=== PATIENT | male | born 1950 | race Caucasian/White ===

== ENCOUNTER 2019-09-05 10:40 | Inpatient (IN) ==
--- OUTSIDE RECORDS SUMMARY | 2019-09-05 10:43 | External Medical Summary | Continuity of Care Document ---
:1950 Author Name Katy Tran, Provider Address Unavailable Unavailable , Care Team Providers Name Role Phone Shahzad [email or web address] PCP, UNKNOWN Unavailable Unavailable Assessments Assessed Problems:Lower abdominal pain, left Problems Asthma (493.90) (J45.909) Hypertension (401.9) (I10) Lower abdominal pain, left Sleep apnea (780.57) (G47.30) Allergies and Adverse Reactions Allergy history not documented Medications Probenecid 500 MG Oral Tablet Refills: 0 Naproxen Sodium 550 MG Oral Tablet Refills: 0 Lasix 40 MG Oral Tablet Refills: 0 NexIUM 40 MG Oral Capsule Delayed Release Refills: 0 Atenolol 25 MG Oral Tablet Refills: 0 Avodart 0.5 MG Oral Capsule Refills: 0 Darvocet-N 100 TABS Refills: 0 Zocor 20 MG Oral Tablet Refills: 0 Xanax 0.25 MG Oral Tablet Refills: 0 Vasotec 5 MG Oral Tablet Refills: 0 Vitamin B-12 1000 MCG/ML SOLN Refills: 0 Aspirin 81 MG TABS Refills: 0 Procedures History of Knee Surgery Status: Complete d Immunizations Immunizations not documented Plan of Treatment Planned Observations Planned Goals not documented Results No Known Results Results not documented Encounters Appointment; Shahzad Victoria M.D. 22-Jan-2010 15:30 Encounter Diagnosis: Problem not documented
[2019-09-05] MEDS ORDERED: HYDROmorphone INJ 0.5 MG/0.5 ML SYR IV STA ×2 (11:20→13:37)
[2019-09-05] MEDS ORDERED: ONDANSETRON INJ 2 MG/ML 2 ML VIAL IV STA (11:20)
[2019-09-05] MEDS ORDERED: SODIUM CHLORIDE 0.9% 1000ML 1,000 ML IV SCH (11:30)
[2019-09-05 11:34] LABS: Appearance Urine Clear (Clear); Bilirubin Urine Negative (Negative); Blood Urine Negative (Negative); Color Urine Yellow; Glucose Urine UA Negative (Negative); Ketones Urine Negative (Negative); Leukocyte Esterase Urine Negative (Negative); Nitrite Urine Negative (Negative); Protein Urine Negative (Negative); Specific Gravity Urine 1.012 (1.000-1.030); Urobilinogen Urine Negative (Negative)
[2019-09-05 11:55] LABS: Basophils # (auto) 0.01 K/uL (0-0.2); Basophils % (auto) 0.1 %; Eosinophils # (auto) 0.43 K/uL (0-0.5); Eosinophils % (auto) 5.6 %; Hematocrit (blood only) 35.6 % (42-52); Immature Granulocytes # (auto) 0.02 K/uL (0.00-0.02); Immature Granulocytes % (auto) 0.3 %; Lymphocytes # (auto) 1.09 K/uL (1.2-3.4); Lymphocytes % (auto) 14.3 %; Mean Corpuscular Hemoglobin 29.4 pg (25-34); Mean Corpuscular Hgb Conc 33.7 g/dL (32-36); Mean Corpuscular Volume 87.3 fL (80-100); Mean Platelet Volume 10.2 fL (7.4-10.4); Monocytes # (auto) 0.67 K/uL (0.11-0.59); Monocytes % (auto) 8.8 %; Neutrophils % (auto) 70.9 %; Platelet Count 163 K/uL (130-400); RDW Coefficient of Variation 13.6 % (11.5-14.5); RDW Standard Deviation 43.7 fL (36.4-46.3); Red Blood Count 4.08 M/uL (4.7-6.1); White Blood Count 7.62 K/uL (4.8-10.8)
[2019-09-05 12:11] LABS: Albumin Level 3.4 gm/dl (3.4-5.0); BUN Creatinine Ratio 15.5 (10-20); Calcium 8.4 mg/dl (8.5-10.1); Creatinine Clr Calc Pharmacy 63.7 ml/min; Est GFR (African American) 52.6; Est GFR (Non-African American) 45.4; Potassium 3.9 mmol/L (3.5-5.1)
[2019-09-05 12:14] LABS: Albumin Globulin Ratio 1.1 (0.9-2); Bilirubin,Total 0.4 mg/dl (0.2-1); Globulin 3.2 gm/dl (2.5-4.0); Total Protein 6.6 gm/dl (6.4-8.2)
[2019-09-05 12:16] LABS: INR 2.4 (0.9-1.1); Partial Thromboplastin Ratio 1.8; Prothrombin Time 23.1 Seconds (9.0-12.0)
[2019-09-05 12:20] LABS: Partial Thromboplastin Time 47.5 Seconds (21.0-31.0)
--- NOTE | 2019-09-05 12:49 | XRay Report ---
KUB HISTORY: Acute left-sided flank pain L flank pain COMPARISON: Chest radiograph 03/17/2012 FINDINGS: The bowel gas pattern is non-obstructive. There is no organomegaly. Renal shadows are part ially obscured by bowel gas. No definite left nephrolithiasis. There are 2 indeterminate calcificatio ns of the left hemipelvis measuring up to 6 mm. 6 L calcification of the abdominal right upper quadra nt is suggestive of nonobstructing right nephrolithiasis. Moderate fecal retention No pneumoperitoneu m or pneumatosis. Multilevel degenerative changes of the spine. No fracture. IMPRESSION: 1. Right nephrolithiasis. 2. There are two indeterminate somewhat irregular calcifications of the left hemipelvis measuring up to 6 mm. Vascular calcifications versus urolith are the differential considerations. Correlate with u rinalysis and prior imaging. 3. Moderate fecal retention. Electronically signed by: Thor Yeh M.D. 09/05/2019 12:48 PM
--- NOTE | 2019-09-05 15:01 | History & Physical Report ---
Date of Service September 05, 2019 Assessment & Plan (1) Kidney stone on left side: Patient with ongoing pain x [address] obtained at [facility] on 08/28 and 09/03, patient states that he has a 7mm stone and it has not moved. He has been taking Flomax and Oxycodone. Denies fevers, chills, nausea. States that his urinary stream has become weaker over the last 3 days and that he has been needing to push to start the stream. UA with no evidence of infection -Observation to medical floor -IVF - LR at 125mL/hr x 2 liters -Toradol PRN pain -Dilaudid PRN pain -Zofran PRN nausea -Continue Flomax 0.4mg po daily -Strain urine - unlikely to pass given size and duration. -Request records and imaging from [facility] -Urology consultation appreciated -Will hold Coumadin, repeat INR in AM -NPO after midnight Present on Admission?: Yes (2) Depression: Patient with well managed depression, history of PTSD from event experienced during prior service. 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 Patient states he has not had a flare for > 2 years. He reports he no longer takes medication for his MG. Follows with Dr. Gonzalez in [place] -Noted. Cautious use of medications that may exacerbate crisis, specifically antibiotics/quinolones Present on Admission?: Yes (6) Dyslipidemia: Chronic. Stable -Continue Simvastatin Present on Admission?: Yes (7) Gout: Chronic. Stable. No acute flare -Continue Uloric. ?switching to Allopurinol Present on Admission?: Yes (8) History of DVT (deep vein thrombosis): Patient with history of DVT x 2 in LLE. On Coumadin anticoagulation, INR=2.4 -Hold Coumadin for now -Repeat INR in AM (9) Constipation: No BM x 1 week. ?secondary to opiates -Cautious use of opiates -IVF and electrolyte repletion as needed -Colace 100mg po BID -Dulcolax 10mg NE -Miralax PRN -Will add enema if above measures are unsuccessful F/E/N - LR at 125mL/hr x 2 liters, monitor electrolytes and replete as needed, AHA diet, NPO after midnight Ppx - SCDs Code - Full Dispo - Observation to medical floor Present on Admission?: Yes History of Present Illness Chief Complaint: Renal stone Primary Care Provider: NO PCP Mr. galvan is a pleasant 69-year-old male presenting with left-sided flank pain x12 days. Pain is severe, cramping, worse with standing and walking. He was seen at the [facility] for this and had a CT scan performed on 28 August which revealed (by patient report) a renal stone, 7 mm in size. He was managed conservatively with Flomax and oxycodone as needed. He was seen again on ober at the [facility] and had a repeat CAT scan which patient states that the stone had not moved. He continues to have left-sided flank pain but denies fevers, chills, nausea, vomiting. He is passing urine but states that over the last 3 days his urinary stream has become weak and he is needed to strain to initiate. Patient states that he had been taking the oxycodone but has a documented allergy to it. He reports a small patch of itchy rash on his right forearm which she believes to be secondary to oxycodone allergy. Additionally, patient complains of constipation. He has not had a bowel move ment for over 1 week. Normal bowel movements are every 2 days. He has not taken any stool softeners or laxatives yet. Patient with no additional complaints. Specifically no fevers, chills, chest pa in, palpitations, cough, wheeze, shortness of breath, nausea, vomiting, abdominal pain, diarrhea ER course: Dilaudid, Zofran, normal saline Allergies Allergy/AdvReac Type Severity Reaction Status Date / Time oxycodone Allergy Unknown rash, itch Verified 09/05/19 13:37 celecoxib AdvReac Mild NAUSEA Verified 09/05/19 13:37 Home Medications Home Medications Medication Instructions Recorded Confirmed Type dorzolamide 1 drp OPHTHALMIC (EYE) BID 09/05/19 09/05/19 History febuxostat [Uloric] 40 mg PO DAILY 09/05/19 09/05/19 History furosemide [Lasix] 40 mg PO QAM 09/05/19 09/05/19 History naproxen 250 mg PO BID PRN 09/05/19 09/05/19 History oxycodone 10 mg PO DAILY PRN 09/05/19 09/05/19 History pyridostigmine bromide 60 mg PO UNKNOWN 09/05/19 09/05/19 History sertraline 25 mg PO QPM 09/05/19 09/05/19 History simvastatin 20 mg PO PM 09/05/19 09/05/19 History tamsulosin [Flomax] 0.4 mg PO DAILY 09/05/19 09/05/19 History travoprost [Travatan Z] 1 drp OPHTHALMIC (EYE) QAM 09/05/19 09/05/19 History warfarin 4 mg PO QPM 09/05/19 09/05/19 History Past Med/Surg History Medical History History of DVT (deep vein thrombosis) LLE - 2017 Gout Dyslipidemia Myasthenia gravis Glaucoma steroid induced PTSD (post-traumatic stress disorder) Depression Kidney stone on left side (Acute) Anemia CKD (chronic kidney disease) Morbid obesity with BMI of 40.0-44.9, adult Sleep apnea Surgical History History of bilateral knee arthroplasty History of rotator cuff surgery Family History Other Family history non-contributory Social History Preferred Language: Qat[place] Communication Ability: Effective 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 Required: No Beliefs That Will Affect Care: None Current Living Situation: Alone Other Information That Helps Us Care for You: No Feels Safe at Home: Yes Safety Concerns: Feels Safe At This Time Smoking Status: Never smoker Hx Alcohol Use: Yes Hx Substance Use: No Review of Systems Review of Systems: All systems reviewed & are unremarkable except as noted in HPI & below Physical Exam Physical Exam: General: patient resting comfortably, in mild distress secondary to discomfort, non-toxic in appearance, AA&O x 4 Skin: warm, dry, intact, no rashes or lesions HEENT: NC/AT, right eye clouded, left pupil round, pupil reactive, anicteric sclera, external ear normal to inspection and nontender, nares patent, moist mucus membranes, dentition intact, no oropharyngeal lesions, neck supple, trachea midline, no LAD, no thyromegaly, no JVD Heart: +S1/S2, regular, no m/r/g Lungs: equal air entry bilaterally, no rales/rhonchi/wheezes Abd: +BS, soft, mildly distended, tender with palpation of LLQ with no rebound/guarding/peritoneal signs,, +Left flank pain, no masses/organomegaly/ascites Ext: warm, 2+ pulses in UE/LE bilaterally, no clubbing/cyanosis or edema Neuro: nonfocal, patient AA&O x 4, speech intact, no facial droop, moving all extremities on command with equal strength 5/5 Results & Data Vital Signs (Past 12 Hours) Vital Signs Temp Pulse Resp BP Pulse Ox 09/05/19 14:45 49 L 17 97 09/05/19 14:31 65 24 99 09/05/19 14:30 52 L 15 163/87 H 98 09/05/19 14:15 48 L 15 98 09/05/19 14:01 52 L 18 93 09/05/19 14:00 50 L 18 142/71 H 96 09/05/19 13:45 52 L 23 96 09/05/19 13:36 53 L 19 97 09/05/19 13:35 57 L 15 159/86 H 96 09/05/19 13:34 79 20 09/05/19 12:01 52 L 14 97 09/05/19 12:00 51 L 15 135/69 94 09/05/19 11:51 48 L 14 96 09/05/19 11:49 58 L 18 143/72 H 95 09/05/19 10:49 36.6 C 56 L 24 155/79 H 95 Laboratory Results Lab Results 09/05/19 09/05/19 09/05/19 Range/Units 11:25 11:25 11:25 WBC 7.62 (4.8-10.8) K/uL RBC 4.08 L (4.7-6.1) M/uL Hgb 12.0 L (14.0-18.0) g/dL Hct 35.6 L (42-52) % MCV 87.3 (80-100) fL MCH 29.4 (25-34) pg MCHC 33.7 (32-36) g/dL RDW Std Deviation 43.7 (36.4-46.3) fL RDW Coeff of [place]oda 13.6 (11.5-14.5) % Plt Count 163 (130-400) K/uL MPV 10.2 (7.4-10.4) fL Immature Gran % (Auto) 0.3 % Neut % (Auto) 70.9 % Lymph % (Auto) 14.3 % [place] % (Auto) 8.8 % Eos % (Auto) 5.6 % Baso % (Auto) 0.1 % Immature Gran # (Auto) 0.02 (0.00-0.02) K/uL Neut # (Auto) 5.40 (1.4-6.5) K/uL Lymph # (Auto) 1.09 L (1.2-3.4) K/uL [place] # (Auto) 0.67 H (0.11-0.59) K/uL Eos # (Auto) 0.43 (0-0.5) K/uL Baso # (Auto) 0.01 (0-0.2) K/uL PT (9.0-12.0) Seconds INR (0.9-1.1) APTT (21.0-31.0) Seconds PTT Ratio Sodium 139 (136-145) mmol/L Potassium 3.9 (3.5-5.1) mmol/L Chloride 106 (98-107) mmol/L Carbon Dioxide 27 (21-32) mmol/L Anion Gap 6.0 (3-11) BUN 24 H (7-18) mg/dl Creatinine 1.54 H (0.6-1.4) mg/dl Est Cr Clr Drug Dosing 63.7 ml/min Est GFR ( Amer) 52.6 Est GFR (Non-Af Amer) 45.4 BUN/Creatinine Ratio 15.5 (10-20) Glucose 109 H (70-99) mg/dl Calcium 8.4 L (8.5-10.1) mg/dl Total Bilirubin 0.4 (0.2-1) mg/dl AST 20 (15-37) U/L ALT 22 (12-78) U/L Alkaline Phosphatase 70 (45-117) U/L Total Protein 6.6 (6.4-8.2) gm/dl Albumin 3.4 (3.4-5.0) gm/dl Globulin 3.2 (2.5-4.0) gm/dl Albumin/Globulin Ratio 1.1 (0.9-2) Lipase 102 (73-393) U/L Urine Color Yellow Urine Appearance Clear (Clear) Urine pH 5.0 (4.5-7.5) Ur Specific [place] 1.012 (1.000-1.030) Urine Protein Negative (Negative) Urine Glucose (UA) Negative (Negative) Urine Ketones Negative (Negative) Urine Blood Negative (Negative) Urine Nitrite Negative (Negative) Urine Bilirubin Negative (Negative) Urine Urobilinogen Negative (Negative) Ur Leukocyte Esterase Negative (Negative) 09/05/19 Range/Units 11:25 WBC (4.8-10.8) K/uL RBC (4.7-6.1) M/uL Hgb (14.0-18.0) g/dL Hct (42-52) % MCV (80-100) fL MCH (25-34) pg MCHC (32-36) g/dL RDW Std Deviation (36.4-46.3) fL RDW Coeff of Rhoda (11.5-14.5) % Plt Count (130-400) K/uL MPV (7.4-10.4) fL Immature Gran % (Auto) % Neut % (Auto) % Lymph % (Auto) % [place] % (Auto) % Eos % (Auto) % Baso % (Auto) % Immature Gran # (Auto) (0.00-0.02) K/uL Neut # (Auto) (1.4-6.5) K/uL Lymph # (Auto) (1.2-3.4) K/uL [place] # (Auto) (0.11-0.59) K/uL Eos # (Auto) (0-0.5) K/uL Baso # (Auto) (0-0.2) K/uL PT 23.1 H (9.0-12.0) Seconds INR 2.4 H (0.9-1.1) APTT 47.5 H* (21.0-31.0) Seconds PTT Ratio 1.8 Sodium (136-145) mmol/L Potassium (3.5-5.1) mmol/L Chloride (98-107) mmol/L Carbon Dioxide (21-32) mmol/L Anion Gap (3-11) BUN (7-18) mg/dl Creatinine (0.6-1.4) mg/dl Est Cr Clr Drug Dosing ml/min Est GFR ( Amer) Est GFR (Non-Af Amer) BUN/Creatinine Ratio (10-20) Glucose (70-99) mg/dl Calcium (8.5-10.1) mg/dl Total Bilirubin (0.2-1) mg/dl AST (15-37) U/L ALT (12-78) U/L Alkaline Phosphatase (45-117) U/L Total Protein (6.4-8.2) gm/dl Albumin (3.4-5.0) gm/dl Globulin (2.5-4.0) gm/dl Albumin/Globulin Ratio (0.9-2) Lipase (73-393) U/L Urine Color Urine Appearance (Clear) Urine pH (4.5-7.5) Ur Specific [place] (1.000-1.030) Urine Protein (Negative) Urine Glucose (UA) (Negative) Urine Ketones (Negative) Urine Blood (Negative) Urine Nitrite (Negative) Urine Bilirubin (Negative) Urine Urobilinogen (Negative) Ur Leukocyte Esterase (Negative) Diagnostic Findings KUB HISTORY: Acute left-sided flank pain L flank pain COMPARISON: Chest radiograph 03/17/2012 FINDINGS: The bowel gas pattern is non-obstructive. There is no organomegaly. Renal shadows are partially obscured by bowel gas. No definite left nephrolithiasis. There are 2 indeterminate calcifications of the left hemipelvis measuring up to 6 mm. 6 L calcification of the abdominal right upper quadrant is suggestive of nonobstructing right nephrolithiasis. Moderate fecal retention No pneumoperitoneum or pneumatosis. Multilevel degenerative changes of the spine. No fracture. IMPRESSION: 1. Right nephrolithiasis. 2. There are two indeterminate somewhat irregular calcifications of the left hemipelvis measuring up to 6 mm. Vascular calcifications versus urolith are the differential considerations. Correlate with urinalysis and prior imaging. 3. Moderate fecal retention. Electronically signed by: Thor Yeh M.D. 09/05/2019 12:48 PM Dictated: 09/05/19 1244 Transcribed: 09/05/19 1244 Code Status & VTE Plan VTE Prophylaxis Plan VTE Prophylaxis will be ordered: Yes PG Care Time/CCT Total # of Minutes Spent Total Time Spent with Patient: Total time spent is greater than 50% in coordination of care (as documented) at patient's floor/unit and/or counseling patient: (1) Gout Chronicity: chronic Gout etiology: unspecified cause Gout site: unspecified site Presence of tophus: without tophus Qualified Code(s): M1A.9XX0 - Chronic gout, unspecified, without tophus (tophi) (2) Depression Active/Remission status: remission status unspecified Depression Type: major depressive disorder Major depression recurrence: recurrent Qualified Code(s): F33.9 - Major depressive disorder, recurrent, unspecified (3) Glaucoma Glaucoma type: unspecified Laterality: right Qualified Code(s): H40.9 - Unspecified glaucoma (4) Constipation Constipation type: unspecified constipation type Qualified Code(s): K59.00 - Constipation, unspecified
[2019-09-05] MEDS ORDERED: DOCUSATE SODIUM 100 MG CAP PO PRN (15:32)
[2019-09-05] MEDS ORDERED: POLYETHYLENE (MIRALAX) 17 GM PACK PO PRN (15:32)
[2019-09-05] MEDS ORDERED: bisacodyL 10 MG SUPP PR STA (15:32)
[2019-09-05] MEDS ORDERED: ONDANSETRON INJ 2 MG/ML 2 ML VIAL IV PRN (15:32)
[2019-09-05] MEDS ORDERED: ACETAMINOPHEN 325 MG TAB PO PRN (15:32)
[2019-09-05] MEDS: LACTATED RINGER'S 1,000 ML IV SCH ×2 (16:38→23:47)
[2019-09-05] MEDS: KETOROLAC TROMETHAMINE 15 MG/ML VIAL IV PRN (16:42)
--- NOTE | 2019-09-05 17:03 | Anesthesiology Consultation ---
Date of Service September 05, 2019 Assessment & Plan Chart Review Chart Review: Acceptable Risk for Surgery and Patient NOT seen in Pre Admission Testing Consults Requested none ASA ASA3 Proposed Anesthesia Anesthesia Type: General History Surgery Operation Date: 09/06/19 13:50 Proposed Procedures p Right Ureteroscopy - Shahzad Meeks II, DO Height/Weight Height: 6 ft Weight: 132.4 kg Allergies Allergy/AdvReac Type Severity Reaction Status Date / Time oxycodone Allergy Unknown rash, itch Verified 09/05/19 13:37 celecoxib AdvReac Mild NAUSEA Verified 09/05/19 13:37 Medications Home Medications Medication Instructions Recorded Confirmed Last Taken dorzolamide 1 drp OPHTHALMIC (EYE) BID 09/05/19 09/05/19 09/05/19 febuxostat [Uloric] 40 mg PO DAILY 09/05/19 09/05/19 Unknown furosemide [Lasix] 40 mg PO QAM 09/05/19 09/05/19 09/05/19 naproxen 250 mg PO BID PRN 09/05/19 09/05/19 Unknown oxycodone 10 mg PO DAILY PRN 09/05/19 09/05/19 Unknown pyridostigmine bromide 60 mg PO UNKNOWN 09/05/19 09/05/19 Unknown sertraline 25 mg PO QPM 09/05/19 09/05/19 09/04/19 simvastatin 20 mg PO PM 09/05/19 09/05/19 09/04/19 tamsulosin [Flomax] 0.4 mg PO DAILY 09/05/19 09/05/19 09/05/19 travoprost [Travatan Z] 1 drp OPHTHALMIC (EYE) QAM 09/05/19 09/05/19 09/05/19 warfarin 4 mg PO QPM 09/05/19 09/05/19 09/04/19 Active Medications Generic Name Dose Route Start Last Admin Trade Name Freq PRN Reason Stop Dose Admin Acetaminophen 650 mg 09/05/19 15:32 09/05/19 16:41 Tylenol PO 10/05/19 15:31 650 mg Q4H PRN Administration pain/fever Lactated Ringer's 1,000 mls @ 125 mls/hr 09/05/19 15:32 09/05/19 16:38 Lr IV 09/06/19 07:31 125 mls/hr .Q8H RAYMOND Administration Ketorolac Tromethamine 15 mg 09/05/19 15:32 09/05/19 16:42 Toradol IV 09/10/19 15:31 15 mg Q6H PRN Administration Pain Past Medical History Medical History History of DVT (deep vein thrombosis) LLE - 2017 Gout Dyslipidemia Myasthenia gravis Glaucoma steroid induced PTSD (post-traumatic stress disorder) Depression Kidney stone on left side (Acute) Anemia Blood clot in vein CKD (chronic kidney disease) Morbid obesity with BMI of 40.0-44.9, adult Sleep apnea Exercise / Class Metabolic Activity III < 4 Walking/Shop/Light housework Past Family History Family History Other Family history non-contributory Past Anesthesia History No Hx of Anesthesia Complications and No Family Hx of Anesthesia Complications History of PONV No Hx of PONV and No Hx of Motion Sickness Social History Smoking Status: Never smoker Hx Alcohol Use: Yes alcohol intake frequency: holidays/special occasions only Hx Substance Use: No Physical Exam Vital Signs Last Vital Signs Temp 37.0 C 09/05/19 15:32 Pulse 53 L 09/05/19 15:32 Resp 20 09/05/19 15:32 BP 154/72 H 09/05/19 15:32 Pulse Ox 97 09/05/19 15:32 Testing Laboratory Results 09/05/19 11:25 09/05/19 11:25 PT 23.1 Seconds (9.0-12.0) H 09/05/19 11:25 INR 2.4 (0.9-1.1) H 09/05/19 11:25 APTT 47.5 Seconds (21.0-31.0) H* 09/05/19 11:25 Urine Color Yellow 09/05/19 11:25 Urine Appearance Clear (Clear) 09/05/19 11:25 Urine pH 5.0 (4.5-7.5) 09/05/19 11:25 Ur Specific [place] 1.012 (1.000-1.030) 09/05/19 11:25 Urine Protein Negative (Negative) 09/05/19 11:25 Urine Glucose (UA) Negative (Negative) 09/05/19 11:25 Urine Ketones Negative (Negative) 09/05/19 11:25 Urine Nitrite Negative (Negative) 09/05/19 11:25 Ur Leukocyte Esterase Negative (Negative) 09/05/19 11:25
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
[2019-09-05] MEDS: HYDROmorphone INJ 1 MG/ML SYRINGE IV PRN (19:01)
[2019-09-05] MEDS: SERTRALINE HCL 50 MG TABLET PO SCH (21:51)
[2019-09-05] MEDS: SIMVASTATIN 20 MG TAB PO SCH (21:52)
[2019-09-06] MEDS: HYDROmorphone INJ 1 MG/ML SYRINGE IV PRN ×4 (00:52→16:08)
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
[2019-09-06 06:00] LABS: Basophils # (auto) 0.02 K/uL (0-0.2); Basophils % (auto) 0.4 %; Eosinophils % (auto) 7.3 %; Hematocrit (blood only) 32.3 % (42-52); Hemoglobin 10.6 g/dL (14.0-18.0); Immature Granulocytes # (auto) 0.01 K/uL (0.00-0.02); Immature Granulocytes % (auto) 0.2 %; Lymphocytes % (auto) 20.1 %; Mean Corpuscular Hemoglobin 29.1 pg (25-34); Mean Corpuscular Hgb Conc 32.8 g/dL (32-36); Mean Corpuscular Volume 88.7 fL (80-100); Monocytes # (auto) 0.48 K/uL (0.11-0.59); Monocytes % (auto) 8.8 %; Neutrophils # (auto) 3.46 K/uL (1.4-6.5); Neutrophils % (auto) 63.2 %; Platelet Count 146 K/uL (130-400); RDW Coefficient of Variation 13.6 % (11.5-14.5); RDW Standard Deviation 44.5 fL (36.4-46.3); Red Blood Count 3.64 M/uL (4.7-6.1); White Blood Count 5.47 K/uL (4.8-10.8)
[2019-09-06 06:29] LABS: BUN Creatinine Ratio 14.4 (10-20); Calcium 7.7 mg/dl (8.5-10.1); Creatinine Clr Calc Pharmacy 60.6 ml/min; Est GFR (African American) 49.5; Est GFR (Non-African American) 42.7; Potassium 4.1 mmol/L (3.5-5.1)
[2019-09-06] MEDS: KETOROLAC TROMETHAMINE 15 MG/ML VIAL IV PRN (07:53)
[2019-09-06] MEDS: TRAVOPROST Z 0.004% OPH SOLN 2.5 ML BTL OP SCH (09:01)
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
[2019-09-06 10:01] LABS: INR 2.3 (0.9-1.1)
[2019-09-06] MEDS: LACTATED RINGER'S 500 ML IV SCH (11:38)
--- NOTE | 2019-09-06 11:47 | Urology Progress Note ---
Date of Service September 06, 2019 Assessment & Plan (1) Kidney stone on left side: 69yo M with pmx PTSD, gout, myasthenia graivis, sleep apnea, hx DVT x2 in left leg, on coumadin admitted due to 5-6mm left UVJ stone. Keep NPO, strain all urine. Findings reviewed with Dr. Meeks. Given his VIKKI in the context of an obstructing left UVJ stone, will proceed with OR for cysto, Left retrograde pyelogram, left ureteroscopy, laser lithotripsy, stone basketing, possible ureteral dilation and Left stent placement. Risks and benefits to be reviewed with patient by Dr. Meeks. OR notified. Preoperative CXR and EKG ordered. Will cover with IV ciprofloxacin preoperatively. Subjective 69yo M with pmx PTSD, gout, myasthenia graivis, sleep apnea, hx DVT x2 in left leg, on coumadin admitted due to 5-6mm left UVJ stone. Pt slept okay last night. States pain is controlled as long as he is lying down, pain worsens with movement. Using nasal cpap for sleep. VS Stable. Cr elevated to 1.62 today. Pt is NPO awaiting procedure. Review of Systems Review of Systems: All systems reviewed & are unremarkable except as noted in HPI & below Physical Exam Constitutional: no acute distress and not ill appearing Eyes: no nystagmus ENMT: Ears: no hearing impairment Neck: trachea midline Respiratory: no respiratory distress and no cough Cardiovascular: Vessels: no JVD Chest (Breasts): Chest: normal inspection of chest Gastrointestinal (Abdomen): Inspection/Auscultation: abdomen not distended and no abdominal edema Percussion/Palpation: abdomen soft; abdomen nontender obese Musculoskeletal: Head/Neck/Chest: normocephalic and head atraumatic Skin: no rashes, warm and dry Neurologic: awake; not confused and not obtunded Psychiatric: Orientation: alert and oriented x 3 Eye Contact: good eye contact Affect: no depressed affect Genitourinary: bladder normal to inspection; no CVA tenderness Lymphatic: no lymphadenopathy and no lymphedema Results & Data Vital Signs (Past 12 Hours) Vital Signs Temp Pulse Resp BP Pulse Ox 09/06/19 07:00 36.8 C 93 H 18 164/74 H 94 PG Care Time/CCT Total # of Minutes Spent Total Time Spent with Patient: Total time spent is greater than 50% in coordination of care (as documented) at patient's floor/unit and/or counseling patient:
[2019-09-06] MEDS: FEBUXOSTAT 40 MG TABLET PO SCH (12:00)
[2019-09-06] MEDS: FUROSEMIDE 40 MG TAB PO SCH (12:00)
[2019-09-06] MEDS: TAMSULOSIN HCL 0.4 MG CAP PO SCH (12:00)
[2019-09-06] MEDS ORDERED: CIPROFLOXACIN 400 MG/200 ML BAG IV SCH (13:00)
[2019-09-06] MEDS ORDERED: IOTHALAMATE MEGLUMINE II 17.2% 250 ML VIAL ONE (13:34)
[2019-09-06] MEDS ORDERED: ONDANSETRON INJ 2 MG/ML 2 ML VIAL IV PRN (13:35)
[2019-09-06] MEDS ORDERED: ATROPINE SULFATE 0.1 MG/ML 10ML SYR IV PRN (13:35)
[2019-09-06] MEDS ORDERED: ePHEDrine sulfate 50 MG/ML AMP IV PRN (13:35)
[2019-09-06] MEDS ORDERED: fentaNYL citrate 100 MCG/2 ML VIAL IV PRN (13:35)
[2019-09-06] MEDS ORDERED: PROPOFOL IV EMULSION 10 MG/ML 20 ML VIAL IV ONE (13:37)
[2019-09-06] MEDS ORDERED: MIDAZOLAM HCL 1 MG/ML 2ML VIAL ONE (13:37)
[2019-09-06] MEDS ORDERED: ONDANSETRON INJ 2 MG/ML 2 ML VIAL ONE (13:37)
[2019-09-06] MEDS ORDERED: LIDOCAINE HCL 2% 2 ML VIAL/AMP(20MG/ML) INFIL ONE (13:37)
[2019-09-06] MEDS ORDERED: fentaNYL citrate 100 MCG/2 ML VIAL ONE (13:37)
[2019-09-06] MEDS ORDERED: DEXAMETHASONE SOD INJ 4 MG/ML VIAL ONE ×2 (13:37→14:23)
[2019-09-06] MEDS ORDERED: GLYCOPYRROLATE 0.2 MG/ML VIAL ONE (14:23)
--- NOTE | 2019-09-06 14:25 | Operative Report ---
PG Post Operative Report Pre & Post Diagnosis Operation Date: 09/06/19 13:50 Pre-Op Diagnosis: RENAL STONES Post: Same I personally identified the patient: Yes Procedure Operation Date: 09/06/19 13:50 Actual Procedures p Cystoscopy, Left Retrograde Pyelogram, Left Ureteral Stent Insertion, Left Ureteroscopy, Laser Lithotripsy, and Basket Stone Removal(Left) - Shahzad Meeks II, DO Surgeon Shahzad Meeks, II, DO Psych Social Worker None Estimated Blood Loss 1 Findings Consistent with Post-Op Diagnosis Specimens Stone distal left ureter. Drains 6 Fr Multilength Anesthesia Type General Complications none Disposition Disposition: Recovery Room Indications Distal obstructing stone in left ureter that failed spontaneous passage. Risks and benefits discussed. Coumadin was held. Description of Procedure Patient was consented and brought back to the operating room. Patient was placed under anesthesia in the supine position and moved to the dorsal lithotomy position. Patient was prepped and draped in the regular sterile fashion. A time out was completed. A 30degree Cystoscope was placed into the bladder and the entire bladder was examined. The UO's were identified. The UO was cannulized with a catheter and a retrograde pyelogram was completed. A wire was then placed. The Rigid ureteroscope was taken into the ureter. The stone was identified. A laser fiber was selected and the stones were pulverized to dust and small fragments. Larger fragments were grasped and removed and sent for analysis. The entire area was once again examined. No residual large fragments or areas of concern were noted. The scope was slowly removed with the wire left in place. Contrast was placed through the scope for a pyelogram to assist in stent placement. The entire ureter was examined as the scope was slowly removed. No obstructions or other areas of concern were noted. With the wire in place, a 6 Fr Double J stent was placed. It was confirmed with fluoroscopy. With the stent in place, the bladder was emptied. The scope was removed. The patient was cleaned, aroused from anesthesia, and transferred to the pacu in stable condition having tolerated the procedure well with no complications. I was present and participated in all aspects of the procedure. The patient will be monitored in the PACU until transferred. Stent will remain for approx 1 week to be removed in office. I attest to the content of the Intraoperative Record and any orders documented therein. Any exceptions are noted below.
--- NOTE | 2019-09-06 14:34 | Fluoroscopy Report ---
FL retrograde includes kub HISTORY: CYSTO FLUOROSCOPY TIME: 32 seconds FINDINGS: 3 fluoroscopic spot images were submitted for review. Retrograde opacification of the left renal collecting system followed by placement of a ureteral stent which appears in good position. IMPRESSION: Fluoroscopy provided for left ureteral stent placement which appears in good position.. Electronically signed by: Jl Duran M.D. 09/06/2019 2:33 PM
--- NOTE | 2019-09-06 15:24 | Anesthesiology Progress Note ---
Date of Service September 06, 2019 Anesthesia Post Procedure Vital Signs Vital Signs: Temp Pulse Pulse Resp BP Pulse Ox 09/06/19 15:15 37.2 C 54 L 13 159/80 H 96 09/06/19 15:05 37.2 C 54 L 15 153/77 H 96 09/06/19 14:55 36.8 C 60 12 155/78 H 98 09/06/19 14:45 36.8 C 58 L 15 161/79 H 99 09/06/19 14:35 36.8 C 65 16 147/74 H 97 09/06/19 13:15 37 C 52 L 18 150/77 H 94 09/06/19 07:00 36.8 C 93 H 18 164/74 H 94 09/05/19 23:20 36.6 C 55 L 18 143/66 H 94 09/05/19 15:32 37.0 C 53 L 20 154/72 H 97 Pain Intensity Left Flank: Pain Intensity: 3 Transfer of Care Handoff Completed per policy Notes Mental Status: alert / awake / arousable and participated in evaluation Patient Amnestic to Procedure: Yes Nausea / Vomiting: adequately controlled Pain: adequately controlled Airway Patency, RR, SpO2: stable & adequate BP & HR: stable & adequate Hydration State: stable & adequate Anesthetic Complications: no major complications apparent
[2019-09-06] MEDS: SERTRALINE HCL 50 MG TABLET PO SCH (20:20)
[2019-09-06] MEDS: SIMVASTATIN 20 MG TAB PO SCH (20:20)
[2019-09-06] MEDS ORDERED: LACTATED RINGER'S 1,000 ML IV SCH (22:00)
[2019-09-07] MEDS: LACTATED RINGER'S 500 ML IV SCH (00:52)
[2019-09-07 06:19] LABS: Hematocrit (blood only) 33.8 % (42-52); Hemoglobin 11.2 g/dL (14.0-18.0); Mean Corpuscular Hemoglobin 28.9 pg (25-34); Mean Corpuscular Hgb Conc 33.1 g/dL (32-36); Mean Corpuscular Volume 87.3 fL (80-100); Mean Platelet Volume 10.4 fL (7.4-10.4); Platelet Count 153 K/uL (130-400); RDW Coefficient of Variation 13.2 % (11.5-14.5); RDW Standard Deviation 42.2 fL (36.4-46.3); Red Blood Count 3.87 M/uL (4.7-6.1); White Blood Count 8.43 K/uL (4.8-10.8)
[2019-09-07 06:33] LABS: INR 1.8 (0.9-1.1); Prothrombin Time 17.7 Seconds (9.0-12.0)
[2019-09-07 06:59] LABS: Albumin Level 2.9 gm/dl (3.4-5.0); BUN Creatinine Ratio 14.5 (10-20); Calcium 8.5 mg/dl (8.5-10.1); Creatinine Clr Calc Pharmacy 49.6 ml/min; Est GFR (African American) 38.8; Est GFR (Non-African American) 33.5; Potassium 4.5 mmol/L (3.5-5.1)
[2019-09-07 07:02] LABS: Albumin Globulin Ratio 0.9 (0.9-2); Bilirubin,Total 0.4 mg/dl (0.2-1); Globulin 3.4 gm/dl (2.5-4.0); Total Protein 6.3 gm/dl (6.4-8.2)
--- NOTE | 2019-09-07 08:45 | Urology Progress Note ---
Date of Service September 07, 2019 Assessment & Plan (1) Kidney stone on left side: 69yo M POD #1 cysto, URS/LL with ureteral stent placement due to 5-6mm left UVJ stone. VSS Progressing very well. Typical stent irritation and expectations reviewed. Elevation in Creatinine noted, not unexpected and will continue to monitor as outpatient. Okay to discharge home from our perspective with Cipro 250mg bid x3d given VIKKI, flomax, oxybutynin 5mg BID PRN bladder irritation and pain control. Will plan for outpatient stent removal in 1 week. Outpatient appt scheduled for 09/25 at 8:45AM with Dr Meeks at [address] Added to discharge instructions. Thank you for allowing us to participate in the acute care of Mr. Irby. Please reconsult us with additional questions, concerns or changes in patient status. Subjective 69yo M POD #1 cysto, URS/LL with ureteral stent placement. Pt doing well this AM. Does acknowledge some urgency, typical stent irritation, hematuria. VS stable, no new issues or concerns. Subjectively feeling better. Review of Systems Review of Systems: All systems reviewed & are unremarkable except as noted in HPI & below Physical Exam Constitutional: no acute distress and not ill appearing Eyes: no nystagmus ENMT: Ears: no hearing impairment Neck: trachea midline Respiratory: no respiratory distress and no cough nasal cpap intact Cardiovascular: Vessels: no JVD Chest (Breasts): Chest: normal inspection of chest Gastrointestinal (Abdomen): Inspection/Auscultation: abdomen not distended and no abdominal edema Percussion/Palpation: abdomen soft; abdomen nontender obese abdomen Musculoskeletal: Head/Neck/Chest: normocephalic and head atraumatic Skin: no rashes, warm and dry Neurologic: awake; not confused and not obtunded Psychiatric: Orientation: alert and oriented x 3 Eye Contact: good eye contact Affect: no depressed affect Genitourinary: bladder normal to inspection; no CVA tenderness Lymphatic: no lymphadenopathy and no lymphedema Results & Data Vital Signs (Past 12 Hours) Vital Signs Temp Pulse Resp BP Pulse Ox 09/07/19 07:16 36.8 C 52 L 18 152/72 H 95 09/07/19 03:26 36.7 C 55 L 18 141/66 H 96 09/06/19 23:37 37 C 60 18 138/62 93 PG Care Time/CCT Total # of Minutes Spent Total Time Spent with Patient: Total time spent is greater than 50% in coordination of care (as documented) at patient's floor/unit and/or counseling patient:
[2019-09-07] MEDS: TAMSULOSIN HCL 0.4 MG CAP PO SCH (09:10)
[2019-09-07] MEDS: FUROSEMIDE 40 MG TAB PO SCH (09:10)
[2019-09-07] MEDS: FEBUXOSTAT 40 MG TABLET PO SCH (09:11)
[2019-09-07] MEDS: TRAVOPROST Z 0.004% OPH SOLN 2.5 ML BTL OP SCH (09:11)
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
[2019-09-11 17:40] LABS: Vitamin D 1,25 33 pg/mL (18-72); Vitamin D3,1,25 33 pg/mL
[2019-09-14 07:59] LABS: Component 2 DNR
== END 2019-09-07 11:41 | disposition home or self-care (01) | DRG 660 ==
LOC: ED 10:40 → 3N 10:40 → SUATTDRO 14:40 → 3N 15:17

== ENCOUNTER 2019-12-02 00:39 | Inpatient (IN) ==
[2019-12-02] MEDS ORDERED: ACETAMINOPHEN 325 MG TAB PO PRN (08:33)
[2019-12-02] MEDS ORDERED: ONDANSETRON INJ 2 MG/ML 2 ML VIAL IV PRN (08:33)
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
[2019-12-02 09:18] LABS: Basophils # (auto) 0.02 K/uL (0-0.2); Basophils % (auto) 0.2 %; Eosinophils # (auto) 0.32 K/uL (0-0.5); Eosinophils % (auto) 3.8 %; Hematocrit (blood only) 32.7 % (42-52); Hemoglobin 10.8 g/dL (14.0-18.0); Immature Granulocytes # (auto) 0.02 K/uL (0.00-0.02); Immature Granulocytes % (auto) 0.2 %; Lymphocytes # (auto) 0.92 K/uL (1.2-3.4); Lymphocytes % (auto) 10.8 %; Mean Corpuscular Hemoglobin 28.6 pg (25-34); Mean Corpuscular Volume 86.5 fL (80-100); Mean Platelet Volume 9.7 fL (7.4-10.4); Monocytes # (auto) 0.48 K/uL (0.11-0.59); Monocytes % (auto) 5.7 %; Neutrophils # (auto) 6.73 K/uL (1.4-6.5); Neutrophils % (auto) 79.3 %; Platelet Count 194 K/uL (130-400); RDW Coefficient of Variation 14.1 % (11.5-14.5); RDW Standard Deviation 44.4 fL (36.4-46.3); Red Blood Count 3.78 M/uL (4.7-6.1); White Blood Count 8.49 K/uL (4.8-10.8)
[2019-12-02 09:32] LABS: INR 2.6 (0.9-1.1); Prothrombin Time 24.7 Seconds (9.0-12.0)
[2019-12-02 09:35] LABS: BUN Creatinine Ratio 16.8 (10-20); Calcium 8.4 mg/dl (8.5-10.1); Potassium 3.7 mmol/L (3.5-5.1)
[2019-12-02] MEDS: ACETAMINOPHEN 325 MG TAB PO SCH ×3 (09:36→21:24)
[2019-12-02] MEDS: HYDROmorphone INJ 1 MG/ML SYRINGE IV PRN ×2 (09:37→22:14)
[2019-12-02 09:38] LABS: Albumin Globulin Ratio 0.8 (0.9-2); Bilirubin,Total 0.4 mg/dl (0.2-1); Globulin 3.8 gm/dl (2.5-4.0); Total Protein 6.8 gm/dl (6.4-8.2)
[2019-12-02] MEDS ORDERED: PHYTONADIONE 10 MG in SODIUM CHLORIDE 0.9% 50 ML IV ONE (10:30)
[2019-12-02] MEDS: TAMSULOSIN HCL 0.4 MG CAP PO SCH (11:54)
--- NOTE | 2019-12-02 13:25 | Surgery Consultation ---
Date of Consultation December 02, 2019 Assessment & Plan (1) Rectus sheath hematoma: pt is a 69 year-old male who was admitted to hospital for left rectus sheath hematoma. IMP: left rectus sheath hematoma Plan, no surgical indication now, I agree with conservative treatment now, hold coumadin, correct INR, repeat labs in am, control pain, colace 100mg po bid will F/U History of Present Illness Attending Physician: Philip Pete CC: left abdominal pain HPI: This is a 69 yo who served in the [place] War, with PMHx of history of DVT/PE on Coumadin, gout, HLD, myasthenia gravis, PTSD, depression, obesity, who presents as a direct transfer from [facility]. Patient was transferred to our facility for concern of enlarging left flank hematoma from approximately 5 x 11 cm after a bout of viral bronchitis, and [facility] does not have surgery on board for the weekend. Per CT of the abdomen/pelvis W/O IV contrast it reveals a hyperdense enlargement of the left rectus sheath measuring 4.8 cm AP by 11 cm transverse by 9.6 cm craniocaudal. Consistent with increased size of patient's known left rectus hematoma. His hemoglobin prior to transfer was 11.8. Pt notes his symptoms began yesterday, at 2pm while he was at home. He thought that he actually was getting another kidney stone. He reports recently having a cold with cough. He took all o is evening meds including coumadin last night, and then proceeded to come to the ER at [facility] as his pain was so severe. Currently the patient is doing well, he reports some of his pain has recurred but that he got dilaudid at OSH which worked well for pain. He denies any other acute complaints. I got a call for consult left rectus sheath hematoma, I reviewed pt's H/P , labs, and CT scan, with pt, pt feels better now, less abdominal pain after po pain medicine, last BM yesterday. pt denies fever, no diarrhea, no dizziness, no chest pain. Allergies Allergy/AdvReac Type Severity Reaction Status Date / Time oxycodone Allergy Unknown rash, itch Verified 11/07/19 11:31 celecoxib AdvReac Mild NAUSEA Verified 11/07/19 11:31 Home Medications Home Medications Medication Instructions Recorded Confirmed Type Travatan Z 1 drp OPHTHALMIC (EYE) QAM 09/05/19 12/02/19 History dorzolamide 1 drp OPHTHALMIC (EYE) BID 09/05/19 12/02/19 History febuxostat [Uloric] 40 mg PO DAILY 09/05/19 12/02/19 History pyridostigmine bromide 60 mg PO UNKNOWN 09/05/19 12/02/19 History sertraline 100 mg PO QPM 09/05/19 12/02/19 History simvastatin 20 mg PO PM 09/05/19 12/02/19 History tamsulosin [Flomax] 0.4 mg PO DAILY 09/05/19 12/02/19 History warfarin 2 mg PO QPM 09/05/19 12/02/19 History Past Med/Surg History Social History Preferred Language: Icelandic Communication Ability: Effective Contract Mail Carrier Required: No Beliefs That Will Affect Care: None Current Living Situation: Alone Other Information That Helps Us Care for You: No Feels Safe at Home: Yes Safety Concerns: Feels Safe At This Time Smoking Status: Never smoker Do You Dip or Chew Tobacco: No ; Second Hand Exposure: No ; Tobacco Cessation Education Requested by Patient: No Hx Alcohol Use: Yes Hx Substance Use: No Allergies Allergy/AdvReac Type Severity Reaction Status Date / Time oxycodone Allergy Unknown rash, itch Verified 11/07/19 11:31 celecoxib AdvReac Mild NAUSEA Verified 11/07/19 11:31 Home Medications Home Medications Medication Instructions Recorded Confirmed Type Travatan Z 1 drp OPHTHALMIC (EYE) QAM 09/05/19 12/02/19 History dorzolamide 1 drp OPHTHALMIC (EYE) BID 09/05/19 12/02/19 History febuxostat [Uloric] 40 mg PO DAILY 09/05/19 12/02/19 History pyridostigmine bromide 60 mg PO UNKNOWN 09/05/19 12/02/19 History sertraline 100 mg PO QPM 09/05/19 12/02/19 History simvastatin 20 mg PO PM 09/05/19 12/02/19 History tamsulosin [Flomax] 0.4 mg PO DAILY 09/05/19 12/02/19 History warfarin 2 mg PO QPM 09/05/19 12/02/19 History Patient History Social History Preferred Language: Icelandic Communication Ability: Effective Contract Mail Carrier Required: No Beliefs That Will Affect Care: None Current Living Situation: Alone Other Information That Helps Us Care for You: No Feels Safe at Home: Yes Safety Concerns: Feels Safe At This Time Smoking Status: Never smoker Do You Dip or Chew Tobacco: No ; Second Hand Exposure: No ; Tobacco Cessation Education Requested by Patient: No Hx Alcohol Use: Yes Hx Substance Use: No Review of Systems Review of Systems: All systems reviewed & are unremarkable except as noted in HPI & below Constitutional: as per Subjective / HPI Cardiovascular: Additional Comments: DVT, PE in 2019 Physical Exam Constitutional: WD/WN, vitals as above well developed, well nourished and + obese ENMT: external ear and nose normal, oropharynx normal Neck: trachea midline, no thyromegaly Respiratory: normal respiratory effort, lungs clear to auscultation normal respiratory effort Cardiovascular: RRR, no murmur, no edema Rate/Rhythm: regular rate and regular rhythm Heart Sounds: normal S1 and normal S2 Gastrointestinal (Abdomen): soft, tenderness at left side abdomen, palpable mass on left side abdomen wall, size 8x8cm, no redness, BS + Musculoskeletal: no cyanosis or clubbing, extremities motor strength 5/5 Skin: no rashes, warm and dry Neurologic: patellar DTR's 2+ bilat, sensation intact Psychiatric: Orientation: alert and oriented x 3 Results & Data Vital Signs (Past 12 Hours) Vital Signs Temp Pulse Resp BP Pulse Ox 12/02/19 09:14 36.4 C L 50 L 18 172/73 H 95 Laboratory Results Abnormal lab results 12/02/19 12/02/19 12/02/19 Range/Units 09:08 09:08 09:08 RBC 3.78 L (4.7-6.1) M/uL Hgb 10.8 L (14.0-18.0) g/dL Hct 32.7 L (42-52) % Neut # (Auto) 6.73 H (1.4-6.5) K/uL Lymph # (Auto) 0.92 L (1.2-3.4) K/uL PT 24.7 H (9.0-12.0) Seconds INR 2.6 H (0.9-1.1) Chloride 112 H (98-107) mmol/L BUN 24 H (7-18) mg/dl Creatinine 1.42 H (0.6-1.4) mg/dl Glucose 133 H (70-99) mg/dl Calcium 8.4 L (8.5-10.1) mg/dl Albumin 3.0 L (3.4-5.0) gm/dl Albumin/Globulin Ratio 0.8 L (0.9-2)
[2019-12-02] MEDS: SIMVASTATIN 20 MG TAB PO SCH (22:09)
[2019-12-02] MEDS: SERTRALINE HCL 100 MG TABLET PO SCH (22:09)
[2019-12-02] MEDS: DOCUSATE SODIUM 100 MG CAP PO SCH (22:09)
[2019-12-02] MEDS: DORZOLAMIDE HCL 2% OPH SOLN 10 ML BTL OP SCH (22:10)
[2019-12-03] MEDS: ACETAMINOPHEN 325 MG TAB PO SCH ×3 (06:29→21:25)
[2019-12-03 07:53] LABS: Hematocrit (blood only) 29.6 % (42-52); Mean Corpuscular Hemoglobin 29.3 pg (25-34); Mean Corpuscular Hgb Conc 33.8 g/dL (32-36); Mean Corpuscular Volume 86.8 fL (80-100); Mean Platelet Volume 9.9 fL (7.4-10.4); Platelet Count 188 K/uL (130-400); RDW Standard Deviation 44.8 fL (36.4-46.3); Red Blood Count 3.41 M/uL (4.7-6.1); White Blood Count 6.95 K/uL (4.8-10.8)
[2019-12-03 07:58] LABS: INR 1.2 (0.9-1.1)
[2019-12-03] MEDS: FEBUXOSTAT 40 MG TABLET PO SCH (08:02)
[2019-12-03] MEDS: DOCUSATE SODIUM 100 MG CAP PO SCH ×2 (08:02→21:20)
[2019-12-03] MEDS: TAMSULOSIN HCL 0.4 MG CAP PO SCH (08:02)
[2019-12-03] MEDS: DORZOLAMIDE HCL 2% OPH SOLN 10 ML BTL OP SCH (08:02)
[2019-12-03] MEDS: TRAVOPROST Z 0.004% OPH SOLN 2.5 ML BTL OP SCH (08:03)
[2019-12-03 08:20] LABS: BUN Creatinine Ratio 18.2 (10-20); Calcium 8.2 mg/dl (8.5-10.1); Creatinine Clr Calc Pharmacy 65.5 ml/min; Est GFR (African American) 56.5; Est GFR (Non-African American) 48.8; Potassium 3.9 mmol/L (3.5-5.1)
--- NOTE | 2019-12-03 09:58 | Surgery Progress Note ---
Date of Service doing better, less abdominal pain, H/H stable December 03, 2019 Assessment & Plan (1) Rectus sheath hematoma: pt is a 69 year-old male who was admitted to hospital for left rectus sheath hematoma. IMP: left rectus sheath hematoma Plan, no surgical indication now, I agree with conservative treatment now, hold coumadin, correct INR, repeat labs in am, control pain, colace 100mg po bid will F/U 12/03/2019 9:57am continue treatment, will F/U Physical Exam Constitutional: WD/WN, vitals as above well developed, well nourished and + obese ENMT: external ear and nose normal, oropharynx normal Neck: trachea midline, no thyromegaly Respiratory: normal respiratory effort, lungs clear to auscultation normal respiratory effort Cardiovascular: RRR, no murmur, no edema Rate/Rhythm: regular rate and regular rhythm Heart Sounds: normal S1 and normal S2 Gastrointestinal (Abdomen): normal bowel sounds, soft, nontender, no hepatosplenomegaly Percussion/Palpation: + abdomen tender and abdomen soft tenderness at left side abdomen, no rebound pain, Musculoskeletal: no cyanosis or clubbing, extremities motor strength 5/5 Skin: no rashes, warm and dry Neurologic: patellar DTR's 2+ bilat, sensation intact Psychiatric: Orientation: alert and oriented x 3 Results & Data Vital Signs (Past 12 Hours) Vital Signs Temp Pulse Pulse Resp BP Pulse Ox 12/03/19 08:59 52 L 12/03/19 08:06 36.6 C 51 L 18 149/73 H 96 12/03/19 04:00 36.6 C 63 19 115/61 96 12/02/19 23:00 36.6 C 57 L 18 142/72 H 97 12/02/19 22:20 51 L
[2019-12-03] MEDS ORDERED: Nursing to Pharmacy Communication ONE (10:33)
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
[2019-12-03] MEDS: SIMVASTATIN 20 MG TAB PO SCH (21:20)
[2019-12-03] MEDS: SIMBRINZA OP SCH (21:21)
[2019-12-03] MEDS: SERTRALINE HCL 100 MG TABLET PO SCH (21:21)
[2019-12-04] MEDS: POLYETHYLENE (MIRALAX) 17 GM PACK PO PRN (06:04)
[2019-12-04] MEDS: ACETAMINOPHEN 325 MG TAB PO SCH ×3 (06:07→20:36)
[2019-12-04 06:21] LABS: Hematocrit (blood only) 29.5 % (42-52); Hemoglobin 9.6 g/dL (14.0-18.0); Mean Corpuscular Hemoglobin 28.8 pg (25-34); Mean Corpuscular Hgb Conc 32.5 g/dL (32-36); Mean Corpuscular Volume 88.6 fL (80-100); Mean Platelet Volume 9.5 fL (7.4-10.4); Platelet Count 196 K/uL (130-400); RDW Standard Deviation 45.4 fL (36.4-46.3); Red Blood Count 3.33 M/uL (4.7-6.1); White Blood Count 6.87 K/uL (4.8-10.8)
[2019-12-04 06:35] LABS: INR 1.1 (0.9-1.1); Prothrombin Time 10.9 Seconds (9.0-12.0)
[2019-12-04 06:59] LABS: BUN Creatinine Ratio 18.7 (10-20); Creatinine Clr Calc Pharmacy 74.5 ml/min; Est GFR (African American) 65.7; Est GFR (Non-African American) 56.7; Potassium 3.9 mmol/L (3.5-5.1)
[2019-12-04] MEDS: TRAVOPROST Z 0.004% OPH SOLN 2.5 ML BTL OP SCH (08:35)
[2019-12-04] MEDS: SIMBRINZA OP SCH ×2 (08:35→20:34)
[2019-12-04] MEDS: FEBUXOSTAT 40 MG TABLET PO SCH (08:36)
[2019-12-04] MEDS: TAMSULOSIN HCL 0.4 MG CAP PO SCH (08:36)
[2019-12-04] MEDS: DOCUSATE SODIUM 100 MG CAP PO SCH ×2 (08:36→20:35)
[2019-12-04] MEDS: HYDROmorphone INJ 1 MG/ML SYRINGE IV PRN ×2 (08:40→20:38)
--- NOTE | 2019-12-04 11:44 | Surgery Progress Note ---
Date of Service December 04, 2019 Assessment & Plan (1) Rectus sheath hematoma: hemodynamically stable H&H mild drop to 9.6/29.5 today (10.7/32.7 --> 10.0/29.6 previously) increase in abdominal pain today but active yesterday ambulating hallway. INR 1.1 Plan: No surgical intervention required Advised pt may ambulate but do not over do it. Not a lot of bending over Will continue to hold coumadin today repeat am labs H&H, INR Continue medical mangement Dr. Burdick was present during my examination agrees with above Subjective having a bit more left lower abdominal to midline abdominal pain today bruising a little more today, going to left flank no nausea or vomiting tolerating diet ambulating hallway (5 times yesterday) Physical Exam Constitutional: WD/WN, vitals as above + obese; no acute distress Respiratory: normal respiratory effort; no respiratory distress Gastrointestinal (Abdomen): Inspection/Auscultation: abdomen normal to inspection; abdomen not distended Percussion/Palpation: + abdomen tender (LLQ and left of midline ) and abdomen soft; no guarding and abdomen not rigid Skin: no rashes, warm and dry ecchymosis of the left flank Psychiatric: A+Ox3, euthymic affect Results & Data Vital Signs (Past 12 Hours) Vital Signs Temp Pulse Pulse Resp BP Pulse Ox 12/04/19 09:12 61 12/04/19 08:12 36.7 C 57 L 19 152/80 H 97 12/04/19 04:04 36.5 C 55 L 18 149/75 H 96 12/04/19 00:31 51 L Laboratory Results 12/04/19 12/04/19 12/04/19 Range/Units 05:54 05:54 05:54 WBC 6.87 (4.8-10.8) K/uL RBC 3.33 L (4.7-6.1) M/uL Hgb 9.6 L (14.0-18.0) g/dL Hct 29.5 L (42-52) % MCV 88.6 (80-100) fL MCH 28.8 (25-34) pg MCHC 32.5 (32-36) g/dL RDW Std Deviation 45.4 (36.4-46.3) fL RDW Coeff of Rhoda 14.0 (11.5-14.5) % Plt Count 196 (130-400) K/uL MPV 9.5 (7.4-10.4) fL PT 10.9 (9.0-12.0) Seconds INR 1.1 (0.9-1.1) Sodium 142 (136-145) mmol/L Potassium 3.9 (3.5-5.1) mmol/L Chloride 113 H (98-107) mmol/L Carbon Dioxide 23 (21-32) mmol/L Anion Gap 6.0 (3-11) BUN 24 H (7-18) mg/dl Creatinine 1.28 (0.6-1.4) mg/dl Est Cr Clr Drug Dosing 74.5 ml/min Est GFR ( Amer) 65.7 Est GFR (Non-Af Amer) 56.7 BUN/Creatinine Ratio 18.7 (10-20) Glucose 107 H (70-99) mg/dl Calcium 8.0 L (8.5-10.1) mg/dl
[2019-12-04 13:23] LABS: Hematocrit (blood only) 30.7 % (42-52)
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
[2019-12-04] MEDS: SIMVASTATIN 20 MG TAB PO SCH (20:34)
[2019-12-04] MEDS: SERTRALINE HCL 100 MG TABLET PO SCH (20:35)
[2019-12-05] MEDS: ACETAMINOPHEN 325 MG TAB PO SCH ×3 (05:58→21:20)
[2019-12-05 06:12] LABS: Hemoglobin 9.7 g/dL (14.0-18.0); Mean Corpuscular Hgb Conc 33.4 g/dL (32-36); Mean Corpuscular Volume 86.8 fL (80-100); Mean Platelet Volume 9.7 fL (7.4-10.4); Platelet Count 193 K/uL (130-400); RDW Coefficient of Variation 13.9 % (11.5-14.5); RDW Standard Deviation 43.9 fL (36.4-46.3); Red Blood Count 3.34 M/uL (4.7-6.1); White Blood Count 6.62 K/uL (4.8-10.8)
[2019-12-05 06:25] LABS: Prothrombin Time 10.7 Seconds (9.0-12.0)
[2019-12-05 06:47] LABS: BUN Creatinine Ratio 16.2 (10-20); Calcium 8.4 mg/dl (8.5-10.1); Creatinine Clr Calc Pharmacy 72.3 ml/min; Est GFR (African American) 63.3; Est GFR (Non-African American) 54.7; Potassium 4.2 mmol/L (3.5-5.1)
[2019-12-05] MEDS: DOCUSATE SODIUM 100 MG CAP PO SCH ×2 (08:13→21:15)
[2019-12-05] MEDS: TAMSULOSIN HCL 0.4 MG CAP PO SCH (08:13)
[2019-12-05] MEDS: FEBUXOSTAT 40 MG TABLET PO SCH (08:13)
[2019-12-05] MEDS: SIMBRINZA OP SCH ×2 (08:13→21:16)
[2019-12-05] MEDS: TRAVOPROST Z 0.004% OPH SOLN 2.5 ML BTL OP SCH (08:13)
[2019-12-05] MEDS: HYDROmorphone INJ 1 MG/ML SYRINGE IV PRN (08:27)
--- NOTE | 2019-12-05 13:52 | Surgery Progress Note ---
Date of Service pt is doing fine, no increase abdominal pain, no nausea, no vomiting, H-9.7 December 05, 2019 Assessment & Plan (1) Rectus sheath hematoma: hemodynamically stable H&H mild drop to 9.6/29.5 today (10.7/32.7 --> 10.0/29.6 previously) increase in abdominal pain today but active yesterday ambulating hallway. INR 1.1 Plan: No surgical intervention required Advised pt may ambulate but do not over do it. Not a lot of bending over Will continue to hold coumadin today repeat am labs H&H, INR Continue medical mangement Dr. Burdick was present during my examination agrees with above 12/05/2019 1:52PM doing fine, H/H stable, resume coumadin ton, march D/C home tomorrow, Supervising Physician Co-Signing Physician Notes During my face to face encounter with the patient, I performed a physical examination and obtained a history. I discussed case with the APC Blanca Herman and the patient. I answered all of the patient's questions. I reviewed above note and agree with it. At this time, patient should be placed on vit K IV x 1 dose. Will monitor rectus sheath hematoma. Discussed with surgery, no intervention required at this time. Patient will be monitored and admitted to the hospital. Ok to eat. Await further input from surgery. Patient and family are in agreement with conservative measures at this time. Subjective patient with some increased pain this morning, required some dilaudid the pain was in LLQ, did not radiate to left flank had a BM this morning, eating well, no chest pain, no dyspnea mild drop in Hb this morning to 9.6, BP stable discussed with general surgery, repeat Hb in the morning, can resume Coumadin tomorrow patient hoping to go home tomorrow Review of Systems Constitutional: as per Subjective / HPI Cardiovascular: Additional Comments: DVT, PE in 2019 Physical Exam Constitutional: WD/WN, vitals as above well developed, well nourished and + obese ENMT: external ear and nose normal, oropharynx normal Neck: trachea midline, no thyromegaly Respiratory: normal respiratory effort, lungs clear to auscultation normal respiratory effort Cardiovascular: RRR, no murmur, no edema Rate/Rhythm: regular rate and regular rhythm Heart Sounds: normal S1 and normal S2 Gastrointestinal (Abdomen): normal bowel sounds, soft, nontender, no hepatosplenomegaly Percussion/Palpation: + abdomen tender and abdomen soft Musculoskeletal: no cyanosis or clubbing, extremities motor strength 5/5 Skin: no rashes, warm and dry Neurologic: patellar DTR's 2+ bilat, sensation intact Psychiatric: Orientation: alert and oriented x 3 Results & Data Vital Signs (Past 12 Hours) Vital Signs Temp Pulse Resp BP BP Pulse Ox 12/05/19 11:09 36.6 C 53 L 16 144/69 H 96 12/05/19 07:39 36.3 C L 56 L 16 170/76 H 97 12/05/19 04:03 36.5 C 49 L 18 144/57 H 97
[2019-12-05] MEDS ORDERED: WARFARIN SOD 2 MG TAB PO STA (16:42)
[2019-12-05] MEDS: TRAMADOL HCL 50 MG TABLET PO PRN ×2 (18:05→22:06)
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
[2019-12-05] MEDS: SERTRALINE HCL 100 MG TABLET PO SCH (21:15)
[2019-12-05] MEDS: SIMVASTATIN 20 MG TAB PO SCH (21:15)
[2019-12-06] MEDS: ACETAMINOPHEN 325 MG TAB PO SCH (08:39)
[2019-12-06] MEDS: SIMBRINZA OP SCH (08:44)
[2019-12-06] MEDS: TAMSULOSIN HCL 0.4 MG CAP PO SCH (08:45)
[2019-12-06] MEDS: DOCUSATE SODIUM 100 MG CAP PO SCH (08:45)
[2019-12-06] MEDS: TRAVOPROST Z 0.004% OPH SOLN 2.5 ML BTL OP SCH (08:46)
[2019-12-06] MEDS: FEBUXOSTAT 40 MG TABLET PO SCH (08:46)
[2019-12-06 08:51] LABS: Hemoglobin 10.4 g/dL (14.0-18.0)
[2019-12-06] MEDS: POLYETHYLENE (MIRALAX) 17 GM PACK PO PRN (09:07)
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
== END 2019-12-06 16:26 | disposition home or self-care (01) | DRG 556 ==
LOC: 2N 08:54 → SUATTDRO 08:54 → 2N 10:27

== ENCOUNTER 2020-08-14 08:50 | Inpatient (IN) ==
--- NOTE | 2020-07-25 15:29 | PAT Medication Instructions ---
Medication Instructions Date of Service July 25, 2020 Home Medications simvastatin 20 mg PO PM travoprost [Travatan Z] 1 drp OPHTHALMIC (EYE) QAM brimonidine 1 drp OPB BID furosemide [Lasix] 40 mg PO QAM multivitamin with minerals 1 tab PO QPM acetaminophen 650 mg tablet,extended release 650 mg PO QAM apixaban 5 mg tablet 5 mg PO BID febuxostat 40 mg tablet 40 mg PO QAM potassium [Potassium-99] 99 mg PO QAM sertraline 100 mg PO QPM trazodone 50 mg PO HS ASK your prescriber and surgeon apixaban 5 mg tablet 5 mg PO BID DO NOT take the morning of surgery furosemide [Lasix] 40 mg PO QAM potassium [Potassium-99] 99 mg PO QAM Take morning of surgery With a small sip of water, OTHERWISE NOTHING TO EAT OR DRINK AFTER MIDNIGHT: travoprost [Travatan Z] 1 drp OPHTHALMIC (EYE) QAM brimonidine 1 drp OPB BID acetaminophen 650 mg tablet,extended release 650 mg PO QAM (okay to take up to 4 hours prior to surgery if needed) febuxostat 40 mg tablet 40 mg PO QAM Take evening before surgery simvastatin 20 mg PO PM brimonidine 1 drp OPB BID multivitamin with minerals 1 tab PO QPM sertraline 100 mg PO QPM trazodone 50 mg PO HS Other Notes If you have any questions please call us at [phone] or [phone] or [phone] or [phone]
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
[2020-07-28 10:24] LABS: Basophils # (auto) 0.03 K/uL (0-0.2); Basophils % (auto) 0.5 %; Eosinophils # (auto) 0.27 K/uL (0-0.5); Eosinophils % (auto) 4.2 %; Hematocrit (blood only) 37.5 % (42-52); Hemoglobin 12.5 g/dL (14.0-18.0); Immature Granulocytes # (auto) 0.02 K/uL (0.00-0.02); Immature Granulocytes % (auto) 0.3 %; Lymphocytes # (auto) 1.06 K/uL (1.2-3.4); Lymphocytes % (auto) 16.4 %; Mean Corpuscular Hemoglobin 29.3 pg (25-34); Mean Corpuscular Hgb Conc 33.3 g/dL (32-36); Mean Corpuscular Volume 87.8 fL (80-100); Mean Platelet Volume 10.2 fL (7.4-10.4); Monocytes % (auto) 7.8 %; Neutrophils # (auto) 4.57 K/uL (1.4-6.5); Neutrophils % (auto) 70.8 %; Platelet Count 167 K/uL (130-400); RDW Coefficient of Variation 13.5 % (11.5-14.5); RDW Standard Deviation 43.5 fL (36.4-46.3); Red Blood Count 4.27 M/uL (4.7-6.1); White Blood Count 6.45 K/uL (4.8-10.8)
--- NOTE | 2020-07-28 10:30 | XRay Report ---
XR chest Pre-admission PA/Lat CLINICAL HISTORY: Preoperative chest COMPARISON STUDY: 03/17/2012 FINDINGS: The cardiac and mediastinal contours are normal. There is no evidence of focal pulmonary co nsolidation. There is no evidence of failure. No pleural effusions are visualized.[ IMPRESSION: No active disease in the chest. ACT 112: Negative or not required by law. Electronically signed by: Ken Butler M.D. 07/28/2020 10:28 AM
[2020-07-28 10:32] LABS: Appearance Urine Clear (Clear); Bilirubin Urine Negative (Negative); Blood Urine Negative (Negative); Color Urine Yellow; Glucose Urine UA Negative (Negative); Ketones Urine Negative (Negative); Leukocyte Esterase Urine Negative (Negative); Nitrite Urine Negative (Negative); Protein Urine Negative (Negative); Specific Gravity Urine 1.009 (1.000-1.030); Urobilinogen Urine Negative (Negative)
[2020-07-28 10:53] LABS: BUN Creatinine Ratio 12.7 (10-20); Calcium 8.7 mg/dl (8.5-10.1); Creatinine Clr Calc Pharmacy 68.3 ml/min; Est GFR (African American) 62.3; Est GFR (Non-African American) 53.8; Potassium 3.8 mmol/L (3.5-5.1)
[~2020-08-14 08:50] MED LIST: CEFAZOLIN 2000MG 2,000 MG/15 ML SYR IV SCH; HEPARIN SOD 5,000 UNIT/0.5 ML VIAL SQ SCH; LACTATED RINGER'S 1,000 ML IV SCH; LR 15ML/HR IV SCH
[2020-08-14] MEDS ORDERED: GLYCOPYRROLATE 0.2 MG/ML VIAL ONE (10:53)
[2020-08-14] MEDS ORDERED: NEOSTIGMINE METHYLSULFATE 5 MG/5 ML SYR ONE (10:53)
[2020-08-14] MEDS ORDERED: DEXAMETHASONE SOD INJ 4 MG/ML VIAL ONE (10:53)
[2020-08-14] MEDS ORDERED: PROPOFOL IV EMULSION 10 MG/ML 20 ML VIAL IV ONE (10:53)
[2020-08-14] MEDS ORDERED: fentaNYL citrate 100 MCG/2 ML VIAL ONE ×3 (10:53→15:59)
[2020-08-14] MEDS ORDERED: MIDAZOLAM HCL 1 MG/ML 2ML VIAL ONE (10:53)
[2020-08-14] MEDS ORDERED: LIDOCAINE HCL 2% 2 ML VIAL/AMP(20MG/ML) INFIL ONE (10:53)
[2020-08-14] MEDS ORDERED: ONDANSETRON INJ 2 MG/ML 2 ML VIAL ONE (10:53)
--- NOTE | 2020-08-14 11:29 | History & Physical Bridge Note ---
Date of Service August 14, 2020 History & Physical Bridge Note I have examined the patient, reviewed the History & Physical and in the interval since the performance of the History & Physical I have noted the following changes of clinical significance: no changes noted
[2020-08-14] MEDS ORDERED: KETOROLAC 30 MG/ML VIAL IV PRN (11:37)
[2020-08-14] MEDS ORDERED: ONDANSETRON INJ 2 MG/ML 2 ML VIAL IV PRN (11:37)
[2020-08-14] MEDS ORDERED: ATROPINE SULFATE 0.1 MG/ML 10ML SYR IV PRN (11:37)
[2020-08-14] MEDS ORDERED: BUPIVACAINE 0.5 % 5 MG/1 ML MPF 30ML VIAL ONE (11:54)
[2020-08-14] MEDS ORDERED: SUGAMMADEX SODIUM 200 MG/2 ML VIAL IV ONE ×2 (14:47→14:49)
--- NOTE | 2020-08-14 16:19 | Operative Report ---
PG Post Operative Report Pre & Post Diagnosis Operation Date: 08/14/20 10:50 Pre-Op Diagnosis: Prostate Cancer Post-Op Diagnosis: Prostate Cancer I identified the patient and participated in the time-out.: Yes Procedure Operation Date: 08/14/20 10:50 Actual Procedures p Laparoscopic Robotic-Assisted Radical Retropubic Prostatectomy, Bilateral Pelvic Lymph Node Dissection, Excision of pelvic mass - Shahzad Meeks, Surgeon Shahzad Meeks, II, DO Athletic Gear Custodian Keri DE LA TORRE Estimated Blood Loss 100 Findings Consistent with Post-Op Diagnosis Mass in pelvis found on frozen to be benign calcified lesion. Specimens Pelvic mass for frozen Prostate and Seminal Vesicle Left Pelvic Lymph Nodes Right Pelvic Lymph Nodes. Drains 18 Fr Torres catheter. Anesthesia Type General Complications none Disposition Disposition: Recovery Room Indications Patient with Prostate Cancer. Risk and benefits were discussed at length. Patient elected to undergo robotic assisted laparoscopic Radical Prostatectomy. Description of Procedure The patient was brought to the operative suite and placed under general e ndotracheal intubation anesthesia in the supine position. The patient was transferred to the dorsal lithotomy position. At this point, the patient prepped and draped in the usual sterile fashion and a timeout was completed. Preoperative antibiotics of Ancef 2 grams had been given. MESERET's and SCD's were placed on the patient's lower extremities. A catheter was placed using sterile technique. With the time out completed the patient was placed into Trendelenburg and the skin at the umbilicus was anesthetized. A small incision was made superior to the umbilicus. A Varess Needle was placed and confirmed to be in the abdominal cavity. Water drop test passed. The Abdominal cavity was insufflated to 15 mmHG. The camera port was then placed. A laparoscopic camera was placed into the port and the abdominal cavity inspected. No concerning features were noted. At this point, the skin was marked for port placement and 8mm working ports were placed. The skin was anesthetized down to fascia and an approx 1cm incision was made to place the 3 x 8mm ports. A 10mm and 5 mm dermatology physician assistant ports were also placed in similar fashion under direct visualization. The patient was transferred into steep Trendelenburg position and the legs lowered. The robot was positioned and docked. The camera was placed and all trocars were positioned under direct visualization. Keri DE LA TORRE was integral in port placement, camera utilization, and docking procedure. She remained in sterile attire and then proceeded to assist the remainder of the case. At this point, I transitioned to the robotic console. At this point, the sigmoid colon was mobilized superiorly and the pelvis assessed. Adhesions were freed to allow mobilization. A mass vs lesion was discovered in the pelvis inferiorly. This was approx 1.4 cm in size. It was excised and sent for frozen. It was found to be a benign calcified lesion. The peritoneum in the midline was opened between rectum and bladder and the vas deferens and seminal vesicles exposed. These were dissected with blunt technique. The vas was clipped and cut and mobilized. Cautery was used to assist dissection avoiding the tissue posteriorly near the rectum. The tissues lateral to the seminal vesicles were clipped with a hemolock and all bleeding controlled. This was taken as inferior as possible from this position. The medial umbilical ligaments were then identified and the peritoneum directly lateral on the right followed by the left was opened. The tissues were bluntly dissected to free the bladder's lateral attachments. This was taken down to the pubic bone and exposed the endopelvic fascia bilaterally. The medial ligaments were cut and the bladder dropped. The tissues was dissected anterior to the prostate. The endopelvic fascia on each side was then opened and the lateral edges of the prostate dissected. The Dorsal venous complex of the prostate was dissected and assessed. A 2-0 PDS suture was used to ligate the vessels. A suspension stitch was used and clipped. Electrocautery was used to cut the anterior attachments, the puboprostatic ligaments, and venous tissues. The torres was manipulated to better visual the bladder neck and dissection was taken using electrocautery. The bladder neck was opened and dissected from the prostate. The UO's were identified and dissection taken in a direction to avoid each side. The vas stump and seminal vesicles were exposed and used to assist in traction to dissect. The prostatic pedicles were better exposed. The posterior prostate was dissected. An attempt was made to limit cautery and utilize cold dissection of the lateral posterior prostate to attempt preservation of the neurovascular bundle bilaterally. Hemolock clips were utilized to clip the prostatic pedicle bilaterally. The dissection was taken to the apex of the prostate. Bilaterally, the posterior dissection was found to be adhered and required careful dissection to complete a nerve sparing dissection. The anterior prostate was released and the urethra exposed. Cold cutting was used to open the anterior portion and expose the catheter. This was removed and the urethra incised. The prostate was further freed and grasped and removed from the field. The entire dissection bed was inspected.Hemostatic agent was placed in the region. No areas of injury or bleeding was noted. Care was taken to examine the perirectal tissues. A probe was placed and no injuries or other issues were observed. The bladder neck and urethra were then approximated with a running barbed suture starting at the 5 o'clock position and moving to the 12 o'clock on each side. This was tied at the anterior portion. A leak test was completed without any evidence of issues. The right and left pelvic lymph tissue was identified in relation to the iliac vessels. Distal dissection was taken to the Node of Hussain. Inferiorly the obtorator vessels and nerve were identified. Lymphatic tissue within the surround fat tissue was dissected. This packet of tissues were sent for pathologic analysis and lymph node assessment. This was done for each separate side. Hemostatic agent was placed on the exposed vessels. The entire dissection space was inspected one final time. No bleeding or injuries or areas of concern were noted. No tumor or other concerning features were noted. At this point, the robot was undocked and moved away from the patient. The patient was taken out of Trendelenberg. The port sites were all assessed laparoscopically. The endoscopic bag was moved into the midline port. The 10mm port site was closed with the Tomas Cuevas device. The other ports were assessed and no issues observed. The umbilical incision was opened further exposing fascia which was then opened in order to removed the prostate in the bag. The prostate was removed. A running PDS suture was used to close fascia. The skin at each site was closed with as stapling device. The area was cleaned and bandages were placed on each incision. The patient was cleaned and bandaged, aroused from anesthesia, and transferred to the pacu in stable condition having tolerated the procedure well with no complications. I was present and participated in all aspects of the procedure. Keri DE LA TORRE was critical in the portions as mentioned above. Will plan to observe postoperatively and monitor. Torres to be remain in place until followup. I attest to the content of the Intraoperative Record and any orders documented therein. Any exceptions are noted below.
[2020-08-14] MEDS: HYDROmorphone INJ 0.5 MG/0.5 ML SYR IV PRN ×4 (16:54→17:09)
[2020-08-14 16:57] LABS: Basophils # (auto) 0.02 K/uL (0-0.2); Basophils % (auto) 0.2 %; Eosinophils # (auto) 0.03 K/uL (0-0.5); Eosinophils % (auto) 0.2 %; Hematocrit (blood only) 36.7 % (42-52); Immature Granulocytes # (auto) 0.05 K/uL (0.00-0.02); Immature Granulocytes % (auto) 0.4 %; Lymphocytes # (auto) 0.82 K/uL (1.2-3.4); Lymphocytes % (auto) 6.2 %; Mean Corpuscular Hemoglobin 29.1 pg (25-34); Mean Corpuscular Volume 88.9 fL (80-100); Mean Platelet Volume 10.3 fL (7.4-10.4); Monocytes # (auto) 0.12 K/uL (0.11-0.59); Monocytes % (auto) 0.9 %; Neutrophils # (auto) 12.28 K/uL (1.4-6.5); Neutrophils % (auto) 92.1 %; Platelet Count 158 K/uL (130-400); RDW Standard Deviation 45.5 fL (36.4-46.3); Red Blood Count 4.13 M/uL (4.7-6.1); White Blood Count 13.32 K/uL (4.8-10.8)
[2020-08-14 17:01] LABS: Mean Corpuscular Hgb Conc 32.7 g/dL (32-36)
[2020-08-14 17:12] LABS: BUN Creatinine Ratio 19.4 (10-20); Calcium 8.4 mg/dl (8.5-10.1); Creatinine Clr Calc Pharmacy 64.7 ml/min; Est GFR (African American) 59.1; Potassium 4.2 mmol/L (3.5-5.1)
[2020-08-14] MEDS: MoRPHine SULFATE 2 MG/ML CARP IV PRN ×2 (18:04→22:24)
[2020-08-14] MEDS: LACTATED RINGER'S 1,000 ML IV SCH ×2 (18:14→23:12)
--- NOTE | 2020-08-14 18:25 | Anesthesiology Progress Note ---
Date of Service August 14, 2020 Anesthesia Post Procedure Vital Signs Vital Signs: Temp Pulse Pulse Resp BP Pulse Ox 08/14/20 18:17 36.2 C L 62 16 124/58 L 98 08/14/20 17:46 36.5 C 56 L 12 158/74 H 93 08/14/20 17:24 36.5 C 59 L 16 141/82 H 95 08/14/20 17:10 56 L 16 152/64 H 95 08/14/20 17:00 54 L 16 160/70 H 100 08/14/20 16:50 54 L 16 171/77 H 100 08/14/20 16:40 58 L 16 152/66 H 100 08/14/20 16:31 37.0 C 60 16 164/66 H 98 08/14/20 09:11 37 C 45 L 18 155/72 H 97 Pain Intensity Abdomen: Pain Intensity: 6 Transfer of Care Handoff Completed per policy Notes Mental Status: alert / awake / arousable and participated in evaluation Patient Amnestic to Procedure: Yes Nausea / Vomiting: adequately controlled Pain: adequately controlled Airway Patency, RR, SpO2: stable & adequate BP & HR: stable & adequate Hydration State: stable & adequate Anesthetic Complications: no major complications apparent and Pt Satisfied with anesthetic care
[2020-08-14] MEDS: CEFAZOLIN 2000MG 2,000 MG/15 ML SYR IV SCH (20:15)
[2020-08-14] MEDS: HYDROCODONE/ACETAMOPHEN 5/325MG TAB PO PRN (20:34)
[2020-08-14] MEDS: TRAZODONE HCL 50 MG TAB PO SCH (20:35)
[2020-08-14] MEDS: CEROVITE ADV FORMULA TAB PO SCH (20:36)
[2020-08-14] MEDS: SERTRALINE HCL 100 MG TABLET PO SCH (20:36)
[2020-08-14] MEDS: BRIMONIDINE TARTRATE 0.2% 5ML OPB SCH (20:36)
[2020-08-14] MEDS: HEPARIN SOD 5,000 UNIT/0.5 ML VIAL SQ SCH (20:39)
[2020-08-15] MEDS: MoRPHine SULFATE 2 MG/ML CARP IV PRN ×5 (01:46→21:54)
[2020-08-15] MEDS: HYDROCODONE/ACETAMOPHEN 5/325MG TAB PO PRN ×4 (02:18→22:55)
[2020-08-15] MEDS: CEFAZOLIN 2000MG 2,000 MG/15 ML SYR IV SCH (03:11)
[2020-08-15 05:56] LABS: Hematocrit (blood only) 29.5 % (42-52); Hemoglobin 9.7 g/dL (14.0-18.0); Immature Granulocytes # (auto) 0.02 K/uL (0.00-0.02); Immature Granulocytes % (auto) 0.2 %; Lymphocytes # (auto) 0.71 K/uL (1.2-3.4); Lymphocytes % (auto) 6.7 %; Mean Corpuscular Hemoglobin 29.5 pg (25-34); Mean Corpuscular Hgb Conc 32.9 g/dL (32-36); Mean Corpuscular Volume 89.7 fL (80-100); Mean Platelet Volume 10.3 fL (7.4-10.4); Monocytes # (auto) 1.11 K/uL (0.11-0.59); Monocytes % (auto) 10.5 %; Neutrophils # (auto) 8.77 K/uL (1.4-6.5); Neutrophils % (auto) 82.6 %; Platelet Count 181 K/uL (130-400); RDW Standard Deviation 46.1 fL (36.4-46.3); Red Blood Count 3.29 M/uL (4.7-6.1); White Blood Count 10.61 K/uL (4.8-10.8)
[2020-08-15 06:14] LABS: BUN Creatinine Ratio 20.4 (10-20); Calcium 7.5 mg/dl (8.5-10.1); Creatinine Clr Calc Pharmacy 20.2 ml/min; Est GFR (Non-African American) 41.4
[2020-08-15] MEDS: FEBUXOSTAT 40 MG TABLET PO SCH (08:14)
[2020-08-15] MEDS: TRAVOPROST Z 0.004% OPH SOLN 2.5 ML BTL OP SCH (08:14)
[2020-08-15] MEDS: BRIMONIDINE TARTRATE 0.2% 5ML OPB SCH ×2 (08:15→20:58)
[2020-08-15] MEDS: HEPARIN SOD 5,000 UNIT/0.5 ML VIAL SQ SCH ×2 (08:16→20:58)
[2020-08-15] MEDS: LACTATED RINGER'S 1,000 ML IV SCH ×2 (08:22→17:57)
[2020-08-15] MEDS ORDERED: FUROSEMIDE 40 MG TAB PO SCH (09:00)
--- NOTE | 2020-08-15 11:02 | Urology Progress Note ---
Date of Service August 15, 2020 Assessment & Plan (1) Prostate cancer: Assessment Postop day 1 robotic prostatectomy Patient slowly improving Hematocrit somewhat decreased we will recheck this afternoon Advance diet as tolerated Ambulate in painting with assistance Admission and Anticipated Discharge Date Admission Date: August 14, 2020 Subjective Postop day #1 robotic prostatectomy Patient is afebrile vital signs are stable. His only complaint is some shoulder pain secondary to diaphragmatic irritation from the CO2 Had tolerating clear liquid diet Try to ambulate last night but unfortunately got dizzy and somewhat diaphoretic Chavez catheter patent his urine is pink-tinged. Not passing any flatus as of yet Review of Systems Constitutional: as per Subjective / HPI Gastrointestinal: as per Subjective / HPI Genitourinary: + as per Subjective / HPI Physical Exam Physical Exam: Physical exam Abdomen soft nontender patient has a few bowel sounds Extremities without calf pain or edema Lungs are clear to auscultation Incisions clean and dry Results & Data ([facility]) Vital Signs (Past 12 Hours) Vital Signs Temp Pulse Resp BP Pulse Ox 08/15/20 07:49 37.3 C 55 L 16 126/68 98 08/15/20 03:49 36.5 C 57 L 18 106/64 97 08/14/20 23:31 36.6 C 54 L 18 128/56 L 97 Laboratory Results Laboratory Results - last 24 hr 08/14/20 08/14/20 08/14/20 09:26 09:26 16:48 WBC 13.32 H RBC 4.13 L Hgb 12.0 L Hct 36.7 L MCV 88.9 MCH 29.1 MCHC 32.7 RDW Std Deviation 45.5 RDW Coeff of Rhoda 14.0 Plt Count 158 MPV 10.3 Immature Gran % (Auto) 0.4 Neut % (Auto) 92.1 Lymph % (Auto) 6.2 [place] % (Auto) 0.9 Eos % (Auto) 0.2 Baso % (Auto) 0.2 Neut # (Auto) 12.28 H Lymph # (Auto) 0.82 L [place] # (Auto) 0.12 Eos # (Auto) 0.03 Baso # (Auto) 0.02 Immature Gran # (Auto) 0.05 H Sodium Potassium Chloride Carbon Dioxide Anion Gap BUN Creatinine Est Cr Clr Drug Dosing Est GFR ( Amer) Est GFR (Non-Af Amer) BUN/Creatinine Ratio Glucose Calcium Hepatitis C Ab Screen Neg Blood Type A Positive Antibody Screen NEGATIVE 08/14/20 08/15/20 08/15/20 16:48 05:11 05:11 WBC 10.61 RBC 3.29 L Hgb 9.7 L Hct 29.5 L MCV 89.7 MCH 29.5 MCHC 32.9 RDW Std Deviation 46.1 RDW Coeff of Rhoda 14.0 Plt Count 181 MPV 10.3 Immature Gran % (Auto) 0.2 Neut % (Auto) 82.6 Lymph % (Auto) 6.7 [place] % (Auto) 10.5 Eos % (Auto) 0.0 Baso % (Auto) 0.0 Neut # (Auto) 8.77 H Lymph # (Auto) 0.71 L [place] # (Auto) 1.11 H Eos # (Auto) 0.00 Baso # (Auto) 0.00 Immature Gran # (Auto) 0.02 Sodium 143 138 Potassium 4.2 4.0 Chloride 114 H 108 H Carbon Dioxide 21 24 Anion Gap 8.0 6.0 BUN 27 H 34 H Creatinine 1.39 1.65 H Est Cr Clr Drug Dosing 64.7 20.2 Est GFR ( Amer) 59.1 48.0 Est GFR (Non-Af Amer) 51.0 41.4 BUN/Creatinine Ratio 19.4 20.4 H Glucose 149 H 183 H Calcium 8.4 L 7.5 L Hepatitis C Ab Screen Blood Type Antibody Screen PG Care Time/CCT Total # of Minutes Spent Total Time Spent with Patient: Total time spent is greater than 50% in coordination of care (as documented) at patient's floor/unit and/or counseling patient: Coding Level of Care Code None Diagnoses Prostate cancer C61
[2020-08-15 15:07] LABS: Hematocrit (blood only) 27.3 % (42-52); Hemoglobin 9.1 g/dL (14.0-18.0)
[2020-08-15] MEDS: SERTRALINE HCL 100 MG TABLET PO SCH (20:57)
[2020-08-15] MEDS: CEROVITE ADV FORMULA TAB PO SCH (20:58)
[2020-08-15] MEDS: TRAZODONE HCL 50 MG TAB PO SCH (20:58)
[2020-08-15] MEDS: ACETAMINOPHEN 325 MG TAB PO PRN (21:01)
--- NOTE | 2020-08-15 22:56 | XRay Report ---
XR chest 1V portable HISTORY: Shortness of breath COMPARISON: Chest 07/28/2020. FINDINGS: Cardiac silhouette is top normal in size. This is likely accentuated by the low lung volume s and AP portable technique. The lungs are clear. No pleural effusions. No pneumothorax. IMPRESSION: No acute process. ACT 112: Negative or not required by law. Electronically signed by: Jl Duran M.D. 08/15/2020 10:55 PM
--- NOTE | 2020-08-15 22:58 | XRay Report ---
KUB HISTORY: Generalized abdominal pain s/p prostatectomy? Small bowel obstruction COMPARISON: KUB 05/07/2020. FINDINGS: The bowel gas pattern is unremarkable. There are no dilated loops of small bowel to suggest an obstruction. There is a 6 5 mm stone within the right kidney, unchanged. A few skin yoselyn seen within the lower abdomen. No pneumoperitoneum or pneumatosis. IMPRESSION: 1. No dilated loops of bowel to suggest an obstruction. 2. Stable right-sided nephrolithiasis. ACT 112: Negative or not required by law. Electronically signed by: Jl Duran M.D. 08/15/2020 10:56 PM
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
[2020-08-16] MEDS: MoRPHine SULFATE 2 MG/ML CARP IV PRN ×6 (01:24→21:02)
[2020-08-16] MEDS: HYDROCODONE/ACETAMOPHEN 5/325MG TAB PO PRN ×3 (04:04→20:12)
[2020-08-16] MEDS: ACETAMINOPHEN 325 MG TAB PO PRN (04:04)
[2020-08-16] MEDS: LACTATED RINGER'S 1,000 ML IV SCH (04:35)
[2020-08-16 06:27] LABS: Basophils # (auto) 0.02 K/uL (0-0.2); Basophils % (auto) 0.2 %; Eosinophils # (auto) 0.19 K/uL (0-0.5); Eosinophils % (auto) 2.1 %; Hematocrit (blood only) 25.3 % (42-52); Hemoglobin 8.3 g/dL (14.0-18.0); Immature Granulocytes # (auto) 0.02 K/uL (0.00-0.02); Immature Granulocytes % (auto) 0.2 %; Lymphocytes # (auto) 1.17 K/uL (1.2-3.4); Lymphocytes % (auto) 13.2 %; Mean Corpuscular Hemoglobin 29.5 pg (25-34); Mean Corpuscular Hgb Conc 32.8 g/dL (32-36); Mean Platelet Volume 10.5 fL (7.4-10.4); Monocytes # (auto) 0.97 K/uL (0.11-0.59); Neutrophils # (auto) 6.48 K/uL (1.4-6.5); Neutrophils % (auto) 73.3 %; Platelet Count 164 K/uL (130-400); RDW Standard Deviation 46.6 fL (36.4-46.3); Red Blood Count 2.81 M/uL (4.7-6.1); White Blood Count 8.85 K/uL (4.8-10.8)
[2020-08-16 07:02] LABS: BUN Creatinine Ratio 23.4 (10-20); Calcium 7.4 mg/dl (8.5-10.1); Creatinine Clr Calc Pharmacy 21.5 ml/min; Est GFR (African American) 51.8; Est GFR (Non-African American) 44.7; Potassium 3.6 mmol/L (3.5-5.1)
[2020-08-16] MEDS: TRAVOPROST Z 0.004% OPH SOLN 2.5 ML BTL OP SCH (08:59)
[2020-08-16] MEDS: HEPARIN SOD 5,000 UNIT/0.5 ML VIAL SQ SCH (09:01)
[2020-08-16] MEDS: FEBUXOSTAT 40 MG TABLET PO SCH (09:01)
[2020-08-16] MEDS: BRIMONIDINE TARTRATE 0.2% 5ML OPB SCH ×2 (09:01→20:06)
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
--- NOTE | 2020-08-16 12:50 | Urology Progress Note ---
Date of Service August 16, 2020 Assessment & Plan (1) Prostate cancer: Assessment Postop day 2 robotic prostatectomy Hemoglobin trending down - no cardiac history. Will hold transfusion at this point as his vitals are stable. Repeat Hgb today at 3PM. CT ab/pelvis to r/o bleeding based on his Hgb. Will decrease IVF. Bloated and distended, reduce to CLD. Ambulate in painting with assistance Decrease IVF If bloating worsens - will make him NPO. Admission and Anticipated Discharge Date Admission Date: August 14, 2020 Subjective Patient reports that he does not feel SOB but can't sustain his ISB. He reports belching and no flatus. + distention. + tenderness on RLQ Patient is currently eating regular diet when I entered the room. CXR and KUB WNL. He denies CP or fevers or chills. No N/V Review of Systems Constitutional: as per Subjective / HPI Gastrointestinal: as per Subjective / HPI Genitourinary: + as per Subjective / HPI Physical Exam Physical Exam: AVSS AO x 3 nonlabored breathing abdomen with RLQ tenderness, + distention extremities without edema Results & Data ([facility]) Vital Signs (Past 12 Hours) Vital Signs Temp Pulse Resp BP Pulse Ox 08/16/20 07:28 36.4 C L 54 L 17 134/67 99 PG Care Time/CCT Total # of Minutes Spent Total Time Spent with Patient: Total time spent is greater than 50% in coordination of care (as documented) at patient's floor/unit and/or counseling patient: Coding Level of Care Code None Diagnoses Prostate cancer C61
[2020-08-16] MEDS: D5W AND 1/2NSS 1,000 ML IV SCH (13:49)
[2020-08-16 14:59] LABS: Hematocrit (blood only) 22.8 % (42-52); Mean Corpuscular Hemoglobin 31.1 pg (25-34); Mean Corpuscular Hgb Conc 35.1 g/dL (32-36); Mean Corpuscular Volume 88.7 fL (80-100); Mean Platelet Volume 9.6 fL (7.4-10.4); Platelet Count 132 K/uL (130-400); RDW Coefficient of Variation 13.9 % (11.5-14.5); RDW Standard Deviation 45.5 fL (36.4-46.3); Red Blood Count 2.57 M/uL (4.7-6.1); White Blood Count 7.19 K/uL (4.8-10.8)
--- NOTE | 2020-08-16 16:28 | CT Scan Report ---
CT SCAN OF THE ABDOMEN AND PELVIS WITHOUT IV CONTRAST CLINICAL HISTORY: Drop in hemoglobin status post prostatectomy. COMPARISON STUDY: Abdominal CT dated 12/19/2019. TECHNIQUE: CT scan of the abdomen and pelvis is performed from the lung bases to the proximal femora. Images are reviewed in the axial, sagittal, and coronal planes. IV contrast was not administered for this examination as per the referring clinician. A dose lowering technique was utilized adhering to the principles of ALARA. CT DOSE: 1611.76 mGy.cm FINDINGS: Lung bases: The heart is mildly enlarged and without pericardial effusion. The coronary arteries are densely calcified. There is diminished attenuation of the cardiac blood pool as compared to the myoca rdium suggesting anemia. The lung bases are clear. There is a small hiatal hernia. Liver: The unenhanced liver is normal in size, contour, and attenuation. There is no intrahepatic susana iary ductal dilatation. Gallbladder: Unremarkable. Spleen: Normal in size and attenuation. Pancreas: The unenhanced pancreas is moderately atrophic and grossly unremarkable. Adrenal glands: Unremarkable. Kidneys: The unenhanced kidneys demonstrate cortical atrophy. There is mild to moderate bilateral hyd roureteronephrosis. The ureters are distended to the level of the decompressed bladder. There is a mi llimeter nonobstructing right renal calculus. No left renal calculi are identified. A 3.3 cm cyst is noted in the interpolar right kidney. Abdominal vasculature: The abdominal aorta is normal in course and caliber noting mild atheroscleroti c calcification. Bowel: There is moderate colonic diverticulosis without CT evidence of acute diverticulitis. No bowel obstruction is seen. Mild fecal retention is noted throughout the colon. There is a large duodenal d iverticulum. The appendix is normal as imaged. Peritoneum: There are numerous small foci of intraperitoneal free air. No intraperitoneal hemorrhage is clearly seen. There is no abdominal ascites. Lymphadenopathy: None. Pelvic viscera: The bladder is decompressed around a Chavez catheter and not well evaluated. The prost ate gland is reported surgically absent. There is a hyperdense fluid collection identified in the pro statectomy bed which extends superiorly between the bladder and the rectum. This is best seen on imag e #412 and measures approximately 9 x 4.5 x 5 cm. There is intrapelvic extraperitoneal hemorrhage avery ntified anteriorly on the left at the level of the bladder on image #414. This measures up to 5 cm in length. Blood products are also seen tracking along the left paracolic gutter on image #326. Trace b lood products are identified in the right paracolic gutter (image #320) and deep to the right rectus musculature (image #326). Skeletal structures: The skeletal structures are osteopenic. There is moderate to advanced lumbosacra l spondylosis. No lytic or blastic lesions are seen. Soft tissues: Body wall edema is noted. Numerous foci of soft tissue gas identified in the left abdom inal wall and the pelvis. IMPRESSION: 1. The prostate gland is reported surgically absent. 2. There is a large hyperdense fluid collection identified in the prostatectomy bed measuring up to 9 cm as detailed above. This is consistent with a hematoma. 3. Additional foci of intrapelvic extraperitoneal hemorrhage are identified. There are also blood pro ducts seen tracking along the paracolic gutters (left greater than right) and deep to the right rectu s abdominis musculature in the pelvis. 4. Numerous foci of intraperitoneal free air are identified. This is nonspecific and likely related t o recent surgery. Perforated viscus would be impossible to exclude and clinical correlation will be r equired. 5. Mild to moderate bilateral hydroureteronephrosis is likely related to recent surgery/edema. No obs tructing lesion is seen. 6. Right-sided nephrolithiasis. 7. There is body wall edema. Foci of subcutaneous gas in the left lower quadrant and throughout the p alvaro are likely related to recent surgery. Again, clinical correlation will be required. 8. Colonic diverticulosis without CT evidence of acute diverticulitis. 9. Additional findings as above. ACT 112: Negative or not required by law. Electronically signed by: Yrn Ramos M.D. 08/16/2020 4:27 PM
[2020-08-16] MEDS: CEROVITE ADV FORMULA TAB PO SCH (20:07)
[2020-08-16] MEDS: TRAZODONE HCL 50 MG TAB PO SCH (20:07)
[2020-08-16] MEDS: SERTRALINE HCL 100 MG TABLET PO SCH (20:07)
--- NOTE | 2020-08-16 21:23 | Hospitalist Progress Note ---
Date of Service August 16, 2020 Assessment & Plan (1) Dyspnea: SOB has improved. No evidence of hypervolemia on exam. No prior history of CHF (suspect prior leg swelling from obesity hypoventilation and EFRAÍN). NOw passing flatus Most concerning is his history of myasthenia gravis. No diplopia on ophthalmoplegia on exam. No fatigue of speech but worsening incentive spirometry is concerning for this in setting of recently anesthetics. Consult neurology. Possible his post operative anemia is also contributing. EFRAÍN +/- obesity hypoventilation also likely contributing. No current hypoxia. (2) Postoperative anemia: Monitor with Hgb in AM. (3) Postoperative ileus: Low suspicion for SBO. Now passing gas. (4) Myasthenia gravis: Previously in remission. Unclear on details but followed with neurology in [place] previously. Not on pyridostigmine. Concerning worsening incentive spirometry without lung pathology to explain this for possible exacerbation of this but certainly does not appear to be a crisis at current time. Will consult neurology. 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 (6) Sleep apnea: Continue CPAP HS (7) Hypertension: Hold lasix. (8) History of DVT (deep vein thrombosis): Prophylaxis per urology with heparin 5000 units Q12H. On lifelong therapeutic anticoagulation for recurrence. Admission and Anticipated Discharge Date Admission Date: August 14, 2020 Subjective Patient reports that he is passing gas. He has no new complaints at this time. Review of Systems Review of Systems: All systems reviewed & are unremarkable except as noted in HPI & below Physical Exam Physical Exam: Constitutional: well developed, well nourished and + obese; no acute distress Eyes: + anicteric sclerae and EOM intact bilaterally (no diplopia); normal pupil size No ptosis ENMT: external ear and nose normal, oropharynx normal Neck: trachea midline, no thyromegaly Respiratory: able to speak in complete sentences (no fatigue in speech); no respiratory distress, no labored breathing, no retractions and does not use accessory muscles Auscultation: lungs clear to auscultation bilaterally Cardiovascular: Rate/Rhythm: regular rate and regular rhythm Heart Sounds: no murmur Vessels: no JVD Extremities: normal capillary refill; no calf tenderness Gastrointestinal (Abdomen): Inspection/Auscultation: + abdomen distended and normal bowel sounds Percussion/Palpation: + abdomen tender (LLQ), no guarding, or abdomen soft; abdomen not rigid Musculoskeletal: no cyanosis or clubbing, extremities motor strength 5/5 Skin: no rashes, warm and dry Neurologic: moves all extremities and awake; no focal motor deficits and not confused Motor/Sensory: no tremor, no pronator drift and no sensory deficit Psychiatric: A+Ox3, euthymic affect Results & Data Results & Data ([facility]) Vital Signs (Past 12 Hours) Vital Signs Temp Pulse Resp BP Pulse Ox 08/16/20 15:25 36.9 C 57 L 18 141/64 H 97 PG Care Time/CCT Total # of Minutes Spent Total Time Spent with Patient: Total time spent is greater than 50% in coordination of care (as documented) at patient's floor/unit and/or counseling patient: Coding Level of Care Code 66768 Subseq Hosp Care Lvl 3 Diagnoses Dyspnea R06.00 Postoperative anemia D64.9 Postoperative ileus K91.89; K56.7 Myasthenia gravis G70.00 Partial blindness H54.7 Sleep apnea G47.30 Hypertension I10 History of DVT (deep vein thrombosis) Z86.718 Time Spent (min) 35
[2020-08-17] MEDS: HYDROCODONE/ACETAMOPHEN 5/325MG TAB PO PRN ×6 (01:39→21:23)
[2020-08-17 05:48] LABS: Basophils # (auto) 0.02 K/uL (0-0.2); Basophils % (auto) 0.3 %; Eosinophils # (auto) 0.22 K/uL (0-0.5); Eosinophils % (auto) 3.3 %; Hematocrit (blood only) 24.3 % (42-52); Hemoglobin 8.1 g/dL (14.0-18.0); Immature Granulocytes # (auto) 0.02 K/uL (0.00-0.02); Immature Granulocytes % (auto) 0.3 %; Lymphocytes # (auto) 1.07 K/uL (1.2-3.4); Lymphocytes % (auto) 16.2 %; Mean Corpuscular Hemoglobin 29.9 pg (25-34); Mean Corpuscular Hgb Conc 33.3 g/dL (32-36); Mean Corpuscular Volume 89.7 fL (80-100); Mean Platelet Volume 10.1 fL (7.4-10.4); Monocytes # (auto) 0.76 K/uL (0.11-0.59); Monocytes % (auto) 11.5 %; Neutrophils % (auto) 68.4 %; Platelet Count 143 K/uL (130-400); RDW Coefficient of Variation 13.9 % (11.5-14.5); RDW Standard Deviation 45.5 fL (36.4-46.3); Red Blood Count 2.71 M/uL (4.7-6.1); White Blood Count 6.59 K/uL (4.8-10.8)
[2020-08-17 06:16] LABS: BUN Creatinine Ratio 23.5 (10-20); Calcium 7.4 mg/dl (8.5-10.1); Creatinine Clr Calc Pharmacy 69.7 ml/min; Est GFR (African American) 64.7; Est GFR (Non-African American) 55.8; Potassium 3.9 mmol/L (3.5-5.1)
[2020-08-17] MEDS: FEBUXOSTAT 40 MG TABLET PO SCH (08:58)
[2020-08-17] MEDS: TRAVOPROST Z 0.004% OPH SOLN 2.5 ML BTL OP SCH (08:58)
[2020-08-17] MEDS: BRIMONIDINE TARTRATE 0.2% 5ML OPB SCH ×2 (08:59→21:25)
[2020-08-17] MEDS: D5W AND 1/2NSS 1,000 ML IV SCH (08:59)
--- NOTE | 2020-08-17 11:25 | Urology Progress Note ---
Date of Service August 17, 2020 Assessment & Plan (1) Prostate cancer: Assessment Postop day 3 robotic prostatectomy Hemoglobin stable today. Stay off anticoagulation at this point. Patient has a history of DVT - recommended continued use of SCDS and ambulation. Will DC IVF Passing gas but still a bit bloated - wants more to eat - will upgrade to full liquids but not ready for regular. Ambulate in painting with assistance DC IVF Labs in the AM Admission and Anticipated Discharge Date Admission Date: August 14, 2020 Subjective patient is s/p robotic prostatectomy complicated by hematoma. yesterday he was scanned - pelvic hematoma in the prostatic fossa. Heparin held. Discussed transfusion- but held due to no cardiac history. Hospitalists suggested 7.0 as the modifier for transfusion. He has started passing gas but still feels bloated. The catheter is draining without issues. Pain is better today but still present in the RLQ. Physical Exam Physical Exam: AVSS AO x 3 nonlabored breathing abdomen with RLQ tenderness, + distention, dressing removed and incisions are c/d/i extremities without edema Results & Data ([facility]) Vital Signs (Past 12 Hours) Vital Signs Temp Pulse Resp BP Pulse Ox 08/17/20 07:36 36.6 C 56 L 16 137/69 99 08/16/20 23:24 36.6 C 60 18 133/51 L 94 PG Care Time/CCT Total # of Minutes Spent Total Time Spent with Patient: Total time spent is greater than 50% in coordination of care (as documented) at patient's floor/unit and/or counseling patient: Coding Level of Care Code None Diagnoses Prostate cancer C61
[2020-08-17] MEDS: SERTRALINE HCL 100 MG TABLET PO SCH (21:25)
[2020-08-17] MEDS: TRAZODONE HCL 50 MG TAB PO SCH (21:25)
[2020-08-17] MEDS: CEROVITE ADV FORMULA TAB PO SCH (21:25)
[2020-08-18] MEDS: HYDROCODONE/ACETAMOPHEN 5/325MG TAB PO PRN ×3 (01:30→21:26)
[2020-08-18 05:42] LABS: Basophils # (auto) 0.01 K/uL (0-0.2); Basophils % (auto) 0.2 %; Eosinophils # (auto) 0.31 K/uL (0-0.5); Eosinophils % (auto) 4.9 %; Hematocrit (blood only) 23.8 % (42-52); Hemoglobin 7.9 g/dL (14.0-18.0); Immature Granulocytes # (auto) 0.02 K/uL (0.00-0.02); Immature Granulocytes % (auto) 0.3 %; Lymphocytes # (auto) 0.85 K/uL (1.2-3.4); Lymphocytes % (auto) 13.5 %; Mean Corpuscular Hemoglobin 29.9 pg (25-34); Mean Corpuscular Hgb Conc 33.2 g/dL (32-36); Mean Corpuscular Volume 90.2 fL (80-100); Mean Platelet Volume 10.1 fL (7.4-10.4); Monocytes % (auto) 12.7 %; Neutrophils # (auto) 4.29 K/uL (1.4-6.5); Neutrophils % (auto) 68.4 %; Platelet Count 157 K/uL (130-400); RDW Coefficient of Variation 13.6 % (11.5-14.5); RDW Standard Deviation 44.8 fL (36.4-46.3); Red Blood Count 2.64 M/uL (4.7-6.1); White Blood Count 6.28 K/uL (4.8-10.8)
[2020-08-18 06:04] LABS: RBC Morphology Unremarkable
[2020-08-18 06:23] LABS: BUN Creatinine Ratio 20.2 (10-20); Calcium 7.3 mg/dl (8.5-10.1); Creatinine Clr Calc Pharmacy 79.5 ml/min; Est GFR (African American) 75.9; Est GFR (Non-African American) 65.5; Potassium 4.1 mmol/L (3.5-5.1)
[2020-08-18] MEDS: BRIMONIDINE TARTRATE 0.2% 5ML OPB SCH ×2 (08:45→20:52)
[2020-08-18] MEDS: TRAVOPROST Z 0.004% OPH SOLN 2.5 ML BTL OP SCH (08:45)
[2020-08-18] MEDS: FEBUXOSTAT 40 MG TABLET PO SCH (08:45)
--- NOTE | 2020-08-18 14:06 | Urology Progress Note ---
Date of Service August 18, 2020 Assessment & Plan (1) Prostate cancer: Assessment Postop day 4 robotic prostatectomy Patient is ambulating. Recommend continuing SCDs due to history of clots. We will continue to monitor. Increasing diet over time. Patient has no significant bowel movement but is passing gas without major issue or problem. Has been chewing on ice and other things. No other major changes. Is being followed by the hospitalist. We will plan for 1 more day of observation. Likely home tomorrow unless other issues or problems Admission and Anticipated Discharge Date Admission Date: August 14, 2020 Subjective Postop day #4 robotic prostatectomy Patient is afebrile vital signs are stable. Patient is tolerating liquid diet without major issues or problems. Is passing gas. Has not had any major pain or other issues. Urine is clear. Has been tolerating catheter without problems or concerns. Patient had a mild decrease in his hemoglobin again today however his vitals are completely stable without major problems or issues. Does have a previous history of a retroperitoneal hematoma with spontaneous bleed. Is on long-term lifelong anticoagulation. Is being followed by the hospitalist. Has been otherwise improving without major problems or issues and needs minimal pain medication Physical Exam Physical Exam: General: Alert in no acute distress. HEENT: Normocephalic Atraumatic. Inspection normal. Cranial Nerves 2-12 Carola sly intact. Normal inspection of face. Normal inspection of neck. Psychologic: Normal affect. Respiratory: Nonlabored. No use of accessory muscles. No tachypnea or dyspnea. Cardiovascular: No tachycardia Skin: [place] and Dry. No rashes or visible lesions. Extremities/Lymphatics: No edema Abdomen: Moderately distended. Wounds clean dry and intact. Appropriately tender. No rebound or guarding : Chavez in place draining clear yellow urine Results & Data ([facility]) Vital Signs (Past 12 Hours) Vital Signs Temp Pulse Resp BP Pulse Ox 08/18/20 06:24 36.8 C 60 18 142/67 H 96 PG Care Time/CCT Total # of Minutes Spent Total Time Spent with Patient: Total time spent is greater than 50% in coordination of care (as documented) at patient's floor/unit and/or counseling patient: Coding Level of Care Code 26756 Subseq Hosp Care Lvl 3 Diagnoses Prostate cancer C61
[2020-08-18] MEDS: MoRPHine SULFATE 2 MG/ML CARP IV PRN ×3 (15:16→21:51)
[2020-08-18] MEDS: CEROVITE ADV FORMULA TAB PO SCH (20:51)
[2020-08-18] MEDS: TRAZODONE HCL 50 MG TAB PO SCH (20:51)
[2020-08-18] MEDS: SERTRALINE HCL 100 MG TABLET PO SCH (20:51)
[2020-08-18] MEDS: ONDANSETRON INJ 2 MG/ML 2 ML VIAL IV PRN (23:07)
[2020-08-19] MEDS: MoRPHine SULFATE 2 MG/ML CARP IV PRN ×3 (01:24→19:27)
[2020-08-19] MEDS: HYDROCODONE/ACETAMOPHEN 5/325MG TAB PO PRN ×3 (01:58→23:39)
[2020-08-19] MEDS ORDERED: MoRPHine SULFATE 4 MG/ML 1 ML CARP\\VIAL IV STA ×2 (02:16→20:41)
[2020-08-19 06:45] LABS: Basophils # (auto) 0.01 K/uL (0-0.2); Basophils % (auto) 0.1 %; Eosinophils # (auto) 0.04 K/uL (0-0.5); Eosinophils % (auto) 0.4 %; Hematocrit (blood only) 24.8 % (42-52); Hemoglobin 8.4 g/dL (14.0-18.0); Immature Granulocytes # (auto) 0.04 K/uL (0.00-0.02); Immature Granulocytes % (auto) 0.4 %; Lymphocytes # (auto) 0.36 K/uL (1.2-3.4); Lymphocytes % (auto) 3.4 %; Mean Corpuscular Hemoglobin 30.3 pg (25-34); Mean Corpuscular Hgb Conc 33.9 g/dL (32-36); Mean Corpuscular Volume 89.5 fL (80-100); Mean Platelet Volume 9.7 fL (7.4-10.4); Monocytes # (auto) 0.69 K/uL (0.11-0.59); Monocytes % (auto) 6.5 %; Neutrophils # (auto) 9.55 K/uL (1.4-6.5); Neutrophils % (auto) 89.2 %; Platelet Count 190 K/uL (130-400); RDW Coefficient of Variation 13.4 % (11.5-14.5); RDW Standard Deviation 43.5 fL (36.4-46.3); Red Blood Count 2.77 M/uL (4.7-6.1); White Blood Count 10.69 K/uL (4.8-10.8)
[2020-08-19 07:15] LABS: BUN Creatinine Ratio 15.4 (10-20); Calcium 7.7 mg/dl (8.5-10.1); Creatinine Clr Calc Pharmacy 63.3 ml/min; Est GFR (African American) 57.6; Est GFR (Non-African American) 49.7; Potassium 4.6 mmol/L (3.5-5.1)
[2020-08-19 08:39] LABS: Partial Thromboplastin Ratio 1.1; Partial Thromboplastin Time 31.8 Seconds (21.0-31.0)
[2020-08-19] MEDS: FEBUXOSTAT 40 MG TABLET PO SCH (09:01)
[2020-08-19] MEDS: BRIMONIDINE TARTRATE 0.2% 5ML OPB SCH ×2 (09:02→20:28)
[2020-08-19] MEDS: TRAVOPROST Z 0.004% OPH SOLN 2.5 ML BTL OP SCH (09:02)
--- NOTE | 2020-08-19 10:15 | Urology Progress Note ---
Date of Service August 19, 2020 Assessment & Plan (1) Prostate cancer: Pelvic hematoma after prostatectomy On evaluation today, he is extremely tender over the lower abdominal wall and I suspect, based upon his CT, that he has significant inflammation of the abdominal wall that extends considerably beyond the relatively modest hematoma He is due for repeat CT today but his labs have remained stable Plan to continue supportive care no interventions planned PathologyGleason 6, confined to the prostate, and lymph nodes negativeI have not discussed this with him and I will defer to Dr. Meeks to discuss pathology Admission and Anticipated Discharge Date Admission Date: August 14, 2020 Subjective Continues have significant abdominal discomfort Below his umbilical incision he is quite tender No nausea, no vomiting Urine has remained clear Physical Exam Physical Exam: Comfortable appearing Incisions appropriate, yoselyn intact, no erythema or discharge Very tender to palpation over the pubic symphysis Constitutional: well developed and well nourished Respiratory: no respiratory distress Cardiovascular: Extremities: no pedal edema Gastrointestinal (Abdomen): Inspection/Auscultation: abdomen normal to inspection Results & Data ([facility]) Vital Signs (Past 12 Hours) Vital Signs Temp Pulse Resp BP BP Pulse Ox 08/19/20 07:26 37.0 C 63 16 142/69 H 97 08/18/20 23:23 36.5 C 63 19 145/61 H 96 PG Care Time/CCT Total # of Minutes Spent Total Time Spent with Patient: Total time spent is greater than 50% in coordination of care (as documented) at patient's floor/unit and/or counseling patient: Coding Level of Care Code 38071 Subseq Hosp Care Lvl 2 Diagnoses Prostate cancer C61
--- NOTE | 2020-08-19 11:23 | CT Scan Report ---
CT SCAN OF THE PELVIS WITHOUT IV CONTRAST CLINICAL HISTORY: Follow-up pelvic hematoma at prostatectomy site. COMPARISON STUDY: Pelvic CT dated 08/16/2020. TECHNIQUE: CT scan of the pelvis is performed from the pelvic inlet to the proximal femora. Images a re reviewed in the axial, sagittal, and coronal planes. IV contrast was not administered for this exa mination. A dose lowering technique was utilized adhering to the principles of ALARA. FINDINGS: The prostate gland is surgically absent. Again seen is a complex/hyperdense collection in t he prostatectomy bed. This is located between the bladder and rectum, and this has modestly decreased in size as compared to 08/16/2020. The collection measures approximately 7 x 3 x 4.5 cm. Again seen i s intrapelvic extraperitoneal hemorrhage within the left anterior pelvis adjacent to the bladder. Thi s has also modestly decreased in size from previous. Diffuse soft tissue infiltration throughout the ventral pelvis with foci of subcutaneous gas is simil ar to previous. This likely represents postoperative change. The bony pelvis is intact. No destructiv e bony lesion is seen. The regional musculature is normal and symmetric. No intramuscular hemorrhage is identified. There is diffuse penile edema. The bladder is decompressed around a Chavez catheter. Intraluminal gas is nonspecific and may be relat ed to instrumentation. The bladder wall appears thickened. The visualized bowel loops show no evidenc e of obstruction. There is diverticulosis of the left colon without CT evidence of acute diverticulit is. There is no pelvic sidewall or inguinal lymphadenopathy. IMPRESSION: 1. Status post prostatectomy. 2. Modest decrease in size of the hemorrhage at the prostatectomy site as compared to 08/16/2020. Intr apelvic extraperitoneal hemorrhage has also modestly decreased from previous. 3. Soft tissue infiltration throughout the ventral pelvic wall with foci of subcutaneous gas is simil ar to previous. This likely represents expected postoperative change and clinical correlation will be required. 4. The bladder is decompressed around a Chavez catheter. The bladder wall appears thickened and there is nonspecific intraluminal gas. Correlation with urinalysis will be required. ACT 112: Negative or not required by law. Dictated: 08/19/2020 10:40 AM Transcribed: 08/19/2020 11:09 AM Shelley [id number] [employer] Electronically signed by: Yrn Ramos M.D. 08/19/2020 11:22 AM
[2020-08-19] MEDS: ACETAMINOPHEN 325 MG TAB PO PRN (19:12)
[2020-08-19] MEDS: ONDANSETRON INJ 2 MG/ML 2 ML VIAL IV PRN (19:13)
[2020-08-19] MEDS: CEROVITE ADV FORMULA TAB PO SCH (20:28)
[2020-08-19] MEDS: SERTRALINE HCL 100 MG TABLET PO SCH (20:28)
[2020-08-19] MEDS: TRAZODONE HCL 50 MG TAB PO SCH (20:28)
[2020-08-19] MEDS: DOCUSATE SODIUM 100 MG CAP PO SCH (21:27)
[2020-08-19] MEDS: POLYETHYLENE (MIRALAX) 17 GM PACK PO PRN (21:27)
--- NOTE | 2020-08-19 23:15 | Hospitalist Progress Note ---
Date of Service August 19, 2020 Assessment & Plan (1) Hematoma: hemoglobin has been stable. INR stlll therapeuutic, repeated ct scan, showed decrease size of hematoma. (2) Dyspnea: SOB has improved. No evidence of hypervolemia on exam. No prior history of CHF (suspect prior leg swelling from obesity hypoventilation and EFRAÍN). NOw passing flatus Most concerning is his history of myasthenia gravis. No diplopia on ophthalmoplegia on exam. No fatigue of speech but worsening incentive spirometry is concerning for this in setting of recently anesthetics. Consult neurology. Possible his post operative anemia is also contributing. EFRAÍN +/- obesity hypoventilation also likely contributing. No current hypoxia. (3) Postoperative anemia: Monitor with Hgb in AM. (4) Postoperative ileus: Low suspicion for SBO. Now passing gas. (5) Myasthenia gravis: Previously in remission. Unclear on details but followed with neurology in [place] previously. Not on pyridostigmine. Concerning worsening incentive spirometry without lung pathology to explain this for possible exacerbation of this but certainly does not appear to be a crisis at current time. Will consult neurology. 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 (7) Sleep apnea: Continue CPAP HS (8) Hypertension: Hold lasix. (9) History of DVT (deep vein thrombosis): Prophylaxis per urology. On lifelong therapeutic anticoagulation for recurrence. Admission and Anticipated Discharge Date Admission Date: August 14, 2020 Subjective 70 yo male reports feeling some abdominal discomfort today. Not ready for discharge. Review of Systems Review of Systems: All systems reviewed & are unremarkable except as noted in HPI & below Physical Exam Physical Exam: Constitutional: well developed, well nourished and + obese; no acute distress Eyes: + anicteric sclerae and EOM intact bilaterally (no diplopia); normal pupil size No ptosis ENMT: external ear and nose normal, oropharynx normal Neck: trachea midline, no thyromegaly Respiratory: able to speak in complete sentences (no fatigue in speech); no respiratory distress, no labored breathing, no retractions and does not use accessory muscles Auscultation: lungs clear to auscultation bilaterally Cardiovascular: Rate/Rhythm: regular rate and regular rhythm Heart Sounds: no murmur Vessels: no JVD Extremities: normal capillary refill; no calf tenderness Gastrointestinal (Abdomen): Inspection/Auscultation: + abdomen distended and normal bowel sounds Percussion/Palpation: + abdomen tender (LLQ), no guarding, or abdomen soft; abdomen not rigid Musculoskeletal: no cyanosis or clubbing, extremities motor strength 5/5 Skin: no rashes, warm and dry Neurologic: moves all extremities and awake; no focal motor deficits and not confused Motor/Sensory: no tremor, no pronator drift and no sensory deficit Psychiatric: A+Ox3, euthymic affect Results & Data Results & Data ([facility]) Vital Signs (Past 12 Hours) Vital Signs Temp Pulse Resp BP BP Pulse Ox 08/19/20 23:10 36.9 C 81 16 143/71 H 91 08/19/20 20:25 37.7 C H 80 22 173/72 H 91 08/19/20 15:05 37.1 C 67 18 145/74 H 96 PG Care Time/CCT Total # of Minutes Spent Total Time Spent with Patient: Total time spent is greater than 50% in coordination of care (as documented) at patient's floor/unit and/or counseling patient: Coding Level of Care Code 86271 Subseq Hosp Care Lvl 3 Diagnoses Hematoma T14.8XXA Dyspnea R06.00 Postoperative anemia D64.9 Postoperative ileus K91.89; K56.7 Myasthenia gravis G70.00 Partial blindness H54.7 Sleep apnea G47.30 Hypertension I10 History of DVT (deep vein thrombosis) Z86.718 Time Spent (min) 35
[2020-08-20] MEDS: MoRPHine SULFATE 2 MG/ML CARP IV PRN ×6 (00:51→23:30)
[2020-08-20] MEDS: HYDROCODONE/ACETAMOPHEN 5/325MG TAB PO PRN ×3 (04:33→13:17)
[2020-08-20 07:34] LABS: Basophils # (auto) 0.01 K/uL (0-0.2); Basophils % (auto) 0.1 %; Eosinophils # (auto) 0.05 K/uL (0-0.5); Eosinophils % (auto) 0.4 %; Hematocrit (blood only) 27.6 % (42-52); Hemoglobin 9.2 g/dL (14.0-18.0); Immature Granulocytes # (auto) 0.06 K/uL (0.00-0.02); Immature Granulocytes % (auto) 0.5 %; Lymphocytes % (auto) 4.6 %; Mean Corpuscular Hemoglobin 30.1 pg (25-34); Mean Corpuscular Hgb Conc 33.3 g/dL (32-36); Mean Corpuscular Volume 90.2 fL (80-100); Mean Platelet Volume 10.3 fL (7.4-10.4); Monocytes # (auto) 1.56 K/uL (0.11-0.59); Neutrophils # (auto) 10.71 K/uL (1.4-6.5); Neutrophils % (auto) 82.4 %; Platelet Count 218 K/uL (130-400); RDW Coefficient of Variation 13.7 % (11.5-14.5); RDW Standard Deviation 45.1 fL (36.4-46.3); Red Blood Count 3.06 M/uL (4.7-6.1); White Blood Count 12.99 K/uL (4.8-10.8)
[2020-08-20 08:02] LABS: BUN Creatinine Ratio 15.1 (10-20); Calcium 8.1 mg/dl (8.5-10.1); Creatinine Clr Calc Pharmacy 58.7 ml/min; Est GFR (African American) 52.6; Est GFR (Non-African American) 45.4; Potassium 4.7 mmol/L (3.5-5.1)
[2020-08-20] MEDS: DOCUSATE SODIUM 100 MG CAP PO SCH ×2 (09:03→20:13)
[2020-08-20] MEDS: TRAVOPROST Z 0.004% OPH SOLN 2.5 ML BTL OP SCH (09:03)
[2020-08-20] MEDS: BRIMONIDINE TARTRATE 0.2% 5ML OPB SCH ×2 (09:03→20:14)
[2020-08-20] MEDS: FEBUXOSTAT 40 MG TABLET PO SCH (09:04)
[2020-08-20] MEDS: SENNA 8.6 MG TAB PO SCH (09:04)
--- NOTE | 2020-08-20 09:11 | Urology Progress Note ---
Date of Service August 20, 2020 Assessment & Plan (1) Prostate cancer: (2) Hematoma: 70yo M who is POD#6 s/p robotic prostatectomy complicated with a pelvic hematoma -Reviewed plan of care with Dr. Meeks -Patient remains afebrile -Mild increased in WBC and Cr, will continue to trend -Continues to have abdominal discomfort -Repeat CT showed decreased size of hematoma -Discussed importance of bowel regimen -Order placed for Dulcolax supp. - LBM 08/14 -Will continue to hold Heparin given hematoma - Will reassess tomorrow -Continue Chavez catheter -Will advance diet as tolerated -Continue pain control -Encourage ambulation with assistance -Will continue to follow Admission and Anticipated Discharge Date Admission Date: August 14, 2020 Subjective 70yo M who is Postop day #6 s/p robotic prostatectomy complicated with a pelvic hematoma Chart review: Afebrile BP 151/72, P70 WBC- 12.99 (previously 10.69) HgB-9.2 (previously 8.4) Cr-1.53 (previously 1.42) CT Pelvis (08/19) IMPRESSION: 1. Status post prostatectomy. 2. Modest decrease in size of the hemorrhage at the prostatectomy site as compared to 08/16/2020. Intrapelvic extraperitoneal hemorrhage has also modestly decreased from previous. 3. Soft tissue infiltration throughout the ventral pelvic wall with foci of subcutaneous gas is similar to previous. This likely represents expected postop erative change and clinical correlation will be required. 4. The bladder is decompressed around a Chavez catheter. The bladder wall appears thickened and there is nonspecific intraluminal gas. Correlation with urinalysis will be required. Patient continues to have significant abdominal discomfort tolerable with PO and IV medication Denies fevers or chills Tolerating clear liquid diet without nausea or vomiting Chavez catheter intact, draining clear, yellow urine Ambulated x2 yesterday with assistance No BM since 08/14 Not anxious to go home Review of Systems Constitutional: as per Subjective / HPI Gastrointestinal: as per Subjective / HPI Genitourinary: + as per Subjective / HPI Psychiatric: as per Subjective / HPI Physical Exam Constitutional: well developed, well nourished and + obese; no acute distress Respiratory: normal respiratory effort and able to speak in complete sentences Gastrointestinal (Abdomen): Incisions appropriate, yoselyn intact, no erythema or discharge. Lower abdominal tenderness to palpation Skin: warm and dry, normal color Neurologic: awake; not confused Psychiatric: A+Ox3, euthymic affect Genitourinary: Chavez catheter intact, draining clear, yellow urine Results & Data ([facility]) Vital Signs (Past 12 Hours) Vital Signs Temp Pulse Resp BP BP Pulse Ox 08/20/20 07:28 37.3 C 70 18 151/72 H 94 08/19/20 23:10 36.9 C 81 16 143/71 H 91 08/19/20 20:25 37.7 C H 80 22 173/72 H 91 PG Care Time/CCT Total # of Minutes Spent Total Time Spent with Patient: Total time spent is greater than 50% in coordination of care (as documented) at patient's floor/unit and/or counseling patient: Coding Level of Care Code None Diagnoses Prostate cancer C61 Hematoma T14.8XXA
[2020-08-20 10:11] LABS: INR 1.1 (0.9-1.1); Prothrombin Time 11.3 Seconds (9.0-12.0)
[2020-08-20] MEDS ORDERED: METHYLNALTREXONE BROMIDE 12 MG/0.6 ML VIAL SQ ONE ×2 (10:30)
[2020-08-20] MEDS ORDERED: bisacodyL 10 MG SUPP PR STA (10:41)
--- NOTE | 2020-08-20 12:00 | XRay Report ---
KUB CLINICAL HISTORY: Abdominal pain. COMPARISON STUDY: CT of the abdomen and pelvis August 16, 2020 FINDINGS: There are multiple loops of mildly dilated small large bowel. Surgical yoselyn project over the lower abdomen. IMPRESSION: Mild small and large bowel dilatation. An ileus is favored although a bowel obstruction could appear similar. ACT 112: Negative or not required by law. Electronically signed by: Haseeb Contreras M.D. 08/20/2020 11:58 AM
[2020-08-20] MEDS: LACTATED RINGER'S 1,000 ML IV SCH ×2 (12:11→23:30)
[2020-08-20] MEDS ORDERED: bisacodyL 10 MG SUPP PR ONE (14:25)
[2020-08-20] MEDS ORDERED: IOVERSOL 100ml IV ONE (15:11)
--- NOTE | 2020-08-20 15:37 | CT Scan Report ---
ABDOMEN AND PELVIS CT WITH IV CONTRAST CT DOSE: 1785.52 mGy.cm HISTORY: Acute generalized abdominal pain with reported small bowel obstruction. Follow-up study in a patient with recent pelvic hematoma with prostatectomy SBO/ abdominal pain TECHNIQUE: Multiaxial CT images of the abdomen and pelvis were performed following the IV administrat ion of 94 cc of Optiray 320, A dose lowering technique was utilized adhering to the principles of AL BLAS. COMPARISON STUDY: CT pelvis 08/19/2020, CT abdomen and pelvis 08/16/2020 FINDINGS: Mild dependent subsegmental bibasilar atelectasis. Respiratory motion limits evaluation of the lung b ases. Small volume of scattered pneumoperitoneum redemonstrated. Moderate cardiomegaly with coronary artery calcifications. The spleen, pancreas and adrenal glands are unremarkable. Moderately distended gallbladder. Unremarka ble liver. Nonspecific bilateral perinephric stranding. 2 mm nonobstructing calculus of the interpola r right kidney. Bilateral renal hypodensities suggest probable cyst. There is resolution of the hydro ureteronephrosis seen on the study from 08/16/2020. Decompressed urinary bladder with wall thickening and Chavez catheter. Prostatectomy. Partially liquefied hematoma within the prostatectomy bed interpos ed between the rectum and urinary bladder is redemonstrated which is generally stable in size measuri ng approximately 4.5 x 3.0 x 9.1 cm in transverse, AP and craniocaudal dimensions. Intrapelvic extrap eritoneal hemorrhage along the left lateral pelvic wall appears stable. There is increased amount of low-density ascites tracking along the inferior bilateral pericolic gutters. No new or progressive he morrhage identified. Unremarkable aorta. No adenopathy. Moderate generalized body wall edema. Anterior abdominal wall skin yoselyn. Scattered foci of subcuta neous emphysema, likely postsurgical. Duodenal diverticulum. Mild nonspecific rectal wall thickening, likely reactive. Colonic diverticulosis without acute diverticulitis. Moderate fecal retention. Visu alized appendix is noninflamed. Scattered colonic air-fluid levels are noted with mild colonic disten tion. Small bowel air-fluid levels are noted within loops of bowel measuring up to 2.5 cm. No discret e bowel obstruction. Peripherally calcified 2.0 cm linear structure involves the omentum of the left paracentral mid abdomen, unchanged. Ossified bodies are noted lateral to the right hip. Degenerative changes of the spine, pelvis and hips. IMPRESSION: 1. Prior prostatectomy with generally unchanged size of the partially liquefied hematoma at the prost atectomy site. This appears generally stable in size from yesterday's exam. Intrapelvic extraperitone al hemorrhage is also unchanged. 2. Increased amount of simple ascites of the lower pericolic gutters. 3. Resolution of the previously noted bilateral hydronephrosis. 4. Prominent air and fluid-filled loops of large and small bowel without are suggestive of probable i leus. No transition point identified to suggest obstruction. 5. Moderate generalized body wall edema. 6. Trace pneumoperitoneum with scattered foci of subcutaneous emphysema along the anterior abdominal wall, likely postsurgical. ACT 112: Negative or not required by law. The above report was generated using voice recognition software. It may contain grammatical, syntax o r spelling errors. Electronically signed by: Thor Yeh M.D. 08/20/2020 3:35 PM
[2020-08-20] MEDS: TRAZODONE HCL 50 MG TAB PO SCH (20:13)
[2020-08-20] MEDS: CEROVITE ADV FORMULA TAB PO SCH (20:13)
[2020-08-20] MEDS: SERTRALINE HCL 100 MG TABLET PO SCH (20:14)
[2020-08-20] MEDS: POLYETHYLENE (MIRALAX) 17 GM PACK PO PRN (20:19)
[2020-08-20] MEDS ORDERED: Nursing to Pharmacy Communication SCH (21:45)
--- NOTE | 2020-08-20 23:26 | Hospitalist Progress Note ---
Date of Service August 20, 2020 Assessment & Plan (1) Postoperative ileus: Concern over SBO as pain is getting worse and WBC is rising. Will obtain a ct scan with IV contrast to assess for SBO. Ordered IVF for 6 hours piror to protect kidneys. Will monitor will order relistor if ct scan is negative. (2) Hematoma: hemoglobin has been stable. INR stlll therapeuutic, repeated ct scan, showed decrease size of hematoma. (3) Dyspnea: SOB has improved. No evidence of hypervolemia on exam. No prior history of CHF (suspect prior leg swelling from obesity hypoventilation and EFRAÍN). NOw passing flatus Most concerning is his history of myasthenia gravis. No diplopia on ophthalmoplegia on exam. No fatigue of speech but worsening incentive spirometry is concerning for this in setting of recently anesthetics. Consult neurology. Possible his post operative anemia is also contributing. EFRAÍN +/- obesity hypoventilation also likely contributing. No current hypoxia. (4) Postoperative anemia: Monitor with Hgb in AM. (5) Myasthenia gravis: Previously in remission. Unclear on details but followed with neurology in [place] previously. Not on pyridostigmine. Concerning worsening incentive spirometry without lung pathology to explain this for possible exacerbation of this but certainly does not appear to be a crisis at current time. Will consult neurology. 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 (7) Sleep apnea: Continue CPAP HS (8) Hypertension: Hold lasix. (9) History of DVT (deep vein thrombosis): Prophylaxis per urology. On lifelong therapeutic anticoagulation for recurrence. on hold, can restart before discharge. at least waiting to see if ileus improves. Admission and Anticipated Discharge Date Admission Date: August 14, 2020 Subjective Patient reports he is having pain in his abdomen. He reports he is not passing gas. He reports he has not had a bowel movement for about 1 week. Saw patient after ct scan, pain is slightly worse. Review of Systems Review of Systems: All systems reviewed & are unremarkable except as noted in HPI & below Physical Exam Physical Exam: Constitutional: well developed, well nourished and + obese; no acute distress Eyes: + anicteric sclerae and EOM intact bilaterally (no diplopia); normal pupil size No ptosis ENMT: external ear and nose normal, oropharynx normal Neck: trachea midline, no thyromegaly Respiratory: able to speak in complete sentences (no fatigue in speech); no respiratory distress, no labored breathing, no retractions and does not use accessory muscles Auscultation: lungs clear to auscultation bilaterally Cardiovascular: Rate/Rhythm: regular rate and regular rhythm Heart Sounds: no murmur Vessels: no JVD Extremities: normal capillary refill; no calf tenderness Gastrointestinal (Abdomen): Inspection/Auscultation: + abdomen distended and normal bowel sounds Percussion/Palpation: + abdomen tender (LLQ), no guarding, or abdomen soft; abdomen not rigid Musculoskeletal: no cyanosis or clubbing, extremities motor strength 5/5 Skin: no rashes, warm and dry Neurologic: moves all extremities and awake; no focal motor deficits and not confused Motor/Sensory: no tremor, no pronator drift and no sensory deficit Psychiatric: A+Ox3, euthymic affect Results & Data Results & Data ([facility]) Vital Signs (Past 12 Hours) Vital Signs Temp Pulse Resp BP Pulse Ox 08/20/20 23:25 36.9 C 76 18 133/74 95 08/20/20 15:40 37.2 C 76 16 162/71 H 92 PG Care Time/CCT Total # of Minutes Spent Total Time Spent with Patient: Total time spent is greater than 50% in coordination of care (as documented) at patient's floor/unit and/or counseling patient: Coding Level of Care Code 65130 Subseq Hosp Care Lvl 3 Diagnoses Postoperative ileus K91.89; K56.7 Hematoma T14.8XXA Dyspnea R06.00 Postoperative anemia D64.9 Myasthenia gravis G70.00 Partial blindness H54.7 Sleep apnea G47.30 Hypertension I10 History of DVT (deep vein thrombosis) Z86.718 Time Spent (min) 35
[2020-08-21] MEDS: HYDROCODONE/ACETAMOPHEN 5/325MG TAB PO PRN ×4 (06:09→20:09)
[2020-08-21 06:25] LABS: Basophils # (auto) 0.01 K/uL (0-0.2); Basophils % (auto) 0.1 %; Eosinophils # (auto) 0.14 K/uL (0-0.5); Eosinophils % (auto) 1.1 %; Hematocrit (blood only) 25.9 % (42-52); Hemoglobin 8.7 g/dL (14.0-18.0); Immature Granulocytes # (auto) 0.05 K/uL (0.00-0.02); Immature Granulocytes % (auto) 0.4 %; Lymphocytes # (auto) 0.57 K/uL (1.2-3.4); Lymphocytes % (auto) 4.7 %; Mean Corpuscular Hgb Conc 33.6 g/dL (32-36); Mean Corpuscular Volume 89.3 fL (80-100); Mean Platelet Volume 9.8 fL (7.4-10.4); Monocytes # (auto) 1.29 K/uL (0.11-0.59); Monocytes % (auto) 10.5 %; Neutrophils # (auto) 10.17 K/uL (1.4-6.5); Neutrophils % (auto) 83.2 %; Platelet Count 219 K/uL (130-400); RDW Coefficient of Variation 13.7 % (11.5-14.5); RDW Standard Deviation 45.4 fL (36.4-46.3); White Blood Count 12.23 K/uL (4.8-10.8)
[2020-08-21 06:43] LABS: BUN Creatinine Ratio 18.1 (10-20); Calcium 7.9 mg/dl (8.5-10.1); Creatinine Clr Calc Pharmacy 54.1 ml/min; Est GFR (African American) 47.7; Est GFR (Non-African American) 41.1; Potassium 4.6 mmol/L (3.5-5.1)
[2020-08-21] MEDS: LACTATED RINGER'S 1,000 ML IV SCH ×3 (07:29→22:48)
[2020-08-21] MEDS: SENNA 8.6 MG TAB PO SCH ×2 (07:35→20:09)
[2020-08-21] MEDS: TRAVOPROST Z 0.004% OPH SOLN 2.5 ML BTL OP SCH (07:35)
[2020-08-21] MEDS: FEBUXOSTAT 40 MG TABLET PO SCH (07:35)
[2020-08-21] MEDS: BRIMONIDINE TARTRATE 0.2% 5ML OPB SCH ×2 (07:35→20:08)
[2020-08-21] MEDS: DOCUSATE SODIUM 100 MG CAP PO SCH ×2 (07:36→20:08)
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
--- NOTE | 2020-08-21 12:32 | Urology Progress Note ---
Date of Service August 21, 2020 Assessment & Plan (1) Prostate cancer: Postop day 7 status post robot-assisted radical prostatectomy. Patient had hematoma which developed while on blood thinners. Has a history of spontaneous hemorrhage/hematoma in the retroperitoneum. Patient is improving. Had bowel movement yesterday which has improved some of his issues. Pain appears to be more related to bowel concerns and problems. Encourage increased activity and ambulation. Discussed this for resolution of ileus as well as clot prevention as patient does have a history of clots. We will continue to improve. Continue to monitor. Plan will be to monitor for day. Likely home tomorrow if continues to improve Admission and Anticipated Discharge Date Admission Date: August 14, 2020 Subjective Patient continue to have occasional abdominal pain. Had repeat CT scan yesterday shows stable hematoma with no major issues or obstruction. Patient had considerable ileus and is likely having a large amount of discomfort and spasms from bowel. Had a small bowel movement last night which has helped somewhat. No other major changes or issues. Has been tolerating diet without major problems or concerns. Has not had bowel movement today. Skin incisions have been healing without major problems or issues. Patient can likely have yoselyn removed prior to leaving tomorrow. May also consider removing catheter however would be ideal to maintain until next week. Having blood within urine which appears to be old dark blood. No major obstruction or other issues. Is tolerating catheter Review of Systems Review of Systems: All systems reviewed & are unremarkable except as noted in HPI & below Physical Exam Physical Exam: General: Alert in no acute distress. HEENT: Normocephalic Atraumatic. Inspection normal. Cranial Nerves 2-12 Grossly intact. Normal inspection of face. Normal inspection of neck. Psychologic: Normal affect. Respiratory: Nonlabored. No use of accessory muscles. No tachypnea or dyspnea. Cardiovascular: No tachycardia Skin: [place] and Dry. No rashes or visible lesions. Extremities/Lymphatics: No edema Abdomen: Appropriately tender. Moderate distended. No rebound or guarding. Wound: Clean, dry, covered. Results & Data ([facility]) Vital Signs (Past 12 Hours) Vital Signs Temp Pulse Resp BP Pulse Ox 08/21/20 07:27 37.1 C 78 18 128/65 94 PG Care Time/CCT Total # of Minutes Spent Total Time Spent with Patient: Total time spent is greater than 50% in coordination of care (as documented) at patient's floor/unit and/or counseling patient: Coding Level of Care Code 71072 Subseq Hosp Care Lvl 3 Diagnoses Prostate cancer C61
[2020-08-21] MEDS: MoRPHine SULFATE 2 MG/ML CARP IV PRN ×2 (14:12→22:48)
--- NOTE | 2020-08-21 15:40 | XRay Report ---
KUB HISTORY: re-eval ileus, stool burden COMPARISON: Abdomen and pelvis CT and KUB 08/20/2020. FINDINGS: There are skin yoselyn within the mid to lower abdomen, unchanged. Mildly dilated gas-fille d loops of large and small bowel are again noted. This is similar to the prior study. No pneumoperito neum or pneumatosis. No renal or ureteral calculi. IMPRESSION: No change in the mildly dilated gas-filled loops of large or small bowel seen throughout the abdomen. This favors a mild ileus. ACT 112: Negative or not required by law. Electronically signed by: Jl Duran M.D. 08/21/2020 3:39 PM
[2020-08-21] MEDS ORDERED: CHLORASEPTIC 1.4% SOLN 180 ML BTL MT PRN (15:56)
--- NOTE | 2020-08-21 15:56 | Hospitalist Progress Note ---
Date of Service August 21, 2020 Assessment & Plan (1) Postoperative ileus: Improving s/p bowel movement on 08/20 Will monitor will order relistor if ct scan is negative. (2) Hematoma: Hb with slight decrease to 8.7 INR subtherapeutic at this point repeated ct scan on 08/20 with decrease size of hematoma. (3) Dyspnea: SOB has improved. No evidence of hypervolemia on exam. No prior history of CHF (suspect prior leg swelling from obesity hypoventilation and EFRAÍN). Most concerning is his history of myasthenia gravis. No diplopia on ophthalmoplegia on exam. No fatigue of speech but worsening incentive spirometry is concerning for this in setting of recently anesthetics. Consult neurology. Possible his post operative anemia is also contributing. EFRAÍN +/- obesity hypoventilation also likely contributing. No current hypoxia. (4) Postoperative anemia: Monitor with Hgb in AM. (5) Myasthenia gravis: Previously in remission. Unclear on details but followed with neurology in [place] previously. Not on pyridostigmine. Concerning worsening incentive spirometry without lung pathology to explain this for possible exacerbation of this but certainly does not appear to be a crisis at current time. Will consult neurology. 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 (7) Sleep apnea: Continue CPAP HS (8) Hypertension: Hold lasix. (9) History of DVT (deep vein thrombosis): Currently on prophylaxis heparin dosing per urology On lifelong therapeutic anticoagulation for recurrence on hold, can restart before discharge Admission and Anticipated Discharge Date Admission Date: August 14, 2020 Subjective Pt states he is sitting up in bed for the first time in days. He still has abd pain and distention, but it is better. He did have a bowel movement last night and is passing gas today. This has helped greatly. Pt denies fever, SOB, chest pain, abd pain, n/v/c/d, LE pain or swelling. He has had throat pain since being intubated. No issues with PO. Review of Systems Review of Systems: Pertinent positives and negatives reviewed in HPI--all others negative Results & Data Results & Data ([facility]) Vital Signs (Past 12 Hours) Vital Signs Temp Pulse Resp BP Pulse Ox 08/21/20 15:35 36.7 C 74 16 138/68 94 08/21/20 07:27 37.1 C 78 18 128/65 94 PG Care Time/CCT Total # of Minutes Spent Total Time Spent with Patient: Total time spent is greater than 50% in coordination of care (as documented) at patient's floor/unit and/or counseling patient: Coding Level of Care Code 48292 Subseq Hosp Care Lvl 3 Diagnoses Postoperative ileus K91.89; K56.7 Hematoma T14.8XXA Dyspnea R06.00 Postoperative anemia D64.9 Myasthenia gravis G70.00 Partial blindness H54.7 Sleep apnea G47.30 Hypertension I10 History of DVT (deep vein thrombosis) Z86.718
[2020-08-21] MEDS: TRAZODONE HCL 50 MG TAB PO SCH (20:08)
[2020-08-21] MEDS: CEROVITE ADV FORMULA TAB PO SCH (20:08)
[2020-08-21] MEDS: SERTRALINE HCL 100 MG TABLET PO SCH (20:20)
[2020-08-22] MEDS: LACTATED RINGER'S 1,000 ML IV SCH ×2 (06:28→13:20)
[2020-08-22 06:50] LABS: Basophils # (auto) 0.01 K/uL (0-0.2); Basophils % (auto) 0.1 %; Eosinophils # (auto) 0.25 K/uL (0-0.5); Eosinophils % (auto) 2.4 %; Hematocrit (blood only) 25.6 % (42-52); Hemoglobin 8.4 g/dL (14.0-18.0); Immature Granulocytes # (auto) 0.05 K/uL (0.00-0.02); Immature Granulocytes % (auto) 0.5 %; Lymphocytes # (auto) 0.62 K/uL (1.2-3.4); Lymphocytes % (auto) 5.9 %; Mean Corpuscular Hemoglobin 29.2 pg (25-34); Mean Corpuscular Hgb Conc 32.8 g/dL (32-36); Mean Corpuscular Volume 88.9 fL (80-100); Monocytes # (auto) 1.02 K/uL (0.11-0.59); Monocytes % (auto) 9.7 %; Neutrophils # (auto) 8.56 K/uL (1.4-6.5); Neutrophils % (auto) 81.4 %; Platelet Count 257 K/uL (130-400); RDW Coefficient of Variation 13.7 % (11.5-14.5); RDW Standard Deviation 45.1 fL (36.4-46.3); Red Blood Count 2.88 M/uL (4.7-6.1); White Blood Count 10.51 K/uL (4.8-10.8)
[2020-08-22 07:27] LABS: BUN Creatinine Ratio 21.1 (10-20); Creatinine Clr Calc Pharmacy 53.5 ml/min; Est GFR (Non-African American) 40.5; Potassium 4.7 mmol/L (3.5-5.1)
[2020-08-22] MEDS: BRIMONIDINE TARTRATE 0.2% 5ML OPB SCH ×2 (07:52→21:19)
[2020-08-22] MEDS: FEBUXOSTAT 40 MG TABLET PO SCH (07:52)
[2020-08-22] MEDS: DOCUSATE SODIUM 100 MG CAP PO SCH ×2 (07:52→21:19)
[2020-08-22] MEDS: TRAVOPROST Z 0.004% OPH SOLN 2.5 ML BTL OP SCH (07:52)
[2020-08-22] MEDS: HYDROCODONE/ACETAMOPHEN 5/325MG TAB PO PRN ×4 (08:05→20:35)
[2020-08-22] MEDS: MoRPHine SULFATE 2 MG/ML CARP IV PRN ×5 (09:13→21:34)
--- NOTE | 2020-08-22 10:40 | Urology Progress Note ---
Date of Service August 22, 2020 Assessment & Plan (1) Hematoma: (2) Prostate cancer: 70 yo M POD #8 s/p robotic-assisted prostatectomy - Continues to have intermittent abdominal pain likely secondary to mild ileus and bladder spasms - Recommend aggressive bowel regimen - Discussed plan with Dr. Meeks - will d/c Chaevz catheter today - Heidrick likely to be removed during admission - Encourage OOB, continue PT - Hgb 8.4, creatinine 1.68 continue to trend - Will continue to monitor while inpatient Admission and Anticipated Discharge Date Admission Date: August 14, 2020 Subjective 70 yo M POD #8 s/p robotic-assisted radical prostatectomy. Pt examined at bedside this AM. Awake and sitting up in bed upon arrival. Has not been OOB today. Chavez catheter intact, patent, draining yellow urine in tubing. Reports leaking around Chavez catheter. Continues to have lower abdominal pain intermittently. Reports urge to have BM. Tolerating PO diet, no nausea or vomiting. Last BM 08/20. KUB 08/21 no change in mild ileus. Lab work: Hgb 8.4, Creatinine 1.68, WBC 10.51. Review of Systems Constitutional: as per Subjective / HPI Gastrointestinal: as per Subjective / HPI Genitourinary: + as per Subjective / HPI Physical Exam Constitutional: well developed, well nourished and + obese; no acute distress and not ill appearing Respiratory: normal respiratory effort; no respiratory distress and no labored breathing Cardiovascular: Extremities: no pedal edema Gastrointestinal (Abdomen): Inspection/Auscultation: abdomen normal to inspection and + abdomen distended Percussion/Palpation: + abdomen tender (mildly tender to palpation in lower abdomen) and abdomen soft; no guarding Musculoskeletal: Head/Neck/Chest: normocephalic and head atraumatic Skin: Surgical incisions with yoselyn intact, well approximated, C/D/I Neurologic: moves all extremities and awake Psychiatric: Orientation: alert and oriented x 3 Genitourinary: Chavez catheter intact, patent, draining yellow urine in tubing. Moderate penile and scrotal edema noted. Results & Data ([facility]) Vital Signs (Past 12 Hours) Vital Signs Temp Pulse Resp BP BP Pulse Ox 08/22/20 07:25 36.4 C L 72 20 140/65 94 08/21/20 22:55 36.9 C 68 18 128/72 95 PG Care Time/CCT Total # of Minutes Spent Total Time Spent with Patient: Total time spent is greater than 50% in coordination of care (as documented) at patient's floor/unit and/or counseling patient: Coding Level of Care Code 05424 Subseq Hosp Care Lvl 2 Diagnoses Hematoma T14.8XXA Prostate cancer C61
--- NOTE | 2020-08-22 13:16 | Hospitalist Progress Note ---
Date of Service August 22, 2020 Assessment & Plan (1) Postoperative ileus: Improving s/p bowel movement on 08/20 Will monitor will order relistor if ct scan is negative. (2) Hematoma: Hb with slight decrease to 8.7 INR subtherapeutic at this point repeated ct scan on 08/20 with decrease size of hematoma. Urology d/c torres on 08/22 (3) Dyspnea: SOB has improved. No evidence of hypervolemia on exam. No prior history of CHF (suspect prior leg swelling from obesity hypoventilation and EFRAÍN). Most concerning is his history of myasthenia gravis. No diplopia on ophthalmoplegia on exam. No fatigue of speech but worsening incentive spirometry is concerning for this in setting of recently anesthetics. Consult neurology. Possible his post operative anemia is also contributing. EFRAÍN +/- obesity hypoventilation also likely contributing. No current hypoxia. (4) Postoperative anemia: Monitor with Hgb in AM. (5) Myasthenia gravis: Previously in remission. Unclear on details but followed with neurology in [place] previously. Not on pyridostigmine. Concerning worsening incentive spirometry without lung pathology to explain this for possible exacerbation of this but certainly does not appear to be a crisis at current time. Will consult neurology. 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 (7) Sleep apnea: Continue CPAP HS (8) Hypertension: Hold lasix. (9) History of DVT (deep vein thrombosis): d/w urology, restarting heparin at proph BID dose today, monitor Hb Has been on and off intermittently during admission, but was held for concerns regarding hematoma discussed home options with pharmacy if unable to resume eliquis on d/c--current GFR will tolerate lovenox 30mg QD dosing as heparin does not come in an injectable pen (10) ARF (acute renal failure): Baseline is 1.2-1.3 Up to 1.6 recently Monitor Admission and Anticipated Discharge Date Admission Date: August 14, 2020 Subjective Pt is again sitting up in bed, about to have lunch. States he is eating without issue. States he is not frankly SOB, but is having difficulty with deep inspiration on his IS due to pain and abd distention limitations. No chest pain. Pt denies fever, SOB, chest pain, n/v/c/d, LE pain or swelling. Abd is slightly better than yesterday. Still no bowel movement but continues to pass gas. Review of Systems Review of Systems: Pertinent positives and negatives reviewed in HPI--all others negative Physical Exam Constitutional: WD/WN, vitals as above Eyes: normal visual amaya by confrontation and + anicteric sclerae Neck: normal visual inspection and trachea midline Respiratory: normal respiratory effort, lungs clear to auscultation Cardiovascular: Rate/Rhythm: regular rate and regular rhythm Extremities: + edema (1+ pitting) Gastrointestinal (Abdomen): Inspection/Auscultation: + abdomen distended (improving) Percussion/Palpation: + abdomen tender (diffuse) and abdomen soft Musculoskeletal: Head/Neck/Chest: normocephalic and head atraumatic negative for edema, peripheral pulses intact Skin: no rashes, warm and dry Neurologic: awake; not confused Speech / Cognition: normal speech Psychiatric: A+Ox3, euthymic affect Results & Data Results & Data ([facility]) Vital Signs (Past 12 Hours) Vital Signs Temp Pulse Resp BP Pulse Ox 08/22/ 07:25 36.4 C L 72 20 140/65 94 PG Care Time/CCT Total # of Minutes Spent Total Time Spent with Patient: Total time spent is greater than 50% in coordination of care (as documented) at patient's floor/unit and/or counseling patient: Coding Level of Care Code 06131 Subseq Hosp Care Lvl 3 Diagnoses Postoperative ileus K91.89; K56.7 Hematoma T14.8XXA Dyspnea R06.00 Postoperative anemia D64.9 Myasthenia gravis G70.00 Partial blindness H54.7 Sleep apnea G47.30 Hypertension I10 History of DVT (deep vein thrombosis) Z86.718 ARF (acute renal failure) N17.9
[2020-08-22] MEDS: TRAZODONE HCL 50 MG TAB PO SCH (21:19)
[2020-08-22] MEDS: HEPARIN SOD 5,000 UNIT/0.5 ML VIAL SQ SCH (21:20)
[2020-08-22] MEDS: CEROVITE ADV FORMULA TAB PO SCH (21:20)
[2020-08-22] MEDS: SENNA 8.6 MG TAB PO SCH (21:21)
[2020-08-22] MEDS: SERTRALINE HCL 100 MG TABLET PO SCH (21:21)
--- NOTE | 2020-08-22 22:05 | Communication Note ---
Date of Service: August 22, 2020 Pt with new proximal RLE new calf pain. High risk for DVT with past hx of dvt, post-surgical status, had not been out of bed, and prophylaxis limited by hematoma with heparin just restarted today. LE doppler R ordered given high risk, pt with mild tenderness at proximal calf but with no erythema, jennifer's negative, and equal calf circumference on physical exam. Resident Activity Tracking Resident Involvement: Resident Care Provided Care Provided: Adult Hospital Medicine
[2020-08-23 06:35] LABS: Basophils # (auto) 0.01 K/uL (0-0.2); Basophils % (auto) 0.1 %; Eosinophils # (auto) 0.32 K/uL (0-0.5); Eosinophils % (auto) 4.1 %; Hematocrit (blood only) 23.9 % (42-52); Hemoglobin 7.8 g/dL (14.0-18.0); Immature Granulocytes # (auto) 0.06 K/uL (0.00-0.02); Immature Granulocytes % (auto) 0.8 %; Lymphocytes # (auto) 0.58 K/uL (1.2-3.4); Lymphocytes % (auto) 7.4 %; Mean Corpuscular Hemoglobin 29.2 pg (25-34); Mean Corpuscular Hgb Conc 32.6 g/dL (32-36); Mean Corpuscular Volume 89.5 fL (80-100); Mean Platelet Volume 9.7 fL (7.4-10.4); Monocytes # (auto) 0.76 K/uL (0.11-0.59); Monocytes % (auto) 9.7 %; Neutrophils # (auto) 6.11 K/uL (1.4-6.5); Neutrophils % (auto) 77.9 %; Platelet Count 293 K/uL (130-400); RDW Coefficient of Variation 13.8 % (11.5-14.5); RDW Standard Deviation 45.3 fL (36.4-46.3); Red Blood Count 2.67 M/uL (4.7-6.1); White Blood Count 7.84 K/uL (4.8-10.8)
[2020-08-23 07:09] LABS: BUN Creatinine Ratio 21.5 (10-20); Creatinine Clr Calc Pharmacy 51.7 ml/min; Est GFR (Non-African American) 38.9; Potassium 4.4 mmol/L (3.5-5.1); RBC Morphology Unremarkable
[2020-08-23] MEDS: HYDROCODONE/ACETAMOPHEN 5/325MG TAB PO PRN ×4 (07:34→22:13)
[2020-08-23] MEDS: TRAVOPROST Z 0.004% OPH SOLN 2.5 ML BTL OP SCH (07:35)
[2020-08-23] MEDS: BRIMONIDINE TARTRATE 0.2% 5ML OPB SCH ×2 (07:35→21:27)
[2020-08-23] MEDS: DOCUSATE SODIUM 100 MG CAP PO SCH ×2 (07:35→21:28)
[2020-08-23] MEDS: FEBUXOSTAT 40 MG TABLET PO SCH (07:35)
[2020-08-23] MEDS: HEPARIN SOD 5,000 UNIT/0.5 ML VIAL SQ SCH ×2 (07:36→21:29)
[2020-08-23] MEDS: LACTATED RINGER'S 1,000 ML IV SCH (07:54)
--- NOTE | 2020-08-23 08:31 | Ultrasound Report ---
RIGHT LOWER EXTREMITY VENOUS DOPPLER CLINICAL HISTORY: new R calf pain, high risk for DVT COMPARISON STUDY: No previous studies for comparison. TECHNIQUE: Sonography of the deep venous system of the right lower extremity was performed. Compress ion and augmentation were evaluated. FINDINGS: The right common femoral, superficial femoral and popliteal veins were compressible. Augme ntation was normal. Flow was shown within the deep calf vessels. IMPRESSION: No evidence of deep venous thrombus within the right lower extremity. ACT 112: Negative or not required by law. Electronically signed by: Haseeb Contreras M.D. 08/23/2020 8:30 AM
--- NOTE | 2020-08-23 08:40 | Urology Progress Note ---
Date of Service August 23, 2020 Assessment & Plan (1) Hematoma: 70yo M who is POD#9 s/p robotic prostatectomy complicated with a pelvic hematoma secondary to blood thinners due to high risk of clot/DVT. Again encouraged patient highly to continue with ambulation and to continue to monitor and increase activity over time. Patient had a mild increase in creatinine and decrease in hemoglobin overnight without major problems issues concerns or bother. Encourage patient to drastically improve ambulation and mobility. Had been restarted on the anticoagulation due to his high risk for clots/DVT. Continue with monitoring. Encourage mobility. Continue with diet. Discussed leaking issues. Patient can likely have yoselyn removed in the next day or 2 depending on how long he stays. (2) Prostate cancer: As above Admission and Anticipated Discharge Date Admission Date: August 14, 2020 Subjective Postop day 9 status post robot-assisted laparoscopic prostatectomy with development of hematoma while on blood thinners due to significant history of clot. Patient has also history of spontaneous hematoma with a large retroperitoneal hematoma in the past. He is previously been experiencing considerable pain especially with lack of bowel function however this is somewhat improved. Patient has some blood in the urine. Catheter was moved yesterday and he is able to void though is leaking considerably as is expected after prostatectomy. Continues to have some pain and discomfort. Incisions have been mild sore. Likely can have yoselyn removed today Having some abdominal distension/gas pains. Patient has been ambulating but needs considerable encouragement and support. PT has been ordered and has seen the patient. Started to have return of bowel function. No new nausea or vomiting. Tolerating diet Review of Systems Review of Systems: All systems reviewed & are unremarkable except as noted in HPI & below Physical Exam Physical Exam: General: Alert in no acute distress. HEENT: Normocephalic Atraumatic. Inspection normal. Cranial Nerves 2-12 Grossly intact. Normal inspection of face. Normal inspection of neck. Psychologic: Normal affect. Respiratory: Nonlabored. No use of accessory muscles. No tachypnea or dyspnea. Cardiovascular: No tachycardia Skin: [place] and Dry. No rashes or visible lesions. Extremities/Lymphatics: No edema Abdomen: Appropriately tender. Mild distended. No rebound or guarding. Obese Wound: Clean and intact. Chavez was removed. Results & Data ([facility]) Vital Signs (Past 12 Hours) Vital Signs Temp Pulse Resp BP Pulse Ox 08/23/20 07:11 36.8 C 67 18 117/64 94 08/23/20 00:23 36.4 C L 74 18 148/75 H 92 PG Care Time/CCT Total # of Minutes Spent Total Time Spent with Patient: Total time spent is greater than 50% in coordination of care (as documented) at patient's floor/unit and/or counseling patient: Coding Level of Care Code 87809 Subseq Hosp Care Lvl 3 Diagnoses Hematoma T14.8XXA Prostate cancer C61
[2020-08-23] MEDS: MoRPHine SULFATE 2 MG/ML CARP IV PRN (13:43)
--- NOTE | 2020-08-23 13:52 | Hospitalist Progress Note ---
Date of Service August 23, 2020 Assessment & Plan (1) Postoperative ileus: Improving s/p bowel movement on 08/20 Will monitor Pt is aware that he needs to ambulate, even if only to the door and back. He is willing to attempt today. Advised nursing to have aids attempting this multiple times today (2) Hematoma: Hb with slight decrease overnight, monitor INR subtherapeutic at this point repeated ct scan on 08/20 with decrease size of hematoma. Restarted heparin at proph dosing on 08/22 Urology d/c torres on 08/22 (3) Dyspnea: SOB has improved. No evidence of hypervolemia on exam. No prior history of CHF (suspect prior leg swelling from obesity hypoventilation and EFRAÍN). Most concerning is his history of myasthenia gravis. No diplopia on ophthalmoplegia on exam. No fatigue of speech but worsening incentive spirometry is concerning for this in setting of recently anesthetics. Consult neurology. Possible his post operative anemia is also contributing. EFRAÍN +/- obesity hypoventilation also likely contributing. No current hypoxia. (4) Postoperative anemia: Monitor with Hgb in AM. (5) Myasthenia gravis: Previously in remission. Unclear on details but followed with neurology in [place] previously. Not on pyridostigmine. Concerning worsening incentive spirometry without lung pathology to explain this for possible exacerbation of this but certainly does not appear to be a crisis at current time. Will consult neurology. 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 (7) Sleep apnea: Continue CPAP HS (8) Hypertension: Hold lasix. (9) History of DVT (deep vein thrombosis): d/w urology, restarting heparin at proph BID dose today, monitor Hb Has been on and off intermittently during admission, but was held for concerns regarding hematoma overnight R calf pain, LE US neg for DVT on R discussed home options with pharmacy if unable to resume eliquis on d/c--current GFR will tolerate lovenox 30mg QD dosing as heparin does not come in an injectable pen if ongoing issues with Hb, hematoma with resumption of heparin, may need t/c IVC filter (10) ARF (acute renal failure): Baseline is 1.2-1.3 Up to 1.7 recently Monitor Admission and Anticipated Discharge Date Admission Date: August 14, 2020 Subjective Pt states ongoing improvement in abd pain, but still with intense pain. He feels his breathing is better, but still limited by abd pain in deep inspiration. Pt denies fever, chest pain, abd pain, n/v/c/d, LE pain or swelling. Review of Systems Review of Systems: Pertinent positives and negatives reviewed in HPI--all others negative Physical Exam Constitutional: WD/WN, vitals as above Eyes: normal visual amaya by confrontation and + anicteric sclerae Neck: normal visual inspection and trachea midline Respiratory: normal respiratory effort, lungs clear to auscultation Cardiovascular: Rate/Rhythm: regular rate and regular rhythm Extremities: + edema (1+ pitting) Gastrointestinal (Abdomen): Inspection/Auscultation: + abdomen distended (improving) Percussion/Palpation: + abdomen tender (diffuse, R>L) and abdomen soft Musculoskeletal: Head/Neck/Chest: normocephalic and head atraumatic Skin: no rashes, warm and dry Neurologic: awake; not confused Speech / Cognition: normal speech Psychiatric: A+Ox3, euthymic affect Results & Data Results & Data ([facility]) Vital Signs (Past 12 Hours) Vital Signs Temp Pulse Resp BP Pulse Ox 08/23/20 13:17 36.6 C 71 18 148/71 H 96 08/23/20 07:11 36.8 C 67 18 117/64 94 PG Care Time/CCT Total # of Minutes Spent Total Time Spent with Patient: Total time spent is greater than 50% in coordination of care (as documented) at patient's floor/unit and/or counseling patient: Coding Level of Care Code 60210 Subseq Hosp Care Lvl 3 Diagnoses Postoperative ileus K91.89; K56.7 Hematoma T14.8XXA Dyspnea R06.00 Postoperative anemia D64.9 Myasthenia gravis G70.00 Partial blindness H54.7 Sleep apnea G47.30 Hypertension I10 History of DVT (deep vein thrombosis) Z86.718 ARF (acute renal failure) N17.9
[2020-08-23] MEDS ORDERED: bisacodyL 10 MG SUPP PR ONE (15:22)
[2020-08-23] MEDS: TRAZODONE HCL 50 MG TAB PO SCH (21:28)
[2020-08-23] MEDS: CEROVITE ADV FORMULA TAB PO SCH (21:28)
[2020-08-23] MEDS: SENNA 8.6 MG TAB PO SCH (21:29)
[2020-08-23] MEDS: SERTRALINE HCL 100 MG TABLET PO SCH (21:29)
[2020-08-24] MEDS: LACTATED RINGER'S 1,000 ML IV SCH ×2 (04:00→23:49)
[2020-08-24 06:02] LABS: Basophils # (auto) 0.01 K/uL (0-0.2); Basophils % (auto) 0.1 %; Eosinophils # (auto) 0.29 K/uL (0-0.5); Hematocrit (blood only) 23.7 % (42-52); Hemoglobin 7.7 g/dL (14.0-18.0); Immature Granulocytes # (auto) 0.04 K/uL (0.00-0.02); Immature Granulocytes % (auto) 0.6 %; Lymphocytes # (auto) 0.56 K/uL (1.2-3.4); Lymphocytes % (auto) 7.7 %; Mean Corpuscular Hemoglobin 28.9 pg (25-34); Mean Corpuscular Hgb Conc 32.5 g/dL (32-36); Mean Corpuscular Volume 89.1 fL (80-100); Monocytes # (auto) 0.74 K/uL (0.11-0.59); Monocytes % (auto) 10.2 %; Neutrophils # (auto) 5.61 K/uL (1.4-6.5); Neutrophils % (auto) 77.4 %; Platelet Count 323 K/uL (130-400); RDW Standard Deviation 46.3 fL (36.4-46.3); Red Blood Count 2.66 M/uL (4.7-6.1); White Blood Count 7.25 K/uL (4.8-10.8)
[2020-08-24 06:37] LABS: RBC Morphology Unremarkable
[2020-08-24 06:38] LABS: BUN Creatinine Ratio 23.4 (10-20); Calcium 8.4 mg/dl (8.5-10.1); Creatinine Clr Calc Pharmacy 52.9 ml/min; Est GFR (African American) 46.3; Potassium 4.3 mmol/L (3.5-5.1)
[2020-08-24] MEDS: HYDROCODONE/ACETAMOPHEN 5/325MG TAB PO PRN ×3 (08:19→18:12)
[2020-08-24] MEDS: TRAVOPROST Z 0.004% OPH SOLN 2.5 ML BTL OP SCH (08:20)
[2020-08-24] MEDS: DOCUSATE SODIUM 100 MG CAP PO SCH ×2 (08:20→20:04)
[2020-08-24] MEDS: HEPARIN SOD 5,000 UNIT/0.5 ML VIAL SQ SCH ×2 (08:20→20:05)
[2020-08-24] MEDS: BRIMONIDINE TARTRATE 0.2% 5ML OPB SCH ×2 (08:21→20:03)
[2020-08-24] MEDS: FEBUXOSTAT 40 MG TABLET PO SCH (08:21)
[2020-08-24] MEDS: MoRPHine SULFATE 2 MG/ML CARP IV PRN ×3 (10:26→20:08)
--- NOTE | 2020-08-24 11:02 | Urology Progress Note ---
Date of Service August 24, 2020 Assessment & Plan (1) Hematoma: 70yo M who is POD#10 s/p robotic prostatectomy complicated with a pelvic hematoma secondary to blood thinners due to high risk of clot/DVT. Patient continues to minimally ambulate. Physical therapy has been ordered. Again encouraged patient highly to continue with ambulation and to continue to monitor and increase activity over time. Bowel function is continue to be fluctuating with episodes of very loose stools as well as continued issues. Discussed different options and concerns. Patient does have considerable pelvic discomfort at times. Had not required pain medication until this morning when had another severe episode of pelvic spasm. Had been restarted on the anticoagulation due to his high risk for clots/DVT. Continue with monitoring. Encourage mobility. Continue with diet. Discussed leaking issues. We will plan to remove yoselyn today. May need to consider discharge planning if patient continues to have issues with ambulating and increasing activity. (2) Prostate cancer: As above Admission and Anticipated Discharge Date Admission Date: August 14, 2020 Subjective Patient continues to complain of bowel issues. Had developed ileus from lack of mobility and development of hematoma. Patient is extremely high risk for clots and was on blood thinners and developed hematoma postoperatively. Has been dealing with pelvic pain and pressure. Has tried multiple agents with mixed results. Highly encouraged patient to increase ambulation but he has been minimal in this. Physical therapy has been following. No other major changes or issues. Tolerating diet otherwise. Patient is very anxious about going home. Review of Systems Review of Systems: All systems reviewed & are unremarkable except as noted in HPI & below Physical Exam Physical Exam: General: Alert in no acute distress. HEENT: Normocephalic Atraumatic. Inspection normal. Cranial Nerves 2-12 Grossly intact. Normal inspection of face. Normal inspection of neck. Psychologic: Normal affect. Respiratory: Nonlabored. No use of accessory muscles. No tachypnea or dyspnea. Cardiovascular: No tachycardia Skin: [place] and Dry. No rashes or visible lesions. Extremities/Lymphatics: No edema Abdomen: Appropriately tender. Mild distended. No rebound or guarding. Obese Wound: Clean and intact. Yoselyn in place to be removed later today Chavez was removed. No considerable leakage Results & Data ([facility]) Vital Signs (Past 12 Hours) Vital Signs Temp Pulse Resp BP BP Pulse Ox 08/24/20 07:29 36.6 C 68 18 161/67 H 94 08/23/20 23:27 36.9 C 95 H 18 147/73 H 96 PG Care Time/CCT Total # of Minutes Spent Total Time Spent with Patient: Total time spent is greater than 50% in coordination of care (as documented) at patient's floor/unit and/or counseling patient: Coding Level of Care Code 43902 Subseq Hosp Care Lvl 3 Diagnoses Hematoma T14.8XXA Prostate cancer C61
--- NOTE | 2020-08-24 11:49 | Hospitalist Progress Note ---
Date of Service August 24, 2020 Assessment & Plan (1) Postoperative ileus: Improving s/p bowel movement on 08/20 Will monitor Pt is aware that he needs to ambulate, even if only to the door and back. He is willing to attempt today. Advised nursing to have aids attempting this multiple times today (2) Hematoma: Hb stable overnight, monitor INR subtherapeutic at this point repeated ct scan on 08/20 with decrease size of hematoma. Restarted heparin at proph dosing on 08/22 Urology d/c torres on 08/22 (3) Dyspnea: SOB has improved. No evidence of hypervolemia on exam. No prior history of CHF (suspect prior leg swelling from obesity hypoventilation and EFRAÍN). Most concerning is his history of myasthenia gravis. No diplopia on ophthalmoplegia on exam. No fatigue of speech but worsening incentive spirometry is concerning for this in setting of recently anesthetics. Consult neurology. Possible his post operative anemia is also contributing. EFRAÍN +/- obesity hypoventilation also likely contributing. No current hypoxia. (4) Postoperative anemia: Monitor with Hgb in AM. (5) Myasthenia gravis: Previously in remission. Unclear on details but followed with neurology in [place] previously. Not on pyridostigmine. Concerning worsening incentive spirometry without lung pathology to explain this for possible exacerbation of this but certainly does not appear to be a crisis at current time. Will consult neurology. 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 (7) Sleep apnea: Continue CPAP HS (8) Hypertension: Hold lasix. (9) History of DVT (deep vein thrombosis): d/w urology, restarting heparin at proph BID dose today, monitor Hb Has been on and off intermittently during admission, but was held for concerns regarding hematoma overnight R calf pain on 08/23/27, LE neg for DVT on R discussed home options with pharmacy if unable to resume eliquis on d/c--current GFR will tolerate lovenox 30mg QD dosing as heparin does not come in an injectable pen if ongoing issues with Hb, hematoma with resumption of heparin, may need t/c IVC filter (10) ARF (acute renal failure): Baseline is 1.2-1.3 Up to 1.7 recently Monitor Admission and Anticipated Discharge Date Admission Date: August 14, 2020 Subjective Reports ongoing slow progress. Was not OOB yesterday "due to nursing schedule". Tolerating PO without issue. Still with abd pain, but better. Pt denies fever, SOB, chest pain, n/v/d, LE pain or swelling. Still no bowel movement, but continues to pass gas. Review of Systems Review of Systems: Pertinent positives and negatives reviewed in HPI--all others negative Physical Exam Constitutional: WD/WN, vitals as above Eyes: normal visual amaya by confrontation and + anicteric sclerae Neck: normal visual inspection and trachea midline Respiratory: normal respiratory effort, lungs clear to auscultation Cardiovascular: Rate/Rhythm: regular rate and regular rhythm Extremities: + edema (1+ pitting) Gastrointestinal (Abdomen): Inspection/Auscultation: + abdomen distended (improving) Percussion/Palpation: + abdomen tender (diffuse, R>L) and abdomen soft Musculoskeletal: Head/Neck/Chest: normocephalic and head atraumatic Skin: no rashes, warm and dry Neurologic: awake; not confused Speech / Cognition: normal speech Psychiatric: A+Ox3, euthymic affect Results & Data Results & Data ([facility]) Vital Signs (Past 12 Hours) Vital Signs Temp Pulse Resp BP Pulse Ox 08/24/20 07:29 36.6 C 68 18 161/67 H 94 PG Care Time/CCT Total # of Minutes Spent Total Time Spent with Patient: Total time spent is greater than 50% in coordination of care (as documented) at patient's floor/unit and/or counseling patient: Coding Level of Care Code 79774 Inpt Consult Level 4 Diagnoses Postoperative ileus K91.89; K56.7 Hematoma T14.8XXA Dyspnea R06.00 Postoperative anemia D64.9 Myasthenia gravis G70.00 Partial blindness H54.7 Sleep apnea G47.30 Hypertension I10 History of DVT (deep vein thrombosis) Z86.718 ARF (acute renal failure) N17.9
[2020-08-24] MEDS: POLYETHYLENE (MIRALAX) 17 GM PACK PO PRN (16:09)
[2020-08-24] MEDS: SERTRALINE HCL 100 MG TABLET PO SCH (20:04)
[2020-08-24] MEDS: TRAZODONE HCL 50 MG TAB PO SCH (20:05)
[2020-08-24] MEDS: CEROVITE ADV FORMULA TAB PO SCH (20:06)
[2020-08-24] MEDS: SENNA 8.6 MG TAB PO SCH (20:06)
[2020-08-25] MEDS: HYDROCODONE/ACETAMOPHEN 5/325MG TAB PO PRN ×4 (03:50→16:58)
[2020-08-25] MEDS: MoRPHine SULFATE 2 MG/ML CARP IV PRN ×2 (05:02→11:00)
[2020-08-25] MEDS: FEBUXOSTAT 40 MG TABLET PO SCH (08:07)
[2020-08-25] MEDS: TRAVOPROST Z 0.004% OPH SOLN 2.5 ML BTL OP SCH (08:07)
[2020-08-25] MEDS: DOCUSATE SODIUM 100 MG CAP PO SCH ×2 (08:07→21:12)
[2020-08-25] MEDS: HEPARIN SOD 5,000 UNIT/0.5 ML VIAL SQ SCH (08:07)
[2020-08-25] MEDS: BRIMONIDINE TARTRATE 0.2% 5ML OPB SCH ×2 (08:08→21:15)
[2020-08-25 08:40] LABS: Basophils # (auto) 0.01 K/uL (0-0.2); Basophils % (auto) 0.1 %; Eosinophils # (auto) 0.22 K/uL (0-0.5); Eosinophils % (auto) 2.3 %; Hematocrit (blood only) 26.2 % (42-52); Hemoglobin 8.3 g/dL (14.0-18.0); Immature Granulocytes # (auto) 0.08 K/uL (0.00-0.02); Immature Granulocytes % (auto) 0.8 %; Lymphocytes % (auto) 9.4 %; Mean Corpuscular Hemoglobin 28.4 pg (25-34); Mean Corpuscular Hgb Conc 31.7 g/dL (32-36); Mean Corpuscular Volume 89.7 fL (80-100); Mean Platelet Volume 8.9 fL (7.4-10.4); Monocytes # (auto) 0.84 K/uL (0.11-0.59); Monocytes % (auto) 8.8 %; Neutrophils # (auto) 7.51 K/uL (1.4-6.5); Neutrophils % (auto) 78.6 %; Platelet Count 394 K/uL (130-400); RDW Coefficient of Variation 14.4 % (11.5-14.5); RDW Standard Deviation 47.1 fL (36.4-46.3); Red Blood Count 2.92 M/uL (4.7-6.1); White Blood Count 9.56 K/uL (4.8-10.8)
[2020-08-25 09:05] LABS: BUN Creatinine Ratio 20.8 (10-20); Calcium 8.5 mg/dl (8.5-10.1); Creatinine Clr Calc Pharmacy 51.9 ml/min; Est GFR (African American) 45.4; Est GFR (Non-African American) 39.1; Potassium 4.5 mmol/L (3.5-5.1)
--- NOTE | 2020-08-25 13:18 | Hospitalist Progress Note ---
Date of Service August 25, 2020 Assessment & Plan (1) Postoperative ileus: Last bowel movement on 08/20 Repeat KUB - no obstruction Encourage ambulation Will give Relistor, Miralax, and Fleet enema now. Patient is receiving senna at night per gastroenterology consultation (2) Hematoma: Hb has been stable for over a week now repeated ct scan on 08/20 with decrease size of hematoma. Restarted heparin at proph dosing on 08/22. Will DC and resume Eliquis, discussed with urology and they are ok with this (3) Dyspnea: Persistent No evidence of hypervolemia on exam. No prior history of CHF (suspect prior leg swelling from obesity hypoventilation and EFRAÍN). Patient with history of myasthenia gravis. Consulted neurology on 08/17 - no clinical signs of myasthenia on exam. Does not recommend treating. Possible his post operative anemia is also contributing. EFRAÍN +/- obesity hypoventilation also likely contributing. Doppler of right lower extremity was negative for DVT. Hesitant to send for CTA for PE given renal function. He is not tachycardic or febrile, on RA for multiple days. (4) Postoperative anemia: Hgb stable as above (5) Myasthenia gravis: Previously in remission. Unclear on details but followed with neurology in [place] previously. Not on pyridostigmine. Consulted neurology - no treatment necessary at this time. 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 (7) Sleep apnea: Continue CPAP HS (8) Hypertension: Hold lasix. (9) History of DVT (deep vein thrombosis): d/w urology, restart Eliquis as above overnight R calf pain on 08/23/27, LE US neg for DVT on R (10) ARF (acute renal failure): Baseline is 1.2-1.3 Around 1.7 for the last five days. Electrolytes, bicarb wnl Urine output not being measured as patient incontinent Continue gentle IVF especially as patient does have some edema Will continue to trend Admission and Anticipated Discharge Date Admission Date: August 14, 2020 Subjective Mr. Irby reports feeling very "full" today due to swelling in his belly and constipation. He continues to have scrotal edema. He feels sob, no cough or chest pain. He does not have much appetite ROS Constitutional: no chills, aches, sweats or fever Respiratory: see HPI Cardiac: no chest pain, palpitations, edema, orthopnea or lightheadedness GI: no abdominal pain, nausea, vomiting, diarrhea or constipation : no dysuria or hesitancy Extremities: no joint pain or weakness Skin: no rash All other systems reviewed and negative Physical Exam Physical Exam: General: no distress Eyes: normal inspection, PERLL Respiratory: chest non tender, clear to auscultation, normal breath sounds, no respiratory distress, no accessory muscle use Cardiac: regular rate and rhythm, no rub or gallop, no murmur, no edema, no jvd GI/: active bowel sounds, generalized abdominal tenderness to palpation, soft, non distended Extremities: normal range of motion, normal strength, non tender Neuro/Psych: alert and oriented x 3, normal mood and affect Skin: normal color, dry Results & Data Results & Data ([facility]) Vital Signs (Past 12 Hours) Vital Signs Temp Pulse Resp BP Pulse Ox 08/25/20 07:12 37 C 65 16 148/70 H 94 PG Care Time/CCT Total # of Minutes Spent Total Time Spent with Patient: Total time spent is greater than 50% in coordination of care (as documented) at patient's floor/unit and/or counseling patient: Coding Level of Care Code 80317 Subseq Hosp Care Lvl 3 Diagnoses Postoperative ileus K91.89; K56.7 Hematoma T14.8XXA Dyspnea R06.00 Postoperative anemia D64.9 Myasthenia gravis G70.00 Partial blindness H54.7 Sleep apnea G47.30 Hypertension I10 History of DVT (deep vein thrombosis) Z86.718 ARF (acute renal failure) N17.9
--- NOTE | 2020-08-25 13:27 | XRay Report ---
XR KUB/Abdomen 1 view CLINICAL HISTORY: ileus NO BOWEL MOVEMENT POSTOP COMPARISON STUDY: 08/21/2020 FINDINGS: Dystrophic calcifications are visualized involving the lateral margin of the left hip. Ther e are no transition zones indicate bowel obstruction. There is mild gaseous prominence of the colon. There is moderate colonic stool. IMPRESSION: 1. Moderate colonic stool 2. Nonobstructive bowel gas pattern ACT 112: Negative or not required by law. Electronically signed by: Ken Butler M.D. 08/25/2020 1:25 PM
--- NOTE | 2020-08-25 13:38 | Urology Progress Note ---
Date of Service August 25, 2020 Assessment & Plan (1) Hematoma: 70yo M who is POD#11 s/p robotic prostatectomy complicated with a pelvic hematoma secondary to blood thinners due to high risk of clot/DVT. Patient continues to have minimal bowel function as far as having a decent bowel movement. Continues to have abdominal pain which he is now attributing to this bowel issue. Has trialed MiraLAX, Colace, Dulcolax suppositories with minimal effect. Had a KUB earlier today which showed continued stool retention. Patient continues to minimally ambulate. Physical therapy has been ordered. Again encouraged patient highly to continue with ambulation and to continue to monitor and increase activity over time. Had been restarted on the anticoagulation due to his high risk for clots/DVT. Continue with monitoring. Encourage mobility. Continue with diet. Discussed leaking issues. We will trial enema today to see if this will stimulate bowels. Patient is once again highly encouraged to ambulate. Will attempt to try to discharge tomorrow if patient does improve and is able to have return of bowel function (2) Prostate cancer: As above Admission and Anticipated Discharge Date Admission Date: August 14, 2020 Subjective Patient continues to have cramping and bloating from ileus versus constipation postoperatively. Has been utilizing bowel regimen with minimal results. Continues to have discomfort and cramping. Feels that the majority of his issues continue to be this. Patient is continued to be poorly ambulating. Once again encouraged ambulation to improve activity. No other major changes. Patient has been tolerating otherwise. Labs and other values have stabilized now without major problems or issues. Review of Systems Review of Systems: All systems reviewed & are unremarkable except as noted in HPI & below Physical Exam Physical Exam: General: Alert in no acute distress. HEENT: Normocephalic Atraumatic. Inspection normal. Cranial Nerves 2-12 Grossly intact. Normal inspection of face. Normal inspection of neck. Psychologic: Normal affect. Respiratory: Nonlabored. No use of accessory muscles. No tachypnea or dyspnea. Cardiovascular: No tachycardia Skin: [place] and Dry. No rashes or visible lesions. Extremities/Lymphatics: No edema Abdomen: Obese. Appropriately tender. Moderately distended. No rebound or guarding. Wound: Clean, intact Results & Data ([facility]) Vital Signs (Past 12 Hours) Vital Signs Temp Pulse Resp BP Pulse Ox 08/25/20 07:12 37 C 65 16 148/70 H 94 PG Care Time/CCT Total # of Minutes Spent Total Time Spent with Patient: Total time spent is greater than 50% in coordination of care (as documented) at patient's floor/unit and/or counseling patient: Coding Level of Care Code 78243 Subseq Hosp Care Lvl 3 Diagnoses Hematoma T14.8XXA Prostate cancer C61
[2020-08-25] MEDS ORDERED: METHYLNALTREXONE BROMIDE 12 MG/0.6 ML VIAL SQ ONE (13:45)
[2020-08-25] MEDS ORDERED: POLYETHYLENE (MIRALAX) 17 GM PACK PO ONE (13:45)
[2020-08-25] MEDS ORDERED: SOD PHOSPHATE/SOD BIPHOSPHATE ENEMA 132 ML BTL PR ONE (13:45)
[2020-08-25] MEDS: LACTATED RINGER'S 1,000 ML IV SCH (21:12)
[2020-08-25] MEDS: SENNA 8.6 MG TAB PO SCH (21:13)
[2020-08-25] MEDS: SERTRALINE HCL 100 MG TABLET PO SCH (21:13)
[2020-08-25] MEDS: CEROVITE ADV FORMULA TAB PO SCH (21:14)
[2020-08-25] MEDS: TRAZODONE HCL 50 MG TAB PO SCH (21:14)
[2020-08-25] MEDS: APIXABAN 5 MG TABLET PO SCH (21:14)
[2020-08-26 07:28] LABS: Basophils # (auto) 0.01 K/uL (0-0.2); Basophils % (auto) 0.1 %; Eosinophils % (auto) 1.3 %; Hematocrit (blood only) 22.2 % (42-52); Hemoglobin 7.4 g/dL (14.0-18.0); Immature Granulocytes % (auto) 0.7 %; Lymphocytes # (auto) 0.68 K/uL (1.2-3.4); Lymphocytes % (auto) 4.6 %; Mean Corpuscular Hemoglobin 29.6 pg (25-34); Mean Corpuscular Hgb Conc 33.3 g/dL (32-36); Mean Corpuscular Volume 88.8 fL (80-100); Mean Platelet Volume 8.8 fL (7.4-10.4); Monocytes # (auto) 0.87 K/uL (0.11-0.59); Monocytes % (auto) 5.9 %; Neutrophils % (auto) 87.4 %; Platelet Count 372 K/uL (130-400); RDW Coefficient of Variation 14.5 % (11.5-14.5); RDW Standard Deviation 47.7 fL (36.4-46.3); White Blood Count 14.86 K/uL (4.8-10.8)
[2020-08-26 07:48] LABS: RBC Morphology Unremarkable
[2020-08-26 07:58] LABS: BUN Creatinine Ratio 20.8 (10-20); Calcium 8.2 mg/dl (8.5-10.1); Creatinine Clr Calc Pharmacy 56.2 ml/min; Est GFR (African American) 49.9; Potassium 4.5 mmol/L (3.5-5.1)
[2020-08-26] MEDS: DOCUSATE SODIUM 100 MG CAP PO SCH ×2 (08:31→20:59)
[2020-08-26] MEDS: APIXABAN 5 MG TABLET PO SCH ×2 (08:31→21:00)
[2020-08-26] MEDS: BRIMONIDINE TARTRATE 0.2% 5ML OPB SCH ×2 (08:31→20:59)
[2020-08-26] MEDS: TRAVOPROST Z 0.004% OPH SOLN 2.5 ML BTL OP SCH (08:31)
[2020-08-26] MEDS: FEBUXOSTAT 40 MG TABLET PO SCH (08:31)
--- NOTE | 2020-08-26 11:42 | Urology Progress Note ---
Date of Service August 26, 2020 Assessment & Plan (1) Hematoma: (2) Prostate cancer: 70yo M who is POD#12 s/p robotic prostatectomy complicated with a pelvic hematoma and mild ileus -Patient remains afebrile -Reviewed labs, WBC has increased, Creatinine trending down -Continues to have some abdominal discomfort -Discussed importance of continued bowel regimen -Encouraged OOB, continue PT -Continue diet -Continue pain control- Encourage PO options first -Case management consulted for discharge planning - Likely will need rehab stay -Will continue to follow while inpatient Admission and Anticipated Discharge Date Admission Date: August 14, 2020 Subjective 70yo M who is POD#12 s/p robotic prostatectomy complicated with a pelvic hematoma and mild ileus Pt examined at bedside this AM Awake and resting in bed upon arrival Denies fevers or chills Tolerating PO diet without nausea or vomiting. Continues to have intermittent lower abdominal pain Some hematuria and dysuria, has been mostly incontinent Chart Review: Afebrile WBC 14.86 Creatinine 1.60 Hgb 7.4 LBM 08/25 Review of Systems Constitutional: as per Subjective / HPI Gastrointestinal: as per Subjective / HPI Genitourinary: + as per Subjective / HPI Physical Exam Constitutional: well developed, well nourished and + obese; no acute distress Respiratory: normal respiratory effort and able to speak in complete sentences Gastrointestinal (Abdomen): Incisions appropriate, no erythema or discharge. Lower abdominal tenderness to palpation Musculoskeletal: Head/Neck/Chest: normocephalic Skin: Warm and dry, normal color Neurologic: awake; not confused Psychiatric: Orientation: alert, oriented x 3 and cooperative Genitourinary: + edematous penis and + edematous scrotum Results & Data ([facility]) Vital Signs (Past 12 Hours) Vital Signs Temp Pulse Resp BP Pulse Ox 08/26/20 07:33 37.4 C 70 18 137/57 L 95 PG Care Time/CCT Total # of Minutes Spent Total Time Spent with Patient: Total time spent is greater than 50% in coordination of care (as documented) at patient's floor/unit and/or counseling patient: Coding Level of Care Code None Diagnoses Hematoma T14.8XXA Prostate cancer C61
--- NOTE | 2020-08-26 12:45 | Hospitalist Progress Note ---
Date of Service August 26, 2020 Assessment & Plan (1) Postoperative ileus: Resolving Able to have a bowel movement 08/26 Encourage ambulation (2) Hematoma: Hb has been stable for over a week now. Hgb somewhat lower this morning at 7.4 but up to 7.8 on recheck which is similar to past days. repeated ct scan on 08/20 with decrease size of hematoma. Resumed Eliquis 08/25 (3) Dyspnea: Persistent No evidence of hypervolemia on exam. No prior history of CHF (suspect prior leg swelling from obesity hypoventilation and EFRAÍN). Patient with history of myasthenia gravis. Consulted neurology on 08/17 - no clinical signs of myasthenia on exam. Does not recommend treating. Possible his post operative anemia is also contributing. EFRAÍN +/- obesity hypoventilation also likely contributing. Doppler of right lower extremity was negative for DVT. Hesitant to send for CTA for PE given renal function. He is not tachycardic or febrile, on RA for multiple days. (4) Postoperative anemia: Hgb stable as above (5) Myasthenia gravis: Previously in remission. Unclear on details but followed with neurology in [place] previously. Not on pyridostigmine. Consulted neurology - no treatment necessary at this time. 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 (7) Sleep apnea: Continue CPAP HS (8) Hypertension: Hold lasix. (9) History of DVT (deep vein thrombosis): d/w urology, restarted Eliquis as above R calf pain on 08/23/27, LE US neg for DVT on R (10) ARF (acute renal failure): Baseline is 1.2-1.3 Around 1.7 for the last five days but now trending down Electrolytes, bicarb wnl Urine output not being measured as patient incontinent Continue gentle IVF especially as patient does have some edema Consulted nephrology (11) Leukocytosis: WBCs 14.8 - unclear etiology, lungs sound clear, no new urinary symptoms - U/A pending Afebrile, no new symptoms of obvious infection Will repeat tomorrow am Admission and Anticipated Discharge Date Admission Date: August 14, 2020 Subjective Mr. Irby is feeling better today. Belly is less painful as he was able to have a bowel movement yesterday and today. He is vacuum drier tender to palpation. ROS Constitutional: no chills, aches, sweats or fever Respiratory: no sob,cough, sputum, or wheezing Cardiac: no chest pain, palpitations, edema, orthopnea or lightheadedness GI: see HPI : no dysuria or hesitancy Extremities: no joint pain or weakness Skin: no rash All other systems reviewed and negative Physical Exam Physical Exam: General: no distress Eyes: normal inspection, PERLL Respiratory: chest non tender, clear to auscultation, normal breath sounds, no respiratory distress, no accessory muscle use Cardiac: regular rate and rhythm, no rub or gallop, no murmur, no edema, no jvd GI/: active bowel sounds, generalized abdominal tenderness, soft, non distended Extremities: normal range of motion, normal strength, non tender Neuro/Psych: alert and oriented x 3, normal mood and affect Skin: normal color, dry Results & Data Results & Data ([facility]) Vital Signs (Past 12 Hours) Vital Signs Temp Pulse Resp BP Pulse Ox 08/26/20 07:33 37.4 C 70 18 137/57 L 95 PG Care Time/CCT Total # of Minutes Spent Total Time Spent with Patient: Total time spent is greater than 50% in coordination of care (as documented) at patient's floor/unit and/or counseling patient: Coding Level of Care Code 10878 Subseq Hosp Care Lvl 3 Diagnoses Postoperative ileus K91.89; K56.7 Hematoma T14.8XXA Dyspnea R06.00 Postoperative anemia D64.9 Myasthenia gravis G70.00 Partial blindness H54.7 Sleep apnea G47.30 Hypertension I10 History of DVT (deep vein thrombosis) Z86.718 ARF (acute renal failure) N17.9 Leukocytosis D72.829
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
[2020-08-26] MEDS: LACTATED RINGER'S 1,000 ML IV SCH (15:43)
[2020-08-26] MEDS: SERTRALINE HCL 100 MG TABLET PO SCH (21:00)
[2020-08-26] MEDS: SENNA 8.6 MG TAB PO SCH (21:00)
[2020-08-26] MEDS: CEROVITE ADV FORMULA TAB PO SCH (21:00)
[2020-08-26] MEDS: TRAZODONE HCL 50 MG TAB PO SCH (21:00)
[2020-08-26 21:42] LABS: Appearance Urine Cloudy (Clear); Bacteria Urine Automated Negative (Negative); Bilirubin Urine Negative (Negative); Blood Urine 3+ (Negative); Color Urine Orange; Glucose Urine UA Negative (Negative); Ketones Urine Negative (Negative); Leukocyte Esterase Urine 3+ (Negative); Nitrite Urine Negative (Negative); Protein Urine 3+ (Negative); Specific Gravity Urine 1.011 (1.000-1.030); Urobilinogen Urine Positive (Negative); WBC Urine Automated >30 /hpf (0-5)
[2020-08-26 21:54] LABS: Cast Urine Automated 0 /lpf (0-5)
[2020-08-26 21:55] LABS: Amorphous Sediment Urine Present (None Prsent)
[2020-08-26] MEDS: ACETAMINOPHEN 325 MG TAB PO PRN (23:44)
[2020-08-27 06:32] LABS: Basophils # (auto) 0.02 K/uL (0-0.2); Basophils % (auto) 0.1 %; Eosinophils % (auto) 1.5 %; Hematocrit (blood only) 25.8 % (42-52); Hemoglobin 8.2 g/dL (14.0-18.0); Immature Granulocytes # (auto) 0.12 K/uL (0.00-0.02); Immature Granulocytes % (auto) 0.9 %; Lymphocytes # (auto) 1.17 K/uL (1.2-3.4); Lymphocytes % (auto) 8.5 %; Mean Corpuscular Hemoglobin 28.5 pg (25-34); Mean Corpuscular Hgb Conc 31.8 g/dL (32-36); Mean Corpuscular Volume 89.6 fL (80-100); Mean Platelet Volume 9.4 fL (7.4-10.4); Monocytes # (auto) 0.49 K/uL (0.11-0.59); Monocytes % (auto) 3.6 %; Neutrophils % (auto) 85.4 %; Platelet Count 399 K/uL (130-400); RDW Coefficient of Variation 14.6 % (11.5-14.5); RDW Standard Deviation 48.2 fL (36.4-46.3); Red Blood Count 2.88 M/uL (4.7-6.1)
[2020-08-27 06:48] LABS: BUN Creatinine Ratio 18.2 (10-20); Calcium 8.5 mg/dl (8.5-10.1); Creatinine Clr Calc Pharmacy 57.2 ml/min; Potassium 4.4 mmol/L (3.5-5.1)
[2020-08-27] MEDS ORDERED: DAPTOMYCIN CONSULT ACTIVE PRN (08:48)
[2020-08-27] MEDS ORDERED: PIPERACILL/TAZOBAC CONSULT ACTIVE PRN (08:48)
[2020-08-27] MEDS ORDERED: PIPERACILLIN/TAZOBACTAM 3.375 GM in DEXTROSE 5% 100 ML IV ONE (09:00)
[2020-08-27] MEDS ORDERED: DAPTOmycin 325 MG in SYRINGE 0 ML IV ONE (09:30)
[2020-08-27] MEDS: BRIMONIDINE TARTRATE 0.2% 5ML OPB SCH ×2 (09:53→21:32)
[2020-08-27] MEDS: FEBUXOSTAT 40 MG TABLET PO SCH (09:54)
[2020-08-27] MEDS: DOCUSATE SODIUM 100 MG CAP PO SCH ×3 (09:54→21:32)
[2020-08-27] MEDS: APIXABAN 5 MG TABLET PO SCH ×2 (09:54→21:32)
[2020-08-27] MEDS: TRAVOPROST Z 0.004% OPH SOLN 2.5 ML BTL OP SCH (09:56)
[2020-08-27] MEDS ORDERED: DAPTOmycin 150 MG in SYRINGE 0 ML IV ONE (10:00)
--- NOTE | 2020-08-27 10:23 | Nephrology Progress Note ---
Date of Service August 27, 2020 Assessment & Plan (1) ARF (acute renal failure): * VIKKI likely related to obstruction from pelvic hematoma and recent IV contrast administration * Kidney function has recovered. Patient is nonoliguric. Volume status and electrolyte balance are acceptable * Monitor UO, PRP * No further Nephrology evaluation indicated at this time. Will sign off. Please call if further assistance is needed * Please have patient follow up in my office 7 - 14 days following discharge from the hospital for evaluation of CKD ([phone]). Advise him to have PRP, CBC and urinalysis w/ microscopy completed 24 hours prior to his visit (2) Chronic kidney disease, stage III (moderate): * Baseline Cr 1.3 - 1.6 due to microvascular disease (3) Prostate cancer: * Prostatectomy w/ LN dissection 08/14/20 (4) Postoperative ileus: * Recommend avoiding Mg based laxatives or PO4 based enemas due to CKD (5) Postoperative anemia: * No acute indication for ELIGIO therapy. If Hgb drops < 7.0, recommend blood transfusion (6) Hypertension: * Blood pressure is currently acceptable. Hold diuretic (home med) Admission and Anticipated Discharge Date Admission Date: August 14, 2020 Subjective Mr. Irby was seen & examined in his hospital room this morning. He reports that he is able to void without difficulty. He is now having regular BM's. Mr. Irby c/o pelvic discomfort related to his recent prostatectomy Review of Systems Constitutional: no fever Respiratory: no dyspnea Cardiovascular: no chest pain Gastrointestinal: no abdominal pain, no nausea, no vomiting and no diarrhea/lo ose stools Genitourinary: no hematuria Physical Exam Constitutional: not in distress Eyes: PERRL, conjunctivae normal, anicteric sclerae ENMT: external ear and nose normal, oropharynx normal Neck: trachea midline, no thyromegaly Respiratory: normal respiratory effort, lungs clear to auscultation Cardiovascular: RRR, no murmur, no edema Gastrointestinal (Abdomen): normal bowel sounds, soft, nontender, no hepatosplenomegaly Musculoskeletal: Extremities: no cyanosis Skin: no rashes, warm and dry Neurologic: awake; not confused Results & Data ([facility]) Vital Signs (Past 12 Hours) Vital Signs Temp Pulse Resp BP BP Pulse Ox 08/27/20 09:03 36.4 C L 79 18 143/75 H 95 09/30/20 00:15 36.8 C 08/26/20 23:42 37.8 C H 08/26/20 23:35 38.2 C H 08/26/20 23:21 38.0 C H 71 16 111/61 95 Laboratory Tests 08/27/20 08/27/20 05:43 05:43 WBC 13.70 H Hgb 8.2 L Hct 25.8 L Plt Count 399 Sodium 137 Potassium 4.4 Chloride 107 Carbon Dioxide 21 Creatinine 1.57 H PG Care Time/CCT Total # of Minutes Spent Total Time Spent with Patient: Total time spent is greater than 50% in coordination of care (as documented) at patient's floor/unit and/or counseling patient: Coding Level of Care Code 14306 Subseq Hosp Care Lvl 3 Diagnoses ARF (acute renal failure) N17.9 Chronic kidney disease, stage III (moderate) N18.3 Prostate cancer C61 Postoperative ileus K91.89; K56.7 Postoperative anemia D64.9 Hypertension I10
--- NOTE | 2020-08-27 10:55 | Urology Progress Note ---
Date of Service August 27, 2020 Assessment & Plan (1) Prostate cancer: 70 year-old male patient who is POD #13 status post laparoscopic robotic- assisted radical retropubic prostatectomy complicated by a pelvic hematoma and mild ileus. -Patient febrile overnight. -Labs reviewed, white count and creatinine slightly improved from yesterday. -Appreciate input from hospitalist team, blood cultures ordered. Antibiotics started today. -Continue with supportive care. -Strongly encouraged ambulation, discussed potential risks/complications of immobility after surgery. -Continue bowel regimen. -Case management consulted to assist with discharge planning, continue PT/OT. -Continue to monitor closely, plan to reassess in the morning. Admission and Anticipated Discharge Date Admission Date: August 14, 2020 Subjective 70 year-old male patient who is POD #13 status post laparoscopic robotic- assisted radical retropubic prostatectomy complicated by a pelvic hematoma and mild ileus. Patient examined today, he has had improvement of abdominal/pelvic pain. States he has not had any medication for pain in a couple days. He has been urinating without dysuria or hematuria. Does note some stress incontinence. Feels he is emptying his bladder. He was able to ambulate with PT yesterday, has also been ambulating to bathroom independently. Reports loose bowel movements, denies diarrhea. Denies nausea or vomiting. No dizziness or lightheadedness with ambulation. He has resumed his Eliquis. Overnight, he did have an elevated temperature of 38.2, received IV Tylenol. Most recent temperature 36.4. Was seen by the hospitalist team this morning, blood cultures were ordered and he was started on Daptomycin and Zosyn. Chart review: Febrile as above. Wbc 13.70 (previously 14.86) Hgb 8.2 (previously 7.8) Creatinine 1.57 (previously 1.60) Blood cultures pending. Denies additional urologic concerns today. Review of Systems Constitutional: as per Subjective / HPI and + fever; no chills Respiratory: no cough and no dyspnea Cardiovascular: no edema and no calf pain Gastrointestinal: as per Subjective / HPI Genitourinary: + as per Subjective / HPI Neurologic: no dizziness Physical Exam Constitutional: well developed and well nourished; no acute distress and not ill appearing Respiratory: normal respiratory effort and able to speak in complete sentences; no respiratory distress and no audible wheezes Cardiovascular: Extremities: + edema (Trace pitting edema to bilateral lower extremities); no calf tenderness Gastrointestinal (Abdomen): Inspection/Auscultation: abdomen normal to inspection; abdomen not distended Percussion/Palpation: + abdomen tender (Mild tenderness to left lower quadrant.) and abdomen soft; no guarding and abdomen not rigid Musculoskeletal: Head/Neck/Chest: normocephalic and head atraumatic Skin: Surgical incisions well approximated, dry and intact. No erythema, warmth, or redness. Psychiatric: Orientation: alert, oriented x 3 and cooperative Affect: euthymic affect Genitourinary: no CVA tenderness Edema noted to scrotum and penis. Non- tender. No erythema or warmth. Results & Data ([facility]) Vital Signs (Past 12 Hours) Vital Signs Temp Pulse Resp BP BP Pulse Ox 08/27/20 09:03 36.4 C L 79 18 143/75 H 95 08/27/20 00:15 36.8 C 08/26/20 23:42 37.8 C H 08/26/20 23:35 38.2 C H 08/26/20 23:21 38.0 C H 71 16 111/61 95 PG Care Time/CCT Total # of Minutes Spent Total Time Spent with Patient: Total time spent is greater than 50% in coordination of care (as documented) at patient's floor/unit and/or counseling patient: Coding Level of Care Code None Diagnoses Prostate cancer C61
[2020-08-27] MEDS: PIPERACILLIN/TAZOBACTAM 3.375 GM in DEXTROSE 5% 100 ML IV SCH ×2 (13:31→21:33)
--- NOTE | 2020-08-27 14:39 | Hospitalist Progress Note ---
Date of Service August 27, 2020 Assessment & Plan (1) Fever: Overnight, with leukocytosis. Unclear etiology UC, BC x2, C diff Empiric Zosyn/dapto (2) Postoperative ileus: Resolving Having bms Encourage ambulation (3) Dyspnea: Improving No evidence of hypervolemia on exam. No prior history of CHF (suspect prior leg swelling from obesity hypoventilation and EFRAÍN). Patient with history of myasthenia gravis. Consulted neurology on 08/17 - no clinical signs of myasthenia on exam. Does not recommend treating. Possible his post operative anemia is also contributing. EFRAÍN +/- obesity hypoventilation also likely contributing. Doppler of right lower extremity was negative for DVT. (4) Postoperative anemia: Hgb stable (5) Hematoma: Hb has been stable for over a week now. repeated ct scan on 08/20 with decrease size of hematoma. Resumed Eliquis 08/25 (6) Myasthenia gravis: Previously in remission. Unclear on details but followed with neurology in [place] previously. Not on pyridostigmine. Consulted neurology - no treatment necessary at this time. 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 (8) Sleep apnea: Continue CPAP HS (9) Hypertension: Hold lasix. (10) History of DVT (deep vein thrombosis): d/w urology, restarted Eliquis as above R calf pain on 08/23/27, LE US neg for DVT on R (11) ARF (acute renal failure): Baseline is 1.2-1.3, creat peaked at 1.7 and trending down Electrolytes, bicarb wnl Urine output not being measured as patient incontinent Consulted nephrology - signed off at this time - have patient should follow up in Dr. Buck's office 7 - 14 days following discharge from the hospital for evaluation of CKD ([phone]). Advise him to have PRP, CBC and urinalysis w/ microscopy completed 24 hours prior to his visit (12) DVT prophylaxis: Eliquis Admission and Anticipated Discharge Date Admission Date: August 14, 2020 Subjective Mr. Irby is feeling better today however he was febrile overnight. He has had 4 bms since midnight. No dysuria, continues to be incontinent. ROS Constitutional: no chills, aches, sweats or fever Respiratory: no sob,cough, sputum, or wheezing Cardiac: no chest pain, palpitations, edema, orthopnea or lightheadedness GI: no abdominal pain, nausea, vomiting, diarrhea or constipation : no dysuria or hesitancy Extremities: no joint pain or weakness Skin: no rash All other systems reviewed and negative Physical Exam Physical Exam: General: no distress Eyes: normal inspection, PERLL Respiratory: chest non tender, clear to auscultation, normal breath sounds, no respiratory distress, no accessory muscle use Cardiac: regular rate and rhythm, no rub or gallop, no murmur, no edema, no jvd GI/: active bowel sounds, no abd pain or tenderness, soft, non distended Extremities: normal range of motion, normal strength, non tender Neuro/Psych: alert and oriented x 3, normal mood and affect Skin: normal color, dry Results & Data Results & Data ([facility]) Vital Signs (Past 12 Hours) Vital Signs Temp Pulse Resp BP Pulse Ox 08/27/20 09:03 36.4 C L 79 18 143/75 H 95 PG Care Time/CCT Total # of Minutes Spent Total Time Spent with Patient: Total time spent is greater than 50% in coordination of care (as documented) at patient's floor/unit and/or counseling patient: Coding Level of Care Code 55762 Subseq Hosp Care Lvl 3 Diagnoses Fever R50.9 Postoperative ileus K91.89; K56.7 Dyspnea R06.00 Postoperative anemia D64.9 Hematoma T14.8XXA Myasthenia gravis G70.00 Partial blindness H54.7 Sleep apnea G47.30 Hypertension I10 History of DVT (deep vein thrombosis) Z86.718 ARF (acute renal failure) N17.9 DVT prophylaxis Z29.9
[2020-08-27] MEDS: TRAZODONE HCL 50 MG TAB PO SCH (21:32)
[2020-08-27] MEDS: SERTRALINE HCL 100 MG TABLET PO SCH (21:33)
[2020-08-27] MEDS: CEROVITE ADV FORMULA TAB PO SCH (21:33)
[2020-08-27] MEDS: SENNA 8.6 MG TAB PO SCH (21:33)
[2020-08-28] MEDS: PIPERACILLIN/TAZOBACTAM 3.375 GM in DEXTROSE 5% 100 ML IV SCH ×3 (06:27→21:59)
[2020-08-28] MEDS: ACETAMINOPHEN 325 MG TAB PO PRN ×2 (06:34→13:28)
[2020-08-28 07:26] LABS: Hematocrit (blood only) 23.7 % (42-52); Hemoglobin 7.6 g/dL (14.0-18.0); Mean Corpuscular Hemoglobin 28.3 pg (25-34); Mean Corpuscular Hgb Conc 32.1 g/dL (32-36); Mean Corpuscular Volume 88.1 fL (80-100); Mean Platelet Volume 8.6 fL (7.4-10.4); Platelet Count 456 K/uL (130-400); RDW Coefficient of Variation 14.6 % (11.5-14.5); RDW Standard Deviation 46.9 fL (36.4-46.3); Red Blood Count 2.69 M/uL (4.7-6.1); White Blood Count 12.44 K/uL (4.8-10.8)
[2020-08-28 08:23] LABS: BUN Creatinine Ratio 15.5 (10-20); Calcium 8.4 mg/dl (8.5-10.1); Creatinine Clr Calc Pharmacy 54.5 ml/min; Est GFR (Non-African American) 41.4
[2020-08-28] MEDS: TRAVOPROST Z 0.004% OPH SOLN 2.5 ML BTL OP SCH (08:33)
[2020-08-28] MEDS: FEBUXOSTAT 40 MG TABLET PO SCH (08:34)
[2020-08-28] MEDS: DOCUSATE SODIUM 100 MG CAP PO SCH ×2 (08:34→20:20)
[2020-08-28] MEDS: APIXABAN 5 MG TABLET PO SCH ×2 (08:34→20:21)
[2020-08-28] MEDS: BRIMONIDINE TARTRATE 0.2% 5ML OPB SCH ×2 (08:34→20:20)
[2020-08-28] MEDS: DAPTOmycin 475 MG in SYRINGE 0 ML IV SCH (11:08)
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
--- NOTE | 2020-08-28 12:47 | Hospitalist Progress Note ---
Date of Service August 28, 2020 Assessment & Plan (1) Fever: Night of 08/26, no further febers since, with leukocytosis. Unclear etiology UC pending, BC x2 no growth to date, C diff uncollected as of yet Continue Empiric Zosyn/dapto (2) Postoperative ileus: Resolved Encourage ambulation (3) Dyspnea: Improving No evidence of hypervolemia on exam. No prior history of CHF (suspect prior leg swelling from obesity hypoventilation and EFRAÍN). Patient with history of myasthenia gravis. Consulted neurology on 08/17 - no clinical signs of myasthenia on exam. Does not recommend treating. Possible his post operative anemia is also contributing. EFRAÍN +/- obesity hypoventilation also likely contributing. Doppler of right lower extremity was negative for DVT. (4) Postoperative anemia: Hgb stable (5) Hematoma: Hb has been stable for over a week now. repeated ct scan on 08/20 with decrease size of hematoma. Resumed Eliquis 08/25 (6) Myasthenia gravis: Previously in remission. Unclear on details but followed with neurology in [place] previously. Not on pyridostigmine. Consulted neurology - no treatment necessary at this time. 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 (8) Sleep apnea: Continue CPAP HS (9) Hypertension: Hold lasix. (10) History of DVT (deep vein thrombosis): d/w urology, restarted Eliquis as above R calf pain on 08/23/27, LE US neg for DVT on R (11) ARF (acute renal failure): Baseline is 1.2-1.3, creat peaked at 1.7 and trending down Electrolytes, bicarb wnl Urine output not being measured as patient incontinent Consulted nephrology - signed off at this time - have patient should follow up in Dr. Buck's office 7 - 14 days following discharge from the hospital for evaluation of CKD ([phone]). Advise him to have PRP, CBC and urinalysis w/ microscopy completed 24 hours prior to his visit (12) DVT prophylaxis: Eliquis Admission and Anticipated Discharge Date Admission Date: August 14, 2020 Subjective Mr. Brower pain continues to improve. Still with a number of bms in a day. Continues to have urinary leakage. ROS Constitutional: no chills, aches, sweats or fever Respiratory: no sob,cough, sputum, or wheezing Cardiac: no chest pain, palpitations, edema, orthopnea or lightheadedness GI: no abdominal pain, nausea, vomiting, diarrhea or constipation : no dysuria or hesitancy Extremities: no joint pain or weakness Skin: no rash All other systems reviewed and negative Physical Exam Physical Exam: General: no distress Eyes: normal inspection, PERLL Respiratory: chest non tender, clear to auscultation, normal breath sounds, no respiratory distress, no accessory muscle use Cardiac: regular rate and rhythm, no rub or gallop, no murmur, no edema, no jvd GI/: active bowel sounds, abdominal tenderness to palpation, soft, non distended Extremities: normal range of motion, normal strength, non tender Neuro/Psych: alert and oriented x 3, normal mood and affect Skin: normal color, dry Results & Data Results & Data ([facility]) Vital Signs (Past 12 Hours) Vital Signs Temp Pulse Resp BP Pulse Ox 08/28/20 08:46 37.2 C 73 18 141/62 H 97 PG Care Time/CCT Total # of Minutes Spent Total Time Spent with Patient: Total time spent is greater than 50% in coordination of care (as documented) at patient's floor/unit and/or counseling patient: Coding Level of Care Code 02573 Subseq Hosp Care Lvl 2 Diagnoses Fever R50.9 Postoperative ileus K91.89; K56.7 Dyspnea R06.00 Postoperative anemia D64.9 Hematoma T14.8XXA Myasthenia gravis G70.00 Partial blindness H54.7 Sleep apnea G47.30 Hypertension I10 History of DVT (deep vein thrombosis) Z86.718 ARF (acute renal failure) N17.9 DVT prophylaxis Z29.9
--- NOTE | 2020-08-28 15:58 | Psychiatric Consultation ---
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 Dose: 50 mg Documented by: [id number] Admin: 08/26/20 21:00 Dose: 50 mg Documented by: [id number] Admin: 08/25/20 21:14 Dose: 50 mg Documented by: [id number] Admin: 08/24/20 20:05 Dose: 50 mg Documented by: [id number] Admin: 08/23/20 21:28 Dose: 50 mg Documented by: [id number] Admin: 08/22/20 21:19 Dose: 50 mg Documented by: [id number] Admin: 08/21/20 20:08 Dose: 50 mg Documented by: [id number] Admin: 08/20/20 20:13 Dose: 50 mg Documented by: [id number] Admin: 08/19/20 20:28 Dose: 50 mg Documented by: [id number] Admin: 08/18/20 20:51 Dose: 50 mg Documented by: [id number] Admin: 08/17/20 21:25 Dose: 50 mg Documented by: [id number] Admin: 08/16/20 20:07 Dose: 50 mg Documented by: [id number] Admin: 08/15/20 20:58 Dose: 50 mg Documented by: [id number] Admin: 08/14/20 20:35 Dose: 50 mg Documented by: [id number] Coding Level of Care Code 10754 U Intl Hosp Care Lvl 2
[2020-08-28] MEDS ORDERED: TRAZODONE HCL 50 MG TAB PO PRN (16:45)
[2020-08-28] MEDS: TRAZODONE HCL 50 MG TAB PO SCH (20:21)
[2020-08-28] MEDS: CEROVITE ADV FORMULA TAB PO SCH (20:21)
[2020-08-28] MEDS: SERTRALINE HCL 100 MG TABLET PO SCH (20:21)
[2020-08-28] MEDS: SENNA 8.6 MG TAB PO SCH (20:22)
[2020-08-29] MEDS: ACETAMINOPHEN 325 MG TAB PO PRN ×2 (04:15→15:11)
[2020-08-29] MEDS: MoRPHine SULFATE 2 MG/ML CARP IV PRN (05:58)
[2020-08-29] MEDS: PIPERACILLIN/TAZOBACTAM 3.375 GM in DEXTROSE 5% 100 ML IV SCH ×3 (06:00→23:43)
[2020-08-29 07:33] LABS: Hematocrit (blood only) 22.3 % (42-52); Hemoglobin 7.2 g/dL (14.0-18.0); Mean Corpuscular Hemoglobin 28.6 pg (25-34); Mean Corpuscular Hgb Conc 32.3 g/dL (32-36); Mean Corpuscular Volume 88.5 fL (80-100); Mean Platelet Volume 8.8 fL (7.4-10.4); Platelet Count 437 K/uL (130-400); RDW Coefficient of Variation 14.5 % (11.5-14.5); RDW Standard Deviation 47.4 fL (36.4-46.3); Red Blood Count 2.52 M/uL (4.7-6.1)
[2020-08-29 08:07] LABS: BUN Creatinine Ratio 13.4 (10-20); Calcium 8.3 mg/dl (8.5-10.1); Creatinine Clr Calc Pharmacy 55.5 ml/min; Est GFR (African American) 49.1; Est GFR (Non-African American) 42.4; Potassium 4.3 mmol/L (3.5-5.1)
--- NOTE | 2020-08-29 08:21 | Urology Progress Note ---
Date of Service August 29, 2020 Assessment & Plan (1) Prostate cancer: 70 yo M POD #15 s/p laparoscopic robotic-assisted radical retropubic prostatectomy complicated by a pelvic hematoma and mild ileus. - Afebrile overnight - Labs reviewed - WBC within normal limits today, creatinine improved slightly to 1.62, Hgb decreased slightly to 7.2 - Discussed possible repeat imaging with hospital team due to Hgb, appreciate their input - BCx negative x 24 hours, UC&S pending - continue abx, follow cultures - Encouraged OOB/ambulation and incentive spirometer every hour while awake - Pt complains of abdominal pain this morning, question possible bladder spasms - Bladder scan now to rule out retention - Appreciate psych recs, will need continued follow-up with psychiatry outpatient - Continue discharge planning, PT/OT, bed available at [facility] potentially today or tomorrow - Will continue to monitor closely Admission and Anticipated Discharge Date Admission Date: August 14, 2020 Subjective 70 yo M POD #15 s/p laparoscopic robotic-assisted radical retropubic prostatectomy complicated by a pelvic hematoma and mild ileus. Pt awake, sitting up in bed. No issues overnight. No fever or chills. Pt voiding spontaneously - incontinent. Voices some frustration with leaking urine. No dysuria or hematuria. Reports lower abdominal pain this morning requiring morphine, notes relief. Continues to note some lower abdominal discomfort with position changes, resolves when laying on back. Reports scrotum "feels heavy". He is tolerating diet, no nausea or vomiting. Reports loose bowel movements with poor control. Reviewed psych note, prn Trazadone added to medications, pt has not utilized. Chart review: Afebrile overnight Creatinine 1.62 WBC 9.30 (previously 12.44) Hgb 7.2 (previously 7.6) Currently on IV Zosyn and Dapto BCx no growth x 24 hours UC&S pending COVID negative Review of Systems Constitutional: as per Subjective / HPI Gastrointestinal: as per Subjective / HPI Genitourinary: + as per Subjective / HPI Psychiatric: as per Subjective / HPI Physical Exam Constitutional: well developed, well nourished and + obese; no acute distress and not ill appearing Respiratory: normal respiratory effort and able to speak in complete sentences; no respiratory distress and no labored breathing Cardiovascular: Extremities: + edema (trace bilateral lower extremity pitting edema) Gastrointestinal (Abdomen): Inspection/Auscultation: abdomen normal to inspection; abdomen not distended Percussion/Palpation: + abdomen tender (mild lower abdominal tenderness, no rebound or guarding) and abdomen soft Musculoskeletal: Head/Neck/Chest: normocephalic and head atraumatic Skin: Surgical incisions healing well, dry and well approximated, yoselyn previously removed. No erythema, warmth or drainage. Neurologic: moves all extremities and awake Psychiatric: Orientation: alert, oriented x 3 and cooperative Eye Contact: good eye contact Genitourinary: Scrotal and penile edema noted, nontender, no erythema. Results & Data ([facility]) Vital Signs (Past 12 Hours) Vital Signs Temp Pulse Resp BP Pulse Ox 08/29/20 07:52 36.6 C 65 14 146/63 H 95 08/28/20 23:45 36.9 C 68 14 139/68 97 PG Care Time/CCT Total # of Minutes Spent Total Time Spent with Patient: Total time spent is greater than 50% in coordination of care (as documented) at patient's floor/unit and/or counseling patient: Coding Level of Care Code 22226 Subseq Hosp Care Lvl 2 Diagnoses Prostate cancer C61
[2020-08-29] MEDS: BRIMONIDINE TARTRATE 0.2% 5ML OPB SCH ×2 (09:15→19:54)
[2020-08-29] MEDS: FEBUXOSTAT 40 MG TABLET PO SCH (09:15)
[2020-08-29] MEDS: TRAVOPROST Z 0.004% OPH SOLN 2.5 ML BTL OP SCH (09:15)
[2020-08-29] MEDS: DOCUSATE SODIUM 100 MG CAP PO SCH ×2 (09:15→19:55)
[2020-08-29] MEDS: APIXABAN 5 MG TABLET PO SCH ×2 (09:15→19:56)
[2020-08-29] MEDS: DAPTOmycin 475 MG in SYRINGE 0 ML IV SCH (10:35)
[2020-08-29 14:04] LABS: Ferritin 488.7 ng/ml (8-388)
--- NOTE | 2020-08-29 15:25 | CT Scan Report ---
CT SCAN OF THE PELVIS WITHOUT IV CONTRAST CLINICAL HISTORY: Post prostatectomy hematoma. COMPARISON STUDY: Numerous recent prior pelvic CT scans, most recently dated 08/20/2020. TECHNIQUE: CT scan of the pelvis is performed from the pelvic inlet to the proximal femora. Images ar e reviewed in the axial, sagittal, and coronal planes. IV contrast was not administered for this exam ination. A dose lowering technique was utilized adhering to the principles of ALARA. CT DOSE: 621.55 mGycm FINDINGS: There has been increasing liquefication of the hematoma at the prostatectomy site. This is now almost completely low attenuation and measures approximately 5 x 2 cm as seen on image #149. There is also decreasing attenuation of the intrapelvic extraperitoneal hemorrhage seen anteriorly on the left. The re is increasing pelvic ascites as compared to previous. No intraperitoneal free air is identified. G as within the ventral pelvic wall almost completely resolved from previous. The prostate gland is surgically absent. The bladder is decompressed. Mild bladder wall thickening an d trabeculation suggests chronic outlet obstruction. The Chavez catheter has been removed from previou s. The visualized loops of small bowel and colon are normal in caliber. Diverticular disease is noted in the left colon. No pelvic sidewall or inguinal adenopathy is seen. The skeletal structures are osteopenic. The bony pelvis appears intact. No lytic or blastic lesion is seen. Degenerative change is noted in the lower lumbar spine and sacroiliac joints. There is mild ge neralized atrophy of the regional musculature. IMPRESSION: 1. There is increasing liquefication of the prostatectomy bed hematoma. This is now almost entirely l ow-attenuation. The size has not significantly changed from 08/20/2020. 2. There is also decreasing attenuation of the intrapelvic extraperitoneal hemorrhage as above. This has not appreciably changed in size from previous. 3. Increasing pelvic ascites. 4. Body wall edema is again noted. ACT 112: Negative or not required by law. Dictated: 08/29/2020 12:16 PM Transcribed: 08/29/2020 3:18 PM Monica [id number] Gladis Electronically signed by: Yrn Ramos M.D. 08/29/2020 3:23 PM
--- NOTE | 2020-08-29 15:32 | Hospitalist Progress Note ---
Date of Service August 29, 2020 Assessment & Plan (1) Fever: Night of 08/26, no further fevers since, with leukocytosis. Leukocytosis resolved. Likely UTI given UA and recent instrumentation. UC pending, BC x2 no growth to date Discontinue empiric dapto, continue Zosyn - recommend switch to oral agent at discharge to complete antibiotic regimen and follow culture. (2) Postoperative ileus: Resolved Encourage ambulation (3) Dyspnea: Resolved No evidence of hypervolemia on exam. No prior history of CHF (suspect prior leg swelling from obesity hypoventilation and EFRAÍN). Patient with history of myasthenia gravis. Consulted neurology on 08/17 - no clinical signs of myasthenia on exam. Does not recommend treating. Possible his post operative anemia is also contributing. EFRAÍN +/- obesity hypoventilation also likely contributing. Doppler of right lower extremity was negative for DVT. (4) Postoperative anemia: Hgb stable 7-8 range Iron is low at 11. Will order IV venofer to replace. (5) Hematoma: Repeated ct scan on 08/20 with decrease size of hematoma. CT pelvis repeated today for pain, hgb of 7.2. Per urology, hematoma appears somewhat bigger, continue supportive measures. Repeat hgb in the morning. Would transfuse 1 unit if below 7.0 Resumed Eliquis 08/25 (6) Myasthenia gravis: Previously in remission. Unclear on details but followed with neurology in [place] previously. Not on pyridostigmine. Consulted neurology - no treatment necessary at this time. 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 (8) Sleep apnea: Continue CPAP HS (9) Hypertension: Hold lasix, patient reports he mostly takes this for leg swelling (10) History of DVT (deep vein thrombosis): d/w urology, restarted Eliquis as above R calf pain on 08/23/27, LE US neg for DVT on R (11) ARF (acute renal failure): Baseline is 1.2-1.3, creat peaked at 1.7 and trending down Electrolytes, bicarb wnl Urine output not being measured as patient incontinent Consulted nephrology - signed off at this time - have patient should follow up in Dr. Buck's office 7 - 14 days following discharge from the hospital for evaluation of CKD ([phone]). Advise him to have PRP, CBC and urinalysis w/ microscopy completed 24 hours prior to his visit Hold tamika (12) DVT prophylaxis: [facility] will sign off at this time. If blood count is stable in the morning and patient is hemodynamically stable he can be discharged with antibiotics and instructions to repeat hgb in 1 week. Admission and Anticipated Discharge Date Admission Date: August 14, 2020 Subjective Mr. Irby is overall feeling better but belly pain increased today, less short of breath. Continues to have urinary leakage. Bowels have slowed down. Belly is less sensitive to palpation ROS Constitutional: no chills, aches, sweats or fever Respiratory: no sob,cough, sputum, or wheezing Cardiac: no chest pain, palpitations, edema, orthopnea or lightheadedness GI: no abdominal pain, nausea, vomiting, diarrhea or constipation : no dysuria or hesitancy Extremities: no joint pain or weakness Skin: no rash All other systems reviewed and negative Physical Exam Physical Exam: General: no distress Eyes: normal inspection, PERLL Respiratory: chest non tender, clear to auscultation, normal breath sounds, no respiratory distress, no accessory muscle use Cardiac: regular rate and rhythm, no rub or gallop, no murmur, no edema, no jvd GI/: active bowel sounds, general abdominal tenderness to palpation, soft, non distended Extremities: normal range of motion, normal strength, non tender Neuro/Psych: alert and oriented x 3, normal mood and affect Skin: normal color, dry Results & Data Results & Data ([facility]) Vital Signs (Past 12 Hours) Vital Signs Temp Pulse Resp BP Pulse Ox 08/29/20 15:19 36.9 C 69 22 136/68 96 08/29/20 07:52 36.6 C 65 14 146/63 H 95 PG Care Time/CCT Total # of Minutes Spent Total Time Spent with Patient: Total time spent is greater than 50% in coordi nation of care (as documented) at patient's floor/unit and/or counseling patient: Coding Level of Care Code 33725 Subseq Hosp Care Lvl 3 Diagnoses Fever R50.9 Postoperative ileus K91.89; K56.7 Dyspnea R06.00 Postoperative anemia D64.9 Hematoma T14.8XXA Myasthenia gravis G70.00 Partial blindness H54.7 Sleep apnea G47.30 Hypertension I10 History of DVT (deep vein thrombosis) Z86.718 ARF (acute renal failure) N17.9 DVT prophylaxis Z29.9
[2020-08-29] MEDS ORDERED: IRON SUCROSE 200 MG in 0.9 % SODIUM CHLORIDE 100 ML IV SCH (16:00)
[2020-08-29] MEDS ORDERED: Nursing to Pharmacy Communication SCH (16:15)
[2020-08-29] MEDS ORDERED: IRON SUCROSE 500 MG in SODIUM CHLORIDE 0.9% 250 ML IV SCH ×2 (16:15→18:00)
[2020-08-29] MEDS: TRAZODONE HCL 50 MG TAB PO SCH (19:55)
[2020-08-29] MEDS: CEROVITE ADV FORMULA TAB PO SCH (19:56)
[2020-08-29] MEDS: SERTRALINE HCL 100 MG TABLET PO SCH (19:58)
[2020-08-29] MEDS: SENNA 8.6 MG TAB PO SCH (19:59)
[2020-08-30] MEDS: ACETAMINOPHEN 325 MG TAB PO PRN ×2 (03:48→10:09)
[2020-08-30 05:45] LABS: Hematocrit (blood only) 21.6 % (42-52); Mean Corpuscular Hemoglobin 28.6 pg (25-34); Mean Corpuscular Hgb Conc 32.4 g/dL (32-36); Mean Corpuscular Volume 88.2 fL (80-100); Mean Platelet Volume 8.7 fL (7.4-10.4); Platelet Count 444 K/uL (130-400); RDW Coefficient of Variation 14.5 % (11.5-14.5); Red Blood Count 2.45 M/uL (4.7-6.1); White Blood Count 9.51 K/uL (4.8-10.8)
[2020-08-30 06:11] LABS: Calcium 7.8 mg/dl (8.5-10.1); Creatinine Clr Calc Pharmacy 53.2 ml/min; Est GFR (African American) 46.7; Est GFR (Non-African American) 40.3; Potassium 4.2 mmol/L (3.5-5.1)
[2020-08-30] MEDS: PIPERACILLIN/TAZOBACTAM 3.375 GM in DEXTROSE 5% 100 ML IV SCH ×3 (06:14→23:43)
[2020-08-30] MEDS: TRAVOPROST Z 0.004% OPH SOLN 2.5 ML BTL OP SCH (08:56)
[2020-08-30] MEDS: FEBUXOSTAT 40 MG TABLET PO SCH (08:56)
[2020-08-30] MEDS: BRIMONIDINE TARTRATE 0.2% 5ML OPB SCH ×2 (08:56→20:48)
[2020-08-30] MEDS: DOCUSATE SODIUM 100 MG CAP PO SCH ×2 (08:56→20:47)
[2020-08-30] MEDS: APIXABAN 5 MG TABLET PO SCH ×2 (08:56→20:48)
[2020-08-30] MEDS ORDERED: SODIUM CHLORIDE 0.9% 250 ML IV PRN ×2 (10:10→11:02)
--- NOTE | 2020-08-30 10:12 | Urology Progress Note ---
Date of Service August 30, 2020 Assessment & Plan (1) Prostate cancer: Continues to smolder without thriving Given the drift in his hemoglobin, despite his hemodynamic stability I believe we should transfuse him now Anticipate discharge to rehab facility tomorrow He still remains relatively sedentarythis is certainly not benefiting him in terms of recoveryrehab will be by far the best thing for him Presuming no issues overnight- discharge tomorrow Admission and Anticipated Discharge Date Admission Date: August 14, 2020 Subjective Overall, relatively stable overnight He is not showing signs of hemodynamic instability, however he has had increased lower abdominal pain in the past [address] yesterday showed slight enlargement of his pelvic hematoma, not drastic He is voiding but with significant incontinenceno hematuria at present Moving his bowels Physical Exam Constitutional: well developed and well nourished Neck: neck nontender Respiratory: normal respiratory effort; no respiratory distress and does not use accessory muscles Cardiovascular: Rate/Rhythm: regular rate Vessels: radial pulses present Extremities: no edema Gastrointestinal (Abdomen): Inspection/Auscultation: abdomen normal to inspection (Incisions appropriate) Percussion/Palpation: + abdomen tender (Tender in the suprapubic area) and abdomen soft; no guarding Musculoskeletal: Head/Neck/Chest: normocephalic and head atraumatic Extremities: extremities normal to inspection Skin: no rashes and no lesions Trauma: no evidence of skin trauma Neurologic: awake; not obtunded Speech / Cognition: normal speech Motor/Sensory: no tremor Psychiatric: Orientation: alert and oriented x 3 Genitourinary: no CVA tenderness Lymphatic: no lymphadenopathy Results & Data ([facility]) Vital Signs (Past 12 Hours) Vital Signs Temp Pulse Resp BP Pulse Ox 08/30/20 07:32 37.1 C 60 17 137/66 95 08/29/20 23:35 36.8 C 69 18 127/68 95 PG Care Time/CCT Total # of Minutes Spent Total Time Spent with Patient: Total time spent is greater than 50% in coordination of care (as documented) at patient's floor/unit and/or counseling patient: Coding Level of Care Code 22915 Subseq Hosp Care Lvl 3 Diagnoses Prostate cancer C61
[2020-08-30] MEDS ORDERED: Nursing to Pharmacy Communication SCH (14:15)
[2020-08-30] MEDS: TRAZODONE HCL 50 MG TAB PO SCH (20:47)
[2020-08-30] MEDS: CEROVITE ADV FORMULA TAB PO SCH (20:47)
[2020-08-30] MEDS: SERTRALINE HCL 100 MG TABLET PO SCH (20:47)
[2020-08-30] MEDS: SENNA 8.6 MG TAB PO SCH (20:47)
[2020-08-31] MEDS: ACETAMINOPHEN 325 MG TAB PO PRN ×2 (05:47→23:36)
[2020-08-31 06:13] LABS: Hemoglobin 8.9 g/dL (14.0-18.0); Mean Corpuscular Hemoglobin 29.1 pg (25-34); Mean Corpuscular Volume 88.2 fL (80-100); Mean Platelet Volume 9.2 fL (7.4-10.4); Platelet Count 517 K/uL (130-400); RDW Coefficient of Variation 14.3 % (11.5-14.5); RDW Standard Deviation 46.1 fL (36.4-46.3); Red Blood Count 3.06 M/uL (4.7-6.1); White Blood Count 12.99 K/uL (4.8-10.8)
[2020-08-31 06:48] LABS: BUN Creatinine Ratio 10.8 (10-20); Creatinine Clr Calc Pharmacy 58.7 ml/min; Est GFR (African American) 52.6; Est GFR (Non-African American) 45.4; Potassium 4.1 mmol/L (3.5-5.1)
[2020-08-31] MEDS: TRAVOPROST Z 0.004% OPH SOLN 2.5 ML BTL OP SCH (09:10)
[2020-08-31] MEDS: PIPERACILLIN/TAZOBACTAM 3.375 GM in DEXTROSE 5% 100 ML IV SCH ×3 (09:10→23:36)
[2020-08-31] MEDS: BRIMONIDINE TARTRATE 0.2% 5ML OPB SCH ×2 (09:10→20:55)
[2020-08-31] MEDS: DOCUSATE SODIUM 100 MG CAP PO SCH ×3 (09:10→20:56)
[2020-08-31] MEDS: APIXABAN 5 MG TABLET PO SCH ×2 (09:11→20:55)
[2020-08-31] MEDS: FEBUXOSTAT 40 MG TABLET PO SCH (09:11)
--- NOTE | 2020-08-31 10:03 | Urology Progress Note ---
Date of Service August 31, 2020 Assessment & Plan (1) Prostate cancer: gradual recovery from recent prostate surgery transfusion yesterday (2u PRBC) unfortunately, he has a clotting history despite his post operative bleeding I think it is most important to keep him on his anticoagulation now stable for d/c to SNF - but no transport until tomorrow we set a goal of ambulation around the unit x3 today Admission and Anticipated Discharge Date Admission Date: August 14, 2020 Subjective precautionary transfusion yesterday secondary to low hgb substantial improvement in labs today cr somewhat better still slow moving and with lower abdominal pain Physical Exam Constitutional: well developed and well nourished Respiratory: no respiratory distress Cardiovascular: Extremities: no pedal edema Gastrointestinal (Abdomen): Inspection/Auscultation: abdomen normal to inspection Results & Data ([facility]) Vital Signs (Past 12 Hours) Vital Signs Temp Pulse Resp BP Pulse Ox 08/31/20 07:27 36.9 C 65 16 154/69 H 97 08/31/20 04:17 37.4 C 67 18 138/65 96 08/30/20 23:54 37.3 C 66 16 136/69 96 PG Care Time/CCT Total # of Minutes Spent Total Time Spent with Patient: Total time spent is greater than 50% in coordination of care (as documented) at patient's floor/unit and/or counseling patient: Coding Level of Care Code 99598 Subseq Hosp Care Lvl 2 Diagnoses Prostate cancer C61
[2020-08-31] MEDS: CEROVITE ADV FORMULA TAB PO SCH (20:55)
[2020-08-31] MEDS: TRAZODONE HCL 50 MG TAB PO SCH (20:55)
[2020-08-31] MEDS: SENNA 8.6 MG TAB PO SCH ×2 (20:55→20:56)
[2020-08-31] MEDS: SERTRALINE HCL 100 MG TABLET PO SCH (20:55)
[2020-09-01] MEDS: ACETAMINOPHEN 325 MG TAB PO PRN (08:54)
[2020-09-01] MEDS: PIPERACILLIN/TAZOBACTAM 3.375 GM in DEXTROSE 5% 100 ML IV SCH (08:54)
[2020-09-01] MEDS: DOCUSATE SODIUM 100 MG CAP PO SCH ×2 (09:03→09:06)
[2020-09-01] MEDS: TRAVOPROST Z 0.004% OPH SOLN 2.5 ML BTL OP SCH (09:03)
[2020-09-01] MEDS: BRIMONIDINE TARTRATE 0.2% 5ML OPB SCH (09:03)
[2020-09-01] MEDS: APIXABAN 5 MG TABLET PO SCH (09:04)
[2020-09-01] MEDS: FEBUXOSTAT 40 MG TABLET PO SCH (09:04)
--- NOTE | 2020-09-01 10:52 | Urology Progress Note ---
Date of Service September 01, 2020 Assessment & Plan (1) Prostate cancer: Patient to be discharged today. Postop from laparoscopic robot-assisted prostatectomy with development of hematoma on postop day 2 and 3 with poor mobility and increasing activity. 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 Had transfusion. Otherwise stabilized. No other major changes or problems. Plan to follow-up in approximately 3 to 4 weeks as an outpatient. Will reassess at that time. Admission and Anticipated Discharge Date Admission Date: August 14, 2020 Subjective Patient be discharged today. Has rehab center bed available. Has been tolerating diet. Has no major changes or issues. Continues to do well. Had blood on Tuesday due to anemia. Overall tolerating well. Patient has stabilized otherwise. Continues to have considerable leakage and some stress and anxiety issues but otherwise is stabilized. Review of Systems Review of Systems: All systems reviewed & are unremarkable except as noted in HPI & below Physical Exam Physical Exam: General: Alert in no acute distress. HEENT: Normocephalic Atraumatic. Inspection normal. Cranial Nerves 2-12 Grossly intact. Normal inspection of face. Normal inspection of neck. Psychologic: Normal affect. Respiratory: Nonlabored. No use of accessory muscles. No tachypnea or dyspnea. Cardiovascular: No tachycardia Skin: [place] and Dry. No rashes or visible lesions. Extremities/Lymphatics: No edema Abdomen: Appropriately tender. Mild distended. No rebound or guarding. Wound: Clean, dry, covered. Results & Data ([facility]) Vital Signs (Past 12 Hours) Vital Signs Temp Pulse Resp BP BP Pulse Ox 09/01/20 07:26 36.9 C 68 18 119/62 98 08/31/20 23:01 37.2 C 69 16 132/62 95 PG Care Time/CCT Total # of Minutes Spent Total Time Spent with Patient: Total time spent is greater than 50% in coordination of care (as documented) at patient's floor/unit and/or counseling patient: Coding Level of Care Code 66857 Subseq Hosp Care Lvl 3 Diagnoses Prostate cancer C61
--- NOTE | 2020-09-01 11:00 | Discharge Summary ---
Date of Service September 01, 2020 Admission HPI Per Admitting Provider See H&P Admission Exam Per Admitting Provider See H&P Principal Diagnosis Prostate Cancer Discharge Exam General: Alert in no acute distress. HEENT: Normocephalic Atraumatic. Inspection normal. Psychologic: Normal affect. Skin: [place] and Dry. No rashes or visible lesions. Abdomen: Soft Non-distended. No rebound or guarding. Discharge Data Allergies Allergy/AdvReac Type Severity Reaction Status Date / Time bee venom protein (honey bee) Allergy Severe Anaphylaxis Verified 08/25/20 14:17 allopurinol Allergy Intermediate Hives Verified 08/25/20 14:17 oxycodone Allergy Intermediate rash, itch Verified 08/14/20 09:18 celecoxib AdvReac Mild NAUSEA Verified 08/14/20 09:18 Consultations 08/15/20 17:59 Consult Hospitalist Routine 08/16/20 06:46 Consult Neurology Routine 08/21/20 07:39 Consult Gastroenterology Routine 08/26/20 11:40 Consult Case Management - Discharge Planning Routine 08/28/20 12:13 Consult Psychiatry Routine 08/29/20 19:55 Consult Case Management - Discharge Planning Routine Procedures Performed Operation Date: 08/14/20 10:50 Actual Procedures p Laparoscopic Robotic-Assisted Radical Retropubic Prostatectomy, bilateral Pelvic Lymph Node Dissection(Not Applicable) - Shahzad Meeks, Ordered Studies 08/16/20 12:39 CT abd pelvis wo con Routine 08/19/20 10:00 CT bony pelvis wo con Routine 08/20/20 15:15 CT abd pelvis IV con only Routine 08/22/20 22:02 US venous doppler LE RT Urgent 08/29/20 09:21 CT pelvis wo con Routine Hospital Course (1) Prostate cancer: Patient to be discharged today. Postop from laparoscopic robot-assisted prostatectomy with development of hematoma on postop day 2 and 3 with poor mobility and increasing activity. 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 Had transfusion. Otherwise stabilized. No other major changes or problems. Plan to follow-up in approximately 3 to 4 weeks as an outpatient. Will reassess at that time. Total Time Total Time Spent Total Time Spent (In Minutes): 10 minutes Total Time Includes: Examination of the Patient, Discharge Planning, Medication Reconciliation and Communication With Other Providers Discharge Plan Discharge Items Patient Disposition: Transfer Inpatient Rehab Fac Reason For Visit: Prostate Cancer Discharge Diagnosis: Prostate Cancer Activity: Per Instructions section Lifting: No more than 25 pounds Bathing: No limitations Sexual Activity: Wait until after follow-up appointment Exercise/Sports: Wait until after follow-up appointment Driving/Machine Use: Do not drive while taking narcotic pain medication Non-emergency contact: Surgeon and Urologist Call non-emergency contact if: your pain is not controlled, you have a fever, your temperature is above 101, your wound has increased redness, your wound has increased drainage and your wound pain has increased Follow-up/Referrals: Patrick Brizuela DO [Primary Care Provider] - Diet: Regular Addtl Attending Provider Instructions: Please take all medications as prescribed and keep all follow-ups as scheduled. Please call our office at [phone] with any questions, concerns or need to reschedule appointments for any reason. We are happy to assist you. Activity: We recommend having someone with you for the first few days after surgery to help care for you. For the first 2 weeks after surgery, we would like you to get up and walk around your house. However, we recommend limit physical activity that would increase your heart rate. This will allow your body to rest and heal. Take naps if you feel tired. Don't lift anything heavier than 10 pounds, mow the law or ride a bicycle until your follow-up appointment. Please avoid long car rides. Home Care: Unless directed otherwise, drink 6 to 8 glasses of water a day (enough to keep your urine light colored). This will also help keep a healthy flow of urine. We recommend using a stool softener for the first two weeks to avoid constipation. Chavez Catheter or Suprapubic Catheter care: Keep the catheter well secured with either a leg back or leg strap with large bag. Empty your bag when it's about half full. You may notice some blood in the bag. This is normal after surgery and while the catheter is in place. Use mild soap (such as Dove or Dial) and water to wash the catheter and the head of your penis daily, or more frequently if needed. Return to your normal diet, we encourage good protein intake to promote healing. You may shower as normal. Please avoid tub baths or soaking until catheter removed and incisions well healed. Wearing sweat pants while you have the catheter is recommended, they will be more comfortable. Follow-up You will hear from our office regarding follow-up appointment. Your final pathology report will be discussed at your physician follow-up appointment. Call [facility] at [phone] right away if you have any of the following: Chest pain or trouble breathing (call 911 or go to the hospital) Fever of 101F or higher, uncontrolled vomiting Heavy bleeding, clots, or bright red blood from the catheter Catheter that falls out or stops draining Foul-smelling discharge from your catheter Redness, swelling, warmth, or increased pain at your incision site Drainage, pus, or bleeding from your incision Addtl Automatic Thread Winder Provider Instructions: (1) Postoperative anemia, hematoma: Recommend repeating hemoglobin in one week. (2) ARF (acute renal failure): Baseline is 1.2-1.3, creat peaked at 1.7 and trending down Consulted nephrology - have patient should follow up in Dr. Buck's office 7 - 14 days following discharge from the hospital for evaluation of CKD ([phone]). Advise him to have PRP, CBC and urinalysis w/ microscopy completed 24 hours prior to his visit Hold Lasix until follow up Pending Studies at Discharge: Yes Studies:: Pathology Stand-Alone Forms: My [facility] [employer], Smoking Cessation Skilled Items Patient informed of condition?: Yes DNR: No Discharge Level of Care: Acute rehab Communicable Disease: No Discharge Prognosis: Stable Lines: None Urinary Catheter: No Medications and DC Order Prescriptions: New ciprofloxacin HCl 500 mg tablet 500 mg PO DAILY 5 Days Qty: 5 RF: 0 docusate sodium [Colace] 100 mg capsule 100 mg PO BID Qty: 60 RF: 0 hydrocodone-acetaminophen [[place]] 5-325 mg tablet 1 tab PO TID PRN (Reason: pain) Qty: 14 RF: 0 ferrous sulfate 325 mg (65 mg iron) tablet 325 mg PO Q OTHER DAY Qty: 30 RF: 0 Continued Eliquis 5 mg tablet 5 mg PO BID RF: 0 febuxostat [Uloric] 40 mg tablet 40 mg PO QAM RF: 0 acetaminophen [Tylenol 8 Hour] 650 mg tablet extended release 650 mg PO QAM RF: 0 travoprost [Travatan Z] 0.004 % Drops 1 drp OPHTHALMIC (EYE) QAM RF: 0 furosemide [Lasix] 40 mg Tablet 40 mg PO QAM RF: 0 brimonidine 0.2 % Drops 1 drp OPB BID RF: 0 multivitamin with minerals Tablet 1 tab PO QPM RF: 0 sertraline 100 mg Tablet 100 mg PO QPM RF: 0 trazodone 50 mg Tablet 50 mg PO HS RF: 0 potassium [Potassium-99] 99 mg Tablet 99 mg PO RF: 0 Discharge Orders: Discharge Order (Routine); Ordered 09/01/20 Ordered By: Shahzad Meeks Admission Data Admit Date/Time: 08/14/20 16:21 Attending Provider: Shahzad Meeks Admit Provider: Shahzad Meeks Primary Care Provider: Patrick Brizuela Other Providers: Kendal Glover ; Smith Henderson ; Susana Buchanan ; Yusuf Torres ; Natalio Kiran ; Inocencio Goldberg ; Rena Galvez ; Krista Ibarra ; Adore Herman ; Kota Carnes ; Grazyna Hong ; Virginia Kwok ; Henrry Victoria ; Dwayne Bello ; Ni Saavedra ; Elidia Anguiano ; Lawrence Lopez ; Brad Velasco ; Bertin Kaplan ; Sheri Avendano ; Odette Avendano ; Chele Stockton ; Mitchell Sy ; Fabián Parmar AYaneli ; Kenneth Ruiz ; Missy Bustamante ; Mahogany Goldberg ; Susana Nguyen ; Kimberley Morales ; Monica Segundo ; Damon Valle ; Audi Lindo ; Jim Villanueva ; Ada Carvalho ; Jovany Pickering ; Thony Fuller ; Mariluz Ward ; Marysol Cole ; Samaria Stephens ; Jackie Yeung ; Kandi Olmstead ; Penny Mclean Other Interventions: PSY Interdisciplinary Discharge Planning Last Done: 08/29/20 10:16 Coding Level of Care Code D/C Day Management <30 mins Diagnoses Prostate cancer C61
[2020-09-01] MEDS: ONDANSETRON INJ 2 MG/ML 2 ML VIAL IV PRN (13:06)
== END 2020-09-01 13:21 | DRG 707 ==
LOC: ASU 08:50 → 3W 16:21

== ENCOUNTER 2020-09-03 01:12 | Inpatient (IN) ==
[2020-09-03] MEDS ORDERED: ONDANSETRON INJ 2 MG/ML 2 ML VIAL IV PRN (06:01)
[2020-09-03] MEDS ORDERED: GENTAMICIN CONSULT ACTIVE PRN (06:06)
[2020-09-03] MEDS ORDERED: PIPERACILL/TAZOBAC CONSULT ACTIVE PRN (06:20)
[2020-09-03 06:35] LABS: Basophils # (auto) 0.03 K/uL (0-0.2); Basophils % (auto) 0.2 %; Eosinophils # (auto) 0.18 K/uL (0-0.5); Eosinophils % (auto) 1.3 %; Hematocrit (blood only) 26.5 % (42-52); Hemoglobin 8.3 g/dL (14.0-18.0); Immature Granulocytes # (auto) 0.04 K/uL (0.00-0.02); Immature Granulocytes % (auto) 0.3 %; Lymphocytes # (auto) 0.87 K/uL (1.2-3.4); Lymphocytes % (auto) 6.3 %; Mean Corpuscular Hemoglobin 28.2 pg (25-34); Mean Corpuscular Volume 90.1 fL (80-100); Mean Platelet Volume 8.7 fL (7.4-10.4); Monocytes # (auto) 0.96 K/uL (0.11-0.59); Monocytes % (auto) 6.9 %; Neutrophils # (auto) 11.78 K/uL (1.4-6.5); Platelet Count 473 K/uL (130-400); RDW Coefficient of Variation 14.8 % (11.5-14.5); RDW Standard Deviation 49.2 fL (36.4-46.3); Red Blood Count 2.94 M/uL (4.7-6.1); White Blood Count 13.86 K/uL (4.8-10.8)
[2020-09-03 06:36] LABS: Mean Corpuscular Hgb Conc 31.3 g/dL (32-36)
[2020-09-03] MEDS ORDERED: PIPERACILLIN/TAZOBACTAM 4.5 GM in DEXTROSE 5% 100 ML IV ONE (07:00)
[2020-09-03 07:10] LABS: Albumin Level 1.7 gm/dl (3.4-5.0); BUN Creatinine Ratio 11.7 (10-20); Creatinine Clr Calc Pharmacy 67.2 ml/min; Est GFR (African American) 60.1; Est GFR (Non-African American) 51.9; Potassium 4.6 mmol/L (3.5-5.1)
[2020-09-03 07:13] LABS: Albumin Globulin Ratio 0.4 (0.9-2); Bilirubin,Total 0.4 mg/dl (0.2-1); Globulin 4.1 gm/dl (2.5-4.0); Total Protein 5.8 gm/dl (6.4-8.2)
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
[2020-09-03] MEDS ORDERED: SODIUM CHLORIDE 0.45 % 1,000 ML IV SCH (08:15)
[2020-09-03] MEDS: ENOXAPARIN INJ 40 MG/0.4 ML SYR SQ SCH (08:23)
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
--- NOTE | 2020-09-03 10:46 | Hospitalist Progress Note ---
Date of Service September 03, 2020 Assessment & Plan (1) Postoperative fever: Patrick Irby is a 70yo male with a PMH of prostate cancer s/p radical prostatectomy (08/14/2020), VTE on chronic eliquis, obesity hypoventilation syndrome, myasthenia gravis (in remission) PTSD, and depression who presents with fever, abdominal pain, fatigue, and scrotal swelling two days after being discharged from his post-prostatectomy admission. Patient has severe abdominal tenderness with guarding, leukocytosis, and anemia, but is without rebound tenderness, rigidity, current fever, or other overt signs of infection. Abdominal pain, fever, fatigue three weeks s/p prostatectomy with complications -no access to [facility]'s CT imaging, unable to compare to 08/29 imaging at [facility]: reordering CT abdomen/pelvis with IV contrast -continue zosyn IV -LR @ 80mL/hr; discontinued 1/2NS @ 60mL/hr -holding home norco 1tab PO tid prn -morphine 2mg IV q3h prn -APAP 650mg PO q4h prn -close clinical monitoring History of VTE -holding home eliquis -lovenox 40mg sq Post-op anemia -home dose iron 325mg PO q other day -transfuse Hgb < 7.0 Chronic kidney disease, stage III -creatinine 1.37, near patient's baseline of 1.2-1.3 -discontinued 1/2NS @ 60mL/hr, started LR @ 80mL/hr Obesity hypoventilation syndrome, obstructive sleep apnea -CPAP Depression -home dose sertraline 100mg PO qAM -home dose trazodone 50mg PO qhs Gout -holding home febuxostat Glaucoma -home brimonidine 1 drop opb bid -home travoprost 1 drop opb qAM FENGI: LR @ 80mL/hr, tolerating PO DVT prophylaxis: lovenox Code status: DNR/DNI Dispo: med/surg (2) Partial blindness: (3) History of DVT (deep vein thrombosis): (4) Hypertension: (5) Postoperative anemia: (6) Prostate cancer: (7) Status post prostatectomy: Admission and Anticipated Discharge Date Admission Date: September 03, 2020 Supervising Physician Co-Signing Physician Notes I saw the patient with the resident physician and confirmed lindsey portions of the history and physical examination. The patient son was present at bedside. I agree with the impression and plan as noted in the resident documentation. He complains of fatigue and scrotal swelling. It sounds as if the fatigue and low-grade temperature is what ultimately led to his transfer from his [facility] to the [facility], and ultimately here to our facility. At the outside hospital there was concern of abscesses; urology has seen the patient here this morning a nd feels that the CT findings likely represent the hematoma that he had prior to his discharge. Blood pressure 133/69, pulse 70, respiratory rate 17. He is afebrile at 36.8 C. He has been afebrile since his transfer to our facility. Blood blood cell count 13.8 Hemoglobin 8.3 Platelet 473 BUN 16, creatinine 1.37 Blood cultures from outside hospital are not available for review CT scan report from outside hospital is not available for review at this time either We will continue current antibiotics Appreciate urology consultation Trend leukocytosis and await blood cultures from outside hospital Recommend scrotal elevation He is currently on DVT prophylaxis Lovenox; If hemoglobin is stable and there looks to be no indication for intervention, then would resume his therapeutic anticoagulation tomorrow ADDENDUM: On evening rounds, resident noted that the patient had increased lower abdominal tenderness. I discussed with resident by phone and agree with CT abd/pelvis. Will review results upon completion. Subjective Patrick Irby is a 70yo male with a PMH of prostate cancer s/p radical prostatectomy (08/14/2020), VTE on chronic eliquis, obesity hypoventilation syndrome, myasthenia gravis (in remission) PTSD, and depression who presents with fever. His radical prostatectomy about three weeks ago was complicated by post-op fever (negative cultures, treated with IV antibiotics), pelvic hematoma, and post-op ileus; he was discharged from [facility] two days ago (08/30/2020) to a rehab facility. On 09/01 he developed a fever and was first to [facility], where he was febrile to 100.8; CT scan showed two fluid collections suspicious for abscess, and patient was transferred to [facility]. Today, patient reports significant abdominal pain, urine incontinence since surgery, lower extremity swelling, and scrotal swelling. His pain has not changed throughout the day. He endorses it is the same pain he has had since his surgery three weeks ago. He endorses shortness of breath unchanged from his baseline. Despite these symptoms he is laying calmly in bed and is pleasant and cooperative. Patient denies chest pain, confusion, chills, change in vision, cough, palpitations, nausea, or vomiting. He is accompanied by his son (Bassam Irby, ). Review of Systems Constitutional: no chills and no anorexia Respiratory: no cough and no chest congestion Cardiovascular: no chest pain, no palpitations and no lightheadedness Gastrointestinal: no nausea and no vomiting Neurologic: no paralysis, no numbness and no paresthesia Physical Exam Constitutional: + obese; no acute distress and not ill appearing Respiratory: normal respiratory effort, lungs clear to auscultation no labored breathing and no cough Cardiovascular: Rate/Rhythm: regular rate and regular rhythm Heart Sounds: no murmur 2+ edema of the lower extremities bilaterally Gastrointestinal (Abdomen): Inspection/Auscultation: normal bowel sounds abdomen soft, diffusely tender with severe tenderness of the lower quadrants bilaterally with guarding, no rebound tenderness Skin: abdominal laparotomy incisions clean, dry, intact, healing, with mild subcentimeter bruises Neurologic: CN's II-XI intact bilaterally Psychiatric: A+Ox3, euthymic affect Genitourinary: scrotum edematous, nontender, non-erythematous Results & Data Results & Data ([facility]) Vital Signs (Past 12 Hours) Vital Signs Temp Pulse Resp BP Pulse Ox 09/03/20 07:41 36.9 C 72 22 156/72 H 97 09/03/20 04:50 37.0 C 74 18 157/73 H 97 Resident Activity Tracking Resident Involvement: Resident Care Provided Care Provided: Adult [facility] Medicine
[2020-09-03] MEDS: PIPERACILLIN/TAZOBACTAM 3.375 GM in DEXTROSE 5% 100 ML IV SCH ×2 (13:43→21:26)
[2020-09-03] MEDS ORDERED: IOVERSOL 100ml IV ONE (20:19)
--- NOTE | 2020-09-03 20:35 | CT Scan Report ---
CT abd pelvis IV con only CLINICAL HISTORY: Abdominal pain and guarding COMPARISON STUDY: 08/29/2020 TECHNIQUE: The patient was scanned in a dynamic helical fashion during intravenous administration of 94 cc of Optiray 320 A dose lowering technique was utilized adhering to the principles of ALARA. CT DOSE: 1519.76 mGy.cm FINDINGS: Lower chest: There is a trace left pleural effusion. There are left basilar atelectatic changes. Liver: The contrast-enhanced liver is normal in size, contour, and attenuation. There is no intrahepa tic biliary ductal dilatation. The hepatic veins and portal veins are patent. Gallbladder: Unremarkable. Spleen: Normal in size and attenuation. Pancreas: Unremarkable. Adrenal glands: Unremarkable. Kidneys: There is a nonobstructing 8 mm right renal calculus. There are bilateral renal cysts measuri ng up to 3 mm in diameter. There is no significant hydronephrosis. Bowel: There are no transition zones indicate bowel obstruction. There is colonic diverticulosis. The re is no evidence of acute diverticulitis. There is no evidence of acute appendicitis. Incidental not e is made of a large duodenal diverticulum. Peritoneum: There are multiple abdominal fluid collections. There is a 13 cm in for cecal fluid colle ction containing a few air bubbles. There is an anterior pelvic 11 cm fluid collection which is gregoria guous with a left pelvic sidewall collection. These collections contain air bubbles. This is also con tiguous with a right pelvic sidewall collection. Vasculature: The abdominal aorta is normal in course and caliber. Adenopathy: None. Pelvic viscera: The patient is status post a prostatectomy. There is a small prostatectomy bed hemato ma Skeletal structures: No destructive osseous lesions are seen. IMPRESSION: 1. No evidence of bowel obstruction. No evidence of free air 2. Lower abdominal and pelvic fluid collections which contain air bubbles. The findings are viewed as highly suspicious for multiple abscesses. 3. Postprostatectomy changes, with a small prostatic bed hematoma, slightly smaller than on the prior study 4. Nonobstructing right renal calculus ACT 112: Negative or not required by law. Electronically signed by: Ken Butler M.D. 09/03/2020 8:34 PM
[2020-09-03] MEDS ORDERED: cefTRIAXone SODIUM 1,000 MG in DEXTROSE 5% 50 ML IV SCH (21:00)
[2020-09-03] MEDS ORDERED: GENTAMICIN SULFATE 240 MG in DEXTROSE 5% 100 ML IV SCH (21:15)
[2020-09-03] MEDS: ACETAMINOPHEN 325 MG TAB PO PRN (21:16)
[2020-09-03] MEDS: traZODone HCL 50 MG TAB PO SCH (21:16)
[2020-09-03] MEDS: LACTATED RINGER'S 1,000 ML IV SCH (21:18)
[2020-09-03] MEDS: BRIMONIDINE TARTRATE-P 0.15% 5 ML BTL OP SCH (21:20)
--- NOTE | 2020-09-04 05:42 | Billing Data ---
Date of Service September 04, 2020 Coding Level of Care Code 89534 Initial Inpt Care Lvl 3
[2020-09-04] MEDS: PIPERACILLIN/TAZOBACTAM 3.375 GM in DEXTROSE 5% 100 ML IV SCH ×3 (06:19→20:22)
[2020-09-04] MEDS: ACETAMINOPHEN 325 MG TAB PO PRN (06:24)
[2020-09-04 07:27] LABS: Basophils # (auto) 0.03 K/uL (0-0.2); Basophils % (auto) 0.2 %; Eosinophils % (auto) 1.5 %; Hematocrit (blood only) 25.5 % (42-52); Hemoglobin 8.2 g/dL (14.0-18.0); Immature Granulocytes # (auto) 0.04 K/uL (0.00-0.02); Immature Granulocytes % (auto) 0.3 %; Lymphocytes % (auto) 4.6 %; Mean Corpuscular Hgb Conc 32.2 g/dL (32-36); Mean Corpuscular Volume 90.1 fL (80-100); Mean Platelet Volume 8.9 fL (7.4-10.4); Monocytes # (auto) 0.97 K/uL (0.11-0.59); Monocytes % (auto) 7.4 %; Neutrophils # (auto) 11.21 K/uL (1.4-6.5); Platelet Count 455 K/uL (130-400); RDW Coefficient of Variation 14.9 % (11.5-14.5); Red Blood Count 2.83 M/uL (4.7-6.1); White Blood Count 13.05 K/uL (4.8-10.8)
[2020-09-04 07:46] LABS: BUN Creatinine Ratio 13.2 (10-20); Calcium 8.3 mg/dl (8.5-10.1); Creatinine Clr Calc Pharmacy 61.8 ml/min; Est GFR (African American) 54.3; Est GFR (Non-African American) 46.9; Potassium 4.4 mmol/L (3.5-5.1)
[2020-09-04] MEDS: LACTATED RINGER'S 1,000 ML IV SCH ×2 (07:51→18:20)
[2020-09-04] MEDS: ENOXAPARIN INJ 40 MG/0.4 ML SYR SQ SCH (07:51)
[2020-09-04 07:53] LABS: Echinocytes 1+; Spherocytes 1+
--- NOTE | 2020-09-04 08:38 | Hospitalist Progress Note ---
Date of Service September 04, 2020 Assessment & Plan (1) Postoperative fever: Patrick Irby is a 70yo male with a PMH of prostate cancer s/p radical prostatectomy (08/14/2020), VTE on chronic eliquis, obesity hypoventilation syndrome, myasthenia gravis (in remission) PTSD, and depression who presents with fever, abdominal pain, fatigue, and scrotal swelling two days after being discharged from his post-prostatectomy admission. Patient has severe abdominal tenderness with guarding, leukocytosis, and anemia, but is without rebound tenderness, rigidity, current fever, or other overt signs of infection. Abdominal pain, fever, fatigue three weeks s/p prostatectomy secondary to anastomotic leak -600cc urine-appearing aspirated from a fluid collection posterior to the bladder base, anterior to the rectum -diverting chavez placed -continue zosyn IV -LR @ 120mL/hr -holding home norco 1tab PO tid prn -morphine 2mg IV q3h prn -APAP 650mg PO q4h prn -close clinical monitoring History of VTE -holding home eliquis -lovenox 40mg sq Post-op anemia -home dose iron 325mg PO q other day -transfuse Hgb < 7.0 Chronic kidney disease, stage III -creatinine 1.37, near patient's baseline of 1.2-1.3 -discontinued 1/2NS @ 60mL/hr, started LR @ 80mL/hr Obesity hypoventilation syndrome, obstructive sleep apnea -CPAP Depression -home dose sertraline 100mg PO qAM -home dose trazodone 50mg PO qhs Gout -holding home febuxostat Glaucoma -home brimonidine 1 drop opb bid -home travoprost 1 drop opb qAM FENGI: LR @ 80mL/hr, tolerating PO DVT prophylaxis: lovenox Code status: DNR/DNI Dispo: med/surg (2) Status post prostatectomy: (3) Chronic kidney disease, stage III (moderate): (4) Hematoma: (5) Sleep apnea: (6) Partial blindness: (7) Myasthenia gravis: (8) History of DVT (deep vein thrombosis): (9) Hypertension: (10) Postoperative anemia: (11) Prostate cancer: (12) Pre-op testing: Admission and Anticipated Discharge Date Admission Date: September 03, 2020 Supervising Physician Co-Signing Physician Notes I also saw the patient and confirmed lindsey portions of the history and physical examination. Also discussed the case with the urology team. I agree with the impression and plan as noted in the resident documentation. Blood pressure 132/63, pulse 70, respiratory 17. Temperature 36.9 C. He has been afebrile since his admission here. Pulse oximetry 96% on room air. Upon examination this morning, he is awake and oriented. His greatest complaint is scrotal swelling and discomfort. Heart regular rate and rhythm. Lungs are clear Abdomen with some focal tenderness bilaterally, lower quadrants. There is no rebound or guarding appreciated. Blood cultures taken at outside facility show no growth at 24 hours. CBC this morning shows a hemoglobin of 8.2 and a white blood cell count of 13.05. BUN 20, creatinine 1.49. Potassium 4.4 with a sodium 140. Late this morning he underwent successful drainage of a right abdominal fluid collection, 600 cc which appeared to be urine. Postprocedural images demonstrated contrast posterior to the bladder base and anterior to the rectum. Post prostatectomy anastomotic leak Chavez catheter in effort to divert urine flow from anastomotic leak Scrotal elevation Would continue antibiotics pending final evaluation of aspirated fluid and confirmation of negative blood cultures from outside facility History of venous thromboembolism Continue DVT prophylaxis Lovenox If he looks well tomorrow and there is no need or suggestion of this no procedures, would resume pubic Eliquis Postop anemia Daily CBC CKD, stage III Daily BMP Additional diagnoses as noted above Subjective No acute events overnight. Patient reports feeling worse than when I saw him yesterday evening - worsening abdominal pain in the lower quadrants, especially on the right side; he also endorses significant fatigue, mild confusion, and new-onset "rectal pain". He reports being no longer able to roll onto his right side due to the pain. Review of Systems Constitutional: no fever and no chills Respiratory: no cough and no chest congestion Cardiovascular: no chest pain and no palpitations Gastrointestinal: no nausea and no vomiting Neurologic: no dizziness and no headache(s) Physical Exam Respiratory: normal respiratory effort, lungs clear to auscultation Cardiovascular: Rate/Rhythm: regular rate and regular rhythm Heart Sounds: no murmur Gastrointestinal (Abdomen): abdomen soft, moderate tenderness to palpation of the RLQ with guarding, moderate tenderness to palpation of the LLQ, RUQ, and LUQ, normoactive BS in all four quadrants Musculoskeletal: 2+ edema of the lower extremities bilaterally, trace edema of the hands Skin: interval development of pallor of the face and body Psychiatric: Orientation: oriented x 3 mild confusion Genitourinary: edema of the scrotum, worse than yesterday Results & Data Results & Data ([facility]) Vital Signs (Past 12 Hours) Vital Signs Temp Pulse Resp BP Pulse Ox 09/04/20 07:32 37.3 C 67 18 127/65 95 Resident Activity Tracking Resident Involvement: Resident Care Provided Care Provided: Adult Hospital Medicine
--- NOTE | 2020-09-04 08:41 | Urology Progress Note ---
Date of Service September 04, 2020 Assessment & Plan (1) Status post prostatectomy: Large pelvic hematoma, now with air, concerning for infectious progression Have discussed this case with general surgery He has been arranged for drain to be placed today by radiology Discussed this with the patient he is very comfortable with the idea Admission and Anticipated Discharge Date Admission Date: September 03, 2020 Subjective No real subjective changes overnight He continues to have intermittent pain in the lower abdomen, still improved over where he was last week No fevers, no tachycardia, hemodynamically stable and all aspects CT does reveal new air within this hematoma Review of Systems Review of Systems: All systems reviewed & are unremarkable except as noted in HPI & below Physical Exam Physical Exam: Incisions appropriate, tender in the lower abdomen, left greater than right Constitutional: well developed and well nourished Neck: neck nontender Respiratory: normal respiratory effort; no respiratory distress and does not use accessory muscles Cardiovascular: Rate/Rhythm: regular rate Vessels: radial pulses present Extremities: no edema Gastrointestinal (Abdomen): Inspection/Auscultation: abdomen normal to inspection Percussion/Palpation: abdomen soft; abdomen nontender and no guarding Musculoskeletal: Head/Neck/Chest: normocephalic and head atraumatic Extremities: extremities normal to inspection Skin: no rashes and no lesions Trauma: no evidence of skin trauma Neurologic: awake; not obtunded Speech / Cognition: normal speech Motor/Sensory: no tremor Psychiatric: Orientation: alert and oriented x 3 Genitourinary: no CVA tenderness Lymphatic: no lymphadenopathy Results & Data ([facility]) Vital Signs (Past 12 Hours) Vital Signs Temp Pulse Resp BP Pulse Ox 09/04/20 07:32 37.3 C 67 18 127/65 95 PG Care Time/CCT Total # of Minutes Spent Total Time Spent with Patient: Total time spent is greater than 50% in coordination of care (as documented) at patient's floor/unit and/or counseling patient: Coding Level of Care Code 14040 Subseq Hosp Care Lvl 2 Diagnoses Status post prostatectomy Z90.79
[2020-09-04] MEDS: FERROUS SULFATE 325 MG TAB PO SCH (08:53)
[2020-09-04] MEDS: BRIMONIDINE TARTRATE-P 0.15% 5 ML BTL OP SCH ×2 (08:53→20:22)
[2020-09-04] MEDS: FEBUXOSTAT 40 MG TABLET PO SCH (08:53)
[2020-09-04] MEDS: SERTRALINE HCL 100 MG TABLET PO SCH (08:53)
[2020-09-04] MEDS: TRAVOPROST Z 0.004% OPH SOLN 2.5 ML BTL OP SCH (08:53)
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
[2020-09-04] MEDS ORDERED: LIDOCAINE HCL 1% 20 ML VIAL ONE ×2 (09:50→10:25)
--- NOTE | 2020-09-04 11:19 | CT Scan Report ---
CT abscess drainage CT DOSE: 1006.05 mGycm CLINICAL HISTORY: abscess drainage TECHNIQUE: A right lower quadrant abdominal fluid collection was drain, using CT guidance. A dose lo wering technique was utilized adhering to the principles of ALARA. COMPARISON STUDY: CT scan dated 09/03/2020 FINDINGS: A timeout was performed. The risks and procedure were explained the patient and informed consent was obtained. The patient was prepped and draped in a sterile fashion. The skin and right rectus sheath were anesthetized utilizing 20 cc of 1% lidocaine. A small skin incision was made. Utilizing a trocar technique, a 12 [place]ian pigtail catheter was advanced into the right lower quadrant fluid collection. Approximately 600 cc of fluid which resembled urine was aspirated. The fluid was sent for Gram stain, culture, sensitivity, and creatinine. Postdrainage images reveal interval decrease in the size of the collection. It is unclear at this poi nt time whether this collection communicates with the other pelvic fluid collections. On the post drainage images, there is evidence for a contrast collection located between the rectum a nd bladder. The findings are consistent with an anastomotic leak secondary to the patient's prior pro statectomy. There were no immediate complications. The patient was sent to the floor for post procedural observat ion. The findings of the procedure were discussed with the referring clinician. IMPRESSION: 1. Successful drainage of a right abdominal fluid collection with a 12 Gu[place]ian pigtail catheter 2. 600 cc of fluid was aspirated. The fluid resembled urine. 3. Post procedure images demonstrate contrast (secondary to the patient's contrast enhanced CT scan p erformed the evening prior) posterior to the bladder base and anterior to the rectum. The findings ar e suggestive of an anastomotic leak secondary to the patient's prostatectomy. ACT 112: Negative or not required by law. Electronically signed by: Ken Butler M.D. 09/04/2020 11:18 AM
[2020-09-04] MEDS: MoRPHine SULFATE 2 MG/ML CARP IV PRN (13:59)
[2020-09-04] MEDS: traZODone HCL 50 MG TAB PO SCH (20:22)
[2020-09-05] MEDS: LACTATED RINGER'S 1,000 ML IV SCH ×2 (02:21→13:55)
[2020-09-05] MEDS: ACETAMINOPHEN 325 MG TAB PO PRN ×2 (05:13→08:54)
[2020-09-05] MEDS: PIPERACILLIN/TAZOBACTAM 3.375 GM in DEXTROSE 5% 100 ML IV SCH ×3 (05:48→22:04)
[2020-09-05] MEDS: TRAVOPROST Z 0.004% OPH SOLN 2.5 ML BTL OP SCH ×2 (08:47→22:01)
[2020-09-05] MEDS: BRIMONIDINE TARTRATE-P 0.15% 5 ML BTL OP SCH ×2 (08:47→22:03)
[2020-09-05] MEDS: ENOXAPARIN INJ 40 MG/0.4 ML SYR SQ SCH (08:47)
[2020-09-05] MEDS: FEBUXOSTAT 40 MG TABLET PO SCH (08:47)
[2020-09-05] MEDS: SERTRALINE HCL 100 MG TABLET PO SCH (08:47)
--- NOTE | 2020-09-05 09:25 | Urology Progress Note ---
Date of Service September 05, 2020 Assessment & Plan (1) Status post prostatectomy: Assessment Postop day 1 from abdominal drain placement Patient slowly improving Creatinine on the MARSHAL drainage 1.38 consistent with serum Wonder if patient has a lymphocele Continue current therapy Admission and Anticipated Discharge Date Admission Date: September 03, 2020 Subjective Post procedure day 1 from placement of abdominal pigtail drain Patient is afebrile vital signs are stable Says he is feeling better Some mild abdominal pain on the right side but improved from admission Chavez catheter draining clear yellow urine Urine output 725 cc MARSHAL output 300 cc Physical Exam Physical Exam: Constitutional Well-developed well-nourished In no acute distress, Healthy appearing Neuro/psych Alert and oriented x3 Normal mood Normal affect Normal coordination Skin Normal color Normal turgor No rashes Warm and Dry Neck Normal visual inspection Pulmonary Normal rhythm and effort No respiratory distress No audible wheezes Able to speak in complete sentences Cardiac Some peripheral edema No calf pain Results & Data ([facility]) Vital Signs (Past 12 Hours) Vital Signs Temp Pulse Resp BP Pulse Ox 09/05/20 07:50 36.9 C 61 18 148/73 H 97 09/05/20 04:02 37.2 C 67 18 141/71 H 96 09/04/20 23:19 36.6 C 66 16 153/76 H 96 Laboratory Results Laboratory Results - last 24 hr 09/04/20 10:30 Fluid Creatinine 1.38 Diagnostic Findings I reviewed his CT scan has a large fluid collection which now has a drain in Also has what appears to be extravasation of contrast at the presumed location of the urethrovesical anastomosis PG Care Time/CCT Total # of Minutes Spent Total Time Spent with Patient: Total time spent is greater than 50% in coordination of care (as documented) at patient's floor/unit and/or counseling patient: Coding Level of Care Code None Diagnoses Status post prostatectomy Z90.79
--- NOTE | 2020-09-05 11:39 | Hospitalist Progress Note ---
Date of Service September 05, 2020 Assessment & Plan (1) Postoperative fever: Patrick Irby is a 70yo male with a PMH of prostate cancer s/p radical prostatectomy (08/14/2020), VTE on chronic eliquis, obesity hypoventilation syndrome, myasthenia gravis (in remission) PTSD, and depression who presents with fever, abdominal pain, fatigue, and scrotal swelling two days after being discharged from his post-prostatectomy admission. Patient has severe abdominal tenderness with guarding, leukocytosis, and anemia, but is without rebound tenderness, rigidity, current fever, or other overt signs of infection. Abdominal pain secondary to fluid collection(s) from radical prostatectomy anas tomotic leak -600cc urine-appearing aspirated from a fluid collection posterior to the bladder base, anterior to the rectum -diverting torres placed -abdominal MARSHAL drain in place, draining clear yellow fluid without blood or pus -IV removed 2/2 thumb pain; not obtaining second IV site at this time because patient is tolerating PO, will monitor urine output and BMP in AM -continue zosyn IV -holding home norco 1tab PO tid prn -pain well controlled on APAP 650mg PO q4h prn -morphine 2mg IV q3h prn (has not needed it) -close clinical monitoring History of VTE -holding home eliquis -lovenox 40mg sq Post-op anemia -home dose iron 325mg PO q other day -transfuse Hgb < 7.0 Chronic kidney disease, stage III -creatinine 1.37, near patient's baseline of 1.2-1.3 -IVF discontinued as above Obesity hypoventilation syndrome, obstructive sleep apnea -CPAP Depression -home dose sertraline 100mg PO qAM -home dose trazodone 50mg PO qhs Gout -holding home febuxostat Glaucoma -home brimonidine 1 drop opb bid -home travoprost 1 drop opb qAM FENGI: tolerating PO DVT prophylaxis: lovenox Code status: DNR/DNI Dispo: med/surg (2) Status post prostatectomy: (3) Chronic kidney disease, stage III (moderate): Post Op Fever Patient with what appears to be two abscesses per outside hospital read, I have not been able to see images yet but they are here on disc and will be sent down to radiology Will treat with broad spectrum anitbiotics, d/c'ing gentamicin and rocephin and starting on zosyn Urology consulted for abscess drainage and possible procedure Patient NPO Post Op anemia Secondary to bleed hematoma patient was anticoagulated Hemoglobin relatively stable since discharge Will continue iron supplementation Continue to monitor CBC History of VTE Will hold eliquis for now until Urology evaluation CKD Patient appears at baseline Will supplement with 1/2 NSS 60 mls/hour while NPO EFRAÍN ALlowing him to use own CPAP Deconditioning Will need to return to rehab hospital on d/c DVT PPx: Will continue eliquis following Urology evaluation F/E/N: 1/2 NSS 60 ml/shour NPO Dispo: Admit for broad spectrum ABx and urology evaluation for possible abscess drainage. DNR/DNI (4) Hematoma: (5) Sleep apnea: (6) Partial blindness: (7) Myasthenia gravis: (8) History of DVT (deep vein thrombosis): (9) Hypertension: (10) Postoperative anemia: (11) Prostate cancer: (12) Pre-op testing: Admission and Anticipated Discharge Date Admission Date: September 03, 2020 Supervising Physician Co-Signing Physician Notes Patient seen and examined with PGY-1 Dr. Angeles. Agree with history, exam findings, assessment and plan of care as outlined. In brief, Mr. Irby is a 70 year old male with recent radical prostatectomy for prostate cancer admitted with post-op infection. This morning, started experiencing pain in the right wrist at his peripheral IV site. Noted to have infiltration of the IV and this was removed. He has continued to have pain on the radial side of the right wrist and significant pain with movement of the thumb. He is right handed, although he is able to use his left hand for things like feeding. Abdominal pain is improved, but still has scrotal swelling. Nursing notes, vital signs, labs and imaging reviewed. Heart with regular rate and rhythm. Lungs are clear to auscultation with good air movement. Abdomen is soft, nontender. Drain site is clean with dressing in tact. Drain with clear fluid. + scrotal edema. Right hand with soft tissue edema in the thenar eminence. Difficulty with thumb adduction and abduction. No ecchymosis or erythema. Neurovascularly in tact. 1. Post-op infection secondary to anastomotic leak. Urology on board. Diverting torres placed and drainage of right abdominal fluid collection on with drain still draining some clear fluid. ?fluid is serous vs urine. Continue Zosyn. 2. Right hand pain secondary to IV infiltration. Pain control with Tylenol if needed. Ok to do warm compresses or ice. Expect this to slowly improve. If not improving, can consider additional imaging. 3. Hx of VTE. Holding Eliquis, Lovenox 40mg SQ. 4. Post-operative anemia. Fe QOD. 5. CKD. Baseline Cr 1.2-1.3. LR 80/hr 6. Depression. Continue home sertraline 100mg, trazodone 50mg. 7. Gout. Holding home febuxostat. Dispo: pending clinical improvement. Subjective Patient was seen at bedside this morning. He reports substantial symptomatic relief s/p fluid collection drainage and drain placement yesterday. His abdominal pain and tenderness has greatly improved and he is able to roll to both sides again. Denies chest pain, shortness of breath beyond baseline, nausea, vomiting, fever, chills, sweating, or dysuria. He has a torres catheter in place still. He reports significantly improved scrotal pain and swelling. He does report new right thumb swelling, pain, and tenderness that was not there last night. When he notified his nurse about the pain and swelling, they removed his right distal wrist IV. It has not gotten any worse since then. Denies numbness, tingling, weakness. No joint pain in his elbow on the right, or of his elbow or hand on the left. Review of Systems Constitutional: no fever and no chills Respiratory: no cough and no wheezing Cardiovascular: no chest pain and no palpitations Gastrointestinal: no nausea and no vomiting Neurologic: no loss of sensation and no tingling Physical Exam Constitutional: + obese; no acute distress and not ill appearing Respiratory: normal respiratory effort, lungs clear to auscultation no labored breathing and no cough Cardiovascular: Rate/Rhythm: regular rate and regular rhythm Heart Sounds: no murmur Gastrointestinal (Abdomen): Inspection/Auscultation: normal bowel sounds Percussion/Palpation: abdomen soft; no guarding mild tenderness to palpation of the abdomen in lower quadrants bilaterally, minimal tenderness to palpation of the upper quadrants bilaterally Neurologic: CN's II-XI intact bilaterally Psychiatric: A+Ox3, euthymic affect Orientation: oriented x 3 Genitourinary: mild edema of the scrotum Results & Data Results & Data ([facility]) Vital Signs (Past 12 Hours) Vital Signs Temp Pulse Resp BP Pulse Ox 09/05/20 04:02 37.2 C 67 18 141/71 H 96 09/04/20 23:19 36.6 C 66 16 153/76 H 96 Resident Activity Tracking Resident Involvement: Resident Care Provided Care Provided: Adult Hospital Medicine
[2020-09-05] MEDS: traZODone HCL 50 MG TAB PO SCH (22:01)
[2020-09-06] MEDS: PIPERACILLIN/TAZOBACTAM 3.375 GM in DEXTROSE 5% 100 ML IV SCH ×3 (05:47→21:38)
[2020-09-06 07:14] LABS: Mean Corpuscular Hgb Conc 32.3 g/dL (32-36); Mean Platelet Volume 9.2 fL (7.4-10.4); Platelet Count 417 K/uL (130-400)
[2020-09-06] MEDS: FEBUXOSTAT 40 MG TABLET PO SCH (08:18)
[2020-09-06] MEDS: SERTRALINE HCL 100 MG TABLET PO SCH (08:18)
[2020-09-06] MEDS: FERROUS SULFATE 325 MG TAB PO SCH (08:18)
[2020-09-06] MEDS: TRAVOPROST Z 0.004% OPH SOLN 2.5 ML BTL OP SCH (08:18)
[2020-09-06] MEDS: ENOXAPARIN INJ 40 MG/0.4 ML SYR SQ SCH (08:19)
[2020-09-06] MEDS: BRIMONIDINE TARTRATE-P 0.15% 5 ML BTL OP SCH ×2 (08:19→20:56)
[2020-09-06] MEDS: ACETAMINOPHEN 325 MG TAB PO PRN ×2 (08:24→19:25)
[2020-09-06 08:38] LABS: BUN Creatinine Ratio 12.5 (10-20); Calcium 8.1 mg/dl (8.5-10.1); Creatinine Clr Calc Pharmacy 57.6 ml/min; Est GFR (African American) 49.9; Potassium 4.4 mmol/L (3.5-5.1)
[2020-09-06 08:42] LABS: Hematocrit (blood only) 25.7 % (42-52); Hemoglobin 8.3 g/dL (14.0-18.0); Mean Corpuscular Hemoglobin 28.7 pg (25-34); Mean Corpuscular Volume 88.9 fL (80-100); RDW Coefficient of Variation 14.8 % (11.5-14.5); RDW Standard Deviation 48.2 fL (36.4-46.3); Red Blood Count 2.89 M/uL (4.7-6.1); White Blood Count 10.29 K/uL (4.8-10.8)
[2020-09-06 08:44] LABS: Basophils # (auto) 0.04 K/uL (0-0.2); Basophils % (auto) 0.4 %; Eosinophils # (auto) 0.23 K/uL (0-0.5); Eosinophils % (auto) 2.2 %; Immature Granulocytes # (auto) 0.04 K/uL (0.00-0.02); Immature Granulocytes % (auto) 0.4 %; Lymphocytes # (auto) 0.63 K/uL (1.2-3.4); Lymphocytes % (auto) 6.1 %; Monocytes # (auto) 0.76 K/uL (0.11-0.59); Monocytes % (auto) 7.4 %; Neutrophils # (auto) 8.59 K/uL (1.4-6.5); Neutrophils % (auto) 83.5 %
--- NOTE | 2020-09-06 11:15 | Urology Progress Note ---
Date of Service September 06, 2020 Assessment & Plan (1) Status post prostatectomy: Patient status post abdominal drain placement Fluid had a creatinine similar to serum. This would seem to indicate a lymphocele versus other fluid collection. Also may be peritoneal fluid. Catheter is in place draining well without major problems or issues. Will likely need to maintain to allow complete decompression Patient continues to slowly improve. He has mild return of bowel function. Is encouraged to ambulate. Is worried due to multiple tubes and deconditioned state that he would have trouble. Is going to attempt to increase mobility with nursing today. Otherwise we will plan to continue with supportive care. We will continue to monitor. Call if any changes or issues. Admission and Anticipated Discharge Date Admission Date: September 03, 2020 Subjective Patient tolerating pelvic drain and catheter well without major issue. Had a urinoma developed likely from anastomotic leak. Has decreasing output of the drain. Continues to have good output of the Chavez catheter. Patient has been tolerating well. Has noticed some frequency and urgency. Has not had severe pain in the back and flank. Does have occasional burning and irritation. No severe episodes or major changes. No new nausea or vomiting. Due to drains and decreased conditioning patient has not been ambulating well. Is going to try more today. Tolerating diet without issues. Is attempting bowel movements. Review of Systems Review of Systems: All systems reviewed & are unremarkable except as noted in HPI & below Physical Exam Physical Exam: General: Alert in no acute distress. HEENT: Normocephalic Atraumatic. Inspection normal. Cranial Nerves 2-12 Grossly intact. Normal inspection of face. Normal inspection of neck. Psychologic: Normal affect. Respiratory: Nonlabored. No use of accessory muscles. No tachypnea or dyspnea. Cardiovascular: No tachycardia Skin: [place] and Dry. No rashes or visible lesions. Extremities/Lymphatics: No edema Abdomen: Obese. Mild distended. No rebound or guarding. Drain in place draining light yellow fluid. : Chavez in place draining clear yellow urine Results & Data ([facility]) Vital Signs (Past 12 Hours) Vital Signs Temp Pulse Resp BP Pulse Ox 09/06/20 07:37 36.9 C 67 16 145/72 H 95 09/06/20 00:15 36.9 C 64 16 142/72 H 95 PG Care Time/CCT Total # of Minutes Spent Total Time Spent with Patient: Total time spent is greater than 50% in coordination of care (as documented) at patient's floor/unit and/or counseling patient: Coding Level of Care Code 28069 Subseq Hosp Care Lvl 3 Diagnoses Status post prostatectomy Z90.79
--- NOTE | 2020-09-06 16:23 | Hospitalist Progress Note ---
Date of Service September 06, 2020 Assessment & Plan (1) Postoperative fever: Patrick Irby is a 70yo male with a PMH of prostate cancer s/p radical prostatectomy (08/14/2020), VTE on chronic eliquis, obesity hypoventilation syndrome, myasthenia gravis (in remission) PTSD, and depression who presents with fever, abdominal pain, fatigue, and scrotal swelling two days after being discharged from his post-prostatectomy admission. Patient has severe abdominal tenderness with guarding, leukocytosis, and anemia, but is without rebound tenderness, rigidity, current fever, or other overt signs of infection. Post-op infection secondary to anastomotic leak -Abdominal pain secondary to fluid collection(s) from radical prostatectomy anastomotic leak -600cc urine-appearing aspirated from a fluid collection posterior to the bladder base, anterior to the rectum -diverting torres placed -abdominal MARSHAL drain in place, draining clear yellow fluid without blood or pus -continue zosyn IV -holding home norco 1tab PO tid prn -pain well controlled on APAP 650mg PO q4h prn -morphine 2mg IV q3h prn (has not needed it) -close clinical monitoring -urology on board; appreciate their recommendations and assistance; will continue to follow History of VTE -holding home eliquis -lovenox 40mg sq Post-op anemia -home dose iron 325mg PO q other day -transfuse Hgb < 7.0 Chronic kidney disease, stage III -creatinine 1.37, near patient's baseline of 1.2-1.3 -IVF discontinued as above Obesity hypoventilation syndrome, obstructive sleep apnea -CPAP Depression -home dose sertraline 100mg PO qAM -home dose trazodone 50mg PO qhs Gout -holding home febuxostat Glaucoma -home brimonidine 1 drop opb bid -home travoprost 1 drop opb qAM FENGI: tolerating PO DVT prophylaxis: lovenox Code status: DNR/DNI Dispo: med/surg (2) Status post prostatectomy: (3) Chronic kidney disease, stage III (moderate): (4) Hematoma: (5) Sleep apnea: (6) Partial blindness: (7) Myasthenia gravis: (8) History of DVT (deep vein thrombosis): (9) Hypertension: (10) Postoperative anemia: (11) Prostate cancer: (12) Pre-op testing: Admission and Anticipated Discharge Date Admission Date: September 03, 2020 Supervising Physician Co-Signing Physician Notes Patient seen and examined with PGY-1 Dr. Roberts. Agree with history, exam findings, assessment and plan of care as outlined. In brief, Mr. Irby is a 70 year old male with recent radical prostatectomy for prostate cancer admitted with post-op infection. Abdominal pain continues to improve. His right thumb/hand pain is improving and he reports that he is able to move the thumb a bit more with less pain. Having soft bowel movements. Nursing notes, vital signs, labs and imaging reviewed. Heart with regular rate and rhythm. Lungs are clear to auscultation with good air movement. Abdomen is soft, nontender. Drain site is clean with dressing in tact. Drain with clear fluid. + scrotal edema. Right hand with soft tissue edema in the thenar eminence. Difficulty with thumb adduction and abduction. No ecchymosis or erythema. Neurovascularly in tact. 1. Post-op infection secondary to anastomotic leak. Urology on board. Diverting torres placed and drainage of right abdominal fluid collection on with d rain with minimal drainage. Continue Zosyn. Possible removal of the drain tomorrow. 2. Right hand pain secondary to IV infiltration. Improving. Pain control with Tylenol if needed. Ok to do warm compresses or ice. Expect this to slowly improve. If not improving, can consider additional imaging. 3. Hx of VTE. Holding Eliquis, Lovenox 40mg SQ. 4. Post-operative anemia. Fe QOD. 5. CKD. Near baseline. DCed LR. 6. Depression. Continue home sertraline 100mg, trazodone 50mg. 7. Gout. Holding home febuxostat. Dispo: pending clinical improvement. PT/OT asked to evaluate as patient will need rehab placement post-hospital. Subjective Pt doing well today. He has no specific concerns or questions at this time. Patient states that he is eating well and sleeping well. Patient reports continued improvement in abdominal pain after having the drain placed on (09/04). He denies fever, chills, CP, SOB, nausea, vomiting, numbness, tingling, or leg swelling. Review of Systems Constitutional: no fever and no chills Respiratory: no cough and no dyspnea Cardiovascular: no chest pain Gastrointestinal: + abdominal pain (improving); no nausea and no vomiting Musculoskeletal: no swelling Physical Exam Physical Exam: GENERAL: No acute distress. Well developed and well nourished. Vital signs reviewed as above. A/O x3. EYES: EOMI. HENT: Moist mucous membranes. RESPIRATORY: Clear to auscultation bilaterally. No wheezing, rales, or rhonchi. CARDIOVASCULAR: Regular rate and rhythm. No murmurs. ABDOMEN: Soft, minimal diffuse tenderness to palpation, and non-distended. Normal bowel sounds. MARSHAL drain in place in right abdomen within minimal clear- yellow fluid in tube. : + scrotal swelling EXTREMITIES: No edema. Non-tender. NEUROLOGIC: No focal neurological deficits. PSYCHIATRIC: Cooperative. Appropriate mood and affect. Results & Data Results & Data ([facility]) Vital Signs (Past 12 Hours) Vital Signs Temp Pulse Resp BP Pulse Ox 09/06/20 07:37 36.9 C 67 16 145/72 H 95
[2020-09-06] MEDS: traZODone HCL 50 MG TAB PO SCH (20:57)
[2020-09-07] MEDS: PIPERACILLIN/TAZOBACTAM 3.375 GM in DEXTROSE 5% 100 ML IV SCH ×3 (06:00→22:01)
[2020-09-07 07:27] LABS: Basophils # (auto) 0.01 K/uL (0-0.2); Basophils % (auto) 0.1 %; Eosinophils # (auto) 0.27 K/uL (0-0.5); Eosinophils % (auto) 2.7 %; Hematocrit (blood only) 25.5 % (42-52); Hemoglobin 8.2 g/dL (14.0-18.0); Immature Granulocytes # (auto) 0.02 K/uL (0.00-0.02); Immature Granulocytes % (auto) 0.2 %; Lymphocytes # (auto) 0.68 K/uL (1.2-3.4); Lymphocytes % (auto) 6.8 %; Mean Corpuscular Hemoglobin 28.6 pg (25-34); Mean Corpuscular Hgb Conc 32.2 g/dL (32-36); Mean Corpuscular Volume 88.9 fL (80-100); Mean Platelet Volume 9.3 fL (7.4-10.4); Monocytes # (auto) 0.77 K/uL (0.11-0.59); Monocytes % (auto) 7.7 %; Neutrophils % (auto) 82.5 %; Platelet Count 385 K/uL (130-400); RDW Coefficient of Variation 14.7 % (11.5-14.5); RDW Standard Deviation 48.2 fL (36.4-46.3); Red Blood Count 2.87 M/uL (4.7-6.1); White Blood Count 9.95 K/uL (4.8-10.8)
[2020-09-07] MEDS: SERTRALINE HCL 100 MG TABLET PO SCH (07:38)
[2020-09-07] MEDS: BRIMONIDINE TARTRATE-P 0.15% 5 ML BTL OP SCH ×2 (07:38→20:09)
[2020-09-07] MEDS: FEBUXOSTAT 40 MG TABLET PO SCH (07:38)
[2020-09-07] MEDS: ACETAMINOPHEN 325 MG TAB PO PRN ×2 (07:38→20:10)
[2020-09-07] MEDS: TRAVOPROST Z 0.004% OPH SOLN 2.5 ML BTL OP SCH (07:39)
[2020-09-07] MEDS: ENOXAPARIN INJ 40 MG/0.4 ML SYR SQ SCH (07:39)
[2020-09-07 08:09] LABS: BUN Creatinine Ratio 11.6 (10-20); Calcium 8.2 mg/dl (8.5-10.1); Creatinine Clr Calc Pharmacy 59.1 ml/min; Est GFR (African American) 51.4; Est GFR (Non-African American) 44.3; Potassium 4.1 mmol/L (3.5-5.1)
[2020-09-07] MEDS ORDERED: FUROSEMIDE 40 MG TAB PO ONE (12:00)
--- NOTE | 2020-09-07 13:10 | Hospitalist Progress Note ---
Date of Service September 07, 2020 Assessment & Plan (1) Postoperative fever: Patrick Irby is a 70yo male with a PMH of prostate cancer s/p radical prostatectomy (08/14/2020), VTE on chronic eliquis, obesity hypoventilation syndrome, myasthenia gravis (in remission) PTSD, and depression who presents with fever, abdominal pain, fatigue, and scrotal swelling two days after being discharged from his post-prostatectomy admission. Patient had severe abdominal tenderness with guarding, leukocytosis, and anemia, but is without rebound tenderness, rigidity, current fever, or other overt signs of infection. Post-op infection secondary to anastomotic leak -Abdominal pain secondary to fluid collection(s) from radical prostatectomy anastomotic leak; abdominal pain continues to improve -600cc urine-appearing aspirated from a fluid collection posterior to the bladder base, anterior to the rectum -diverting torres placed -abdominal MARSHAL drain in place, draining clear yellow fluid without blood or pus -continue zosyn IV -holding home norco 1tab PO tid prn -pain well controlled on APAP 650mg PO q4h prn -morphine 2mg IV q3h prn (has not needed it) -close clinical monitoring -urology on board; plan to remove drain tomorrow; appreciate their recommendations and assistance; will continue to follow Generalized weakness -PT/OT consults ordered for evaluation and treatment -encouraged patient to get OOB or even to just sit on side of bed for all meals -will need rehab placement post-hospitalization Bilateral LE Edema -restarted home Lasix 40mg po daily Right hand pain secondary to IV infiltration -IV removed, pain is significantly improving and has essentially removed History of VTE -holding home eliquis -lovenox 40mg sq Post-op anemia -home dose iron 325mg PO q other day -transfuse Hgb < 7.0 Chronic kidney disease, stage III -creatinine 1.37, near patient's baseline of 1.2-1.3 -IVF discontinued as above Obesity hypoventilation syndrome, obstructive sleep apnea -CPAP Depression -home dose sertraline 100mg PO qAM -home dose trazodone 50mg PO qhs Gout -holding home febuxostat Glaucoma -home brimonidine 1 drop opb bid -home travoprost 1 drop opb qAM FENGI: tolerating PO DVT prophylaxis: lovenox Code status: DNR/DNI Dispo: med/surg (2) Status post prostatectomy: (3) Chronic kidney disease, stage III (moderate): (4) Hematoma: (5) Sleep apnea: (6) Partial blindness: (7) Myasthenia gravis: (8) History of DVT (deep vein thrombosis): (9) Hypertension: (10) Postoperative anemia: (11) Prostate cancer: (12) Pre-op testing: Admission and Anticipated Discharge Date Admission Date: September 03, 2020 Supervising Physician Co-Signing Physician Notes Patient seen and examined with PGY-1 Dr. Roberts. Agree with history, exam findings, assessment and plan of care as outlined. In brief, Mr. Irby is a 70 year old male with recent radical prostatectomy for prostate cancer admitted with post-op infection. Abdominal pain continues to improve. His right thumb/hand (at the site of IV infiltration) pain is improving. He would like to move around the room and walk, but is nervous about the drain pulling. Nursing notes, vital signs, labs and imaging reviewed. Heart with regular rate and rhythm. +1 edema bilateral lower extremities. Lungs are clear to auscultation with good air movement. Abdomen is soft, nontender. Drain site is clean with dressing in tact. Drain with clear yellow fluid. + scrotal edema. 1. Post-op infection secondary. Urology on board. Diverting torres placed and drainage of right abdominal fluid collection on with drain with minimal drainage. Continue Zosyn. Possible removal of the drain tomorrow if less than 50cc of drainage. 2. Right hand pain secondary to IV infiltration. Improving. Pain control with T ylenol if needed. 3. Lower extremity edema. Restart home Lasix 40mg PO. Will need to watch K and Cr. 4. Hx of VTE. Holding Eliquis, Lovenox 40mg SQ. 5. Post-operative anemia. Hgb 8.2. Fe QOD. 6. CKD. Near baseline. Dispo: pending clinical improvement. PT/OT asked to evaluate as patient will need rehab placement post-hospital. Subjective Pt doing well today. He states that the abdominal pain is slightly improved from yesterday. He is eating well and sleeping "much better." Patient has no specific concerns or questions at this time. He denies fever, chills, CP, SOB, nausea, vomiting, numbness, or tingling. Review of Systems Constitutional: no fever and no chills Respiratory: no cough and no dyspnea Cardiovascular: no chest pain Gastrointestinal: + abdominal pain (improving); no nausea and no vomiting Physical Exam Physical Exam: GENERAL: No acute distress. Well developed and well nourished. Vital signs reviewed as above. A/O x3. EYES: EOMI. HENT: Moist mucous membranes. RESPIRATORY: Clear to auscultation bilaterally. No wheezing, rales, or rhonchi. CARDIOVASCULAR: Regular rate and rhythm. No murmurs. ABDOMEN: Soft, non-tender to palpation, and non-distended. Normal bowel sounds. MARSHAL drain in place in right abdomen with clear-yellow fluid in tube. EXTREMITIES: 2+ b/l lower extremity edema. NEUROLOGIC: No focal neurological deficits. PSYCHIATRIC: Cooperative. Appropriate mood and affect. Results & Data Results & Data ([facility]) Vital Signs (Past 12 Hours) Vital Signs Temp Pulse Resp BP Pulse Ox 09/07/20 07:30 37.2 C 74 18 150/70 H 96
--- NOTE | 2020-09-07 13:25 | Urology Progress Note ---
Date of Service September 07, 2020 Assessment & Plan (1) Status post prostatectomy: Patient status post abdominal drain placement for pelvic fluid collection status post prostatectomy Fluid had a creatinine similar to serum. This would seem to indicate a lymphocele versus other fluid collection. Also may be peritoneal fluid. Catheter is in place draining well without major problems or issues. Will likely need to maintain to allow complete decompression. Patient's drain output has decreased. It is going to be emptied by nursing this afternoon if less than 50 cc per shift we will plan to remove pelvic drain. Patient continues to slowly improve. He has swelling towards issues with over activity with bowel function. Is encouraged to ambulate. Patient has been extremely deconditioned is worried due to multiple tubes and deconditioned state that he would have trouble. Is going to attempt to increase mobility with nursing today. PT has been ordered by the hospitalist team. Otherwise we will plan to continue with supportive care. We will continue to monitor. Call if any changes or issues. Admission and Anticipated Discharge Date Admission Date: September 03, 2020 Subjective Postop from procedure to place pelvic drain. Fluid was found to be at a serum level for creatinine which would lean heavily against a anastomotic leak. Likely developed a lymphocele versus pelvic fluid collection. Patient did have a large hematoma and may have experiencing the breakdown products of that. Patient is tolerating drain currently. Is tolerating catheter. We will plan to maintain catheter for time being. Patient has has considerable bowel function and poor control. Has been poorly ambulating. Again encouraged patient to increase activity but has been limited due to deconditioned state. Will likely really need to consider physical therapy and patient will likely need rehab Review of Systems Review of Systems: All systems reviewed & are unremarkable except as noted in HPI & below Physical Exam Physical Exam: General: Alert in no acute distress. HEENT: Normocephalic Atraumatic. Inspection normal. Cranial Nerves 2-12 Grossly intact. Normal inspection of face. Normal inspection of neck. Psychologic: Normal affect. Respiratory: Nonlabored. No use of accessory muscles. No tachypnea or dyspnea. Cardiovascular: No tachycardia Skin: [place] and Dry. No rashes or visible lesions. Extremities/Lymphatics: Moderate edema Abdomen: Obese. Moderately distended. No rebound or guarding. Drain in place draining light yellow fluid. : Chavez in place draining clear yellow urine Results & Data ([facility]) Vital Signs (Past 12 Hours) Vital Signs Temp Pulse Resp BP Pulse Ox 09/07/20 07:30 37.2 C 74 18 150/70 H 96 PG Care Time/CCT Total # of Minutes Spent Total Time Spent with Patient: Total time spent is greater than 50% in coordination of care (as documented) at patient's floor/unit and/or counseling patient: Coding Level of Care Code 95739 Subseq Hosp Care Lvl 3 Diagnoses Status post prostatectomy Z90.79
[2020-09-07] MEDS: traZODone HCL 50 MG TAB PO SCH (20:09)
[2020-09-08] MEDS: PIPERACILLIN/TAZOBACTAM 3.375 GM in DEXTROSE 5% 100 ML IV SCH ×3 (05:41→21:43)
[2020-09-08 06:37] LABS: Basophils # (auto) 0.03 K/uL (0-0.2); Basophils % (auto) 0.3 %; Eosinophils # (auto) 0.37 K/uL (0-0.5); Eosinophils % (auto) 4.2 %; Hematocrit (blood only) 25.8 % (42-52); Hemoglobin 8.1 g/dL (14.0-18.0); Immature Granulocytes # (auto) 0.03 K/uL (0.00-0.02); Immature Granulocytes % (auto) 0.3 %; Lymphocytes # (auto) 0.74 K/uL (1.2-3.4); Lymphocytes % (auto) 8.4 %; Mean Corpuscular Hemoglobin 27.9 pg (25-34); Mean Corpuscular Hgb Conc 31.4 g/dL (32-36); Mean Platelet Volume 9.7 fL (7.4-10.4); Monocytes # (auto) 0.89 K/uL (0.11-0.59); Monocytes % (auto) 10.1 %; Neutrophils # (auto) 6.71 K/uL (1.4-6.5); Neutrophils % (auto) 76.7 %; Platelet Count 372 K/uL (130-400); RDW Coefficient of Variation 14.9 % (11.5-14.5); RDW Standard Deviation 48.9 fL (36.4-46.3); White Blood Count 8.77 K/uL (4.8-10.8)
[2020-09-08 07:13] LABS: BUN Creatinine Ratio 10.1 (10-20); Est GFR (African American) 53.5; Est GFR (Non-African American) 46.1; Potassium 4.1 mmol/L (3.5-5.1)
[2020-09-08] MEDS: ENOXAPARIN INJ 40 MG/0.4 ML SYR SQ SCH (07:39)
[2020-09-08] MEDS: BRIMONIDINE TARTRATE-P 0.15% 5 ML BTL OP SCH ×2 (07:39→20:54)
[2020-09-08] MEDS: FERROUS SULFATE 325 MG TAB PO SCH (07:41)
[2020-09-08] MEDS: SERTRALINE HCL 100 MG TABLET PO SCH (07:42)
[2020-09-08] MEDS: FEBUXOSTAT 40 MG TABLET PO SCH (07:42)
[2020-09-08] MEDS: FUROSEMIDE 40 MG TAB PO SCH (07:42)
--- NOTE | 2020-09-08 10:26 | Urology Progress Note ---
Date of Service September 08, 2020 Assessment & Plan (1) Status post prostatectomy: 70 yo M s/p abdominal drain placement for pelvic fluid collection status post prostatectomy. - Subjectively doing well - Abdominal drain with minimal output, likely d/c abdominal drain today - Continue Chavez catheter - Continue PT, encourage OOB/ambulation - Encourage use of incentive spirometer - Will continue to monitor Admission and Anticipated Discharge Date Admission Date: September 03, 2020 Subjective 70 yo M s/p abdominal drain placement for pelvic fluid collection status post prostatectomy. Pt examined at bedside this AM. Awake and sitting up in bed. Offers no complaints at this time, no issues overnight. Patient is tolerating drain currently. Minimal output today, 25 mL. Chavez intact, patent, draining clear yellow urine with some sediment. Tolerating Chavez catheter. Occasional lower abdominal pain, relieved with Tylenol. Reports BM yesterday. Appetite good. No f/c/n/v. Reports he ambulated with PT yesterday. No additional concerns. Chart review: Afebrile. Creatinine 1.51, Hgb 8.1, WBC 8.77. Abd RLQ culture (09/04) - no growth to date. On IV Zosyn. Review of Systems Constitutional: as per Subjective / HPI Gastrointestinal: as per Subjective / HPI Genitourinary: + as per Subjective / HPI Physical Exam Constitutional: well developed, well nourished and + obese; no acute distress and not ill appearing Respiratory: normal respiratory effort and able to speak in complete sentences; no respiratory distress and no labored breathing Cardiovascular: Extremities: no pedal edema Gastrointestinal (Abdomen): Inspection/Auscultation: abdomen normal to inspection; abdomen not distended Percussion/Palpation: abdomen soft; abdomen nontender and no guarding Musculoskeletal: Head/Neck/Chest: normocephalic and head atraumatic Skin: Surgical drain dressings C/D/I. Surgical incisions well approximated, healing, no erythema, redness, or warmth. Neurologic: moves all extremities and awake Psychiatric: A+Ox3, euthymic affect Genitourinary: Chavez catheter intact, patent, draining clear yellow urine with some sediment noted in tubing Results & Data ([facility]) Vital Signs (Past 12 Hours) Vital Signs Temp Pulse Pulse Resp BP Pulse Ox 09/08/20 07:22 36.8 C 66 16 133/69 93 09/07/20 23:20 37.3 C 63 18 123/67 95 PG Care Time/CCT Total # of Minutes Spent Total Time Spent with Patient: Total time spent is greater than 50% in coordination of care (as documented) at patient's floor/unit and/or counseling patient: Coding Level of Care Code 88539 Subseq Hosp Care Lvl 3 Diagnoses Status post prostatectomy Z90.79
--- NOTE | 2020-09-08 13:26 | Hospitalist Progress Note ---
Date of Service September 08, 2020 Assessment & Plan (1) Postoperative fever: Patrick Irby is a 70yo male with a PMH of prostate cancer s/p radical prostatectomy (08/14/2020), VTE on chronic eliquis, obesity hypoventilation syndrome, myasthenia gravis (in remission) PTSD, and depression who presents with fever, abdominal pain, fatigue, and scrotal swelling two days after being discharged from his post-prostatectomy admission. Patient had severe abdominal tenderness with guarding, leukocytosis, and anemia, but is without rebound tenderness, rigidity, current fever, or other overt signs of infection. Post-op infection secondary to anastomotic leak Abdominal pain secondary to fluid collection(s) from radical prostatectomy anastomotic leak; abdominal pain continues to improve -600cc urine-appearing aspirated from a fluid collection posterior to the bladder base, anterior to the rectum -diverting torres placed -abdominal MARSHAL drain in place, draining clear yellow fluid without blood or pus -continue zosyn IV -holding home norco 1tab PO tid prn -APAP 650mg PO q4h prn -morphine 2mg IV q3h prn-close clinical monitoring -urology on board; plan to remove drain tomorrow; appreciate their recommendations and assistance; will continue to follow Chest pain: EKG not concerning for ischemic event -continue to monitor Generalized weakness -PT/OT consults ordered for evaluation and treatment -encouraged patient to get OOB or even to just sit on side of bed for all meals -will need rehab placement post-hospitalization Bilateral LE Edema -restarted home Lasix 40mg po daily Right hand pain secondary to IV infiltration -IV removed, pain is significantly improving and has essentially removed History of VTE -holding home eliquis -lovenox 40mg sq Post-op anemia: Hgb 8.1 today -home dose iron 325mg PO q other day -transfuse Hgb < 7.0 Chronic kidney disease, stage III -creatinine 1.51 -baseline 1.2/1.3 Obesity hypoventilation syndrome, obstructive sleep apnea -CPAP Depression -home dose sertraline 100mg PO qAM -home dose trazodone 50mg PO qhs Gout -holding home febuxostat Glaucoma -home brimonidine 1 drop opb bid -home travoprost 1 drop opb qAM FENGI: tolerating PO DVT prophylaxis: lovenox Code status: DNR/DNI Dispo: med/surg (2) Status post prostatectomy: (3) Hematoma: (4) Sleep apnea: (5) Partial blindness: (6) Myasthenia gravis: (7) History of DVT (deep vein thrombosis): (8) Hypertension: (9) Postoperative anemia: (10) Prostate cancer: (11) Pre-op testing: Admission and Anticipated Discharge Date Admission Date: September 03, 2020 Supervising Physician Co-Signing Physician Notes I personally examined the patient and verified all lindsey points of history and exam, discussed case, and agree with decision making with Dr Angeles. belly feeling better. notes loose stool w fecal incontinence at times. notes chills and sweats at night for maybe last few months. vitals noted nad heent nc at mmm breathing unlabored no accessory muscles good effort skin no rashes no pallor no icteru scat scan reviewed and noted to have fairly significant fecal load. pelvic fluid collection post prostatectomy - doing better, drain pulled. continue torres drainage, ongoing zosyn for now. fecal incontinence - notes this was coming after significant post op constipation. as above noted, cat scan shows significant fecal load - suspect he's having overflow. miralax, follow night sweats - unclear etiology. follow. if continues for any prolonged period of time (even more than a few weeks after this all resolves) then would want to re-eval otherwise as above Subjective Patient seen at the bedside this morning. He was feeling "pretty good" and complained only of mild abdominal tenderness. He denied CP, SOB, nausea, vomiting, constipation, diarrhea, swelling in his legs, or other concerns. He had minimal MARSHAL drainage overnight from his abdomen; the tentative plan is for urology to remove the drain today. I was called back to his room around 10:30 because nurse noted he was having chest pain. The pain was a very brief stabbing pain in his right chest that was not reproducible with palpation. He says the pain happened once yesterday but has never happened before that. I ordered an EKG which had some ST segment changes but they were unchanged from last EKG just over one year ago. Patient denied jaw pain, arm pain, chest pressure, shortness of breath, headache, changes in vision, or other concerns. Review of Systems Constitutional: no fever, no chills and no sweats Respiratory: no cough and no dyspnea Cardiovascular: no palpitations, no syncope and no edema Gastrointestinal: no nausea and no vomiting Physical Exam Constitutional: + obese; no acute distress and not ill appearing Respiratory: normal respiratory effort, lungs clear to auscultation no labored breathing and no cough Cardiovascular: Rate/Rhythm: regular rate and regular rhythm Heart Sounds: no murmur Gastrointestinal (Abdomen): Inspection/Auscultation: normal bowel sounds Percussion/Palpation: abdomen soft; no guarding moderate tenderness to palpation of the lower quadrants, mild tenderness to palpation of the upper quadrants Neurologic: CN's II-XI intact bilaterally Psychiatric: A+Ox3, euthymic affect Orientation: oriented x 3 Results & Data Results & Data ([facility]) Vital Signs (Past 12 Hours) Vital Signs Temp Pulse Resp BP Pulse Ox 09/08/20 11:18 78 18 137/74 95 09/08/20 07:22 36.8 C 66 16 133/69 93 Resident Activity Tracking Resident Involvement: Resident Care Provided Care Provided: Adult Hospital Medicine
[2020-09-08] MEDS ORDERED: POLYETHYLENE (MIRALAX) 17 GM PACK PO ONE (16:01)
--- NOTE | 2020-09-08 16:10 | Electrocardiogram Report ---
Test Reason : Blood Pressure : / mmHG Vent. Rate : 066 BPM Atrial Rate : 066 BPM P-R Int : 170 ms QRS Dur : 134 ms QT Int : 430 ms P-R-T Axes : 017 -10 003 degrees QTc Int : 450 ms Normal sinus rhythm Right bundle branch block Abnormal ECG When compared with ECG of 05-SEP-2019 17:13, No significant change was found Confirmed by Jovany Velez ([id number]) on 09/08/2020 4:10:24 PM Referred By: REFERRED SELF Confirmed By:Jovany Velez
--- NOTE | 2020-09-08 18:18 | Billing Data ---
Date of Service September 08, 2020 Coding Level of Care Code 10491 Subseq Hosp Care Lvl 3
[2020-09-08] MEDS: traZODone HCL 50 MG TAB PO SCH (20:54)
[2020-09-09] MEDS: PIPERACILLIN/TAZOBACTAM 3.375 GM in DEXTROSE 5% 100 ML IV SCH ×3 (06:00→21:18)
[2020-09-09 06:46] LABS: Basophils # (auto) 0.02 K/uL (0-0.2); Basophils % (auto) 0.2 %; Eosinophils # (auto) 0.28 K/uL (0-0.5); Eosinophils % (auto) 3.2 %; Hematocrit (blood only) 25.6 % (42-52); Immature Granulocytes # (auto) 0.02 K/uL (0.00-0.02); Immature Granulocytes % (auto) 0.2 %; Lymphocytes # (auto) 0.77 K/uL (1.2-3.4); Lymphocytes % (auto) 8.7 %; Mean Corpuscular Hemoglobin 27.6 pg (25-34); Mean Corpuscular Hgb Conc 31.3 g/dL (32-36); Mean Corpuscular Volume 88.3 fL (80-100); Mean Platelet Volume 9.5 fL (7.4-10.4); Monocytes # (auto) 0.71 K/uL (0.11-0.59); Neutrophils # (auto) 7.02 K/uL (1.4-6.5); Neutrophils % (auto) 79.7 %; Platelet Count 349 K/uL (130-400); RDW Coefficient of Variation 14.9 % (11.5-14.5); RDW Standard Deviation 48.7 fL (36.4-46.3); White Blood Count 8.82 K/uL (4.8-10.8)
[2020-09-09 07:14] LABS: BUN Creatinine Ratio 10.7 (10-20); Calcium 7.8 mg/dl (8.5-10.1); Creatinine Clr Calc Pharmacy 57.2 ml/min; Est GFR (African American) 49.5; Est GFR (Non-African American) 42.7
[2020-09-09] MEDS: SERTRALINE HCL 100 MG TABLET PO SCH (08:53)
[2020-09-09] MEDS: TRAVOPROST Z 0.004% OPH SOLN 2.5 ML BTL OP SCH (08:54)
[2020-09-09] MEDS: ENOXAPARIN INJ 40 MG/0.4 ML SYR SQ SCH (08:54)
[2020-09-09] MEDS: BRIMONIDINE TARTRATE-P 0.15% 5 ML BTL OP SCH ×2 (08:54→21:11)
[2020-09-09] MEDS: FUROSEMIDE 40 MG TAB PO SCH (08:55)
[2020-09-09] MEDS: FEBUXOSTAT 40 MG TABLET PO SCH (08:55)
--- NOTE | 2020-09-09 10:14 | Urology Progress Note ---
Date of Service September 09, 2020 Assessment & Plan (1) Prostate cancer: 70 yo M admitted for post-operative fever secondary to lymphocele/mild anastomotic leak s/p prostatectomy. - Subjectively improving - Abdominal drain removed yesterday - Maintain Chavez catheter, likely until next week - Encourage ambulation and incentive spirometer - Will continue to monitor while inpatient Attending note: Patient was reimaged today. Continues to have pelvic fluid though has decreased. Patient had drain removed when output had decreased significantly to less than 25 cc. Now increasing inflammation irritation around appendix and pelvic fluid collection. Considerations include lymphocele, seroma, abscess, and/or hematoma. Patient is tolerating catheter. Has been subjectively improving. Is ambulating more. Bowel movements have continued. Will be concern for continued long-term ant ibiotic use with broad-spectrum antibiotics. General surgery has been reconsulted. Appreciate their input. We will continue to monitor for now. Maintain Chavez for drainage. Admission and Anticipated Discharge Date Admission Date: September 03, 2020 Subjective 70 yo M admitted for post-operative fever secondary to lymphocele/mild anastomotic leak s/p prostatectomy. Pt examined at bedside this AM. Awake and sitting up in bed. Appears comfortable. Offers no complaints at this time, no issues overnight. Abdominal drain removed by nursing yesterday. Chavez catheter intact, patent, draining clear yellow urine with some sediment. Tolerating Chavez catheter. Reports some mild leakage from Chavez only when ambulating. Occasional lower abdominal pain, relieved with Tylenol. Reports BM this AM. Took Miralax last evening. Appetite good. No f/c/n/v. Reports he ambulated with PT yesterday. No additional concerns. Chart review: Afebrile. Creatinine 1.61, Hgb 8.0, WBC 8.82. On IV Zosyn. Review of Systems Constitutional: as per Subjective / HPI Gastrointestinal: as per Subjective / HPI Genitourinary: + as per Subjective / HPI Physical Exam Constitutional: well developed, well nourished and + obese; no acute distress and not ill appearing Respiratory: normal respiratory effort and able to speak in complete sentences; no respiratory distress and no labored breathing Cardiovascular: Extremities: no pedal edema Gastrointestinal (Abdomen): Inspection/Auscultation: abdomen normal to inspection; abdomen not distended Percussion/Palpation: + abdomen tender (mild tenderness to palpation, no rebound or guarding) and abdomen soft Musculoskeletal: Head/Neck/Chest: normocephalic and head atraumatic Extremities: extremities normal to inspection Skin: Abdominal drain site dressing C/D/I. No surrounding warmth, erythema or drainage. Surgical incisions healing without erythema, warmth or drainage. Neurologic: moves all extremities and awake Psychiatric: A+Ox3, euthymic affect Genitourinary: Chavez catheter intact, patent, draining clear yellow urine with some sediment Results & Data ([facility]) Vital Signs (Past 12 Hours) Vital Signs Temp Pulse Resp BP Pulse Ox 09/09/20 07:40 36.7 C 65 18 147/69 H 95 09/08/20 23:45 37 C 63 20 136/71 96 PG Care Time/CCT Total # of Minutes Spent Total Time Spent with Patient: Total time spent is greater than 50% in coordination of care (as documented) at patient's floor/unit and/or counseling patient: Coding Level of Care Code 06386 Subseq Hosp Care Lvl 3 Diagnoses Prostate cancer C61
--- NOTE | 2020-09-09 12:35 | Hospitalist Progress Note ---
Date of Service September 09, 2020 Assessment & Plan (1) Postoperative fever: Patrick Irby is a 70yo male with a PMH of prostate cancer s/p radical prostatectomy (08/14/2020), VTE on chronic eliquis, obesity hypoventilation syndrome, myasthenia gravis (in remission) PTSD, and depression who presents with fever, abdominal pain, fatigue, and scrotal swelling two days after being discharged from his post-prostatectomy admission. Patient had severe abdominal tenderness with guarding, leukocytosis, and anemia, but is without rebound tenderness, rigidity, current fever, or other overt signs of infection. Post-op infection secondary to anastomotic leak Abdominal pain secondary to fluid collection(s) from radical prostatectomy anastomotic leak; abdominal pain continues to improve -600cc urine-appearing aspirated from a fluid collection posterior to the bladder base, anterior to the rectum -diverting torres placed -abdominal MARSHAL drain in place, draining clear yellow fluid without blood or pus -continue zosyn IV -holding home norco 1tab PO tid prn -APAP 650mg PO q4h prn -morphine 2mg IV q3h prn-close clinical monitoring -urology on board; plan to remove drain tomorrow; appreciate their recommendations and assistance; will continue to follow -torres catheter leaks when patient ambulates; per urology, torres catheter does not require adjustment as long as there is some flow into the bag Chest pain: EKG not concerning for ischemic event -chest pain resolved; seems likely to be musculoskeletal in origin -continue to monitor Generalized weakness -PT/OT consults ordered for evaluation and treatment -encouraged patient to get OOB or even to just sit on side of bed for all meals -tolerating ambulation well -will need rehab placement post-hospitalization Bilateral LE Edema -restarted home Lasix 40mg po daily Right hand pain secondary to IV infiltration -IV removed, pain is significantly improving and has essentially removed History of VTE -holding home eliquis -lovenox 40mg sq Post-op anemia: Hgb 8.0 today down from 8.1 yesterday, 8.2 previous day -home dose iron 325mg PO q other day -transfuse Hgb < 7.0 Chronic kidney disease, stage III -creatinine up to 1.61 from 1.31 yesterday -baseline 1.2/1.3 -BMP daily Obesity hypoventilation syndrome, obstructive sleep apnea -CPAP Depression -home dose sertraline 100mg PO qAM -home dose trazodone 50mg PO qhs Gout -holding home febuxostat Glaucoma -home brimonidine 1 drop opb bid -home travoprost 1 drop opb qAM FENGI: tolerating PO DVT prophylaxis: lovenox Code status: DNR/DNI Dispo: med/surg (2) Status post prostatectomy: (3) Hematoma: (4) Sleep apnea: (5) Partial blindness: (6) Myasthenia gravis: (7) History of DVT (deep vein thrombosis): (8) Hypertension: (9) Postoperative anemia: (10) Prostate cancer: (11) Pre-op testing: Admission and Anticipated Discharge Date Admission Date: September 03, 2020 Supervising Physician Co-Signing Physician Notes I personally examined the patient and verified all lindsey points of history and exam, discussed case, and agree with decision making with Dr Angeles. belly feeling alittle worse R middle abdominal pain not terrible but not great. vitals noted nad heent nc at mmm breathing unlabored no accessory muscles good effort skin no rashes no pallor no icterus. abd R sided abdominal pain ttp no guarding/rebound/rigidity pelvic fluid collection post prostatectomy - continue zosyn. follow closely - today's worse pain could easily be from bowels or reaccumulating. serial exams. low threshold to re-image leaking around torres - d/w urology for now as long as urine draining - watchful waiting fecal incontinence - notes this was coming after significant post op constipatio n. continue miralax night sweats - unclear etiology. follow. if continues for any prolonged period of time (even more than a few weeks after this all resolves) then would want to re-eval otherwise as above Subjective Patient was seen at the bedside this morning. He feels well but reports slightly worsened abdominal pain compared to yesterday. Had a normal solid bowel movement this morning after receiving three packets of miralax yesterday. He has been tolerating ambulation without shortness of breath or other symptoms, but reports that his torres catheter leaks whenever he walks around the unit, leaving a trail of urine on the floor. Denies chest pain, shortness of breath, nausea, vomiting, or diarrhea. Review of Systems Constitutional: no fever and no chills Respiratory: no cough and no dyspnea Cardiovascular: no chest pain, no palpitations and no syncope Gastrointestinal: no nausea and no vomiting Genitourinary: no flank pain Physical Exam Constitutional: + obese; no acute distress and not ill appearing Respiratory: normal respiratory effort, lungs clear to auscultation no labored breathing and no cough Cardiovascular: Rate/Rhythm: regular rate and regular rhythm Heart Sounds: no murmur Gastrointestinal (Abdomen): Inspection/Auscultation: normal bowel sounds Percussion/Palpation: abdomen soft; no guarding Neurologic: CN's II-XI intact bilaterally Psychiatric: A+Ox3, euthymic affect Orientation: oriented x 3 Genitourinary: scrotal edema unchanged from yesterday Results & Data Results & Data ([facility]) Vital Signs (Past 12 Hours) Vital Signs Temp Pulse Resp BP Pulse Ox 09/09/20 07:40 36.7 C 65 18 147/69 H 95 Resident Activity Tracking Resident Involvement: Resident Care Provided Care Provided: Adult Hospital Medicine
[2020-09-09] MEDS: ACETAMINOPHEN 325 MG TAB PO PRN ×2 (16:14→21:18)
[2020-09-09] MEDS: MoRPHine SULFATE 2 MG/ML CARP IV PRN (17:25)
--- NOTE | 2020-09-09 18:38 | Billing Data ---
Date of Service September 09, 2020 Coding Level of Care Code 53001 Subseq Hosp Care Lvl 3
[2020-09-09] MEDS: traZODone HCL 50 MG TAB PO SCH (21:18)
[2020-09-10] MEDS: PIPERACILLIN/TAZOBACTAM 3.375 GM in DEXTROSE 5% 100 ML IV SCH ×3 (05:59→21:02)
[2020-09-10 07:00] LABS: Basophils # (auto) 0.02 K/uL (0-0.2); Basophils % (auto) 0.3 %; Eosinophils # (auto) 0.31 K/uL (0-0.5); Eosinophils % (auto) 4.2 %; Hematocrit (blood only) 24.8 % (42-52); Immature Granulocytes # (auto) 0.02 K/uL (0.00-0.02); Immature Granulocytes % (auto) 0.3 %; Lymphocytes # (auto) 0.71 K/uL (1.2-3.4); Lymphocytes % (auto) 9.7 %; Mean Corpuscular Hemoglobin 28.3 pg (25-34); Mean Corpuscular Hgb Conc 32.3 g/dL (32-36); Mean Corpuscular Volume 87.6 fL (80-100); Mean Platelet Volume 9.3 fL (7.4-10.4); Monocytes # (auto) 0.73 K/uL (0.11-0.59); Monocytes % (auto) 9.9 %; Neutrophils # (auto) 5.55 K/uL (1.4-6.5); Neutrophils % (auto) 75.6 %; Platelet Count 315 K/uL (130-400); RDW Coefficient of Variation 14.8 % (11.5-14.5); RDW Standard Deviation 47.6 fL (36.4-46.3); Red Blood Count 2.83 M/uL (4.7-6.1); White Blood Count 7.34 K/uL (4.8-10.8)
[2020-09-10 07:33] LABS: BUN Creatinine Ratio 9.8 (10-20); Calcium 8.2 mg/dl (8.5-10.1); Creatinine Clr Calc Pharmacy 58.7 ml/min
[2020-09-10] MEDS: ACETAMINOPHEN 325 MG TAB PO PRN ×3 (09:01→20:58)
--- NOTE | 2020-09-10 09:06 | Urology Progress Note ---
Date of Service September 10, 2020 Assessment & Plan (1) Prostate cancer: 70yo M admitted for post-operative fever secondary to lymphocele/mild anastomotic leak s/p prostatectomy -Remains Afebrile -Labs reviewed, White count is stable and creatinine remains elevated but slightly improved from yesterday -Continue Chavez catheter -Encouraged ambulation and incentive spirometer -Left foot discomfort -Appreciate input from hospital team -Will continue to monitor while inpatient Admission and Anticipated Discharge Date Admission Date: September 03, 2020 Subjective 70yo M admitted for post-operative fever secondary to lymphocele/mild anastomotic leak s/p prostatectomy. Pt examined at bedside this AM. Awake and resting in bed on arrival Denies fevers or chills Tolerating PO diet without nausea or vomiting He reports some bilateral lower back pain, improved with Morphine Chavez catheter intact, patent, draining clear yellow urine with some sediment. Tolerating Chavez catheter. Reports some mild leakage from Chavez with ambulation He reports left foot discomfort and feels it may be a flare up of gout May be going to [place] today per patient Chart review: Afebrile. Creatinine 1.57, Hgb 8.0, WBC 7.34. On IV Zosyn. LBM 09/09 No additional concerns today Review of Systems Constitutional: as per Subjective / HPI Gastrointestinal: as per Subjective / HPI Genitourinary: + as per Subjective / HPI Musculoskeletal: as per Subjective / HPI Physical Exam Constitutional: + obese; no acute distress Neck: normal visual inspection Respiratory: normal respiratory effort and able to speak in complete sentences Cardiovascular: Extremities: + pedal edema (1+) Gastrointestinal (Abdomen): Percussion/Palpation: + abdomen tender (mild lower abdominal tenderness) Musculoskeletal: Left foot tenderness noted, No erythema, No warmth, No wounds Skin: Warm and dry Neurologic: awake; not confused Psychiatric: Orientation: alert, oriented x 3 and cooperative Genitourinary: + scrotal swelling Chavez catheter intact, patent, draining clear, yellow urine with some sediment Results & Data ([facility]) Vital Signs (Past 12 Hours) Vital Signs Temp Pulse Resp BP Pulse Ox 09/10/20 07:02 36.6 C 67 18 138/68 93 09/09/20 22:45 37.3 C 66 18 120/63 95 PG Care Time/CCT Total # of Minutes Spent Total Time Spent with Patient: Total time spent is greater than 50% in coordination of care (as documented) at patient's floor/unit and/or counseling patient: Coding Level of Care Code 70249 Subseq Hosp Care Lvl 2 Diagnoses Prostate cancer C61
[2020-09-10] MEDS: FERROUS SULFATE 325 MG TAB PO SCH (09:31)
[2020-09-10] MEDS: BRIMONIDINE TARTRATE-P 0.15% 5 ML BTL OP SCH ×2 (09:32→21:00)
[2020-09-10] MEDS: SERTRALINE HCL 100 MG TABLET PO SCH (09:32)
[2020-09-10] MEDS: FEBUXOSTAT 40 MG TABLET PO SCH (09:32)
[2020-09-10] MEDS: ENOXAPARIN INJ 40 MG/0.4 ML SYR SQ SCH (09:32)
[2020-09-10] MEDS: TRAVOPROST Z 0.004% OPH SOLN 2.5 ML BTL OP SCH (09:32)
--- NOTE | 2020-09-10 10:09 | Hospitalist Progress Note ---
Date of Service September 10, 2020 Assessment & Plan (1) Postoperative fever: Patrick Irby is a 70yo male with a PMH of prostate cancer s/p radical prostatectomy (08/14/2020), VTE on chronic eliquis, obesity hypoventilation syndrome, myasthenia gravis (in remission) PTSD, and depression who presented cwith fever, abdominal pain, fatigue, and scrotal swelling two days after being discharged from his post-prostatectomy admission. Post-op infection, increasing abdominal pain, back pain Abdominal pain secondary to fluid collection(s) from radical prostatectomy anastomotic leak; abdominal pain continues to improve -600cc urine-appearing aspirated from a fluid collection posterior to the bladder base, anterior to the rectum -diverting torres placed -abdominal MARSHAL drain in place, draining clear yellow fluid without blood or pus -continue zosyn IV -holding home norco 1tab PO tid prn -APAP 650mg PO q4h prn -morphine 2mg IV q3h prn-close clinical monitoring -urology on board; MARSHAL drain removed; appreciate their recommendations and assistance; will continue to follow -torres catheter leaks when patient ambulates; per urology, torres catheter does not require adjustment as long as there is some flow into the bag -spoke with Dr. Meeks (urology) regarding new CT findings on 09/10/2020, he recommends general surgery consult for possible appendicitis -general surgery consult placed Chest pain: EKG not concerning for ischemic event (09/08/2020) -chest pain resolved; seems likely to be musculoskeletal in origin -continue to monitor Generalized weakness -PT/OT consults ordered for evaluation and treatment -encouraged patient to get OOB or even to just sit on side of bed for all meals -tolerating ambulation well -will need rehab placement post-hospitalization Left foot pain: unlikely to be gout given uric acid of 2.8 as well as lack of erythema, warmth, and mild tenderness -continue to monitor Bilateral LE Edema -restarted home Lasix 40mg po daily Right hand pain secondary to IV infiltration -IV removed, pain is significantly improving and has essentially removed History of VTE -holding home eliquis -lovenox 40mg sq Post-op anemia: Hgb 8.0 today down from 8.1 yesterday, 8.2 previous day -home dose iron 325mg PO q other day -transfuse Hgb < 7.0 Chronic kidney disease, stage III -creatinine up to 1.61 from 1.31 yesterday -baseline 1.2/1.3 -BMP daily Obesity hypoventilation syndrome, obstructive sleep apnea -CPAP Depression -home dose sertraline 100mg PO qAM -home dose trazodone 50mg PO qhs History of gout -holding home febuxostat Glaucoma -home brimonidine 1 drop opb bid -home travoprost 1 drop opb qAM FENGI: tolerating PO DVT prophylaxis: lovenox Code status: DNR/DNI Dispo: med/surg (2) Status post prostatectomy: (3) History of DVT (deep vein thrombosis): (4) Hypertension: (5) Partial blindness: (6) Chronic kidney disease, stage III (moderate): (7) Hematoma: (8) Sleep apnea: (9) Myasthenia gravis: (10) Postoperative anemia: (11) Prostate cancer: (12) Pre-op testing: Admission and Anticipated Discharge Date Admission Date: September 03, 2020 Supervising Physician Co-Signing Physician Notes I personally examined the patient and verified all lindsey points of history and exam, discussed case, and agree with decision making with Dr Angeles. pain about the same as yesterday CT noted and d/w pt and son. doppler later noted vitals noted nad heent nc at mmm breathing unlabored no accessory muscles good effort skin no rashes no pallor no icterus. L foot edema a little more than yesterday and tender top/lateral foot, no calf edema or tenderness L leg pelvic fluid collection post prostatectomy - continue zosyn. await surgical opinion DVT - has hx of recurrent DVT and sx mostly just foot swelling not calf - and popliteal vein not occluded totally - wondering if this is an old clot. swelling certainly seems more venous stasis/lack of mobility. is chronically on eliquis - for now since would benefit from full anticoagulation anyway will escalate lovenox to full anticoagulation, trying to find studies of old DVTs - n one available that i can see here - and will ask radiology if clot can be discerned as new vs old on imaging. (but for now lovenox rather than simply resuming his home eliquis in case procedure needed) leaking around torres - d/w urology for now as long as urine draining - watchful waiting fecal incontinence - notes this was coming after significant post op constipation. continue miralax night sweats - unclear etiology. follow. if continues for any prolonged period of time (even more than a few weeks after this all resolves) then would want to re-eval otherwise as above Subjective Patient seen at the bedside this morning. He had a solid bowel movement yesterday evening and does not feel constipated. He reports his abdominal pain has slightly improved but reports his back pain continues to worsen. He reports being less able to roll side to side due to this abdominal and back pain. He has never had back pain like this in the past. Scrotal swelling is unchanged from yesterday. He continues to have left foot tenderness, primarily on the dorsal surface laterally. He is concerned it is gout. Denies any inciting factor or known trigger. Denies flank tenderness, chest pain, shortness of breath, fever, chills, change in color of urine, gout-like pain of other joints, or other symptoms. Ordered a CT abdomen/pelvis due to above findings; results below. Review of Systems Constitutional: no fever and no chills Respiratory: no cough, no dyspnea and no wheezing Cardiovascular: no chest pain, no palpitations and no edema Gastrointestinal: no abdominal pain, no nausea and no vomiting Genitourinary: + scrotal swelling Musculoskeletal: no neck pain and no myalgia Physical Exam Constitutional: + obese; no acute distress and not ill appearing Respiratory: normal respiratory effort, lungs clear to auscultation Cardiovascular: RRR, no murmur, no edema Rate/Rhythm: regular rate and regular rhythm Heart Sounds: no murmur 1+ peripheral edema Gastrointestinal (Abdomen): Inspection/Auscultation: normal bowel sounds; abdomen not distended Percussion/Palpation: abdomen soft; abdomen not rigid moderate tenderness of the lower abdominal quadrants and the upper abdomen at midline Musculoskeletal: Moderate tenderness of the left foot, midway between the toes and ankle, on the lateral aspect of the dorsal surface; no erythema, warmth, blood, or pustular exudate; no bruising. Right foot nontender throughout. No flank tenderness bilaterally Genitourinary: mid-moderate scrotal swelling, mildly tender, unchanged from yesterday Results & Data Results & Data ([facility]) Vital Signs (Past 12 Hours) Vital Signs Temp Pulse Resp BP Pulse Ox 09/10/20 07:02 36.6 C 67 18 138/68 93 09/09/20 22:45 37.3 C 66 18 120/[address] abdomen/pelvis impression (per Dr. Duran): 1. Multiloculated gas and fluid collections within the anterior extraperitoneal space within the deep pelvis have slightly decreased in size. These are concerning for abscesses. The right lower quadrant percutaneous transcatheter has been removed in the interval. 2. The patient's known bladder leak/perforation is not clearly identified on this noncontrast study. The small fluid collection posterior to the bladder has also decreased in size. 3. There is mild bilateral hydroureteronephrosis which has slightly progressed. 4. Slight increase in size in the small left pleural effusion and left basilar densities. 5. Mild thickening at the mid sigmoid colon with mild pericolonic fat stranding. This is likely reactive to the adjacent abscesses/fluid collections. A superimposed acute diverticulitis is considered less likely but not entirely excluded. 6. The base of the appendix abuts the right lower quadrant fluid collection. The body and tip of the appendix measures up to 1 cm and is fluid-filled. There is mild irregularity of the appendiceal wall and mild periappendiceal fat stranding. Again, this is likely reactive to the adjacent fluid collection/absce ss. A developing acute appendicitis is considered less likely but not entirely excluded. Close clinical/surgical follow-up recommended. 7. Possible developing fistula between the right lower quadrant fluid collection and prostatectomy bed.
[2020-09-10] MEDS: FUROSEMIDE 40 MG TAB PO SCH (10:44)
--- NOTE | 2020-09-10 11:49 | CT Scan Report ---
ABDOMEN AND PELVIS CT WITH ORAL CONTRAST CT DOSE: 1652.86 mGy.cm HISTORY: worsening abd/back pain s/p radical prostatectomy TECHNIQUE: Multiaxial CT images of the abdomen and pelvis were performed following the use of oral co ntrast. A dose lowering technique was utilized adhering to the principles of ALARA. COMPARISON STUDY: Abdomen and pelvis CT 09/03/2020. CT abscess drainage 09/04/2020. FINDINGS: There is a small left pleural effusion. Left basilar consolidation favors compressive atele ctasis from the pleural effusion. This has slightly progressed. There are few punctate foci of gas wi thin the subcutaneous soft tissues of the left lower quadrant abdominal wall. This is nonspecific but could be due to prior medication injection. No suspicious lytic or blastic osseous lesions. There is a 3 cm duodenal diverticulum. Tiny fat-containing periumbilical hernias. The unenhanced liver, gallb ladder, spleen, adrenal glands, and pancreas are within normal limits. No retroperitoneal lymphadenop athy. Normal caliber abdominal aorta. Moderate to severe body wall edema is again noted. Colonic dive rticulosis. No evidence for bowel obstruction. Mild thickening at the mid sigmoid colon with mild per icolonic fat stranding best seen on image 347. This is likely reactive to the adjacent abscesses/flui d collections. A superimposed acute diverticulitis is considered less likely but not entirely exclude d. The base of the appendix abuts the right lower quadrant fluid collection. The body and tip of the appendix measures up to 1 cm and is fluid-filled. There is mild irregularity of the appendiceal wall and mild periappendiceal fat stranding. Again, this is likely reactive to the adjacent fluid collecti on/abscess. A developing acute appendicitis is considered less likely but not entirely excluded. Mult iloculated gas and fluid collections within the anterior extraperitoneal space within the deep pelvis have slightly decreased in size. Dominant fluid collection within the right lower quadrant currently measures 8.4 cm, previously measuring 13.1 cm. The percutaneous drainage catheter within this fluid collection has been removed in the interval. The left anterior gas and fluid collection measures 9.3 cm, previously measuring 10.8 cm. These result in mass effect along the bladder. The bladder is decom pressed by Chavez catheter. The patient's bladder leak/perforation is not clearly identified on this n oncontrast study. The small fluid collection posterior to the bladder has also decreased in size. The re is mild bilateral hydroureteronephrosis which has slightly progressed. There is a 6 mm stone withi n the right kidney. No ureteral stones. Stable right renal cyst. There is a linear soft tissue tract extending from the right lower quadrant fluid collection to the prostatectomy bed. This is best seen on images 363 through 402. This raises the possibility of a fistula. IMPRESSION: 1. Multiloculated gas and fluid collections within the anterior extraperitoneal space within the deep pelvis have slightly decreased in size. These are concerning for abscesses. The right lower quadrant percutaneous transcatheter has been removed in the interval. 2. The patient's known bladder leak/perforation is not clearly identified on this noncontrast study. The small fluid collection posterior to the bladder has also decreased in size. 3. There is mild bilateral hydroureteronephrosis which has slightly progressed. 4. Slight increase in size in the small left pleural effusion and left basilar densities. 5. Mild thickening at the mid sigmoid colon with mild pericolonic fat stranding. This is likely react laura to the adjacent abscesses/fluid collections. A superimposed acute diverticulitis is considered le ss likely but not entirely excluded. 6. The base of the appendix abuts the right lower quadrant fluid collection. The body and tip of the appendix measures up to 1 cm and is fluid-filled. There is mild irregularity of the appendiceal wall and mild periappendiceal fat stranding. Again, this is likely reactive to the adjacent fluid collecti on/abscess. A developing acute appendicitis is considered less likely but not entirely excluded. Clos e clinical/surgical follow-up recommended. 7. Possible developing fistula between the right lower quadrant fluid collection and prostatectomy be d. ACT 112: Negative or not required by law. Electronically signed by: Jl Duran M.D. 09/10/2020 11:48 AM
--- NOTE | 2020-09-10 17:17 | Ultrasound Report ---
US venous doppler LE BI CLINICAL HISTORY: Edema, Hx of DVT COMPARISON STUDY: 08/22/2020 FINDINGS: Grayscale, color-flow, Doppler spectral waveform analysis was performed. On the right, no thrombus was visualized within the common femoral superficial femoral or popliteal v eins. The proximal posterior tibial and anterior tibial veins appeared patent. There is a right peron eal vein DVT. On the left, no thrombus is visualized in the left common femoral or superficial femoral vein. There is nonocclusive thrombus within the left popliteal vein. The proximal trifurcation veins of the calf appear patent. IMPRESSION: 1. Right leg peroneal vein DVT 2. Nonocclusive left leg popliteal vein DVT ACT 112: Negative or not required by law. Electronically signed by: Ken Butler M.D. 09/10/2020 5:16 PM
--- NOTE | 2020-09-10 18:02 | Billing Data ---
Date of Service September 10, 2020 Coding Level of Care Code 39956 Subseq Hosp Care Lvl 3
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
[2020-09-10] MEDS: ENOXAPARIN INJ 120 MG/0.8 ML SYR SC SCH (20:59)
[2020-09-10] MEDS: traZODone HCL 50 MG TAB PO SCH (21:00)
[2020-09-11] MEDS: PIPERACILLIN/TAZOBACTAM 3.375 GM in DEXTROSE 5% 100 ML IV SCH ×3 (05:51→21:01)
[2020-09-11 06:11] LABS: Basophils # (auto) 0.02 K/uL (0-0.2); Basophils % (auto) 0.2 %; Eosinophils # (auto) 0.25 K/uL (0-0.5); Hematocrit (blood only) 25.3 % (42-52); Hemoglobin 8.2 g/dL (14.0-18.0); Immature Granulocytes # (auto) 0.03 K/uL (0.00-0.02); Immature Granulocytes % (auto) 0.4 %; Lymphocytes # (auto) 0.56 K/uL (1.2-3.4); Lymphocytes % (auto) 6.8 %; Mean Corpuscular Hemoglobin 28.1 pg (25-34); Mean Corpuscular Hgb Conc 32.4 g/dL (32-36); Mean Corpuscular Volume 86.6 fL (80-100); Mean Platelet Volume 9.7 fL (7.4-10.4); Monocytes # (auto) 0.76 K/uL (0.11-0.59); Monocytes % (auto) 9.2 %; Neutrophils # (auto) 6.64 K/uL (1.4-6.5); Neutrophils % (auto) 80.4 %; Platelet Count 318 K/uL (130-400); RDW Coefficient of Variation 14.9 % (11.5-14.5); Red Blood Count 2.92 M/uL (4.7-6.1); White Blood Count 8.26 K/uL (4.8-10.8)
[2020-09-11 06:41] LABS: BUN Creatinine Ratio 9.7 (10-20); Calcium 7.9 mg/dl (8.5-10.1); Creatinine Clr Calc Pharmacy 55.2 ml/min; Est GFR (African American) 47.3; Est GFR (Non-African American) 40.8
[2020-09-11] MEDS: FEBUXOSTAT 40 MG TABLET PO SCH (07:41)
[2020-09-11] MEDS: ENOXAPARIN INJ 120 MG/0.8 ML SYR SC SCH ×2 (07:41→18:24)
[2020-09-11] MEDS: SERTRALINE HCL 100 MG TABLET PO SCH (07:41)
[2020-09-11] MEDS: FUROSEMIDE 40 MG TAB PO SCH (07:41)
[2020-09-11] MEDS: ACETAMINOPHEN 325 MG TAB PO PRN ×3 (07:42→21:03)
[2020-09-11] MEDS: TRAVOPROST Z 0.004% OPH SOLN 2.5 ML BTL OP SCH (07:42)
[2020-09-11] MEDS: BRIMONIDINE TARTRATE-P 0.15% 5 ML BTL OP SCH ×2 (07:42→21:01)
--- NOTE | 2020-09-11 11:33 | Urology Progress Note ---
Date of Service September 11, 2020 Assessment & Plan (1) Status post prostatectomy: 70 yo M admitted for post-operative fever secondary to lymphocele/mild anastomotic leak s/p prostatectomy. - Case reviewed with Dr. Meeks - Appreciate surgical recs, agree with plan for drain for seroma vs lymphocele vs abscess - order placed - Recommend CT cystogram at time of drain placement and send fluid for analysis including culture, creatinine, and triglycerides - Highly encourage ambulation with PT - OOB and ambulating as much as possible - Acute vs chronic DVT while on therapeutic dose of Lovenox - continue to monitor closely - Continue supportive care - Maintain catheter - Will continue to monitor Admission and Anticipated Discharge Date Admission Date: September 03, 2020 Subjective 70 yo M admitted for post-operative fever secondary to lymphocele/mild anastomotic leak s/p prostatectomy. Pt sitting up in bed, appears comfortable. Reports occasional lower abdominal pain, relieved with Tylenol. Tolerating diet, no nausea or vomiting. Chavez catheter intact, patent, draining light yellow urine with sediment. Tolerating Chavez. He complained of left foot pain and swelling yesterday. Venous Doppler showed right leg peroneal vein DVT. Nonocclusive left leg popliteal vein DVT. Reports left foot pain improved today. No fever or chills. CT A/P wo con 09/10 showed multiloculated gas and fluid collections within the anterior extraperitoneal space within the deep pelvis have slightly decreased in size. The patient's known bladder leak/perforation is not clearly identified on this noncontrast study. The small fluid collection posterior to the bladder has also decreased in size. Mild bilateral hydroureteronephrosis which has slightly progressed. The base of the appendix abuts the right lower quadrant fluid collection. The body and tip of the appendix measures up to 1 cm and is fluid- filled. There is mild irregularity of the appendiceal wall and mild p eriappendiceal fat stranding. Possible developing fistula between the right lower quadrant fluid collection and prostatectomy bed. General surgery consulted, note reviewed. Lab work 09/11: Creatinine 1.67, WBC 8.26, Hgb 8.2. No additional concerns today. Review of Systems Constitutional: as per Subjective / HPI Gastrointestinal: as per Subjective / HPI Genitourinary: + as per Subjective / HPI Physical Exam Constitutional: well developed, well nourished and + obese; no acute distress and not ill appearing Respiratory: normal respiratory effort and able to speak in complete sentences; no respiratory distress and no labored breathing Cardiovascular: +1 left pedal edema, no erythema, warmth or calf tenderness Gastrointestinal (Abdomen): Inspection/Auscultation: abdomen normal to inspection; abdomen not distended Percussion/Palpation: abdomen soft; abdomen nontender Musculoskeletal: Head/Neck/Chest: normocephalic and head atraumatic Skin: warm and dry Neurologic: moves all extremities and awake Psychiatric: A+Ox3, euthymic affect Genitourinary: Chavez catheter intact, patent, draining clear yellow with some sediment Results & Data ([facility]) Vital Signs (Past 12 Hours) Vital Signs Temp Pulse Resp BP Pulse Ox 09/11/20 07:34 36.9 C 62 18 154/82 H 94 PG Care Time/CCT Total # of Minutes Spent Total Time Spent with Patient: Total time spent is greater than 50% in coordination of care (as documented) at patient's floor/unit and/or counseling patient: Coding Level of Care Code 72187 Subseq Hosp Care Lvl 3 Diagnoses Status post prostatectomy Z90.79
--- NOTE | 2020-09-11 16:15 | Surgery Progress Note ---
Date of Service pt is still table, no abdominal pain, no fever, September 11, 2020 Assessment & Plan Admission and Anticipated Discharge Date Admission Date: September 03, 2020 Supervising Physician Co-Signing Physician Notes I personally examined the patient and verified all lindsey points of history and exam, discussed case, and agree with decision making with Dr Angeles. pain about the same as yesterday CT noted and d/w pt and son. doppler later noted vitals noted nad heent nc at mmm breathing unlabored no accessory muscles good effort skin no rashes no pallor no icterus. L foot edema a little more than yesterday and tender top/lateral foot, no calf edema or tenderness L leg pelvic fluid collection post prostatectomy - continue zosyn. await surgical opinion DVT - has hx of recurrent DVT and sx mostly just foot swelling not calf - and popliteal vein not occluded totally - wondering if this is an old clot. swelling certainly seems more venous stasis/lack of mobility. is chronically on eliquis - for now since would benefit from full anticoagulation anyway will escalate lovenox to full anticoagulation, trying to find studies of old DVTs - none available that i can see here - and will ask radiology if clot can be discerned as new vs old on imaging. (but for now lovenox rather than simply resuming his home eliquis in case procedure needed) leaking around torres - d/w urology for now as long as urine draining - watchful waiting fecal incontinence - notes this was coming after significant post op constipation. continue miralax night sweats - unclear etiology. follow. if continues for any prolonged period of time (even more than a few weeks after this all resolves) then would want to re-eval otherwise as above 09/10/2020 8:56PM, Dr. Burdick I reviewed pt's H/P, labs, CT scan with pt, pt has no symptoms for acute appendicitis, no fever, normal WBC, base on CT scan -unlikely appendicitis, but RLQ abscess No surgical indication for appendectomy now, but pt is good candidate for percutaneous drainage abdominal abscess, if [facility] could do it, recommend to transfer higher level care for drainage, continue IV antibiotic, will F/U. I answered all questions for pt, 09/11/2020 4:16PM No surgical indication for appendectomy now, but pt is good candidate for percutaneous drainage abdominal abscess, if [facility] could do it, recommend to transfer higher level care for drainage, continue IV antibiotic, will F/U. I answered all questions for pt, possible do interval appendectomy after 3 months, D/W Dr. Meeks. isgn off today, please call with questions, thanks, Subjective 70 yo M admitted for post-operative fever secondary to lymphocele/mild anastomotic leak s/p prostatectomy. Pt sitting up in bed, appears comfortable. Reports occasional lower abdominal pain, relieved with Tylenol. Tolerating diet, no nausea or vomiting. Torres catheter intact, patent, draining light yellow urine with sediment. Tolerating Torres. He complained of left foot pain and swelling yesterday. Venous Doppler showed right leg peroneal vein DVT. Nonocclusive left leg popliteal vein DVT. Reports left foot pain improved today. No fever or chills. CT A/P wo con 09/10 showed multiloculated gas and fluid collections within the anterior extraperitoneal space within the deep pelvis have slightly decreased in size. The patient's known bladder leak/perforation is not clearly identified on this noncontrast study. The small fluid collection posterior to the bladder has also decreased in size. Mild bilateral hydroureteronephrosis which has slightly progressed. The base of the appendix abuts the right lower quadrant fluid collection. The body and tip of the appendix measures up to 1 cm and is fluid- filled. There is mild irregularity of the appendiceal wall and mild periappendiceal fat stranding. Possible developing fistula between the right lower quadrant fluid collection and prostatectomy bed. General surgery consulted, note reviewed. Lab work 09/11: Creatinine 1.67, WBC 8.26, Hgb 8.2. No additional concerns today. Review of Systems Constitutional: as per Subjective / HPI obesity Eyes: as per Subjective / HPI partial blindness Ear, Nose, Mouth, Throat: as per Subjective / HPI Respiratory: as per Subjective / HPI sleep apnea Cardiovascular: as per Subjective / HPI Additional Comments: HTN Gastrointestinal: as per Subjective / HPI Genitourinary: + as per Subjective / HPI and + problem reported (prostate cancer, with surgery, bladder leak) Musculoskeletal: as per Subjective / HPI Integumentary: as per Subjective / HPI Neurologic: as per Subjective / HPI Psychiatric: as per Subjective / HPI Endocrine: as per Subjective / HPI Hematologic / Lymphatic: as per Subjective / HPI Physical Exam Constitutional: WD/WN, vitals as above well developed and well nourished Eyes: PERRL, conjunctivae normal, anicteric sclerae ENMT: external ear and nose normal, oropharynx normal Neck: trachea midline, no thyromegaly Respiratory: normal respiratory effort, lungs clear to auscultation Cardiovascular: RRR, no murmur, no edema Rate/Rhythm: regular rate and regular rhythm Chest (Breasts): normal inspection/palpation of breasts Gastrointestinal (Abdomen): normal bowel sounds, soft, nontender, no hepatosplenomegaly Musculoskeletal: no cyanosis or clubbing, extremities motor strength 5/5 Skin: no rashes, warm and dry Neurologic: patellar DTR's 2+ bilat, sensation intact Psychiatric: Orientation: alert and oriented x 3 Results & Data ([facility]) Vital Signs (Past 12 Hours) Vital Signs Temp Pulse Resp BP Pulse Ox 09/11/20 15:26 37.1 C 68 18 145/68 H 95 09/11/20 07:34 36.9 C 62 18 154/82 H 94 Laboratory Results Abnormal lab results 09/11/20 09/11/20 Range/Units 05:34 05:34 RBC 2.92 L (4.7-6.1) M/uL Hgb 8.2 L (14.0-18.0) g/dL Hct 25.3 L (42-52) % RDW Std Deviation 48.0 H (36.4-46.3) fL RDW Coeff of Rhoda 14.9 H (11.5-14.5) % Neut # (Auto) 6.64 H (1.4-6.5) K/uL Lymph # (Auto) 0.56 L (1.2-3.4) K/uL Atlantic # (Auto) 0.76 H (0.11-0.59) K/uL Immature Gran # (Auto) 0.03 H (0.00-0.02) K/uL Chloride 110 H (98-107) mmol/L Creatinine 1.67 H (0.6-1.4) mg/dl BUN/Creatinine Ratio 9.7 L (10-20) Calcium 7.9 L (8.5-10.1) mg/dl
--- NOTE | 2020-09-11 16:28 | Hospitalist Progress Note ---
Date of Service September 11, 2020 Assessment & Plan (1) Postoperative fever: Patrick Irby is a 70yo male with a PMH of prostate cancer s/p radical prostatectomy (08/14/2020), VTE on chronic eliquis, obesity hypoventilation syndrome, myasthenia gravis (in remission) PTSD, and depression who presented cwith fever, abdominal pain, fatigue, and scrotal swelling two days after being discharged from his post-prostatectomy admission. Post-op infection, increasing abdominal pain, back pain Abdominal pain secondary to fluid collection(s) from radical prostatectomy anastomotic leak; abdominal pain continues to improve -600cc urine-appearing aspirated from a fluid collection posterior to the bladder base, anterior to the rectum -diverting torres placed -abdominal MARSHAL drain in place, draining clear yellow fluid without blood or pus -continue zosyn IV -holding home norco 1tab PO tid prn -APAP 650mg PO q4h prn -morphine 2mg IV q3h prn-close clinical monitoring -urology on board; MARSHAL drain removed; appreciate their recommendations and assistance; will continue to follow -torres catheter leaks when patient ambulates; per urology, torres catheter does not require adjustment as long as there is some flow into the bag -urology recommends CT drainage and fluid analysis of the fluid collection, to be performed today Chest pain: EKG not concerning for ischemic event (09/08/2020) -chest pain resolved; seems likely to be musculoskeletal in origin -continue to monitor Generalized weakness -PT/OT consults ordered for evaluation and treatment -encouraged patient to get OOB or even to just sit on side of bed for all meals -tolerating ambulation well -will need rehab placement post-hospitalization Left foot pain: unlikely to be gout given uric acid of 2.8 as well as lack of er ythema, warmth, and mild tenderness -continue to monitor Bilateral LE Edema -restarted home Lasix 40mg po daily Right hand pain secondary to IV infiltration -IV removed, pain is significantly improving and has essentially removed DVTs, history of VTE -holding home eliquis -on therapeutic lovenox 1mg/kg q12h Post-op anemia: Hgb 8.0 today down from 8.1 yesterday, 8.2 previous day -home dose iron 325mg PO q other day -transfuse Hgb < 7.0 Chronic kidney disease, stage III -creatinine up to 1.61 from 1.31 yesterday -baseline 1.2/1.3 -BMP daily Obesity hypoventilation syndrome, obstructive sleep apnea -CPAP Depression -home dose sertraline 100mg PO qAM -home dose trazodone 50mg PO qhs History of gout -holding home febuxostat Glaucoma -home brimonidine 1 drop opb bid -home travoprost 1 drop opb qAM FENGI: tolerating PO DVT prophylaxis: lovenox Code status: DNR/DNI Dispo: med/surg (2) Status post prostatectomy: (3) History of DVT (deep vein thrombosis): (4) Hypertension: (5) Partial blindness: (6) Chronic kidney disease, stage III (moderate): Post Op Fever Patient with what appears to be two abscesses per outside hospital read, I have not been able to see images yet but they are here on disc and will be sent down to radiology Will treat with broad spectrum anitbiotics, d/c'ing gentamicin and rocephin and starting on zosyn Urology consulted for abscess drainage and possible procedure Patient NPO Post Op anemia Secondary to bleed hematoma patient was anticoagulated Hemoglobin relatively stable since discharge Will continue iron supplementation Continue to monitor CBC History of VTE Will hold eliquis for now until Urology evaluation CKD Patient appears at baseline Will supplement with 1/2 NSS 60 mls/hour while NPO EFRAÍN ALlowing him to use own CPAP Deconditioning Will need to return to rehab hospital on d/c DVT PPx: Will continue eliquis following Urology evaluation F/E/N: 1/2 NSS 60 ml/shour NPO Dispo: Admit for broad spectrum ABx and urology evaluation for possible abscess drainage. DNR/DNI (7) Hematoma: (8) Sleep apnea: (9) Myasthenia gravis: (10) Postoperative anemia: (11) Prostate cancer: (12) Pre-op testing: Admission and Anticipated Discharge Date Admission Date: September 03, 2020 Supervising Physician Co-Signing Physician Notes I personally examined the patient and verified all lindsey points of history and exam, discussed case, and agree with decision making with Dr Angeles. pain a little better than yesterday, d/w urology. updated pt on next steps of plan. he notes that his L leg is a site of prior DVT. foot feels a little better after walking vitals noted nad heent nc at mmm breathing unlabored no accessory muscles good effort skin no rashes no pallor no icterus. abd soft nd mild RLQ tenderness. L foot edema a little less than yesterday pelvic fluid collection post prostatectomy - continue zosyn. for CT drainage adn cystogram. DVT - has hx of recurrent DVT and sx mostly just foot swelling not calf - and popliteal vein not occluded totally - strongly suspect that this is an old clot. swelling certainly seems more venous stasis/lack of mobility. is chronically on eliquis - for now will anticoagulate w lovenox for ability to wear off quickly - will hold in AM for presumed radiology procedure leaking around torres - d/w urology for now as long as urine draining - watchful waiting fecal incontinence - notes this was coming after significant post op constipation. continue miralax night sweats - unclear etiology. follow. if continues for any prolonged period of time (even more than a few weeks after this all resolves) then would want to re-eval otherwise as above Subjective Patient seen at the bedside this morning. He had another solid bowel movement yesterday evening and does not feel constipated. He reports his abdominal pain has slightly improved, as well as an improvement in his back pain. Scrotal swelling is unchanged from yesterday. He continues to have left foot tenderness, primarily on the dorsal surface laterally. Denies flank tenderness, chest pain, shortness of breath, fever, chills, change in color of urine, gout-like pain of other joints, or other symptoms. Review of Systems Constitutional: no fever and no chills Respiratory: no cough, no dyspnea and no wheezing Cardiovascular: no chest pain, no radiating jaw, neck or arm pain, no palpitations and no syncope Gastrointestinal: no nausea and no vomiting Genitourinary: + flank pain Physical Exam Constitutional: + obese; no acute distress and not ill appearing Respiratory: normal respiratory effort, lungs clear to auscultation no labored breathing and no cough Cardiovascular: RRR, no murmur, no edema Rate/Rhythm: regular rate and regular rhythm Heart Sounds: no murmur Gastrointestinal (Abdomen): Inspection/Auscultation: normal bowel sounds; abdomen not distended Percussion/Palpation: abdomen soft; no guarding and abdomen not rigid Neurologic: CN's II-XI intact bilaterally Psychiatric: A+Ox3, euthymic affect Orientation: oriented x 3 Results & Data Results & Data ([facility]) Vital Signs (Past 12 Hours) Vital Signs Temp Pulse Resp BP Pulse Ox 09/11/20 15:26 37.1 C 68 18 145/68 H 95 09/11/20 07:34 36.9 C 62 18 154/82 H 94 Resident Activity Tracking Resident Involvement: Resident Care Provided Care Provided: Adult Hospital Medicine
--- NOTE | 2020-09-11 17:57 | Billing Data ---
Date of Service September 11, 2020 Coding Level of Care Code 63588 Subseq Hosp Care Lvl 3
[2020-09-11] MEDS: traZODone HCL 50 MG TAB PO SCH (21:01)
[2020-09-12] MEDS: PIPERACILLIN/TAZOBACTAM 3.375 GM in DEXTROSE 5% 100 ML IV SCH ×3 (05:43→21:38)
[2020-09-12 06:54] LABS: Basophils # (auto) 0.02 K/uL (0-0.2); Basophils % (auto) 0.2 %; Eosinophils % (auto) 3.1 %; Hematocrit (blood only) 24.6 % (42-52); Immature Granulocytes # (auto) 0.03 K/uL (0.00-0.02); Immature Granulocytes % (auto) 0.3 %; Lymphocytes # (auto) 0.73 K/uL (1.2-3.4); Lymphocytes % (auto) 7.6 %; Mean Corpuscular Hgb Conc 32.5 g/dL (32-36); Mean Platelet Volume 9.5 fL (7.4-10.4); Monocytes % (auto) 8.4 %; Neutrophils # (auto) 7.69 K/uL (1.4-6.5); Neutrophils % (auto) 80.4 %; Platelet Count 313 K/uL (130-400); RDW Coefficient of Variation 14.9 % (11.5-14.5); Red Blood Count 2.86 M/uL (4.7-6.1); White Blood Count 9.57 K/uL (4.8-10.8)
[2020-09-12 07:24] LABS: BUN Creatinine Ratio 9.8 (10-20); Calcium 8.2 mg/dl (8.5-10.1); Creatinine Clr Calc Pharmacy 61.8 ml/min; Est GFR (African American) 54.3; Est GFR (Non-African American) 46.9; Potassium 3.6 mmol/L (3.5-5.1)
[2020-09-12] MEDS ORDERED: LIDOCAINE HCL 1% 20 ML VIAL ONE (08:18)
--- NOTE | 2020-09-12 09:07 | Urology Progress Note ---
Date of Service September 12, 2020 Assessment & Plan (1) Status post prostatectomy: 70yo M admitted for post-operative fever secondary to lymphocele/mild anastomotic leak s/p prostatectomy. - Patient to have drain placed by Radiology this AM - Recommend CT cystogram at time of drain placement and send fluid for analysis including culture, creatinine, and triglycerides - Surgery note reviewed, no plan for surgical intervention at this time - Highly encourage ambulation with PT - OOB and ambulating as much as possible - Acute vs chronic DVT while on therapeutic dose of Lovenox - continue to monitor closely- Appreciate hospital medicine input - Continue supportive care - Maintain catheter - Will continue to monitor Admission and Anticipated Discharge Date Admission Date: September 03, 2020 Subjective 70yo M admitted for post-operative fever secondary to lymphocele/mild anastomotic leak s/p prostatectomy. Pt awake, sitting in wheelchair on arrival Scheduled to have drain placed by Radiology this AM Reports occasional lower abdominal pain, relieved with Tylenol. Tolerating diet, no nausea or vomiting. Chavez catheter intact, patent, draining light yellow urine with sediment. Tolerating Chavez. Reports some mild leakage from Chavez with ambulation Reports left foot pain improved, but still has some swelling Denies fever or chills Chart Review: Afebrile, TMax 37.6 @0730, WBC 9.57, Cr 1.49 Hgb 8.0. IV Zosyn. LBM 09/11 Review of Systems Constitutional: as per Subjective / HPI Gastrointestinal: as per Subjective / HPI Genitourinary: + as per Subjective / HPI Musculoskeletal: as per Subjective / HPI Physical Exam Constitutional: + obese; no acute distress Respiratory: normal respiratory effort and able to speak in complete sentences Cardiovascular: +1 left pedal edema, no erythema, warmth or calf tenderness Gastrointestinal (Abdomen): Inspection/Auscultation: abdomen not distended Percussion/Palpation: abdomen soft; no guarding Skin: no rashes, warm and dry Neurologic: awake; not confused Psychiatric: Orientation: alert, oriented x 3 and cooperative Results & Data ([facility]) Vital Signs (Past 12 Hours) Vital Signs Temp Pulse Resp BP Pulse Ox 09/12/20 07:29 37.6 C H 64 18 137/70 95 09/11/20 23:52 36.8 C 65 14 130/71 94 09/11/20 21:24 37.7 C H 68 14 128/69 95 PG Care Time/CCT Total # of Minutes Spent Total Time Spent with Patient: Total time spent is greater than 50% in coordination of care (as documented) at patient's floor/unit and/or counseling patient: Coding Level of Care Code 71578 Subseq Hosp Care Lvl 2 Diagnoses Status post prostatectomy Z90.79
[2020-09-12 09:13] LABS: INR 1.1 (0.9-1.1); Partial Thromboplastin Ratio 1.3; Partial Thromboplastin Time 36.8 Seconds (21.0-31.0); Prothrombin Time 11.7 Seconds (9.0-12.0)
--- NOTE | 2020-09-12 09:40 | Hospitalist Progress Note ---
Date of Service September 12, 2020 Assessment & Plan (1) Postoperative fever: Patrick Irby is a 70yo male with a PMH of prostate cancer s/p radical prostatectomy (08/14/2020), VTE on chronic eliquis, obesity hypoventilation syndrome, myasthenia gravis (in remission) PTSD, and depression who presented cwith fever, abdominal pain, fatigue, and scrotal swelling two days after being discharged from his post-prostatectomy admission. Post-op infection, increasing abdominal pain, back pain Abdominal pain secondary to fluid collection(s) from radical prostatectomy anastomotic leak; abdominal pain continues to improve -600cc urine-appearing aspirated from a fluid collection posterior to the bladder base, anterior to the rectum -diverting torres placed -abdominal MARSHAL drain in place, draining clear yellow fluid without blood or pus -continue zosyn IV -holding home norco 1tab PO tid prn -APAP 650mg PO q4h prn -morphine 2mg IV q3h prn-close clinical monitoring -urology on board; MARSHAL drain removed; appreciate their recommendations and assistance; will continue to follow -torres catheter leaks when patient ambulates; per urology, torres catheter does not require adjustment as long as there is some flow into the bag -CT drainage performed this morning, drain placed; findings above, fluid analysis pending; urology and surgery recommendations appreciated DVTs, history of VTE -holding home eliquis -on therapeutic lovenox 1mg/kg q12h Generalized weakness -PT/OT consults ordered for evaluation and treatment -encouraged patient to get OOB or even to just sit on side of bed for all meals -tolerating ambulation well -will need rehab placement post-hospitalization Left foot pain: unlikely to be gout given uric acid of 2.8 as well as lack of erythema, warmth, and mild tenderness -continue to monitor Bilateral LE Edema -restarted home Lasix 40mg po daily Right hand pain secondary to IV infiltration -IV removed, pain is significantly improving and has essentially removed Post-op anemia: Hgb 8.0 today down from 8.1 yesterday, 8.2 previous day -home dose iron 325mg PO q other day -transfuse Hgb < 7.0 Chronic kidney disease, stage III -creatinine up to 1.61 from 1.31 yesterday -baseline 1.2/1.3 -BMP daily Chest pain: EKG not concerning for ischemic event (09/08/2020) -chest pain resolved; seems likely to be musculoskeletal in origin -continue to monitor Obesity hypoventilation syndrome, obstructive sleep apnea -CPAP Depression -home dose sertraline 100mg PO qAM -home dose trazodone 50mg PO qhs History of gout -holding home febuxostat Glaucoma -home brimonidine 1 drop opb bid -home travoprost 1 drop opb qAM FENGI: tolerating PO DVT prophylaxis: lovenox (converted from prophylactic dose to therapeutic dose on 09/10/2020) Code status: DNR/DNI Dispo: med/surg (2) Status post prostatectomy: (3) History of DVT (deep vein thrombosis): (4) Hypertension: (5) Partial blindness: (6) Chronic kidney disease, stage III (moderate): (7) Hematoma: (8) Sleep apnea: (9) Myasthenia gravis: (10) Postoperative anemia: (11) Prostate cancer: (12) Pre-op testing: Admission and Anticipated Discharge Date Admission Date: September 03, 2020 Supervising Physician Co-Signing Physician Notes I personally examined the patient and verified all lindsey points of history and exa m, discussed case, and agree with decision making with Dr Angeles. pain well controlled. walked some. no new complaints. discussed drainage/CT findings vitals noted nad heent nc at mmm breathing unlabored no accessory muscles good effort skin no rashes no pallor no icterus. no focal neuro deficits pelvic fluid collection post prostatectomy - continue zosyn. CT noted - concern on leak - but hoepfully between decompression of bladder w torres and decompression of pelvic fluid w drain this can be managed nonoperatively. DVT - has hx of recurrent DVT and sx mostly just foot swelling not calf - and popliteal vein not occluded totally - strongly suspect that this is an old clot. swelling certainly seems more venous stasis/lack of mobility. is chronically on eliquis - for now continue carey anticoagulate w lovenox for ability to wear off quickly if any further procedures needed - not likely. leaking around torres - d/w urology for now as long as urine draining - watchful waiting fecal incontinence - notes this was coming after significant post op constipation. continue miralax night sweats - unclear etiology. follow. if continues for any prolonged period of time (even more than a few weeks after this all resolves) then would want to re-eval PTSD - follow closely - notes doing OK at this time otherwise as above Subjective Patient was seen this morning in his room. He was sitting up in his chair. He had been taken down for his CT drainage but they brought him back up because they needed an INR drawn beforehand. He was feeling well and had no complaints. His abdominal pain has improved, as has his right foot pain. Denies CP, SOB, nausea, vomiting, constipation, diarrhea. Endorses stress resulting from his lengthening hospital stay. Review of Systems Constitutional: no fever and no chills Respiratory: no cough, no dyspnea and no wheezing Cardiovascular: no chest pain, no palpitations and no syncope Gastrointestinal: no nausea, no vomiting, no constipation and no diarrhea/loose stools Physical Exam Constitutional: well nourished; no acute distress and not ill appearing Respiratory: normal respiratory effort, lungs clear to auscultation Cardiovascular: Rate/Rhythm: regular rate and regular rhythm Heart Sounds: no murmur 1+ edema of the lower extremities bilaterally Gastrointestinal (Abdomen): Inspection/Auscultation: normal bowel sounds Percussion/Palpation: + abdomen tender (mild tenderness of the lower quadrants bilaterally) and abdomen soft; no guarding and abdomen not rigid Results & Data Results & Data ([facility]) Vital Signs (Past 12 Hours) Vital Signs Temp Pulse Resp BP Pulse Ox 09/12/20 07:29 37.6 C H 64 18 137/70 95 09/11/20 23:52 36.8 C 65 14 130/71 94 Diagnostic Findings IMPRESSION (CT abdomen/pelvis, 09/12/2020): 1. Postoperative changes of prior prostatectomy. There is a defect within the right posterolateral urinary bladder with contrast extending from the bladder lumen into the retrovesicular tissues/prostatectomy bed. 2. Multiloculated gas and fluid filled collections within the extra peritoneal space of the deep pelvis are redemonstrated. The anterior midline fluid collection has moderately decreased in size from comparison status post placement of a drainage catheter. 3. Unchanged moderate bilateral hydroureteronephrosis. 4. Unchanged thickening of the sigmoid colon, likely reactive. 5. Small left pleural effusion with left lung base atelectasis. 6. Possible sinus tract from the right lower quadrant fluid collection prostatectomy bed redemonstrated. 7. Additional findings as above. Resident Activity Tracking Resident Involvement: Resident Care Provided Care Provided: Adult [facility]
--- NOTE | 2020-09-12 11:48 | Ultrasound Report ---
US guide abscess drain CLINICAL HISTORY: Multiple pelvic abscesses . COMPARISON STUDY: CT abdomen and pelvis 09/10/2020. PROCEDURE: The risks, benefits, and alternatives to the procedure were discussed with the patient. Wr itten informed consent was obtained. The patient was placed supine in ultrasound, and the 8.9 x 5.0 x 10.0 cm complex fluid collection within the midline pelvis was localized by ultrasound and selected for aspiration/drainage. The midline lower abdomen/pelvis was prepped and draped in the usual steril e fashion. 1% lidocaine was used for local anesthesia. The collection was targeted with a 10 Australian t rocar needle. Real-time imaging confirmed proper placement. The catheter was then advanced into the c ollection with trocar needle removed. Approximately 160 mL yellowish fluid was then aspirated from th e collection with a syringe. The catheter was then placed to suction and was adhered to the abdominal wall. The patient tolerated the procedure well and left the department in satisfactory condition ret urning to the floor. As stated with the consulting team prior to the procedure, follow-up care and fl ushing of the drain will be done by the consulting team. IMPRESSION: Successful drainage of a midline pelvic fluid collection with placement of a 10 [place] pi gtail catheter. ACT 112: Negative or not required by law. The above report was generated using voice recognition software. It may contain grammatical, syntax o r spelling errors. Electronically signed by: Thor Yeh M.D. 09/12/2020 11:47 AM
[2020-09-12] MEDS: FUROSEMIDE 40 MG TAB PO SCH (11:55)
[2020-09-12] MEDS: FEBUXOSTAT 40 MG TABLET PO SCH (11:55)
[2020-09-12] MEDS: ACETAMINOPHEN 325 MG TAB PO PRN ×2 (11:55→21:38)
[2020-09-12] MEDS: SERTRALINE HCL 100 MG TABLET PO SCH (11:55)
[2020-09-12] MEDS: FERROUS SULFATE 325 MG TAB PO SCH (11:55)
[2020-09-12] MEDS: TRAVOPROST Z 0.004% OPH SOLN 2.5 ML BTL OP SCH (11:56)
[2020-09-12] MEDS: BRIMONIDINE TARTRATE-P 0.15% 5 ML BTL OP SCH ×2 (11:56→20:00)
--- NOTE | 2020-09-12 12:07 | CT Scan Report ---
ABDOMEN AND PELVIS CT WITHOUT CONTRAST CT DOSE: 1727.46 mGycm HISTORY: Follow up study in a patient with pelvic fluid collections. Lymphocele/Abscess/Anastomosis leak TECHNIQUE: Multiaxial CT images of the abdomen and pelvis were performed without the use of IV contra st utilizing cystogram protocol with contrast injected in a retrograde fashion into the patient's Fol ey catheter. Post void images were also obtained. A dose lowering technique was utilized adhering to the principles of ALARA. COMPARISON STUDY: CT abdomen and pelvis 09/10/2020 FINDINGS: Small left pleural effusion with dependent left lung base opacities. No pneumatosis or pneumoperitone um. The unenhanced spleen, pancreas, adrenal glands, gallbladder and liver are unremarkable. Mild non specific bilateral perinephric stranding. 9 mm nonobstructing calculus of the interpolar right kidney . Probable cyst of the interpolar right kidney measures 4.0 cm. There is mild dilation of the bilater al collecting systems and ureters which is symmetric and appears unchanged. Aorta and IVC are unremar kable. No bowel obstruction.There is retained enteric contrast in the large bowel. Thickening of the sigmoid colon, likely reactive. Trace abdominal pelvic ascites is also likely reactive. Unchanged mil d thickening of the appendix with prominent pericecal lymph nodes. Postoperative changes of prior prostatectomy. Multiloculated gas and fluid-filled collections of the extraperitoneal pelvis redemonstrated. There is a midline fluid collection which has decreased from c omparison where previously measured 9.4 x 5.6 cm, now measuring 1.4 x 5.3 cm. Catheter appears in sat isfactory positioning. Fluid collection of the right hemipelvis measuring 7.6 cm is unchanged. This c ollection may communicate with the catheter containing collection. Air and fluid collection of the an terior left hemipelvis redemonstrated. Moderate urinary bladder wall thickening. Air is also noted within urinary bladder with Chavez cathete r. There is a focal defect involving the right posterolateral urinary bladder wall which measures 9 m m transversely and can be seen on images 446 series 3 and image 140 of series 5. Contrast is noted sp illing into the retrovesicular space/prostatectomy bed and extending along the left lateral aspect of the urinary bladder. Possible developing sinus tract between the right lower quadrant fluid collecti on prostatectomy bed redemonstrated which is not opacified with contrast. Moderate diffuse body wall edema. Bones appear intact. There is no acute fracture. Degenerative changes of the spine, pelvis and hips. IMPRESSION: 1. Postoperative changes of prior prostatectomy. There is a defect within the right posterolateral ur inary bladder with contrast extending from the bladder lumen into the retrovesicular tissues/prostate ctomy bed. 2. Multiloculated gas and fluid filled collections within the extra peritoneal space of the deep pelv is are redemonstrated. The anterior midline fluid collection has moderately decreased in size from co mparison status post placement of a drainage catheter. 3. Unchanged moderate bilateral hydroureteronephrosis. 4. Unchanged thickening of the sigmoid colon, likely reactive. 5. Small left pleural effusion with left lung base atelectasis. 6. Possible sinus tract from the right lower quadrant fluid collection prostatectomy bed redemonstrat ed. 7. Additional findings as above. ACT 112: Negative or not required by law. The above report was generated using voice recognition software. It may contain grammatical, syntax o r spelling errors. Electronically signed by: Thor Yeh M.D. 09/12/2020 12:06 PM
[2020-09-12 16:19] LABS: Albumin Peritoneal Fluid 0.8 g/dl; Glucose Peritoneal Fluid 64 mg/dl
[2020-09-12 16:55] LABS: Appearance Peritoneal Fluid HAZY; Basophils, Fluid 0 %; Color Peritoneal Fluid YELLOW; Eosinophils, Fluid 1 %; Lymphocytes, Fluid 58 %; Mono,Macrophage,Mesothelial 13 %; Neutrophils, Fluid 28 %; RBC Peritoneal Fluid (A) 4000 /uL; WBC Peritoneal Fluid (A) 1860 /ul (0-300)
--- NOTE | 2020-09-12 18:54 | Billing Data ---
Date of Service September 12, 2020 Coding Level of Care Code 45087 Subseq Hosp Care Lvl 3
[2020-09-12] MEDS: ENOXAPARIN INJ 120 MG/0.8 ML SYR SC SCH (19:59)
[2020-09-12] MEDS: traZODone HCL 50 MG TAB PO SCH (20:00)
[2020-09-13] MEDS: PIPERACILLIN/TAZOBACTAM 3.375 GM in DEXTROSE 5% 100 ML IV SCH ×3 (06:14→22:03)
[2020-09-13] MEDS: ACETAMINOPHEN 325 MG TAB PO PRN ×2 (06:17→18:23)
[2020-09-13] MEDS: ENOXAPARIN INJ 120 MG/0.8 ML SYR SC SCH ×2 (06:27→20:22)
[2020-09-13 07:51] LABS: Basophils # (auto) 0.03 K/uL (0-0.2); Basophils % (auto) 0.4 %; Eosinophils # (auto) 0.28 K/uL (0-0.5); Eosinophils % (auto) 3.5 %; Hematocrit (blood only) 24.9 % (42-52); Hemoglobin 7.9 g/dL (14.0-18.0); Immature Granulocytes # (auto) 0.02 K/uL (0.00-0.02); Immature Granulocytes % (auto) 0.2 %; Lymphocytes # (auto) 0.69 K/uL (1.2-3.4); Lymphocytes % (auto) 8.6 %; Mean Corpuscular Hemoglobin 27.7 pg (25-34); Mean Corpuscular Hgb Conc 31.7 g/dL (32-36); Mean Corpuscular Volume 87.4 fL (80-100); Mean Platelet Volume 9.5 fL (7.4-10.4); Monocytes # (auto) 0.67 K/uL (0.11-0.59); Monocytes % (auto) 8.3 %; Neutrophils # (auto) 6.35 K/uL (1.4-6.5); Platelet Count 309 K/uL (130-400); Red Blood Count 2.85 M/uL (4.7-6.1); White Blood Count 8.04 K/uL (4.8-10.8)
[2020-09-13 08:15] LABS: Acanthocytes 1+
[2020-09-13 08:19] LABS: BUN Creatinine Ratio 11.3 (10-20); Calcium 8.7 mg/dl (8.5-10.1); Creatinine Clr Calc Pharmacy 58.7 ml/min; Potassium 3.6 mmol/L (3.5-5.1)
--- NOTE | 2020-09-13 09:22 | Hospitalist Progress Note ---
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 Post-op infection, increasing abdominal pain, back pain Abdominal pain secondary to fluid collection(s) from radical prostatectomy anastomotic leak; abdominal pain continues to improve -600cc urine-appearing aspirated from a fluid collection posterior to the bladder base, anterior to the rectum -diverting torres placed -abdominal MARSHAL drain in place, draining clear yellow fluid without blood or pus -continue zosyn IV -holding home norco 1tab PO tid prn -APAP 650mg PO q4h prn -morphine 2mg IV q3h prn-close clinical monitoring -urology on board; MARSHAL drain removed; appreciate their recommendations and assistance; will continue to follow -torres catheter leaks when patient ambulates; per urology, torres catheter does not require adjustment as long as there is some flow into the bag -CT drainage performed yesterday, drain placed; findings above, fluid analysis pending; urology and surgery recommendations appreciated DVTs, history of VTE -holding home eliquis -on therapeutic lovenox 1mg/kg q12h Generalized weakness -PT/OT consults ordered for evaluation and treatment -encouraged patient to get OOB or even to just sit on side of bed for all meals -tolerating ambulation well -will need rehab placement post-hospitalization Left foot pain: unlikely to be gout given uric acid of 2.8 as well as lack of erythema, warmth, and mild tenderness -continue to monitor Bilateral LE Edema -restarted home Lasix 40mg po daily Right hand pain secondary to IV infiltration -IV removed, pain is significantly improving and has essentially removed Post-op anemia: Hgb 7.9, yesterday at 8.0 -home dose iron 325mg PO q other day -consider transfusion if Hgb < 7.0 Chronic kidney disease, stage III -creatinine at 1.57, yesterday 1.61 -baseline 1.2/1.3 -BMP daily Chest pain: EKG not concerning for ischemic event (09/08/2020) -chest pain resolved; seems likely to be musculoskeletal in origin -continue to monitor Obesity hypoventilation syndrome, obstructive sleep apnea -CPAP Depression -home dose sertraline 100mg PO qAM -home dose trazodone 50mg PO qhs History of gout -holding home febuxostat Glaucoma -home brimonidine 1 drop opb bid -home travoprost 1 drop opb qAM FENGI: tolerating PO DVT prophylaxis: lovenox (converted from prophylactic dose to therapeutic dose on 09/10/2020) Code status: DNR/DNI Dispo: med/surg (2) Status post prostatectomy: (3) History of DVT (deep vein thrombosis): (4) Hypertension: (5) Partial blindness: (6) Chronic kidney disease, stage III (moderate): Post Op Fever Patient with what appears to be two abscesses per outside hospital read, I have not been able to see images yet but they are here on disc and will be sent down to radiology Will treat with broad spectrum anitbiotics, d/c'ing gentamicin and rocephin and starting on zosyn Urology consulted for abscess drainage and possible procedure Patient NPO Post Op anemia Secondary to bleed hematoma patient was anticoagulated Hemoglobin relatively stable since discharge Will continue iron supplementation Continue to monitor CBC History of VTE Will hold eliquis for now until Urology evaluation CKD Patient appears at baseline Will supplement with 1/2 NSS 60 mls/hour while NPO EFRAÍN ALlowing him to use own CPAP Deconditioning Will need to return to rehab hospital on d/c DVT PPx: Will continue eliquis following Urology evaluation F/E/N: 1/2 NSS 60 ml/shour NPO Dispo: Admit for broad spectrum ABx and urology evaluation for possible abscess drainage. DNR/DNI (7) Hematoma: (8) Sleep apnea: (9) Myasthenia gravis: (10) Postoperative anemia: (11) Prostate cancer: (12) Pre-op testing: Admission and Anticipated Discharge Date Admission Date: September 03, 2020 Supervising Physician Co-Signing Physician Notes I personally examined the patient and verified all lindsey points of history and exam, discussed case, and agree with decision making with Dr Angeles. pain doing better. no new complaints. discussed overall plan vitals noted nad heent nc at mmm breathing unlabored no accessory muscles good effort skin no rashes no pallor no icterus. no focal neuro deficits pelvic fluid collection post prostatectomy - continue zosyn but probably can dc in near future. CT noted - concern on leak - but hopefully between decompression of bladder w torres and decompression of pelvic fluid w drain this can be managed nonoperatively. thus far showing clinical improvement - likely will want periodic recheck via US DVT - has hx of recurrent DVT and sx mostly just foot swelling not calf - and popliteal vein not occluded totally - strongly suspect that this is an old clot. swelling certainly seems more venous stasis/lack of mobility. is chronically on eliquis - for now continue to anticoagulate w lovenox for ability to wear off quickly if any further procedures needed - not likely at this point but not impossible. leaking around torres - d/w urology for now as long as urine draining - watchful waiting fecal incontinence - notes this was coming after significant post op constipation. continue miralax night sweats - unclear etiology. follow. if continues for any prolonged period of time (even more than a few weeks after this all resolves) then would want to re-eval PTSD - follow closely - doing OK for now otherwise as above Subjective Patient was seen at bedside this morning. He feels well and has no new complaints. His abdominal pain has largely resolved and he has more energy than he did yesterday. Denies CP, SOB, nausea, vomiting, constipation, diarrhea. He is in better spirits today as well. Review of Systems Constitutional: no fever and no chills Respiratory: no cough and no dyspnea Cardiovascular: no chest pain and no palpitations Gastrointestinal: no nausea, no vomiting, no constipation and no diarrh ea/loose stools Physical Exam Constitutional: well nourished and + obese; no acute distress and not ill a ppearing Respiratory: normal respiratory effort, lungs clear to auscultation no labored breathing and no cough Cardiovascular: RRR, no murmur, no edema Rate/Rhythm: regular rate and regular rhythm Heart Sounds: no murmur Gastrointestinal (Abdomen): Inspection/Auscultation: normal bowel sounds; abdomen not distended Percussion/Palpation: + abdomen tender (mild tenderness of the lower quadrants bilaterally) and abdomen soft; no guarding and abdomen not rigid Neurologic: CN's II-XI intact bilaterally Psychiatric: A+Ox3, euthymic affect Orientation: oriented x 3 Results & Data Results & Data ([facility]) Vital Signs (Past 12 Hours) Vital Signs Temp Pulse Resp BP BP Pulse Ox 09/13/20 07:56 37 C 55 L 18 136/69 95 09/12/20 23:10 36.3 C L 59 L 18 147/68 H 96
[2020-09-13] MEDS: BRIMONIDINE TARTRATE-P 0.15% 5 ML BTL OP SCH ×2 (09:47→20:24)
[2020-09-13] MEDS: FUROSEMIDE 40 MG TAB PO SCH (09:48)
[2020-09-13] MEDS: SERTRALINE HCL 100 MG TABLET PO SCH (09:48)
[2020-09-13] MEDS: FEBUXOSTAT 40 MG TABLET PO SCH (09:48)
[2020-09-13] MEDS: TRAVOPROST Z 0.004% OPH SOLN 2.5 ML BTL OP SCH (09:48)
--- NOTE | 2020-09-13 18:52 | Billing Data ---
Date of Service September 13, 2020 Coding Level of Care Code 11665 Subseq Hosp Care Lvl 3
[2020-09-13] MEDS: traZODone HCL 50 MG TAB PO SCH (20:23)
--- NOTE | 2020-09-13 21:19 | Urology Progress Note ---
Date of Service September 13, 2020 Assessment & Plan (1) Status post prostatectomy: 70yo M admitted for post-operative fever secondary to lymphocele/mild anastomotic leak s/p prostatectomy. - Fluid collection drained yesterday. Abscess/Urine leak. Leave drain in place. Chavez to gravity drainage. Needs time to seal. - Highly encourage ambulation with PT - OOB and ambulating as much as possible - Acute vs chronic DVT while on therapeutic dose of Lovenox - continue to monitor closely- Appreciate hospital medicine input - Continue supportive care - Will continue to monitor Admission and Anticipated Discharge Date Admission Date: September 03, 2020 Subjective Yesterday a drain was placed. Cr from fluid was 44. Chavez catheter is draining. Occ leakage. Min discomfort from the catheter. Patient was seen at bedside this morning. He feels well and has no new complaints. His abdominal pain has largely resolved and he has more energy than he did yesterday. Denies CP, SOB, nausea, vomiting, constipation, diarrhea. He is in better spirits today as well. Review of Systems Review of Systems: All systems reviewed & are unremarkable except as noted in HPI & below Physical Exam Physical Exam: General: Alert in no acute distress. HEENT: Normocephalic Atraumatic. Inspection normal. Cranial Nerves 2-12 Grossly intact. Normal inspection of face. Normal inspection of neck. Psychologic: Normal affect. Respiratory: Nonlabored. No use of accessory muscles. No tachypnea or dyspnea. Cardiovascular: No tachycardia Skin: [place] and Dry. No rashes or visible lesions. Extremities/Lymphatics: Moderate edema Abdomen: Obese. Moderately distended. No rebound or guarding. Drain in place draining light yellow fluid. : Chavez in place draining clear yellow urine Results & Data ([facility]) Vital Signs (Past 12 Hours) Vital Signs Temp Pulse Resp BP Pulse Ox 09/13/20 15:35 36.8 C 64 18 134/80 96 PG Care Time/CCT Total # of Minutes Spent Total Time Spent with Patient: Total time spent is greater than 50% in coordination of care (as documented) at patient's floor/unit and/or counseling patient: 30 Coding Level of Care Code 87182 Subseq Hosp Care Lvl 3 Diagnoses Status post prostatectomy Z90.79
[2020-09-14] MEDS: ENOXAPARIN INJ 120 MG/0.8 ML SYR SC SCH ×2 (05:41→16:57)
[2020-09-14] MEDS: PIPERACILLIN/TAZOBACTAM 3.375 GM in DEXTROSE 5% 100 ML IV SCH (05:41)
[2020-09-14 05:51] LABS: Basophils # (auto) 0.02 K/uL (0-0.2); Basophils % (auto) 0.2 %; Eosinophils # (auto) 0.31 K/uL (0-0.5); Eosinophils % (auto) 3.2 %; Hematocrit (blood only) 24.3 % (42-52); Hemoglobin 7.9 g/dL (14.0-18.0); Immature Granulocytes # (auto) 0.03 K/uL (0.00-0.02); Immature Granulocytes % (auto) 0.3 %; Lymphocytes # (auto) 0.82 K/uL (1.2-3.4); Lymphocytes % (auto) 8.5 %; Mean Corpuscular Hemoglobin 28.2 pg (25-34); Mean Corpuscular Hgb Conc 32.5 g/dL (32-36); Mean Corpuscular Volume 86.8 fL (80-100); Mean Platelet Volume 9.5 fL (7.4-10.4); Monocytes # (auto) 0.85 K/uL (0.11-0.59); Monocytes % (auto) 8.8 %; Neutrophils # (auto) 7.65 K/uL (1.4-6.5); Platelet Count 320 K/uL (130-400); White Blood Count 9.68 K/uL (4.8-10.8)
[2020-09-14 06:11] LABS: Albumin Level 1.7 gm/dl (3.4-5.0); BUN Creatinine Ratio 11.5 (10-20); Calcium 8.2 mg/dl (8.5-10.1); Est GFR (African American) 56.6; Est GFR (Non-African American) 48.9; Potassium 3.6 mmol/L (3.5-5.1); RBC Morphology Unremarkable
[2020-09-14 06:18] LABS: Albumin Globulin Ratio 0.4 (0.9-2); Bilirubin,Total 0.5 mg/dl (0.2-1); Globulin 4.4 gm/dl (2.5-4.0); Total Protein 6.1 gm/dl (6.4-8.2)
[2020-09-14] MEDS: FERROUS SULFATE 325 MG TAB PO SCH (07:41)
[2020-09-14] MEDS: FUROSEMIDE 40 MG TAB PO SCH (07:41)
[2020-09-14] MEDS: BRIMONIDINE TARTRATE-P 0.15% 5 ML BTL OP SCH ×2 (07:41→20:55)
[2020-09-14] MEDS: FEBUXOSTAT 40 MG TABLET PO SCH (07:42)
[2020-09-14] MEDS: TRAVOPROST Z 0.004% OPH SOLN 2.5 ML BTL OP SCH (07:42)
[2020-09-14] MEDS: SERTRALINE HCL 100 MG TABLET PO SCH (07:42)
--- NOTE | 2020-09-14 08:18 | Hospitalist Progress Note ---
Date of Service September 14, 2020 Assessment & Plan (1) Postoperative fever: Patrick Irby is a 70yo male with a PMH of prostate cancer s/p radical prostatectomy (08/14/2020), VTE on chronic eliquis, obesity hypoventilation syndrome, myasthenia gravis (in remission) PTSD, and depression who presented with fever, abdominal pain, fatigue, and scrotal swelling two days after being discharged from his post-prostatectomy admission. Post-op infection, increasing abdominal pain, back pain - Abdominal pain secondary to fluid collection(s) from radical prostatectomy anastomotic leak - 600cc urine-appearing aspirated from a fluid collection posterior to the bladder base, anterior to the rectum - torres in place with adequate UOP - abdominal MARSHAL drain in place, no drainage for last 24 hours - abdominal pain resolved with drainage of fluid and MARSHAL drain replacement on 09/12 - IV Zosyn transitioned to PO Augmentin, given overall improvement for several days - Urology continuing to follow - currently no further intervention planned - Recommended serial abd US to monitor for anastomosis leakage - As long as torres drains appropriately, bladder should remain non- stretched which will promote anastomosis improvement - holding home norco 1tab PO tid prn - PRN Tylenol for pain and PRN morphine 2mg IV q3h for breakthrough pain DVTs, history of VTE - holding home eliquis - on therapeutic lovenox 1mg/kg q12h Generalized weakness -PT/OT consults ordered for evaluation and treatment -encouraged patient to get OOB or even to just sit on side of bed for all meals -tolerating ambulation well -will need rehab placement post-hospitalization Left foot pain, improving - unlikely to be gout given uric acid of 2.8 as well as lack of erythema, warmth, and mild tenderness -continue to monitor Bilateral LE Edema - continue home Lasix 40mg po daily Right hand pain secondary to IV infiltration - IV removed, pain is significantly improving and has essentially removed Post-op anemia: - Hgb 7.9 - likely secondary to both operative blood loss and chronic malnutrition status with Alb 1.7 - home dose iron 325mg PO q other day - consider transfusion if Hgb < 7.0 Chronic kidney disease, stage III - creatinine at 1.44, downtrending - baseline 1.2/1.3 - encourage PO intake - BMP daily Chest pain, resolved - EKG not concerning for ischemic event (09/08/2020) - chest pain resolved; seems likely to be musculoskeletal in origin - continue to monitor EFRAÍN - CPAP Depression - home dose sertraline 100mg PO qAM - home dose trazodone 50mg PO qhs History of gout - holding home febuxostat Glaucoma - home brimonidine 1 drop opb bid - home travoprost 1 drop opb qAM FENGI: Heart Healthy DVT prophylaxis: lovenox (converted from prophylactic dose to therapeutic dose on 09/10/2020) Code status: DNR/DNI Dispo: med/surg (2) Status post prostatectomy: (3) History of DVT (deep vein thrombosis): (4) Hypertension: (5) Partial blindness: (6) Chronic kidney disease, stage III (moderate): (7) Hematoma: (8) Sleep apnea: (9) Myasthenia gravis: (10) Postoperative anemia: (11) Prostate cancer: (12) Pre-op testing: Admission and Anticipated Discharge Date Admission Date: September 03, 2020 Supervising Physician Co-Signing Physician Notes I personally examined the patient and verified all lindsey points of history and exam, discussed case, and agree with decision making with Dr Nieves pain doing better. no new complaints. pleased with care vitals noted nad heent nc at mmm breathing unlabored no accessory muscles good effort skin no rashes no pallor no icterus. no focal neuro deficits pelvic fluid collection post prostatectomy - continue abx - since has been on IV quite a while can cautiously switch to PO. CT noted - concern on leak - but hopefully between decompression of bladder w torres and decompression of pelvic fluid w drain this can be managed nonoperatively. thus far showing clinical improvement - likely will want periodic recheck via US (next tomorrow) DVT - has hx of recurrent DVT and sx mostly just foot swelling not calf - and popliteal vein not occluded totally - strongly suspect that this is an old clot. swelling certainly seems more venous stasis/lack of mobility. is chronically on eliquis - for now continue to anticoagulate w lovenox for ability to wear off quickly if any further procedures needed - not likely at this point but not impossible. stable in this regard. once drains are out/etc can switch back to eliquis. leaking around torres - d/w urology for now as long as urine draining - watchful waiting fecal incontinence - notes this was coming after significant post op constipation. continue miralax night sweats - unclear etiology. follow. if continues for any prolonged period of time (even more than a few weeks after this all resolves) then would want to re-eval PTSD - follow closely - doing OK for now otherwise as above Subjective Patient was seen at bedside this morning. He feels well and has no new complaints. His abdominal pain has resolved. Reports seeing the Urologist before I came into the room, and he understands that Urology does not need to do any further interventions at this time. Cooperative and amenable to their current plan. Review of Systems Constitutional: no fever and no chills Respiratory: no cough and no dyspnea Cardiovascular: no chest pain and no palpitations Gastrointestinal: no abdominal pain, no nausea, no vomiting and no constipation Physical Exam Physical Exam: Constitutional: well nourished and + obese; no acute distress and not ill appearing Respiratory: normal respiratory effort, lungs clear to auscultation no labored breathing and no cough Cardiovascular: RRR, no murmur, no edema Rate/Rhythm: regular rate and regular rhythm Heart Sounds: no murmur Gastrointestinal (Abdomen): Inspection/Auscultation: normal bowel sounds; abdomen not distended Percussion/Palpation: non-tender and abdomen soft; no guarding and abdomen not rigid, MARSHAL drain in place without surrounding erythema Neurologic: CN's II-XI intact bilaterally Psychiatric: A+Ox3, euthymic affect Orientation: oriented x 3 Results & Data Results & Data ([facility]) Vital Signs (Past 12 Hours) Vital Signs Temp Pulse Resp BP BP Pulse Ox 09/14/20 07:23 36.9 C 63 18 142/71 H 96 09/13/20 23:21 36.9 C 72 18 126/71 97 Resident Activity Tracking Resident Involvement: Resident Care Provided Care Provided: Adult Hospital Medicine
--- NOTE | 2020-09-14 09:12 | Urology Progress Note ---
Date of Service September 14, 2020 Assessment & Plan (1) Status post prostatectomy: 70yo M admitted for post-operative fever secondary to lymphocele/mild anastomotic leak s/p prostatectomy. - Fluid collection drained Tuesday. Abscess/Urine leak. Leave drain in place. Torres to gravity drainage. Needs time to seal. - Highly encourage ambulation with PT - OOB and ambulating as much as possible - Continue supportive care -Cont Abx - Will continue to monitor Admission and Anticipated Discharge Date Admission Date: September 03, 2020 Subjective No acute events. Tolerating diet. No fevers/Chills. No Nausea/Vomitting. Drain output is minimal. He reports leakage around the torres catheter when up and moving around Cultures still pending. Review of Systems Review of Systems: All systems reviewed & are unremarkable except as noted in HPI & below Physical Exam Physical Exam: General: Alert in no acute distress. HEENT: Normocephalic Atraumatic. Inspection normal. Cranial Nerves 2-12 Grossly intact. Normal inspection of face. Normal inspection of neck. Psychologic: Normal affect. Respiratory: Nonlabored. No use of accessory muscles. No tachypnea or dyspnea. Cardiovascular: No tachycardia Skin: [place] and Dry. No rashes or visible lesions. Extremities/Lymphatics: Moderate edema Abdomen: Obese. Moderately distended. No rebound or guarding. Drain in place draining light yellow fluid. Drain output scant : Torres in place draining clear yellow urine Results & Data ([facility]) Vital Signs (Past 12 Hours) Vital Signs Temp Pulse Resp BP BP Pulse Ox 09/14/20 07:23 36.9 C 63 18 142/71 H 96 09/13/20 23:21 36.9 C 72 18 126/71 97 PG Care Time/CCT Total # of Minutes Spent Total Time Spent with Patient: Total time spent is greater than 50% in coordination of care (as documented) at patient's floor/unit and/or counseling patient: Coding Level of Care Code 57107 Subseq Hosp Care Lvl 2 Diagnoses Status post prostatectomy Z90.79
[2020-09-14] MEDS: AMOXICILLIN/CLAVULANATE 875 MG TAB PO SCH (17:32)
--- NOTE | 2020-09-14 18:16 | Billing Data ---
Date of Service September 14, 2020 Coding Level of Care Code 76524 Subseq Hosp Care Lvl 3
[2020-09-14] MEDS: ACETAMINOPHEN 325 MG TAB PO PRN (20:54)
[2020-09-14] MEDS: traZODone HCL 50 MG TAB PO SCH (20:54)
[2020-09-15 05:24] LABS: Basophils # (auto) 0.02 K/uL (0-0.2); Basophils % (auto) 0.3 %; Eosinophils # (auto) 0.35 K/uL (0-0.5); Eosinophils % (auto) 4.5 %; Hematocrit (blood only) 24.8 % (42-52); Hemoglobin 7.9 g/dL (14.0-18.0); Immature Granulocytes # (auto) 0.03 K/uL (0.00-0.02); Immature Granulocytes % (auto) 0.4 %; Lymphocytes # (auto) 0.88 K/uL (1.2-3.4); Lymphocytes % (auto) 11.3 %; Mean Corpuscular Hemoglobin 27.8 pg (25-34); Mean Corpuscular Hgb Conc 31.9 g/dL (32-36); Mean Corpuscular Volume 87.3 fL (80-100); Mean Platelet Volume 9.6 fL (7.4-10.4); Monocytes # (auto) 0.84 K/uL (0.11-0.59); Monocytes % (auto) 10.8 %; Neutrophils # (auto) 5.66 K/uL (1.4-6.5); Neutrophils % (auto) 72.7 %; Platelet Count 310 K/uL (130-400); RDW Standard Deviation 48.1 fL (36.4-46.3); Red Blood Count 2.84 M/uL (4.7-6.1); White Blood Count 7.78 K/uL (4.8-10.8)
[2020-09-15 05:47] LABS: Poikilocytosis Present
[2020-09-15 05:55] LABS: Alanine Aminotransferase 18 U/L (12-78); Albumin Level 1.7 gm/dl (3.4-5.0); Aspartate Aminotransferase 16 U/L (15-37); BUN Creatinine Ratio 11.7 (10-20); Bilirubin Direct < 0.1 mg/dl (0-0.2); Blood Urea Nitrogen 14 mg/dl (7-18); Calcium 8.3 mg/dl (8.5-10.1); Carbon Dioxide 27 mmol/L (21-32); Chloride 110 mmol/L (98-107); Creatinine Clr Calc Pharmacy 74.3 ml/min; Est GFR (African American) 67.8; Est GFR (Non-African American) 58.5; Glucose 95 mg/dl (70-99); Potassium 3.7 mmol/L (3.5-5.1); Sodium 143 mmol/L (136-145)
[2020-09-15 05:57] LABS: Alkaline Phosphatase 63 U/L (45-117); Bilirubin,Total 0.1 mg/dl (0.2-1); Total Protein 6.2 gm/dl (6.4-8.2)
[2020-09-15] MEDS: ENOXAPARIN INJ 120 MG/0.8 ML SYR SC SCH ×2 (06:42→18:10)
--- NOTE | 2020-09-15 06:45 | Ultrasound Report ---
US abdomen ltd ascites HISTORY: 70 years-old Male anastomotic bladder leak s/p prostatectomy follow-up study in a patient w ith ascites and pelvic fluid collections. COMPARISON: CT abdomen and pelvis 09/12/2020, ultrasound-guided drainage 09/12/2020. TECHNIQUE: Multiple real-time sonographic images of the pelvis were obtained assessing grayscale appe arance and color flow FINDINGS: There is a complex fluid collection within the midline pelvis superior to the urinary bladder contain ing a drainage catheter which measures approximately 8.3 x 3.9 x 9.5 cm, estimated volume of 200 mL. On 09/12/2020, prior to drainage of the collection this was measured at approximately 8.9 x 5.0 x 10. 0 cm. Chavez catheter is noted within a decompressed urinary bladder. IMPRESSION: Persistent catheter containing complex fluid collection of the midline pelvis superior to the urinary bladder. ACT 112: Negative or not required by law. The above report was generated using voice recognition software. It may contain grammatical, syntax o r spelling errors. Electronically signed by: Thor Yeh M.D. 09/15/2020 6:44 AM
--- NOTE | 2020-09-15 07:20 | Hospitalist Progress Note ---
Date of Service September 15, 2020 Assessment & Plan (1) Abdominal pain: Patrick Irby is a 70 y/o male with a PMH of prostate cancer s/p radical prostatectomy (08/14/20), VTE on chronic eliquis, obesity hypoventilation syndrome, myasthenia gravis (in remission), PTSD, and depression who presented with fever, abdominal pain, fatigue, and scrotal swelling two days after being discharged from his post-prostatectomy admission. Current admission is complicated by non-draining MARSHAL drain and sterile complex extraperitoneal fluid collection. Abdominal pain s/p prostatectomy, in context of extraperitoneal fluid collection - Abdominal pain secondary to fluid collection(s) from 08/04/20 radical prostatectomy anastomotic leak - torres in place with adequate UOP - abdominal MARSHAL drain in place, no drainage for last 48 hours - moderate scrotal swelling noted on exam, per pateint much improved from 1 wk ago. - IV Zosyn transitioned to PO Augmentin. However, MARSHAL drain micro culture was negative. Will discuss about possible d/c of PO Augmentin. - Urology flushed MARSHAL drain today. Still no output on afternoon recheck. Called radiology (Dr. Contreras) who advised flushing drain BID w/ 10cc saline. - Abd US tomorrow AM - PRN Tylenol for pain and PRN morphine 2mg IV q3h for breakthrough pain Concern for malnutrition, chronic - albumin 1.7. patient does endorse good appetite and is eating most of what he is given. - Diet consult placed. Per updated recs, I added 1.5x order to meal plan. Post-op anemia: - Hgb ~8.0 for over 1 week, likely secondary to both operative blood loss and chronic malnutrition status with Alb 1.7 - home dose iron 325mg PO q other day - consider transfusion if Hgb < 7.0 Chronic kidney disease, stage III - creatinine at 1.24, downtrending. baseline 1.2/1.3 DVTs, history of VTE - holding home eliquis. on therapeutic lovenox 1mg/kg q12h Left foot pain, improving - unlikely to be gout given uric acid of 2.8 as well as lack of erythema, warmth, and mild tenderness. continue to monitor Bilateral LE Edema - continue home Lasix 40mg po daily Right hand pain secondary to IV infiltration - IV removed, pain is significantly improving and has essentially removed Chest pain, resolved EFARÍN: CPAP Depression - home dose sertraline 100mg PO qAM and trazodone 50mg PO qhs History of gout - holding home febuxostat Glaucoma - home brimonidine 1 drop opb bid and home travoprost 1 drop opb qAM Generalized weakness - PT/OT. home w/ home health after dispo FENGI: Heart Healthy DVT prophylaxis: lovenox (converted from prophylactic dose to therapeutic dose on 09/10/2020) Code status: DNR/DNI Dispo: med/surg. likely dispo will be home w/ home health based on patient preference. barrier to discharge is waiting on MARSHAL drain removal Dispo planning - spoke w/ case management. pt had [facility] but he is firm on dispo home because he had been in the hospital for so long and that he feels strong enough after inpatient PT/OT. Case managment states that we can provide Rx for home health eval+treat (for torres care) and PT, OT[facility] (2) Postoperative fever: (3) Status post prostatectomy: (4) History of DVT (deep vein thrombosis): (5) Hypertension: (6) Chronic kidney disease, stage III (moderate): (7) Sleep apnea: (8) Postoperative anemia: (9) Prostate cancer: (10) Malnutrition: (11) Gout: (12) Glaucoma: Admission and Anticipated Discharge Date Admission Date: September 03, 2020 Supervising Physician Co-Signing Physician Notes Resident Physician Supervision Note: I independently interviewed and examined the patient and verified the lindsey history and physical, reviewed labs and image studies, discussed the case with the resident Dr. Teresa and agree with the findings and care plan. Subjective Minor pain lower abd 3-4 now. 5-6 when bad, relieved by tylenol. Scrotal swelling is worse on L. per pt, much improved from a wk ago. No pain. 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 States that he has good appetite and eats most of what's given. He is insistent on going home. States that he can walk around this floor without problem. Review of Systems Review of Systems: Constitutional: Denies fever, chills Cardiovascular: Denies chest pain Respiratory: Denies shortness of breath, difficulty breathing Gastrointestinal: Denies nausea, vomiting, constipation, diarrhea Genitourinary: Denies urinary symptoms including dysuria Musculoskeletal: Denies weakness, muscle aches/pain, joint aches/pain Neurological: Denies headache. + LLE numbness/tingling (from neuropathy, not new) Physical Exam Physical Exam: General: Grossly A&O. NAD. Cooperative. HEENT: Atraumatic, normocephalic. Pulm: CTAB. -wheezes, -rales, -rhonchi. No respiratory distress. Cardiac: RRR, -mrg. Radial pulses intact and symmetrical. Abdominal: Nontender to palpation, nondistended, soft. : Moderate scrotal swelling, worse on L. Musculoskeletal: No LE edema. Results & Data Results & Data ([facility]) Vital Signs (Past 12 Hours) Vital Signs Temp Pulse Resp BP Pulse Ox 09/14/20 23:37 36.8 C 61 18 125/69 97 Resident Activity Tracking Resident Involvement: Resident Care Provided Care Provided: Adult Hospital Medicine (1) Gout Chronicity: chronic Gout etiology: unspecified cause Gout site: unspecified site Presence of tophus: without tophus Qualified Code(s): M1A.9XX0 - Chronic gout, unspecified, without tophus (tophi) (2) Glaucoma Glaucoma type: unspecified Laterality: right Qualified Code(s): H40.9 - Unspecified glaucoma
[2020-09-15] MEDS: FUROSEMIDE 40 MG TAB PO SCH (08:58)
[2020-09-15] MEDS: SERTRALINE HCL 100 MG TABLET PO SCH (08:58)
[2020-09-15] MEDS: FEBUXOSTAT 40 MG TABLET PO SCH (08:58)
[2020-09-15] MEDS: BRIMONIDINE TARTRATE-P 0.15% 5 ML BTL OP SCH ×2 (08:59→21:59)
[2020-09-15] MEDS: AMOXICILLIN/CLAVULANATE 875 MG TAB PO SCH ×2 (08:59→16:50)
[2020-09-15] MEDS: TRAVOPROST Z 0.004% OPH SOLN 2.5 ML BTL OP SCH (08:59)
--- NOTE | 2020-09-15 09:37 | Urology Progress Note ---
Date of Service September 15, 2020 Assessment & Plan (1) Status post prostatectomy: 70 year-old male patient admitted for post-operative fever secondary to lymphocele/mild anastomotic leak s/p prostatectomy. - Plan of care reviewed with Dr. Meeks. - Remains afebrile, creatinine improving. - Fluid collection drained Wednesday 09/12 by radiology, abscess/urine leak. - Repeat renal ultrasound today reviewed - persistent fluid collection. - Continue Uresil drain, will plan to flush given no recorded drain output overnight. - Continue Chavez catheter to gravity, do not remove unless directed by urology. - Encourage ambulation with PT - OOB and ambulating as much as possible. - Continue supportive care and oral antibiotic therapy. - Continue to follow while inpatient. Admission and Anticipated Discharge Date Admission Date: September 03, 2020 Subjective Patient examined this morning, alert and comfortable. Reports minimal pain, described as "stinging" to abdominal drain site. Tolerating diet without nausea or vomiting. Denies fevers or chills. Has been ambulating without difficulty. Chavez catheter intact, draining clear yellow urine. Uresil drain intact to left abdomen intact, some bleeding on dressing surrounding insertion site. Does not appear drain is currently draining. Uresil without recorded output overnight. Chart review: Afebrile Wbc 7.78 Hgb 7.9 Creatinine 1.24 Renal ultrasound results: Persistent catheter containing complex fluid collection of the midline pelvis superior to the urinary bladder. Denies additional urologic concerns today. Review of Systems Constitutional: as per Subjective / HPI; no fever and no chills Gastrointestinal: as per Subjective / HPI; no nausea and no vomiting Genitourinary: + as per Subjective / HPI Physical Exam Constitutional: well developed and well nourished; no acute distress and not ill appearing Respiratory: normal respiratory effort and able to speak in complete sentences; no respiratory distress and no audible wheezes Gastrointestinal (Abdomen): Inspection/Auscultation: abdomen normal to inspection; abdomen not distended Percussion/Palpation: abdomen soft; abdomen nontender and no guarding Uresil drain to left abdomen intact, yellow colored drainage in collection canister however no active drainage noted. Psychiatric: Orientation: alert, oriented x 3 and cooperative Affect: euthymic affect Genitourinary: no CVA tenderness Chavez catheter intact draining clear yellow urine. Results & Data ([facility]) Vital Signs (Past 12 Hours) Vital Signs Temp Pulse Resp BP Pulse Ox 09/15/20 07:52 36.7 C 58 L 18 143/75 H 95 09/14/20 23:37 36.8 C 61 18 125/69 97 PG Care Time/CCT Total # of Minutes Spent Total Time Spent with Patient: Total time spent is greater than 50% in coordination of care (as documented) at patient's floor/unit and/or counseling patient: Coding Level of Care Code 87051 Subseq Hosp Care Lvl 2 Diagnoses Status post prostatectomy Z90.79
[2020-09-15] MEDS: traZODone HCL 50 MG TAB PO SCH (21:59)
[2020-09-16] MEDS: ENOXAPARIN INJ 120 MG/0.8 ML SYR SC SCH ×2 (06:28→18:00)
--- NOTE | 2020-09-16 07:42 | Ultrasound Report ---
LIMITED ABDOMINAL ULTRASOUND FOR FLUID COLLECTION EVALUATION CLINICAL HISTORY: Status post catheter drainage. COMPARISON STUDY: 09/15/2020 FINDINGS: There is a complex midline fluid collection just superior to the urinary bladder measuring 82 x 36 x 74 mm. This appears slightly smaller than on the prior study and has an estimated volume of 115 cc. The right of midline is a second collection measuring 11.7 x 4.8 x 11.1 cm. This equivocally connects with the midline collection. IMPRESSION: 1. Slight interval decrease in the size of the complex midline suprapubic fluid collection currently measuring 82 x 36 x 74 mm. 2. There is a second right-sided fluid collection measuring 117 x 48 x 111 mm ACT 112: Negative or not required by law. Electronically signed by: Ken Butler M.D. 09/16/2020 7:41 AM
[2020-09-16] MEDS: ACETAMINOPHEN 325 MG TAB PO PRN ×2 (07:58→14:00)
[2020-09-16] MEDS: FEBUXOSTAT 40 MG TABLET PO SCH (07:59)
[2020-09-16] MEDS: AMOXICILLIN/CLAVULANATE 875 MG TAB PO SCH ×2 (07:59→16:14)
[2020-09-16] MEDS: FUROSEMIDE 40 MG TAB PO SCH (07:59)
[2020-09-16] MEDS: FERROUS SULFATE 325 MG TAB PO SCH (07:59)
[2020-09-16] MEDS: BRIMONIDINE TARTRATE-P 0.15% 5 ML BTL OP SCH ×2 (08:00→19:33)
[2020-09-16] MEDS: TRAVOPROST Z 0.004% OPH SOLN 2.5 ML BTL OP SCH (08:00)
[2020-09-16] MEDS: SERTRALINE HCL 100 MG TABLET PO SCH (08:00)
[2020-09-16 08:36] LABS: Basophils # (auto) 0.02 K/uL (0-0.2); Basophils % (auto) 0.2 %; Eosinophils # (auto) 0.24 K/uL (0-0.5); Eosinophils % (auto) 2.8 %; Immature Granulocytes # (auto) 0.04 K/uL (0.00-0.02); Immature Granulocytes % (auto) 0.5 %; Lymphocytes # (auto) 0.79 K/uL (1.2-3.4); Lymphocytes % (auto) 9.1 %; Mean Corpuscular Volume 87.4 fL (80-100); Mean Platelet Volume 10.5 fL (7.4-10.4); Monocytes # (auto) 0.77 K/uL (0.11-0.59); Monocytes % (auto) 8.9 %; Neutrophils # (auto) 6.81 K/uL (1.4-6.5); Neutrophils % (auto) 78.5 %; Platelet Count 323 K/uL (130-400); RDW Coefficient of Variation 15.3 % (11.5-14.5); RDW Standard Deviation 48.8 fL (36.4-46.3); Red Blood Count 2.86 M/uL (4.7-6.1); White Blood Count 8.67 K/uL (4.8-10.8)
--- NOTE | 2020-09-16 08:39 | Hospitalist Progress Note ---
Date of Service September 16, 2020 Assessment & Plan (1) Abdominal pain: Patrick Irby is a 70 y/o male with a PMH of prostate cancer s/p radical prostatectomy (08/14/20), VTE on chronic eliquis, obesity hypoventilation syndrome, myasthenia gravis (in remission), PTSD, and depression who presented with fever, abdominal pain, fatigue, and scrotal swelling two days after being discharged from his post-prostatectomy admission. Current admission is complicated by non-draining MARSHAL drain and sterile complex extraperitoneal fluid collection. Abdominal pain s/p prostatectomy, in context of extraperitoneal fluid collection - Abdominal pain secondary to fluid collection(s) from 08/04/20 radical prostatectomy anastomotic leak - torres in place with adequate UOP - abdominal MARSHAL drain in place, no drainage for last 48 hours - moderate scrotal swelling noted on exam, per patient much improved from 1 wk ago. - IV Zosyn transitioned to PO Augmentin. However, MARSHAL drain micro culture was negative. Will discuss about possible d/c of PO Augmentin. - radiology (Dr. Contreras) who advised flushing drain BID w/ 10cc saline. - Abd US tomorrow AM - PRN Tylenol for pain and PRN morphine 2mg IV q3h for breakthrough pain - f/u nephro recs recommending Uresil drain. continue BID flushes. continue Augmentin PO per urology. Will f/u regarding appropriate duration outpatient - US: 1. Slight interval decrease in the size of the complex midline suprapubic fluid collection currently measuring 82 x 36 x 74 mm. 2. There is a second right-sided fluid collection measuring 117 x 48 x 111 mm L ankle pain, most likely musculoskeletal - continue PRN tylenol Concern for malnutrition, chronic - albumin 1.7. patient does endorse good appetite and is eating most of what he is given. - Diet consult placed. Per updated recs, I added 1.5x order to meal plan. - changed to regular diet Post-op anemia: - Hgb ~8.0 (8.0 09/16/20) for over 1 week, likely secondary to both operative blood loss and chronic malnutrition status with Alb 1.7 - home dose iron 325mg PO q other day - consider transfusion if Hgb < 7.0 Chronic kidney disease, stage III - creatinine at 1.26 (09/16/20), downtrending. baseline 1.2/1.3 DVTs, history of VTE - doppler 09/10 - peroneal vein DVT - holding home eliquis. on therapeutic lovenox 1mg/kg q12h Left foot pain, improving - unlikely to be gout given uric acid of 2.8 as well as lack of erythema, warmth, and mild tenderness. continue to monitor Bilateral LE Edema - continue home Lasix 40mg po daily Right hand pain secondary to IV infiltration - IV removed, pain is significantly improving and has essentially removed Chest pain, resolved EFRAÍN: CPAP Depression - home dose sertraline 100mg PO qAM and trazodone 50mg PO qhs History of gout - holding home febuxostat Glaucoma - home brimonidine 1 drop opb bid and home travoprost 1 drop opb qAM Generalized weakness - PT/OT. 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 likely dispo will be home w/ home health based on patient preference. barrier to discharge is waiting on MARSHAL drain removal Dispo planning -initially had hold at [facility] but he is firm on dispo home because he h ad been in the hospital for so long and that he feels strong enough after inpatient PT/OT. Case managment states that we can provide Rx for home health eval+treat (for torres care) and PT, OT, [facility] is [facility] (2) Postoperative fever: (3) Status post prostatectomy: (4) History of DVT (deep vein thrombosis): (5) Hypertension: (6) Chronic kidney disease, stage III (moderate): (7) Sleep apnea: (8) Postoperative anemia: (9) Prostate cancer: (10) Malnutrition: (11) Gout: (12) Glaucoma: (13) Left ankle pain: Admission and Anticipated Discharge Date Admission Date: September 03, 2020 Supervising Physician Co-Signing Physician Notes Resident Physician Supervision Note: I independently interviewed and examined the patient and verified the lindsey history and physical, reviewed labs and image studies, discussed the case with the resident Dr. Teresa and agree with the findings and care plan. Subjective L ankle is very sore since 1.5 hours. Does note that PT exercised vigorously yesterday. Hx of dvtx2 LLE, did not have pain w/ them. Per pt, had LLE US 2 wks ago for ankle swelling that showed old clots. Decent relief w/ tylenol. No abd pain or back pain. Drain not draining. Torres is working ok. Review of Systems Review of Systems: Constitutional: Denies fever, chills Cardiovascular: Denies chest pain Respiratory: Denies shortness of breath, difficulty breathing Gastrointestinal: Denies abdominal pain, nausea, vomiting, constipation, diarrhea Genitourinary: Denies urinary symptoms. Has torres in-place. Musculoskeletal: Denies weakness Neurological: Denies headache, focal weakness Physical Exam Physical Exam: General: Grossly A&O. NAD. Cooperative. HEENT: Atraumatic, normocephalic. EOMI Pulm: CTAB. -wheezes, -rales, -rhonchi. No respiratory distress. Cardiac: RRR, -mrg. Radial pulses intact and symmetrical. Abdominal: Nontender, nondistended, soft. Musculoskeletal: ttp just anterior to L lateral malleolus, not at the bone. good dp pulses bilat. no calf swelling or calf ttp. trace BLE tibial edema, worse on R. foot sensation ok. pain w/ L dorsiflexion. Results & Data Results & Data ([facility]) Vital Signs (Past 12 Hours) Vital Signs Temp Pulse Resp BP Pulse Ox 09/15/20 23:30 37.1 C 65 18 135/65 97 Resident Activity Tracking Resident Involvement: Resident Care Provided Care Provided: Adult Hospital Medicine (1) Gout Chronicity: chronic Gout etiology: unspecified cause Gout site: unspecified site Presence of tophus: without tophus Qualified Code(s): M1A.9XX0 - Chronic gout, unspecified, without tophus (tophi) (2) Glaucoma Glaucoma type: unspecified Laterality: right Qualified Code(s): H40.9 - Unspecified glaucoma
[2020-09-16 09:06] LABS: Albumin Level 1.7 gm/dl (3.4-5.0); BUN Creatinine Ratio 14.1 (10-20); Calcium 8.1 mg/dl (8.5-10.1); Creatinine Clr Calc Pharmacy 73.1 ml/min; Est GFR (African American) 66.5; Est GFR (Non-African American) 57.4; Potassium 3.7 mmol/L (3.5-5.1)
[2020-09-16 09:09] LABS: Albumin Globulin Ratio 0.4 (0.9-2); Bilirubin,Total 0.2 mg/dl (0.2-1); Globulin 4.5 gm/dl (2.5-4.0); Total Protein 6.2 gm/dl (6.4-8.2)
--- NOTE | 2020-09-16 09:27 | Urology Progress Note ---
Date of Service September 16, 2020 Assessment & Plan (1) Status post prostatectomy: 70 year-old male patient admitted for post-operative fever secondary to lymphocele/mild anastomotic leak s/p prostatectomy. - Plan of care reviewed with Dr. Meeks. - Remains afebrile, creatinine stable. - Fluid collection drained Wednesday 09/12 by radiology, lymphocele/urine leak/seroma. - Repeat renal ultrasound today reviewed - slight interval decrease in the size of the complex midline suprapubic fluid collection with second right-sided fluid collection measuring 117 x 48 x 111 mm. - Continue Uresil drain, flushes increased to BID as recommended by radiology. - Given fluid collection still present, recommend discussing with radiology possibility of repeat drainage. - Continue Chavez catheter to gravity, do not remove unless directed by urology. - Encourage ambulation with PT - OOB and ambulating as much as possible. - Continue supportive care and oral antibiotic therapy. - Continue to follow while inpatient. Admission and Anticipated Discharge Date Admission Date: September 03, 2020 Subjective Patient alert and feeing well this morning. Has been experiencing minimal pain. Tolerating diet without nausea or vomiting. Denies fevers or chills. Reports some left ankle discomfort this morning. Has been ambulating with PT and out of bed to chair. Chavez catheter intact, draining clear yellow urine. Uresil drain intact to left abdomen intact, however without drain output, no output recorded overnight. Uresil flushes are now BID as recommended by radiology. Chart review: Afebrile Wbc 8.67 Hgb 8.0 Creatinine 1.26 Repeat abdominal ultrasound performed today - IMPRESSION: 1. Slight interval decrease in the size of the complex midline suprapubic fluid collection currently measuring 82 x 36 x 74 mm. 2. There is a second right-sided fluid collection measuring 117 x 48 x 111 mm Denies additional urologic concerns today. Review of Systems Constitutional: as per Subjective / HPI; no fever and no chills Gastrointestinal: as per Subjective / HPI; no nausea and no vomiting Genitourinary: + as per Subjective / HPI Musculoskeletal: as per Subjective / HPI Physical Exam Constitutional: well developed and well nourished; no acute distress and not ill appearing Respiratory: normal respiratory effort and able to speak in complete sentenc es; no respiratory distress and no audible wheezes Gastrointestinal (Abdomen): Inspection/Auscultation: abdomen normal to inspection; abdomen not distended Percussion/Palpation: abdomen soft; abdomen nontender and no guarding Uresil drain to left abdomen intact, yellow colored drainage in collection canister however no active drainage noted. Skin: Prior surgical incisions healing well. Psychiatric: Orientation: alert, oriented x 3 and cooperative Affect: euthymic affect Genitourinary: no CVA tenderness Chavez catheter intact draining clear yellow urine. Results & Data ([facility]) Vital Signs (Past 12 Hours) Vital Signs Temp Pulse Pulse Resp BP Pulse Ox 09/16/20 07:40 36.6 C 58 L 18 143/71 H 95 09/15/20 23:30 37.1 C 65 18 135/65 97 PG Care Time/CCT Total # of Minutes Spent Total Time Spent with Patient: Total time spent is greater than 50% in coordination of care (as documented) at patient's floor/unit and/or counseling patient: Coding Level of Care Code 02644 Subseq Hosp Care Lvl 2 Diagnoses Status post prostatectomy Z90.79
[2020-09-16] MEDS: CEROVITE ADV FORMULA TAB PO SCH (16:14)
[2020-09-16] MEDS: [UNRECOGNIZED DRUG - REMARK] SCH (19:22)
[2020-09-16] MEDS: traZODone HCL 50 MG TAB PO SCH (19:34)
[2020-09-17] MEDS: ENOXAPARIN INJ 120 MG/0.8 ML SYR SC SCH ×2 (05:57→18:36)
[2020-09-17 06:36] LABS: Hematocrit (blood only) 25.1 % (42-52); Hemoglobin 8.2 g/dL (14.0-18.0); Mean Corpuscular Hemoglobin 28.4 pg (25-34); Mean Corpuscular Hgb Conc 32.7 g/dL (32-36); Mean Corpuscular Volume 86.9 fL (80-100); Mean Platelet Volume 9.7 fL (7.4-10.4); Platelet Count 314 K/uL (130-400); RDW Coefficient of Variation 15.3 % (11.5-14.5); RDW Standard Deviation 49.1 fL (36.4-46.3); Red Blood Count 2.89 M/uL (4.7-6.1); White Blood Count 8.59 K/uL (4.8-10.8)
[2020-09-17 07:03] LABS: Albumin Level 1.8 gm/dl (3.4-5.0); BUN Creatinine Ratio 16.7 (10-20); Calcium 8.4 mg/dl (8.5-10.1); Creatinine Clr Calc Pharmacy 71.4 ml/min; Est GFR (African American) 64.7; Est GFR (Non-African American) 55.8; Potassium 3.7 mmol/L (3.5-5.1)
[2020-09-17 07:06] LABS: Albumin Globulin Ratio 0.4 (0.9-2); Bilirubin,Total 0.2 mg/dl (0.2-1); Globulin 4.6 gm/dl (2.5-4.0); Total Protein 6.4 gm/dl (6.4-8.2)
[2020-09-17] MEDS: FEBUXOSTAT 40 MG TABLET PO SCH (08:15)
[2020-09-17] MEDS: FUROSEMIDE 40 MG TAB PO SCH (08:16)
[2020-09-17] MEDS: CEROVITE ADV FORMULA TAB PO SCH (08:16)
[2020-09-17] MEDS: BRIMONIDINE TARTRATE-P 0.15% 5 ML BTL OP SCH ×2 (08:16→22:24)
[2020-09-17] MEDS: TRAVOPROST Z 0.004% OPH SOLN 2.5 ML BTL OP SCH (08:16)
[2020-09-17] MEDS: SERTRALINE HCL 100 MG TABLET PO SCH (08:16)
[2020-09-17] MEDS: AMOXICILLIN/CLAVULANATE 875 MG TAB PO SCH ×2 (08:16→16:24)
[2020-09-17] MEDS: [UNRECOGNIZED DRUG - REMARK] SCH ×2 (08:17→22:25)
--- NOTE | 2020-09-17 08:39 | Hospitalist Progress Note ---
Date of Service September 17, 2020 Assessment & Plan (1) Abdominal pain: Patrick Irby is a 70 y/o male with a PMH of prostate cancer s/p radical prostatectomy (08/14/20), VTE on chronic eliquis, obesity hypoventilation syndrome, myasthenia gravis (in remission), PTSD, and depression who presented with fever, abdominal pain, fatigue, and scrotal swelling two days after being discharged from his post-prostatectomy admission. Current admission is complicated by sterile complex extraperitoneal fluid collection x2, Uresil drain removed today. Abdominal pain s/p prostatectomy, in context of extraperitoneal fluid collection - Abdominal pain secondary to fluid collection(s) from 08/04/20 radical prostatectomy anastomotic leak - torres in place with adequate UOP - abdominal MARSHAL drain in place, no drainage for last 48 hours - moderate scrotal swelling noted on exam, per patient much improved from 1 wk ago. - radiology (Dr. Contreras) who advised flushing drain BID w/ 10cc saline. - PRN Tylenol for pain and PRN morphine 2mg IV q3h for breakthrough pain - f/u nephro recs recommending Uresil drain. continue BID flushes. continue Augmentin PO per urology. Will f/u regarding appropriate duration outpatient - US: Slight interval decrease in the size of the complex midline suprapubic fluid collection currently measuring 82 x 36 x 74 mm. There is a second right- sided fluid collection measuring 117 x 48 x 111 mm. - RLQ tenderness to deep palpation on AM phys exam 09/17/20. 09/17/20: Per urology, drain removed w/o problem during the afternoon. Monitor abdominal pain and will drain r collection if febrile or increased abdominal pain. - IV Zosyn transitioned to PO Augmentin. However, MARSHAL drain micro culture was negative. Will discuss about possible d/c of PO Augmentin. L ankle pain, most likely musculoskeletal, much improved - continue PRN tylenol Malnutrition, chronic - albumin 1.7. patient does endorse good appetite and is eating most of what he is given. - Diet consult placed. Per updated recs, I added 1.5x order to meal plan. - changed to regular diet Post-op anemia: - Hgb ~8.0 (8.0 09/16/20) for over 1 week, likely secondary to both operative blood loss and chronic malnutrition status with Alb 1.7 - home dose iron 325mg PO q other day - consider transfusion if Hgb < 7.0 Chronic kidney disease, stage III - creatinine at 1.29 (09/17/20), downtrended/stable. baseline 1.2/1.3 DVTs, history of VTE - doppler 09/10 - peroneal vein DVT - holding home eliquis. on therapeutic lovenox 1mg/kg q12h Chest pain, resolved EFRAÍN: CPAP Depression - home dose sertraline 100mg PO qAM and trazodone 50mg PO qhs Gout: holding home febuxostat Glaucoma: home brimonidine 1 drop opb bid and home travoprost 1 drop opb qAM Generalized weakness - PT/OT. 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 likely dispo will be home w/ home health based on patient preference. barrier to discharge is waiting on MARSHAL drain removal Dispo planning -initially had hold at [facility] but he is firm on dispo home because he had been in the hospital for so long and that he feels strong enough after inpatient PT/OT. Case managment states that we can provide Rx for home health eval+treat (for torres care) and PT, OT, [facility]. possible dispo 09/18/20; Uresil drain removed 09/17/20, will monitor (2) Postoperative fever: (3) Status post prostatectomy: (4) History of DVT (deep vein thrombosis): (5) Hypertension: (6) Chronic kidney disease, stage III (moderate): (7) Sleep apnea: (8) Postoperative anemia: (9) Prostate cancer: (10) Malnutrition: (11) Gout: (12) Glaucoma: (13) Left ankle pain: Admission and Anticipated Discharge Date Admission Date: September 03, 2020 Supervising Physician Co-Signing Physician Notes Resident Physician Supervision Note: I independently interviewed and examined the patient and verified the lindsey history and physical, reviewed labs and image studies, discussed the case with the resident Dr. Teresa and agree with the findings and care plan. Subjective Abd discomfort 2-3 ache, similar to previous episodes when abd fluid collected. Mouth is dry, despite drinking water. Doesn't want IVF at this time. L ankle pain is milder today. Review of Systems Review of Systems: Constitutional: Denies fever, chills Cardiovascular: Denies chest pain Respiratory: Denies shortness of breath, difficulty breathing Gastrointestinal: Denies nausea, vomiting, constipation, diarrhea Genitourinary: Denies new urinary symptoms Musculoskeletal: Denies weakness Neurological: Denies headache Physical Exam Physical Exam: General: Grossly A&O. NAD. Cooperative. HEENT: Atraumatic, normocephalic. EOMI. Chapped lips. Pulm: CTAB. -wheezes, -rales, -rhonchi. Symmetrical chest rise. No respiratory distress. Cardiac: RRR, -mrg. Radial pulses intact and symmetrical. Abdominal: Soft, nondistended. RLQ TTP to deep palpation. : Some scrotal swelling, worse on L. Not noticeably worsened vs. exam from several days ago. Msk: 1+ BLE edema. Results & Data Results & Data ([facility]) Vital Signs (Past 12 Hours) Vital Signs Temp Pulse Resp BP Pulse Ox 09/16/20 23:30 36.4 C L 62 18 155/73 H 98 Resident Activity Tracking Resident Involvement: Resident Care Provided Care Provided: Adult Hospital Medicine (1) Gout Chronicity: chronic Gout etiology: unspecified cause Gout site: unspecified site Presence of tophus: without tophus Qualified Code(s): M1A.9XX0 - Chronic gout, unspecified, without tophus (tophi) (2) Glaucoma Glaucoma type: unspecified Laterality: right Qualified Code(s): H40.9 - Unspecified glaucoma
--- NOTE | 2020-09-17 09:25 | Urology Progress Note ---
Date of Service September 17, 2020 Assessment & Plan (1) Status post prostatectomy: 70 year-old male patient admitted for post-operative fever secondary to lymphocele/mild anastomotic leak s/p prostatectomy. - Plan of care reviewed with Dr. Beasley. - Remains afebrile, creatinine stable. - Fluid collection drained Wednesday 09/12 by radiology, lymphocele/urine leak/seroma. - Repeat renal ultrasound 09/16 - slight interval decrease in the size of the complex midline suprapubic fluid collection with second right-sided fluid collection. - Uresil drain flushes increased to BID as recommended by radiology, no drain output since 09/13/20. - Dr. Beasley personally spoke with radiology regarding options for repeat drainage versus manipulation with current catheter. Will plan to discuss further with radiology. - Continue Chavez catheter to gravity, do not remove unless directed by urology. - Encourage ambulation with PT - OOB and ambulating as much as possible. - Continue supportive care and oral antibiotic therapy. - Continue to follow while inpatient. Drain removed w/o problem Monitor abdominal pain and will drain r collection if febrile or increased abdominal pain Kalyan Beasley Admission and Anticipated Discharge Date Admission Date: September 03, 2020 Subjective Patient examined this morning, alert and comfortable. No concerns overnight, feeling well. Has been experiencing minimal pain, mostly located in right lower abdomen. Tolerating diet without nausea or vomiting. Denies fevers or chills. Left ankle discomfort has improved, now feels "stiff". Has been ambulating with PT and sitting in chair throughout the day. Chavez catheter intact, draining clear yellow urine. Does have periods of catheter leaking. Uresil drain intact to left abdomen intact, dressing with bloody drainage, no output recorded overnight. Uresil flushes are now BID as recommended by radiology. Last recorded drain output was 09/13. Chart review: Afebrile Wbc 8.59 Hgb 8.2 Creatinine 1.29 Repeat abdominal ultrasound 09/16- IMPRESSION: 1. Slight interval decrease in the size of the complex midline suprapubic fluid collection currently measuring 82 x 36 x 74 mm. 2. There is a second right-sided fluid collection measuring 117 x 48 x 111 mm Denies additional urologic concerns today. Reviewed recent imaging with radiology . Given no drainage for 3 days even with irrigation will remove . Both cultures from both drains were negative . Pt remains afebrile with nl wbc . He does have a larger rpevic fluid collection that the will drain if he gets febrile or his pain increases Review of Systems Constitutional: as per Subjective / HPI; no fever and no chills Cardiovascular: no chest pain and no edema Gastrointestinal: as per Subjective / HPI; no nausea and no vomiting Genitourinary: + as per Subjective / HPI Musculoskeletal: as per Subjective / HPI Physical Exam Constitutional: well developed and well nourished; no acute distress and not ill appearing Respiratory: normal respiratory effort and able to speak in complete sentences; no respiratory distress and no audible wheezes Gastrointestinal (Abdomen): Inspection/Auscultation: abdomen normal to inspection; abdomen not distended Percussion/Palpation: + abdomen tender (Mild tenderness to right lower quadrant on palpation) and abdomen soft; no guarding Uresil drain to left abdomen intact, yellow colored drainage in collection canister, no active drainage. Small amount of serosanguineous drainage to drain dressing. Psychiatric: Orientation: alert, oriented x 3 and cooperative Affect: euthymic affect Genitourinary: no CVA tenderness Chavez catheter intact draining clear yellow urine. No leaking noted on inspection. Scrotal swelling noted, non- tender. Results & Data ([facility]) Vital Signs (Past 12 Hours) Vital Signs Temp Pulse Resp BP Pulse Ox 09/17/20 08:42 36.7 C 61 18 149/71 H 97 09/16/20 23:30 36.4 C L 62 18 155/73 H 98 PG Care Time/CCT Total # of Minutes Spent Total Time Spent with Patient: Total time spent is greater than 50% in coordination of care (as documented) at patient's floor/unit and/or counseling patient: Coding Level of Care Code 75817 Subseq Hosp Care Lvl 2 Diagnoses Status post prostatectomy Z90.79
[2020-09-17] MEDS: ACETAMINOPHEN 325 MG TAB PO PRN ×3 (10:08→18:37)
[2020-09-17] MEDS: traZODone HCL 50 MG TAB PO SCH (22:24)
[2020-09-18] MEDS: ENOXAPARIN INJ 120 MG/0.8 ML SYR SC SCH ×2 (06:12→19:53)
[2020-09-18] MEDS: SERTRALINE HCL 100 MG TABLET PO SCH (08:59)
[2020-09-18] MEDS: FERROUS SULFATE 325 MG TAB PO SCH (08:59)
[2020-09-18] MEDS: FUROSEMIDE 40 MG TAB PO SCH (08:59)
[2020-09-18] MEDS: TRAVOPROST Z 0.004% OPH SOLN 2.5 ML BTL OP SCH (08:59)
[2020-09-18] MEDS: CEROVITE ADV FORMULA TAB PO SCH (08:59)
[2020-09-18] MEDS: FEBUXOSTAT 40 MG TABLET PO SCH (08:59)
[2020-09-18] MEDS: BRIMONIDINE TARTRATE-P 0.15% 5 ML BTL OP SCH ×2 (08:59→19:56)
[2020-09-18] MEDS: AMOXICILLIN/CLAVULANATE 875 MG TAB PO SCH ×2 (08:59→17:14)
[2020-09-18] MEDS: [UNRECOGNIZED DRUG - REMARK] SCH (09:00)
[2020-09-18 09:15] LABS: Hematocrit (blood only) 26.5 % (42-52); Hemoglobin 8.2 g/dL (14.0-18.0); Mean Corpuscular Hgb Conc 30.9 g/dL (32-36); Mean Corpuscular Volume 87.2 fL (80-100); Mean Platelet Volume 9.7 fL (7.4-10.4); Platelet Count 344 K/uL (130-400); RDW Coefficient of Variation 15.5 % (11.5-14.5); RDW Standard Deviation 49.9 fL (36.4-46.3); Red Blood Count 3.04 M/uL (4.7-6.1); White Blood Count 9.02 K/uL (4.8-10.8)
[2020-09-18 09:47] LABS: BUN Creatinine Ratio 17.9 (10-20); Calcium 8.1 mg/dl (8.5-10.1); Creatinine Clr Calc Pharmacy 72.5 ml/min; Est GFR (African American) 65.9; Est GFR (Non-African American) 56.9; Potassium 3.9 mmol/L (3.5-5.1)
--- NOTE | 2020-09-18 10:36 | Hospitalist Progress Note ---
Date of Service September 18, 2020 Assessment & Plan (1) Abdominal pain: Patrick Irby is a 70 y/o male with a PMH of prostate cancer s/p radical prostatectomy (08/14/20), VTE on chronic eliquis, obesity hypoventilation syndrome, myasthenia gravis (in remission), PTSD, and depression who presented with fever, abdominal pain, fatigue, and scrotal swelling two days after being discharged from his post-prostatectomy admission. Current admission is complicated by sterile complex extraperitoneal fluid collection x2, Uresil drain removed 09/17/20 and is clinically doing well today as he denies subjective abd pain and on exam, the RLQ pain to deep palpation was milder. Abdominal pain s/p prostatectomy, in context of extraperitoneal fluid collection - Abdominal pain secondary to fluid collection(s) from 08/04/20 radical prostatectomy anastomotic leak - RLQ tenderness to deep palpation persistent - torres in place with adequate UOP - US: Slight interval decrease in the size of the complex midline suprapubic fluid collection currently measuring 82 x 36 x 74 mm. There is a second right- sided fluid collection measuring 117 x 48 x 111 mm. - IV Zosyn transitioned to PO Augmentin. However, MARSHAL drain micro culture was negative. Will discuss about possible d/c of PO Augmentin. 09/17/20: Per urology, drain removed w/o problem during the afternoon. Monitor abdominal pain and will drain r collection if febrile or increased abdominal pain. 09/18/20: plan is to continue monitoring for abd symptoms and for fever after Uresil drain removal. reevaluate tomorrow of whether a new drain will be placed. L ankle pain, most likely musculoskeletal, much improved - continue PRN tylenol Malnutrition, chronic - albumin 1.7. patient does endorse good appetite and is eating most of what he is given. - continue regular diet per recs from gerentological physiotherapist Post-op anemia: - Hgb ~8.0 (8.2 09/18/20) for over 1 week, likely secondary to both operative blood loss and chronic malnutrition status with Alb 1.7 - home dose iron 325mg PO q other day - consider transfusion if Hgb < 7.0 Chronic kidney disease, stage III - creatinine at 1.27 (09/18/20), downtrended/stable. baseline 1.2/1.3 DVTs, history of VTE - doppler 09/10 - peroneal vein DVT - holding home eliquis. on therapeutic lovenox 1mg/kg q12h Chest pain, resolved EFRAÍN: CPAP Depression - home dose sertraline 100mg PO qAM and trazodone 50mg PO qhs Gout: holding home febuxostat Glaucoma: home brimonidine 1 drop opb bid and home travoprost 1 drop opb qAM Generalized weakness - PT/OT. 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 Case managment states that we can provide Rx for home health eval+treat (for torres care) and PT, OT, [facility]. Uresil drain removed 09/17/20, will continue to monitor (2) Postoperative fever: (3) Status post prostatectomy: (4) History of DVT (deep vein thrombosis): (5) Hypertension: (6) Chronic kidney disease, stage III (moderate): (7) Sleep apnea: (8) Postoperative anemia: (9) Prostate cancer: (10) Malnutrition: (11) Gout: (12) Glaucoma: (13) Left ankle pain: Admission and Anticipated Discharge Date Admission Date: September 03, 2020 Supervising Physician Co-Signing Physician Notes Resident Physician Supervision Note: I independently interviewed and examined the patient and verified the lindsey history and physical, reviewed labs and image studies, discussed the case with the resident Dr. Teresa and agree with the findings and care plan. Subjective No abd pain today. Appetite is good and he is liking the regular diet better than the previous one. No complaints about torres. Review of Systems Review of Systems: Constitutional: Denies fever, chills Cardiovascular: Denies chest pain Respiratory: Denies shortness of breath, difficulty breathing Gastrointestinal: Denies abdominal pain, nausea, vomiting, constipation, diarrhea Genitourinary: Denies urinary symptoms Musculoskeletal: Denies weakness, muscle aches/pain, joint aches/pain Neurological: Denies headache Physical Exam Physical Exam: General: Grossly A&O. NAD. Cooperative. HEENT: Atraumatic, normocephalic. EOMI Pulm: CTAB. -wheezes, -rales, -rhonchi. No respiratory distress. Cardiac: RRR, -mrg. Trace pedal edema. Abdominal: Soft. Mild RLQ tenderness to deep palpation, improved from yesterday. Results & Data Results & Data ([facility]) Vital Signs (Past 12 Hours) Vital Signs Temp Pulse Resp BP Pulse Ox 09/18/20 07:44 37.1 C 62 18 127/68 96 09/17/20 23:44 36.4 C L 57 L 14 125/67 96 Resident Activity Tracking Resident Involvement: Resident Care Provided Care Provided: Adult Hospital Medicine (1) Gout Chronicity: chronic Gout etiology: unspecified cause Gout site: unspecified site Presence of tophus: without tophus Qualified Code(s): M1A.9XX0 - Chronic gout, unspecified, without tophus (tophi) (2) Glaucoma Glaucoma type: unspecified Laterality: right Qualified Code(s): H40.9 - Unspecified glaucoma
--- NOTE | 2020-09-18 10:37 | Urology Progress Note ---
Date of Service September 18, 2020 Assessment & Plan (1) Status post prostatectomy: 70 year-old male patient admitted for post-operative fever secondary to lymphocele/mild anastomotic leak s/p prostatectomy. - Plan of care reviewed with Dr. Beasley. - Remains afebrile, creatinine stable. - Fluid collection drained Wednesday 09/12 by radiology. - Repeat renal ultrasound 09/16 - slight interval decrease in the size of the complex midline suprapubic fluid collection with second right-sided fluid collection. - No output from Uresil drain over period of 3 days, removed 09/[address] Beasley. - As patient is without abdominal pain today, will continue close observation. - If he develops fever or if his pain increases, will discuss repeat drainage with radiology. - Continue Chavez catheter to gravity, do not remove unless directed by urology. - Encourage ambulation with PT - recommend OOB and ambulating as much as possible. - Continue supportive care and oral antibiotic therapy. - Continue to follow while inpatient. Admission and Anticipated Discharge Date Admission Date: September 03, 2020 Subjective Patient awake, alert, and comfortable. Reports he feels well today. Uresil drain was removed yesterday by Dr. Beasley. Currently denies any abdominal/flank pain, just reports "stinging" at prior drain site. Tolerating diet without nausea or vomiting. Denies fevers or chills. Left ankle pain has resolved. Has been ambulating with PT and sitting in chair throughout the day. Chavez catheter intact, draining clear yellow urine. Chart review: Afebrile Wbc 9.02 Hgb 8.2 Creatinine 1.27 Most recent imaging - repeat abdominal ultrasound 09/16- IMPRESSION: 1. Slight interval decrease in the size of the complex midline suprapubic fluid collection currently measuring 82 x 36 x 74 mm. 2. There is a second right-sided fluid collection measuring 117 x 48 x 111 mm Denies additional urologic concerns today. Review of Systems Constitutional: as per Subjective / HPI; no fever and no chills Gastrointestinal: as per Subjective / HPI; no nausea and no vomiting Genitourinary: + as per Subjective / HPI Musculoskeletal: as per Subjective / HPI Physical Exam Constitutional: well developed and well nourished; no acute distress and not ill appearing Respiratory: normal respiratory effort and able to speak in complete sentences; no respiratory distress and no audible wheezes Gastrointestinal (Abdomen): Inspection/Auscultation: abdomen normal to inspection; abdomen not distended Percussion/Palpation: abdomen soft; abdomen nontender and no guarding Skin: Dressing intact over prior abdominal drain site. Incisions healed. Psychiatric: Orientation: alert, oriented x 3 and cooperative Affect: euthymic affect Genitourinary: no CVA tenderness Chavez catheter intact, draining clear yellow urine. Results & Data ([facility]) Vital Signs (Past 12 Hours) Vital Signs Temp Pulse Resp BP Pulse Ox 09/18/20 07:44 37.1 C 62 18 127/68 96 09/17/20 23:44 36.4 C L 57 L 14 125/67 96 PG Care Time/CCT Total # of Minutes Spent Total Time Spent with Patient: Total time spent is greater than 50% in coordination of care (as documented) at patient's floor/unit and/or counseling patient: Coding Level of Care Code 47846 Subseq Hosp Care Lvl 2 Diagnoses Status post prostatectomy Z90.79
[2020-09-18] MEDS: ACETAMINOPHEN 325 MG TAB PO PRN (15:49)
[2020-09-18] MEDS: traZODone HCL 50 MG TAB PO SCH (19:57)
[2020-09-19 05:31] LABS: Hematocrit (blood only) 25.4 % (42-52); Hemoglobin 7.9 g/dL (14.0-18.0); Mean Corpuscular Hemoglobin 27.1 pg (25-34); Mean Corpuscular Hgb Conc 31.1 g/dL (32-36); Mean Corpuscular Volume 87.3 fL (80-100); Platelet Count 315 K/uL (130-400); RDW Coefficient of Variation 15.7 % (11.5-14.5); Red Blood Count 2.91 M/uL (4.7-6.1)
[2020-09-19] MEDS: ENOXAPARIN INJ 120 MG/0.8 ML SYR SC SCH ×3 (05:54→19:03)
[2020-09-19 06:16] LABS: Calcium 8.1 mg/dl (8.5-10.1); Creatinine Clr Calc Pharmacy 73.7 ml/min; Est GFR (African American) 67.2; Potassium 3.7 mmol/L (3.5-5.1)
[2020-09-19] MEDS: BRIMONIDINE TARTRATE-P 0.15% 5 ML BTL OP SCH ×2 (08:51→20:59)
[2020-09-19] MEDS: AMOXICILLIN/CLAVULANATE 875 MG TAB PO SCH ×2 (08:51→17:55)
[2020-09-19] MEDS: FUROSEMIDE 40 MG TAB PO SCH (08:52)
[2020-09-19] MEDS: CEROVITE ADV FORMULA TAB PO SCH (08:52)
[2020-09-19] MEDS: FEBUXOSTAT 40 MG TABLET PO SCH (08:52)
[2020-09-19] MEDS: TRAVOPROST Z 0.004% OPH SOLN 2.5 ML BTL OP SCH (08:53)
[2020-09-19] MEDS: SERTRALINE HCL 100 MG TABLET PO SCH (08:53)
--- NOTE | 2020-09-19 09:43 | Hospitalist Progress Note ---
Date of Service September 19, 2020 Assessment & Plan (1) Abdominal pain: Patrick Irby is a 70 y/o male with a PMH of prostate cancer s/p radical prostatectomy (08/14/20), VTE on chronic eliquis, obesity hypoventilation syndrome, myasthenia gravis (in remission), PTSD, and depression who presented with fever, abdominal pain, fatigue, and scrotal swelling two days after being discharged from his post-prostatectomy admission. Current admission is complicated by sterile complex extraperitoneal fluid collection x2, Uresil drain removed 09/17/20 and is clinically doing well today as he denies subjective abd pain. Abdominal pain s/p prostatectomy, in context of extraperitoneal fluid collection - Abdominal pain secondary to fluid collection(s) from 08/04/20 radical prostatectomy anastomotic leak - RLQ tenderness to deep palpation persistent - torres in place with adequate UOP - US: Slight interval decrease in the size of the complex midline suprapubic fluid collection currently measuring 82 x 36 x 74 mm. There is a second right- sided fluid collection measuring 117 x 48 x 111 mm. - IV Zosyn transitioned to PO Augmentin. However, MARSHAL drain micro culture was negative. Will discuss about possible d/c of PO Augmentin. Per urology, on 09/17- drain removed w/o problem during the afternoon. Monitor abdominal pain and will drain r collection if febrile or increased abdominal pain. Not planning to insert new drain (after he had discussion w/ radiology) unless patient spikes fever or worsened abdominal pain. - Remains afebrile, creatinine stable. - As patient is without abdominal pain today, will continue close observation. - Continue Torres catheter to gravity, do not remove unless directed by urology. - Encourage ambulation with PT - recommend OOB and ambulating as much as possible. - Continue supportive care and oral antibiotic therapy. L ankle pain, most likely musculoskeletal, much improved - continue PRN tylenol Malnutrition, chronic - albumin 1.7. patient does endorse good appetite and is eating most of what he is given. - continue regular diet per recs from box repairer Post-op anemia: - Hgb ~8.0 (7.9 09/19/20) for over 1 week, likely secondary to both operative blood loss and chronic malnutrition status with Alb 1.7 - home dose iron 325mg PO q other day - consider transfusion if Hgb < 7.0 Chronic kidney disease, stage III - creatinine at 1.25 (09/19/20), downtrended/stable. baseline 1.2/1.3 DVTs, history of VTE - doppler 09/10 - peroneal vein DVT - holding home eliquis. on therapeutic lovenox 1mg/kg q12h Chest pain, resolved EFRAÍN: CPAP Depression - home dose sertraline 100mg PO qAM and trazodone 50mg PO qhs Gout: holding home febuxostat Glaucoma: home brimonidine 1 drop opb bid and home travoprost 1 drop opb qAM Generalized weakness - PT/OT. home w/ home health after dispo FENGI: regular diet today per licensed insurance agent DVT prophylaxis: lovenox (converted from prophylactic dose to therapeutic dose on 09/10/2020) Code status: DNR/DNI Dispo: med/surg Dispo planning -initially had hold at [facility] but he is firm on dispo home because he had been in the hospital for so long and that he feels strong enough after inpatient PT/OT. Case managment states that we can provide Rx for home health eval+treat (for torres care) and PT, OT[facility]. Uresil drain removed 09/17/20, will continue to monitor (2) Postoperative fever: (3) Status post prostatectomy: (4) History of DVT (deep vein thrombosis): (5) Hypertension: (6) Chronic kidney disease, stage III (moderate): (7) Sleep apnea: (8) Postoperative anemia: (9) Prostate cancer: (10) Malnutrition: (11) Gout: (12) Glaucoma: (13) Left ankle pain: Admission and Anticipated Discharge Date Admission Date: September 03, 2020 Supervising Physician Co-Signing Physician Notes Resident Physician Supervision Note: I independently interviewed and examined the patient and verified the lindsey history and physical, reviewed labs and image studies, discussed the case with the resident Dr. Teresa and agree with the findings and care plan. Subjective No complaints. No pain. Denies abdominal pain. Leg is not hurting. Review of Systems Review of Systems: Constitutional: Denies fever, chills Eyes: Denies blurry vision, vision changes Cardiovascular: Denies chest pain Respiratory: Denies shortness of breath, difficulty breathing Gastrointestinal: Denies abdominal pain, nausea, vomiting, constipation, diarrhea Genitourinary: Denies urinary symptoms or groin pain Musculoskeletal: Denies weakness, muscle aches/pain, joint aches/pain Neurological: Denies headache, Physical Exam Physical Exam: General: Grossly A&O. NAD. Cooperative. HEENT: Atraumatic, normocephalic. EOMI Pulm: CTAB. -wheezes, -rales, -rhonchi. No respiratory distress. Cardiac: RRR, -mrg. Radial pulses intact and symmetrical. Abdominal: Winced to deep palpation of RLQ. No tenderness to medium palpation. Abd is nondistended, soft. Results & Data Results & Data ([facility]) Vital Signs (Past 12 Hours) Vital Signs Temp Pulse Resp BP Pulse Ox 09/19/20 08:08 37.0 C 63 16 149/74 H 96 09/18/20 23:09 37.2 C 62 18 129/68 96 Resident Activity Tracking Resident Involvement: Resident Care Provided Care Provided: Adult Hospital Medicine (1) Gout Chronicity: chronic Gout etiology: unspecified cause Gout site: unspecified site Presence of tophus: without tophus Qualified Code(s): M1A.9XX0 - Chronic gout, unspecified, without tophus (tophi) (2) Glaucoma Glaucoma type: unspecified Laterality: right Qualified Code(s): H40.9 - Unspecified glaucoma
--- NOTE | 2020-09-19 12:44 | Urology Progress Note ---
Date of Service September 19, 2020 Assessment & Plan (1) Status post prostatectomy: 70 year-old male patient admitted for post-operative fever secondary to lymphocele/mild anastomotic leak s/p prostatectomy. - Plan of care reviewed with Dr. Meeks - Remains afebrile, creatinine stable. - As patient is without abdominal pain today, will continue close observation. - Continue Chavez catheter to gravity, do not remove unless directed by urology. - Encourage ambulation with PT - recommend OOB and ambulating as much as possible. - Continue supportive care and oral antibiotic therapy. - Continue to follow closely while inpatient. Admission and Anticipated Discharge Date Admission Date: September 03, 2020 Subjective Patient examined at bedside this am Awake, resting in bed on arrival Denies fevers or chills Tolerating PO diet without nausea or vomiting Chavez catheter intact/patent, draining clear-yellow urine Currently denies any pain/discomfort Ambulating with PT Chart review: Afebrile WBC 8.60 Hgb 7.9 Cr 1.25 No additional concerns today Review of Systems Constitutional: as per Subjective / HPI Gastrointestinal: as per Subjective / HPI Genitourinary: + as per Subjective / HPI Physical Exam Constitutional: + obese and cooperative; no acute distress Respiratory: normal respiratory effort and able to speak in complete sentences Gastrointestinal (Abdomen): Percussion/Palpation: abdomen soft; abdomen nontender and no guarding Musculoskeletal: Head/Neck/Chest: normocephalic Skin: no rashes, warm and dry Neurologic: awake; not confused Psychiatric: Orientation: alert, oriented x 3 and cooperative Genitourinary: Chavez catheter intact/patent, draining clear-yellow urine Results & Data ([facility]) Vital Signs (Past 12 Hours) Vital Signs Temp Pulse Resp BP Pulse Ox 09/19/20 08:08 37.0 C 63 16 149/74 H 96 09/18/20 23:09 37.2 C 62 18 129/68 96 PG Care Time/CCT Total # of Minutes Spent Total Time Spent with Patient: Total time spent is greater than 50% in coordination of care (as documented) at patient's floor/unit and/or counseling patient: Coding Level of Care Code 98490 Subseq Hosp Care Lvl 2 Diagnoses Status post prostatectomy Z90.79
[2020-09-19] MEDS: traZODone HCL 50 MG TAB PO SCH (20:58)
[2020-09-20] MEDS: ENOXAPARIN INJ 120 MG/0.8 ML SYR SC SCH ×2 (06:24→21:00)
[2020-09-20 08:55] LABS: Basophils # (auto) 0.01 K/uL (0-0.2); Basophils % (auto) 0.1 %; Eosinophils # (auto) 0.26 K/uL (0-0.5); Eosinophils % (auto) 3.2 %; Hematocrit (blood only) 25.4 % (42-52); Hemoglobin 7.9 g/dL (14.0-18.0); Immature Granulocytes # (auto) 0.02 K/uL (0.00-0.02); Immature Granulocytes % (auto) 0.2 %; Lymphocytes # (auto) 0.98 K/uL (1.2-3.4); Mean Corpuscular Hemoglobin 27.2 pg (25-34); Mean Corpuscular Hgb Conc 31.1 g/dL (32-36); Mean Corpuscular Volume 87.6 fL (80-100); Mean Platelet Volume 9.7 fL (7.4-10.4); Monocytes # (auto) 0.56 K/uL (0.11-0.59); Monocytes % (auto) 6.8 %; Neutrophils # (auto) 6.37 K/uL (1.4-6.5); Neutrophils % (auto) 77.7 %; Platelet Count 330 K/uL (130-400); RDW Coefficient of Variation 15.6 % (11.5-14.5); RDW Standard Deviation 50.4 fL (36.4-46.3)
--- NOTE | 2020-09-20 08:57 | Hospitalist Progress Note ---
Date of Service September 20, 2020 Assessment & Plan (1) Abdominal pain: Patrick Irby is a 70 y/o male with a PMH of prostate cancer s/p radical prostatectomy (08/14/20), VTE on chronic eliquis, obesity hypoventilation syndrome, myasthenia gravis (in remission), PTSD, and depression who presented with fever, abdominal pain, fatigue, and scrotal swelling two days after being discharged from his post-prostatectomy admission. Current admission has been complicated by sterile complex extraperitoneal fluid collection x 2. Uresil drain was removed 09/17/20. Hemodynamically stable and reports improvement of pain. Abdominal pain s/p prostatectomy, in context of extraperitoneal fluid collection - Clinically, patient has reported persistent abdominal pain that is likely 2/2 fluid collections from radical prostatectomy on 08/04 with subsequent anastomotic leak - US (09/16): Slight interval decrease in the size of the complex midline suprapubic fluid collection currently measuring 82 x 36 x 74 mm. There is a second right-sided fluid collection measuring 117 x 48 x 111 mm. - RLQ pain that has previously been persistent is absent on exam today - Given resolution of leukocytosis, his afebrile state, good progress, and negative DEB cultures, will d/c Augmentin - Urology following: appreciate recommendations, planning to image tomorrow (09/21) - Uresil drain removed on 09/17 -- no imaging since this time - Check ultrasound in 1-2 days to reassess fluid collection size; consider aspiration thereafter - Consider checking cystogram to assess anastomosis and confirm healing - Maintain Torres for now -- draining yellow urine - On Tuesday, reassess for drain placement vs. aspiration if persistent pelvic fluid collection Deconditioning / Generalized Weakness - Subacute deconditioning 2/2 long-term current (and previous) hospitalization - PT/OT following for strengthening, resumption of ambulatory activities - Continue to promote OOB and ambulation as tolerated - Will require home health evaluation + treatment plan prior to d/c (see dispo planning below) Normocytic, Hypochromic Anemia - Hgb 7.9 for over 1 week, unchanged on labs today; asymptomatic on exam - Will check iron studies to further work-up etiology - Likely contributions from chronic malnutrition, disease >> ?post-operative losses - Continue iron supplementation (325mg PO qod) - Transfusion if symptomatic / Hgb < 7.0 Malnutrition, chronic - Hypoalbuminemia at 1.7 - Continue to promote regular diet - Appreciate recommendations from nutrition CKD Stage III - Creatinine has continued to improve day-by-day: today at 1.15 from 1.25 yesterday - Continue to promote PO intake of food/fluids, as above - BMP qAM Recent DVT of the Peroneal Vein - Doppler on 09/10 demonstrated DVT of the peroneal vein - Therapeutic Lovenox 1mg/kg q12 - Hold home Eliquis Ankle Pain, Left -- MSK - Continues to demonstrate persistent improvement - Unlikely gout 2/2 normal uric acid levels previously - Tylenol PRN for pain Noncardiac Chest Pain (09/08) - Resolved on history/examination Obstructive Sleep Apnea - Continue with home CPAP Depression - Continue home dose sertraline 100mg PO qAM and trazodone 50mg PO qhs Gout: - Holding home febuxostat Glaucoma: - Home brimonidine 1 drop opb bid and home travoprost 1 drop opb qAM F/E/N/GI: regular diet, no current mIVF DVT prophylaxis: Lovenox (converted from prophylactic dose to therapeutic dose on 09/10/2020) Code status: DNR/DNI Dispo: med/surg Dispo planning -initially had hold at [facility] but he is firm on dispo home because he had been in the hospital for so long and that he feels strong enough after inpatient PT/OT. Case management states that we can provide prescription for home health eval+treat (for torres care) and PT, OT, [facility]. (2) Postoperative fever: (3) Status post prostatectomy: (4) History of DVT (deep vein thrombosis): (5) Hypertension: (6) Chronic kidney disease, stage III (moderate): (7) Sleep apnea: (8) Postoperative anemia: (9) Prostate cancer: (10) Malnutrition: (11) Gout: (12) Glaucoma: (13) Left ankle pain: Admission and Anticipated Discharge Date Admission Date: September 03, 2020 Supervising Physician Co-Signing Physician Notes Resident Physician Supervision Note: I independently interviewed and examined the patient and verified the lindsey history and physical, reviewed labs and image studies, discussed the case with the resident Dr. Brudick and agree with the findings and care plan. Subjective NAEO. Feels well overall this morning and "feel like my energy's coming back -- not to what it was before all this, but I'm getting there." Denies any chills or feelings of illness overnight, but does report waking with some sweat over his clothes this AM. Denies cough, shortness of breath, chest pains. Denies any abdominal pain, nausea, or vomiting. Had an appetite this AM and is looking forward to eatinng his breakfast. Does endorse some pain at the tip of his Torres catheter this AM that he says wasn't there before. Feels like an irritating-like pain. Mild, but noticable. Torres still draining yellow urine. Review of Systems Review of Systems: as per HPI Physical Exam Constitutional: Well appearing 70 year old gentleman who is lying back in his hospital bed, relaxed, getting ready to eat breakfast. NAD. Alert and oriented throughout our conversation. Respiratory: normal respiratory effort, lungs clear to auscultation Cardiovascular: RRR, no murmur, no edema Gastrointestinal (Abdomen): NABS. Abdomen does reveal focalized, cystic firmness just superior to the umbilicus over midline. This area is non-TTP. Otherwise, abdomen is soft, nontender, and nondistended. Genitourinary: Torres catheter in place draining yellow urine. The head of the penis does not reveal any erythema, edema, or rashes. Gentle movement of the Torres in a superior direction does elicit pain. Results & Data Results & Data ([facility]) Vital Signs (Past 12 Hours) Vital Signs Temp Pulse Resp BP Pulse Ox 09/20/20 07:30 37.2 C 59 L 20 146/70 H 97 09/19/20 23:39 36.5 C 67 18 131/65 97 Resident Activity Tracking Resident Involvement: Resident Care Provided Care Provided: Adult Hospital Medicine (1) Gout Chronicity: chronic Gout etiology: unspecified cause Gout site: unspecified site Presence of tophus: without tophus Qualified Code(s): M1A.9XX0 - Chronic gout, unspecified, without tophus (tophi) (2) Glaucoma Glaucoma type: unspecified Laterality: right Qualified Code(s): H40.9 - Unspecified glaucoma
[2020-09-20 09:21] LABS: BUN Creatinine Ratio 18.8 (10-20); Calcium 8.3 mg/dl (8.5-10.1); Creatinine Clr Calc Pharmacy 77.1 ml/min; Est GFR (African American) 74.3; Est GFR (Non-African American) 64.1; Potassium 3.9 mmol/L (3.5-5.1)
[2020-09-20 09:22] LABS: Hypochromasia Present
[2020-09-20] MEDS: BRIMONIDINE TARTRATE-P 0.15% 5 ML BTL OP SCH ×2 (10:16→21:01)
[2020-09-20] MEDS: FERROUS SULFATE 325 MG TAB PO SCH (10:17)
[2020-09-20] MEDS: AMOXICILLIN/CLAVULANATE 875 MG TAB PO SCH (10:17)
[2020-09-20] MEDS: FUROSEMIDE 40 MG TAB PO SCH (10:18)
[2020-09-20] MEDS: SERTRALINE HCL 100 MG TABLET PO SCH (10:18)
[2020-09-20] MEDS: FEBUXOSTAT 40 MG TABLET PO SCH (10:19)
[2020-09-20] MEDS: CEROVITE ADV FORMULA TAB PO SCH (10:19)
[2020-09-20] MEDS: TRAVOPROST Z 0.004% OPH SOLN 2.5 ML BTL OP SCH (10:20)
--- NOTE | 2020-09-20 12:27 | Urology Progress Note ---
Date of Service September 20, 2020 Assessment & Plan (1) Status post prostatectomy: 70 year-old male patient admitted for post-operative fever secondary to seroma/mild anastomotic leak s/p prostatectomy. Discussed different options and concerns with patient. Is still having occasional right-sided pain. Discussed options for management. Discussed possible aspiration if patient has issues or problems concerns or issues. We will plan to check ultrasound in the next 1 to 2 days to reassess to make sure fluid collection is not increasing or changing otherwise. If continues to decrease aspiration would also be a good option. Will likely need to maintain catheter. Will consider checking a cystogram at some point to assess anastomosis and confirm healing. Otherwise we will continue to monitor. Patient is severely deconditioned. Though has been improving over time with ambulation and activity. Is interested in going home instead of back to rehab. Will need to consider further as during the discharge planning phase. We will continue to monitor. Likely plan for imaging tomorrow and reassessment on Tuesday for drain placement versus aspiration if continued issue with pelvic fluid collection Admission and Anticipated Discharge Date Admission Date: September 03, 2020 Subjective Patient continues to improve. Has not been having considerable pain or other issues. Does have some moderate pain on deep palpation in the right lower quadrant. Has not had major bleeding or other issues. Has been tolerating catheter without major problems or concerns. Has occasional burning and irritation at the penis. Discussed different options including different topical agents including triple antibiotic cream or other lubricant. Is tolerating diet is ambulating regularly. Has not been having considerable other issues. Bowels have somewhat normalized. Review of Systems Review of Systems: All systems reviewed & are unremarkable except as noted in HPI & below Physical Exam Physical Exam: General: Alert in no acute distress. Deconditioned HEENT: Normocephalic Atraumatic. Inspection normal. Cranial Nerves 2-12 Grossly intact. Normal inspection of face. Normal inspection of neck. Psychologic: Normal affect. Respiratory: Nonlabored. No use of accessory muscles. No tachypnea or dyspnea. Cardiovascular: No tachycardia Skin: Sawyer and Dry. No rashes or visible lesions. Extremities/Lymphatics: Moderate edema Abdomen: Obese. Moderately distended. No rebound or guarding. : Chavez in place draining clear yellow urine Results & Data ([facility]) Vital Signs (Past 12 Hours) Vital Signs Temp Pulse Resp BP Pulse Ox 09/20/20 07:30 37.2 C 59 L 20 146/70 H 97 PG Care Time/CCT Total # of Minutes Spent Total Time Spent with Patient: Total time spent is greater than 50% in c oordination of care (as documented) at patient's floor/unit and/or counseling patient: Coding Level of Care Code 39561 Subseq Hosp Care Lvl 3 Diagnoses Status post prostatectomy Z90.79
[2020-09-20] MEDS: traZODone HCL 50 MG TAB PO SCH (21:01)
[2020-09-21] MEDS: ENOXAPARIN INJ 120 MG/0.8 ML SYR SC SCH ×2 (06:29→18:16)
[2020-09-21 08:15] LABS: Basophils # (auto) 0.02 K/uL (0-0.2); Basophils % (auto) 0.2 %; Eosinophils % (auto) 3.7 %; Hematocrit (blood only) 25.3 % (42-52); Immature Granulocytes # (auto) 0.03 K/uL (0.00-0.02); Immature Granulocytes % (auto) 0.4 %; Lymphocytes # (auto) 0.77 K/uL (1.2-3.4); Lymphocytes % (auto) 9.4 %; Mean Corpuscular Hemoglobin 27.4 pg (25-34); Mean Corpuscular Hgb Conc 31.6 g/dL (32-36); Mean Corpuscular Volume 86.6 fL (80-100); Mean Platelet Volume 9.3 fL (7.4-10.4); Monocytes # (auto) 0.73 K/uL (0.11-0.59); Monocytes % (auto) 8.9 %; Neutrophils # (auto) 6.35 K/uL (1.4-6.5); Neutrophils % (auto) 77.4 %; Platelet Count 296 K/uL (130-400); RDW Coefficient of Variation 15.7 % (11.5-14.5); RDW Standard Deviation 50.2 fL (36.4-46.3); Red Blood Count 2.92 M/uL (4.7-6.1)
[2020-09-21 08:39] LABS: Calcium 8.1 mg/dl (8.5-10.1); Creatinine Clr Calc Pharmacy 77.8 ml/min; Est GFR (African American) 75.1; Est GFR (Non-African American) 64.8; Potassium 3.9 mmol/L (3.5-5.1)
[2020-09-21 08:44] LABS: Ferritin 422.3 ng/ml (8-388)
[2020-09-21] MEDS: SERTRALINE HCL 100 MG TABLET PO SCH (10:07)
[2020-09-21] MEDS: FUROSEMIDE 40 MG TAB PO SCH (10:07)
[2020-09-21] MEDS: FEBUXOSTAT 40 MG TABLET PO SCH (10:07)
[2020-09-21] MEDS: BRIMONIDINE TARTRATE-P 0.15% 5 ML BTL OP SCH ×2 (10:07→21:05)
[2020-09-21] MEDS: CEROVITE ADV FORMULA TAB PO SCH (10:07)
[2020-09-21] MEDS: TRAVOPROST Z 0.004% OPH SOLN 2.5 ML BTL OP SCH (10:07)
--- NOTE | 2020-09-21 14:23 | Ultrasound Report ---
US abdomen ltd ascites CLINICAL HISTORY: Pelvic fluid colllection COMPARISON STUDY: Abdominal ultrasound 09/16/2020. Abdomen and pelvis CT 09/12/2020. FINDINGS: Complex midline fluid collection within the deep pelvis containing septations is again note d. This measures 6.6 x 7.0 x 3.3 cm. This previously measured 8.2 x 3.8 x 7.4 cm. The elongated right lower quadrant pelvic fluid collection measures 11.2 x 7.0 x 4.8 cm. This previously measured 11.7 x 11.1 x 4.8 cm. IMPRESSION: Slight decrease in size in the pelvic fluid collections as described above. ACT 112: Negative or not required by law. Electronically signed by: Jl Duran M.D. 09/21/2020 2:22 PM
--- NOTE | 2020-09-21 17:04 | Hospitalist Progress Note ---
Date of Service September 21, 2020 Assessment & Plan (1) Abdominal pain: Patrick Irby is a 70 y/o male with a PMH of prostate cancer s/p radical prostatectomy (08/14/20), VTE on chronic eliquis, obesity hypoventilation syndrome, myasthenia gravis (in remission), PTSD, and depression who presented with fever, abdominal pain, fatigue, and scrotal swelling two days after being discharged from his post-prostatectomy admission. Current admission has been complicated by sterile complex extraperitoneal fluid collection x 2. Uresil drain was removed 09/17/20. Hemodynamically stable and reports improvement of pain. Abdominal pain s/p prostatectomy, in context of extraperitoneal fluid collection - Clinically, patient has reported persistent abdominal pain that is likely 2/2 fluid collections from radical prostatectomy on 08/04 with subsequent anastomotic leak - RLQ pain that has previously been persistent continues to be absent - Given resolution of leukocytosis, his afebrile state, good progress, and negative DEB cultures, will d/c Augmentin - Urology following: appreciate recommendations - Uresil drain removed on 09/17 - Repeat US on 09/21 did demonstrate a slight decrease in the size of the pelvic fluid collections from anastomotic leaks (now 11.2x7.0x4.5 from 11.7x11.1x4.8). - Maintain Torres for now -- draining yellow urine - On Tuesday, plan to reassess for drain placement vs. aspiration Deconditioning / Generalized Weakness - Subacute deconditioning 2/2 long-term current (and previous) hospitalization - PT/OT following for strengthening, resumption of ambulatory activities - Continue to promote OOB and ambulation as tolerated -- has been able to do many laps around the floor - Will require home health evaluation + treatment plan prior to d/c (see dispo planning below) Normocytic, Hypochromic Anemia - Hgb ~8.0 dating back to 2019 on chart review, unchanged on labs today; asymptomatic on exam - Fe low, TIBC low, transferrin low, ferritin high (422 ; N[8-388]) - Likely anemia of chronic disease with some supplemental compensation - Continue iron supplementation (325mg PO qod) - Transfusion if symptomatic / Hgb < 7.0 Malnutrition, chronic - Hypoalbuminemia at 1.7 - Continue to promote regular diet - Appreciate recommendations from nutrition CKD Stage III - Creatinine continues to remain stable: 1.14 today - Continue to promote PO intake of food/fluids, as above Recent DVT of the Peroneal Vein - Doppler on 09/10 demonstrated DVT of the peroneal vein and a nonocclusive left popliteal vein DVT - Denies leg pain on exam; Squeeze and Homen's testing persistently negative - Therapeutic Lovenox 1mg/kg q12 - Hold home Eliquis Ankle Pain, Left -- MSK - Continues to demonstrate persistent improvement - Unlikely gout 2/2 normal uric acid levels previously - Tylenol PRN for pain Noncardiac Chest Pain (09/08) - Resolved on history/examination Obstructive Sleep Apnea - Continue with home CPAP Depression - Continue home dose sertraline 100mg PO qAM and trazodone 50mg PO qhs Gout: - Holding home febuxostat Glaucoma: - Home brimonidine 1 drop opb bid and home travoprost 1 drop opb qAM F/E/N/GI: regular diet, no current mIVF DVT prophylaxis: Lovenox (converted from prophylactic dose to therapeutic dose on 09/10/2020) Code status: DNR/DNI Dispo: med/surg Dispo planning -initially had hold at [facility] but he is firm on dispo home because he had been in the hospital for so long and that he feels strong enough after inpatient PT/OT. Case management states that we can provide prescription for home health eval+treat (for torres care) and PT, OT[facility]. (2) Postoperative fever: (3) Status post prostatectomy: (4) History of DVT (deep vein thrombosis): (5) Hypertension: (6) Chronic kidney disease, stage III (moderate): (7) Sleep apnea: (8) Postoperative anemia: (9) Prostate cancer: (10) Malnutrition: (11) Gout: (12) Glaucoma: (13) Left ankle pain: Admission and Anticipated Discharge Date Admission Date: September 03, 2020 Supervising Physician Co-Signing Physician Notes Resident Physician Supervision Note: I independently interviewed and examined the patient and verified the lindsey history and physical, reviewed labs and image studies, discussed the case with the resident Dr. Burdick and agree with the findings and care plan. Subjective NAEO. Patient reports feeling well overall this AM. Denies any abdominal pain or general discomfort. Has been able to walk around well and says "I'm getting my strength back more day by day." Good appetite, no n/v. Does continue to endorse some soreness as the tip of his penis where the catheter comes out, but nowhere else. No CP, palpitations, or shortness or breath. Experienced some night sweats again last night, which he endorses are normal for him outside of his hospital course. No chills. No feelings of illness otherwise. Review of Systems Review of Systems: as per HPI Physical Exam Constitutional: Well-appearing 70 year old gentleman who is lying back in his hospital bed, relaxed, upon my entrance. He is eating breakfast. He is freely conversive and is alert/oriented fully throughout our conversation. NAD. Respiratory: normal respiratory effort, lungs clear to auscultation Cardiovascular: RRR, no murmur, no edema Minimal peripheral edema. Calf squeeze testing did not elicit pain. Homen's negative b/l. Gastrointestinal (Abdomen): NABS. Abdomen does reveal focalized, cystic firmness just superior to the umbilicus over midline. This area is non-TTP. Otherwise, abdomen is soft, nontender, and nondistended. No changes from yesterday. Genitourinary: Torres catheter in place draining yellow urine. The head of the penis does not reveal any erythema, edema, or rashes. Results & Data Results & Data ([facility]) Vital Signs (Past 12 Hours) Vital Signs Temp Pulse Resp BP Pulse Ox 09/21/20 16:12 37.1 C 61 18 155/73 H 96 09/21/20 07:05 37.1 C 61 20 134/71 97 (1) Gout Chronicity: chronic Gout etiology: unspecified cause Gout site: unspecified site Presence of tophus: without tophus Qualified Code(s): M1A.9XX0 - Chronic gout, unspecified, without tophus (tophi) (2) Glaucoma Glaucoma type: unspecified Laterality: right Qualified Code(s): H40.9 - Unspecified glaucoma
[2020-09-21] MEDS: traZODone HCL 50 MG TAB PO SCH (21:04)
[2020-09-22] MEDS: ENOXAPARIN INJ 120 MG/0.8 ML SYR SC SCH (06:17)
--- NOTE | 2020-09-22 08:57 | Hospitalist Progress Note ---
Date of Service September 22, 2020 Assessment & Plan (1) Abdominal pain: Patrick Irby is a 70 y/o male with a PMH of prostate cancer s/p radical prostatectomy (08/14/20), VTE on chronic eliquis, obesity hypoventilation syndrome, and myasthenia gravis (in remission) who presented with fever, abdomi nal pain, fatigue, and scrotal swelling two days after being discharged from his post-prostatectomy admission. Current admission has been complicated by sterile complex extraperitoneal fluid collection x 2. Uresil drain was removed 09/17/20. Abdominal pain s/p prostatectomy, in context of extraperitoneal fluid collection - Clinically, patient has reported persistent RLQ (to deep palpation, but not at rest) abdominal pain that is likely 2/2 fluid collections from radical prostatectomy on 08/04 with subsequent anastomotic leak. - Given resolution of leukocytosis, his afebrile state, good progress, and negative Uresil drain cultures, will d/c Augmentin. - Urology following: Repeat US on 09/21 did demonstrate a slight decrease in the size of the pelvic fluid collections from anastomotic leaks (now 11.2x7.0x4.5 from 11.7x11.1x4.8). Maintain Torres for now: draining yellow urine. 09/22/20 update: plan is for aspiration of fluid collection tomorrow AM at 0900. No plans for drain insertion at this time. Held lovenox, will start IV heparin drip low dose at 1800 and discontinue at 0300. Check PT/INR and PTT at 0500. Deconditioning / Generalized Weakness - Subacute deconditioning 2/2 long-term current (and previous) hospitalization - PT/OT following for strengthening, resumption of ambulatory activities - Continue to promote OOB and ambulation as tolerated -- has been able to do many laps around the floor - Will require home health evaluation + treatment plan prior to d/c (see dispo planning below) Normocytic, Hypochromic Anemia - Hgb ~8.0 dating back to 2019 on chart review, asymptomatic on exam - Fe low, TIBC low, transferrin low, ferritin high (422 ; N[8-388]) - Likely anemia of chronic disease with some supplemental compensation - Continue iron supplementation (325mg PO qod) - Transfusion if symptomatic / Hgb < 7.0 Malnutrition, chronic - Hypoalbuminemia at 1.7. Continue to promote regular diet CKD Stage III - Creatinine continues to remain stable: 1.14 09/21/20 - Continue to promote PO intake of food/fluids, as above Recent DVT of the Peroneal Vein - Doppler on 09/10 demonstrated DVT of the peroneal vein and a nonocclusive left popliteal vein DVT - Denies leg pain on exam - Therapeutic Lovenox 1mg/kg q12 held midday 09/22/20, temporary switch to low- dose unfractionated heparin - Hold home Eliquis Ankle Pain, Left -- MSK, resolved - Tylenol PRN for pain Noncardiac Chest Pain (09/08), resolved Obstructive Sleep Apnea - Continue with home CPAP Depression - Continue home dose sertraline 100mg PO qAM and trazodone 50mg PO qhs Gout: - Holding home febuxostat Glaucoma: - Home brimonidine 1 drop opb bid and home travoprost 1 drop opb qAM F/E/N/GI: regular diet, no current mIVF DVT prophylaxis:09/22/20 low-dase wt-based unfractionated Heparin ([id number]). Lovenox held as of midday 09/22/20 (converted from prophylactic dose to therapeutic dose on 09/10/2020) Code status: DNR/DNI Dispo: med/surg -initially had hold at [facility] but he is firm on dispo home because he had been in the hospital for so long and that he feels strong enough after inpatient PT/OT. Case management states that we can provide prescription for home health eval+treat (for torres care) and PT, OT, [facility]. (2) Postoperative fever: (3) Status post prostatectomy: (4) History of DVT (deep vein thrombosis): (5) Hypertension: (6) Chronic kidney disease, stage III (moderate): (7) Sleep apnea: (8) Postoperative anemia: (9) Prostate cancer: (10) Malnutrition: (11) Gout: (12) Glaucoma: (13) Left ankle pain: Admission and Anticipated Discharge Date Admission Date: September 03, 2020 Supervising Physician Co-Signing Physician Notes I personally examined the patient and verified all lindsey points of history and exam, discussed case, and agree with decision making with Dr Teresa. feeling better overall. still has some R lower abdominal pain. for drainage t omorrow again. getting up and around well. pelvic fluid collection post prostatectomy - for repeat drainage tomorrow. probably repeat US for ?reaccumulation the following day. does appear overall ipmroving. DVT - has hx of recurrent DVT and sx mostly just foot swelling not calf - and popliteal vein not occluded totally - strongly suspect that this is an old clot. enoxaparin until discharge to allow for procedures. night sweats - unclear etiology. follow. if continues for any prolonged period of time (even more than a few weeks after this all resolves) then would want to re-eval PTSD - seems to be doing well in this regard. otherwise as above Subjective No pain. + some numbness in L foot, attributes to chronic neuropathy (nondia betic). No other complaints. Denies torres complaints. Review of Systems Review of Systems: Constitutional: Denies fever, chills Cardiovascular: Denies chest pain Respiratory: Denies shortness of breath,difficulty breathing Gastrointestinal: Denies abdominal pain, nausea, vomiting, constipation, diarrhea Genitourinary: Denies new urinary symptoms. No pain at torres site. Musculoskeletal: Denies weakness, muscle aches/pain, joint aches/pain Neurological: Denies headache, tingling, focal weakness Physical Exam Physical Exam: General: Grossly A&O. NAD. Cooperative. HEENT: Atraumatic, normocephalic. EOMI. MMM. Pulm: CTAB. -wheezes, -rales, -rhonchi. Symmetrical chest rise. No respiratory distress. Cardiac: RRR, -mrg. Radial pulses intact and symmetrical. NO pedal edema. Abdominal: Soft, nondistended. RLQ TTP to deep palpation. : Torres bag contains yellow urine, no hematuria. Back: No CVA TTP Results & Data Results & Data ([facility] [place]) Vital Signs (Past 12 Hours) Vital Signs Temp Pulse Resp BP Pulse Ox 09/22/20 08:07 36.6 C 61 18 149/67 H 96 09/21/20 23:13 36.6 C 64 16 150/74 H 96 Resident Activity Tracking Resident Involvement: Resident Care Provided Care Provided: Adult Hospital Medicine (1) Gout Chronicity: chronic Gout etiology: unspecified cause Gout site: unspecified site Presence of tophus: without tophus Qualified Code(s): M1A.9XX0 - Chronic gout, unspecified, without tophus (tophi) (2) Glaucoma Glaucoma type: unspecified Laterality: right Qualified Code(s): H40.9 - Unspecified glaucoma
--- NOTE | 2020-09-22 09:21 | Urology Progress Note ---
Date of Service September 22, 2020 Assessment & Plan (1) Status post prostatectomy: 70 year-old male patient admitted for post-operative fever secondary to lymphocele/mild anastomotic leak s/p prostatectomy. -Reviewed plan of care with Dr. Meeks -Remains afebrile -Plan for aspiration of right fluid collection by Radiology today or tomorrow -Continue Chavez catheter -Encourage ambulation -Discussed with hospitalist regarding anticoagulation recommendations from Radiology prior to aspiration -Will continue to follow while inpatient Admission and Anticipated Discharge Date Admission Date: September 03, 2020 Subjective Patient examined at bedside this am Awake, resting in bed on arrival Denies fevers or chills Tolerating PO diet without nausea or vomiting Chavez catheter intact/patent, draining clear-yellow urine Currently denies any pain/discomfort Ambulating with PT Chart review: Afebrile WBC 9.16 Hgb 8.0 Cr 1.14 (09/21) No additional concerns today Review of Systems Constitutional: as per Subjective / HPI Gastrointestinal: as per Subjective / HPI Genitourinary: + as per Subjective / HPI Physical Exam Constitutional: + obese; no acute distress Respiratory: normal respiratory effort and able to speak in complete sentences Gastrointestinal (Abdomen): Percussion/Palpation: abdomen soft; abdomen nontender and no guarding Musculoskeletal: Head/Neck/Chest: normocephalic Skin: Warm and dry Neurologic: awake; not confused Psychiatric: Orientation: alert, oriented x 3 and cooperative Genitourinary: Chavez catheter intact/patent, draining clear-yellow urine Results & Data ([facility]) Vital Signs (Past 12 Hours) Vital Signs Temp Pulse Resp BP Pulse Ox 09/22/20 08:07 36.6 C 61 18 149/67 H 96 09/21/20 23:13 36.6 C 64 16 150/74 H 96 PG Care Time/CCT Total # of Minutes Spent Total Time Spent with Patient: Total time spent is greater than 50% in coordination of care (as documented) at patient's floor/unit and/or counseling patient: Coding Level of Care Code 04393 Subseq Hosp Care Lvl 2 Diagnoses Status post prostatectomy Z90.79
[2020-09-22] MEDS: TRAVOPROST Z 0.004% OPH SOLN 2.5 ML BTL OP SCH (09:54)
[2020-09-22] MEDS: FUROSEMIDE 40 MG TAB PO SCH (09:54)
[2020-09-22] MEDS: FEBUXOSTAT 40 MG TABLET PO SCH (09:54)
[2020-09-22] MEDS: BRIMONIDINE TARTRATE-P 0.15% 5 ML BTL OP SCH ×2 (09:54→22:02)
[2020-09-22] MEDS: CEROVITE ADV FORMULA TAB PO SCH (09:54)
[2020-09-22] MEDS: FERROUS SULFATE 325 MG TAB PO SCH (09:54)
[2020-09-22] MEDS: SERTRALINE HCL 100 MG TABLET PO SCH (09:55)
[2020-09-22] MEDS ORDERED: HEPARIN SODIUM/DEXTROSE 25,000 UNITS/500 ML BAG IV SCH ×3 (13:15→18:00)
[2020-09-22] MEDS ORDERED: Heparin IV Low Dose *NO* Bolus IV SCH (13:45)
[2020-09-22 14:59] LABS: Basophils # (auto) 0.02 K/uL (0-0.2); Basophils % (auto) 0.2 %; Eosinophils # (auto) 0.35 K/uL (0-0.5); Eosinophils % (auto) 3.8 %; Hematocrit (blood only) 25.9 % (42-52); Immature Granulocytes # (auto) 0.04 K/uL (0.00-0.02); Immature Granulocytes % (auto) 0.4 %; Lymphocytes # (auto) 0.93 K/uL (1.2-3.4); Lymphocytes % (auto) 10.2 %; Mean Corpuscular Hemoglobin 26.9 pg (25-34); Mean Corpuscular Volume 87.2 fL (80-100); Mean Platelet Volume 9.7 fL (7.4-10.4); Monocytes # (auto) 0.94 K/uL (0.11-0.59); Monocytes % (auto) 10.3 %; Neutrophils # (auto) 6.88 K/uL (1.4-6.5); Neutrophils % (auto) 75.1 %; Platelet Count 319 K/uL (130-400); RDW Coefficient of Variation 15.9 % (11.5-14.5); RDW Standard Deviation 50.6 fL (36.4-46.3); Red Blood Count 2.97 M/uL (4.7-6.1); White Blood Count 9.16 K/uL (4.8-10.8)
[2020-09-22 15:09] LABS: INR 1.1 (0.9-1.1); Partial Thromboplastin Ratio 1.4; Partial Thromboplastin Time 38.4 Seconds (21.0-31.0); Prothrombin Time 11.2 Seconds (9.0-12.0)
[2020-09-22 15:37] LABS: Mean Corpuscular Hgb Conc 30.9 g/dL (32-36)
--- NOTE | 2020-09-22 19:07 | Billing Data ---
Date of Service September 22, 2020 Coding Level of Care Code 16072 Subseq Hosp Care Lvl 2
[2020-09-22] MEDS: traZODone HCL 50 MG TAB PO SCH (22:02)
[2020-09-23 05:36] LABS: Hematocrit (blood only) 26.2 % (42-52); Hemoglobin 8.3 g/dL (14.0-18.0); Mean Corpuscular Hemoglobin 27.3 pg (25-34); Mean Corpuscular Hgb Conc 31.7 g/dL (32-36); Mean Corpuscular Volume 86.2 fL (80-100); Mean Platelet Volume 9.5 fL (7.4-10.4); Platelet Count 300 K/uL (130-400); Red Blood Count 3.04 M/uL (4.7-6.1); White Blood Count 7.85 K/uL (4.8-10.8)
[2020-09-23 05:47] LABS: Partial Thromboplastin Ratio 1.2
--- NOTE | 2020-09-23 07:00 | Hospitalist Progress Note ---
Date of Service September 23, 2020 Assessment & Plan (1) Abdominal pain: Patrick Irby is a 70 y/o male with a PMH of prostate cancer s/p radical prostatectomy (08/14/20), VTE on chronic eliquis, obesity hypoventilation syndrome, and myasthenia gravis (in remission) who presented with fever, abdomi nal pain, fatigue, and scrotal swelling two days after being discharged from his post-prostatectomy admission. Current admission has been complicated by sterile complex extraperitoneal fluid collection x 2. Uresil drain was removed 09/17/20. Abdominal pain s/p prostatectomy, in context of extraperitoneal fluid collection - Clinically, patient has reported persistent RLQ (to deep palpation, but not at rest) abdominal pain that is likely 2/2 fluid collections from radical prostatectomy on 08/04 with subsequent anastomotic leak. - Given resolution of leukocytosis, his afebrile state, good progress, and negative Uresil drain cultures, will d/c Augmentin. - Urology following: Repeat US on 09/21 did demonstrate a slight decrease in the size of the pelvic fluid collections from anastomotic leaks (now 11.2x7.0x4.5 from 11.7x11.1x4.8). Maintain Torres for now: draining yellow urine. 09/23/20 update: heparin drip d/c'd at 0300. Awaiting abd fluid collection aspiration per urology scheduled for 0900.. update 2: 8cc removed. repeat abd US tomorrow AM Deconditioning / Generalized Weakness - Subacute deconditioning 2/2 long-term current (and previous) hospitalization - PT/OT following for strengthening, resumption of ambulatory activities - Continue to promote OOB and ambulation as tolerated -- has been able to do many laps around the floor - Will require home health evaluation + treatment plan prior to d/c (see dispo planning below) Normocytic, Hypochromic Anemia - Hgb ~8.0 dating back to 2019 on chart review, asymptomatic on exam - Fe low, TIBC low, transferrin low, ferritin high (422 ; N[8-388]) - Likely anemia of chronic disease with some supplemental compensation - Continue iron supplementation (325mg PO qod) - Transfusion if symptomatic / Hgb < 7.0 Malnutrition, chronic - Hypoalbuminemia at 1.7. Continue to promote regular diet CKD Stage III - Creatinine continues to remain stable: 1.14 09/21/20 - Continue to promote PO intake of food/fluids, as above Recent DVT of the Peroneal Vein - Doppler on 09/10 demonstrated DVT of the peroneal vein and a nonocclusive left popliteal vein DVT - Denies leg pain on exam - Therapeutic Lovenox 1mg/kg q12 held midday 09/22/20, temporary switch to low- dose unfractionated heparin - Hold home Eliquis Ankle Pain, Left -- MSK, resolved - Tylenol PRN for pain Noncardiac Chest Pain (09/08), resolved Obstructive Sleep Apnea - Continue with home CPAP Depression - Continue home dose sertraline 100mg PO qAM and trazodone 50mg PO qhs Gout: - Holding home febuxostat Glaucoma: - Home brimonidine 1 drop opb bid and home travoprost 1 drop opb qAM F/E/N/GI: regular diet, no current mIVF DVT prophylaxis:09/22/20 low-dase wt-based unfractionated Heparin ([id number]). Lovenox held as of midday 09/22/20 (converted from prophylactic dose to therapeutic dose on 09/10/2020) Code status: DNR/DNI Dispo: med/surg -initially had hold at [facility] but he is firm on dispo home because he had been in the hospital for so long and that he feels strong enough after inpatient PT/OT. Case management states that we can provide prescription for home health eval+treat (for torres care) and PT, OT, [facility]. (2) Postoperative fever: (3) Status post prostatectomy: (4) History of DVT (deep vein thrombosis): (5) Hypertension: (6) Chronic kidney disease, stage III (moderate): (7) Sleep apnea: (8) Postoperative anemia: (9) Prostate cancer: (10) Malnutrition: (11) Gout: (12) Glaucoma: (13) Left ankle pain: Admission and Anticipated Discharge Date Admission Date: September 03, 2020 Supervising Physician Co-Signing Physician Notes I personally examined the patient and verified all lindsey points of history and exam, discussed case, and agree with decision making with Dr Teresa. feeling OK - only 8ml able to be aspirated before ugalde of cystic area folded in precluding further drainage. vitals noted nad heent nc at mmm breathing unlabored no accessory muscles good effort skin no rashes no pallor or icterus neuro no focal deficits pelvic fluid collection post prostatectomy - repeat drainage without much results - but largely in a way that likely reflects slow resolution of collection. cystogram tomorrow - if no ongoing leak visulized then dc torres tomororw; if all of this succesful then repeat US - if no increase in fluid collection by then (ie after 24hrs torres out) then hopefully home! (plan dw dr villafuerte who performed pt's prostatectomy) DVT - has hx of recurrent DVT and sx mostly just foot swelling not calf - and popliteal vein not occluded totally - strongly suspect that this is an old clot. enoxaparin until discharge to allow for procedures when/if needed. night sweats - unclear etiology. follow. if continues for any prolonged period of time (even more than a few weeks after this all resolves) then would want to re-eval PTSD - seems to be doing well in this regard. otherwise as above Subjective No new complaints today. Doing well. No abd pain or L foot pain. Awaiting abd fluid collection aspiration procedure. Review of Systems Review of Systems: Constitutional: Denies fever, chills, Cardiovascular: Denies chest pain, palpitations Respiratory: Denies shortness of breath, difficulty breathing Gastrointestinal: Denies abdominal pain, nausea, vomiting, constipation, diarrhea Genitourinary: Denies urinary symptoms. Denies problems w/ torres Musculoskeletal: Denies weakness, muscle aches/pain, joint aches/pain Neurological: Denies headache, focal weakness or any new numbness, tingling Physical Exam Physical Exam: General: Grossly A&O. NAD. Cooperative. HEENT: Atraumatic, normocephalic. EOMI Pulm: CTAB. -wheezes, -rales, -rhonchi. No respiratory distress. Cardiac: RRR, -mrg. Radial pulses intact and symmetrical. No pedal edema. No tenderness to palpation of LLE malleoli. Abdominal: Nontender, nondistended, soft. RLQ TTP to deep palpation Results & Data Results & Data ([facility]) Vital Signs (Past 12 Hours) Vital Signs Temp Pulse Resp BP Pulse Ox 09/22/20 23:04 37.2 C 66 18 106/60 97 Resident Activity Tracking Resident Involvement: Resident Care Provided Care Provided: Adult Hospital Medicine (1) Gout Chronicity: chronic Gout etiology: unspecified cause Gout site: unspecified site Presence of tophus: without tophus Qualified Code(s): M1A.9XX0 - Chronic gout, unspecified, without tophus (tophi) (2) Glaucoma Glaucoma type: unspecified Laterality: right Qualified Code(s): H40.9 - Unspecified glaucoma
[2020-09-23] MEDS: FUROSEMIDE 40 MG TAB PO SCH (07:59)
[2020-09-23] MEDS: TRAVOPROST Z 0.004% OPH SOLN 2.5 ML BTL OP SCH (07:59)
[2020-09-23] MEDS: BRIMONIDINE TARTRATE-P 0.15% 5 ML BTL OP SCH ×2 (07:59→21:12)
[2020-09-23] MEDS: FEBUXOSTAT 40 MG TABLET PO SCH (08:00)
[2020-09-23] MEDS: SERTRALINE HCL 100 MG TABLET PO SCH (08:00)
[2020-09-23] MEDS: CEROVITE ADV FORMULA TAB PO SCH (08:00)
--- NOTE | 2020-09-23 10:07 | Ultrasound Report ---
ULTRASOUND-GUIDED RIGHT LOWER QUADRANT FLUID COLLECTION ASPIRATION CLINICAL HISTORY: Anastomotic leak status post prostatectomy. Right lower quadrant fluid collection. COMPARISON STUDY: Ultrasound study dated 09/21/2020 FINDINGS: A timeout was performed. The risks the procedure were explained the patient informed consent was obtained. The patient denied significant discomfort from the right lower quadrant fluid collection. The patient's right lower quadrant was prepped in a sterile fashion. The skin was anesthetized with 1 % lidocaine. Under ultrasound guidance, a 20-gauge spinal needle was introduced into the right lower quadrant neil ection. The collection was "pancake" shaped. The collection was 6.5 cm deep to the skin, and only 2 c m in thickness. 8 cc of serosanguineous fluid was aspirated. At this point, the anterior posterior wa lls coapted, as the collection was not under significant tension. Additional fluid could therefore no t be aspirated. The fluid did not appear visibly infected. The needle was therefore withdrawn. Fluid was sent to the laboratory for analysis. IMPRESSION: 1. Successful ultrasound-guided aspiration of a right lower quadrant fluid collection. 8 cc of serosa nguineous fluid was aspirated. The ugalde coapted. As the fluid did not appear visibly infected, the n eedle was withdrawn. The fluid was sent to the laboratory for analysis ACT 112: Negative or not required by law. Electronically signed by: Ken Butler M.D. 09/23/2020 10:05 AM
--- NOTE | 2020-09-23 10:53 | Urology Progress Note ---
Date of Service September 23, 2020 Assessment & Plan (1) Prostate cancer: Assessment Infected lymphocele post radical prostatectomy Patient is improving with antibiotics Fluid collection drained today Continue current therapy Admission and Anticipated Discharge Date Admission Date: September 03, 2020 Subjective Hospital day #41 from radical retropubic prostatectomy Patient is afebrile vital signs are stable He has no complaints Appetite is good Ambulating without difficulty Chavez catheter draining clear yellow urine Patient had fluid collection from his abdomen drained today He tolerated that without problem Physical Exam Physical Exam: Temperature 36.7 pulse 60 respiratory rate 17 blood pressure 109/63 Patient alert and oriented Respiratory No shortness of breath GI Abdomen benign Chavez draining clear yellow urine Results & Data ([facility]) Vital Signs (Past 12 Hours) Vital Signs Temp Pulse Resp BP BP Pulse Ox 09/23/20 10:33 36.7 C 60 17 109/63 96 09/23/20 08:29 36.8 C 63 18 117/62 95 09/22/20 23:04 37.2 C 66 18 106/60 97 Laboratory Results Laboratory Results - last 24 hr 09/22/20 09/22/20 09/23/20 14:45 14:45 05:23 WBC 9.16 7.85 RBC 2.97 L 3.04 L Hgb 8.0 L 8.3 L Hct 25.9 L 26.2 L MCV 87.2 86.2 MCH 26.9 27.3 MCHC 30.9 L 31.7 L RDW Std Deviation 50.6 H 51.0 H RDW Coeff of Rhoda 15.9 H 16.0 H Plt Count 319 300 MPV 9.7 9.5 Immature Gran % (Auto) 0.4 Neut % (Auto) 75.1 Lymph % (Auto) 10.2 [place] % (Auto) 10.3 Eos % (Auto) 3.8 Baso % (Auto) 0.2 Neut # (Auto) 6.88 H Lymph # (Auto) 0.93 L [place] # (Auto) 0.94 H Eos # (Auto) 0.35 Baso # (Auto) 0.02 Immature Gran # (Auto) 0.04 H PT 11.2 INR 1.1 APTT 38.4 H PTT Ratio 1.4 09/23/20 05:23 WBC RBC Hgb Hct MCV MCH MCHC RDW Std Deviation RDW Coeff of Rhoda Plt Count MPV Immature Gran % (Auto) Neut % (Auto) Lymph % (Auto) [place] % (Auto) Eos % (Auto) Baso % (Auto) Neut # (Auto) Lymph # (Auto) [place] # (Auto) Eos # (Auto) Baso # (Auto) Immature Gran # (Auto) PT 11.0 INR 1.0 APTT 34.0 H PTT Ratio 1.2 PG Care Time/CCT Total # of Minutes Spent Total Time Spent with Patient: Total time spent is greater than 50% in coordination of care (as documented) at patient's floor/unit and/or counseling patient: Coding Level of Care Code None Diagnoses Prostate cancer C61
[2020-09-23] MEDS: ACETAMINOPHEN 325 MG TAB PO PRN (15:22)
--- NOTE | 2020-09-23 19:37 | Billing Data ---
Date of Service September 23, 2020 Coding Level of Care Code 40755 Subseq Hosp Care Lvl 3
[2020-09-23] MEDS: ENOXAPARIN INJ 120 MG/0.8 ML SYR SC SCH (19:55)
[2020-09-23] MEDS: traZODone HCL 50 MG TAB PO SCH (21:12)
[2020-09-24] MEDS: ENOXAPARIN INJ 120 MG/0.8 ML SYR SC SCH ×2 (05:55→20:10)
--- NOTE | 2020-09-24 06:50 | Hospitalist Progress Note ---
Date of Service September 24, 2020 Assessment & Plan (1) Abdominal pain: Patrick Irby is a 70 y/o male with a PMH of prostate cancer s/p radical prostatectomy (08/14/20), VTE on chronic eliquis, obesity hypoventilation syndrome, and myasthenia gravis (in remission) who presented with fever, abdomi nal pain, fatigue, and scrotal swelling two days after being discharged from his post-prostatectomy admission. Current admission has been complicated by sterile complex extraperitoneal fluid collection x 2. Uresil drain was removed 09/17/20. Abdominal pain s/p prostatectomy, in context of extraperitoneal fluid collection - Clinically, patient has reported persistent RLQ (to deep palpation, but not at rest) abdominal pain that is likely 2/2 fluid collections from radical prostatectomy on 08/04 with subsequent anastomotic leak. - Given resolution of leukocytosis, his afebrile state, good progress, and negative Uresil drain cultures, will d/c Augmentin. - Urology following: Repeat US on 09/21 did demonstrate a slight decrease in the size of the pelvic fluid collections from anastomotic leaks (now 11.2x7.0x4.5 from 11.7x11.1x4.8). Maintain Otrres for now: draining yellow urine. 09/23/20 update: heparin drip d/c'd at 0300. Awaiting abd fluid collection aspiration per urology scheduled for 0900.. update 2: 8cc removed. repeat abd US tomorrow AM 09/24/20: canceled abd US because likely no significant change after 8cc fluid removal. ordered cystogram. removed torres after showed no leak. plan is repeat abd US tomorrow. Deconditioning / Generalized Weakness - Subacute deconditioning 2/2 long-term current (and previous) hospitalization - PT/OT following for strengthening, resumption of ambulatory activities - Continue to promote OOB and ambulation as tolerated -- has been able to do many laps around the floor - Will require home health evaluation + treatment plan prior to d/c (see dispo planning below) Normocytic, Hypochromic Anemia - Hgb ~8.0 dating back to 2019 on chart review, asymptomatic on exam - Fe low, TIBC low, transferrin low, ferritin high (422 ; N[[id number]]) - Likely anemia of chronic disease with some supplemental compensation - Continue iron supplementation (325mg PO qod) - Transfusion if symptomatic / Hgb < 7.0 Malnutrition, chronic - Hypoalbuminemia at 1.7. Continue to promote regular diet CKD Stage III - Creatinine continues to remain stable - Continue to promote PO intake of food/fluids, as above Recent DVT of the Peroneal Vein - Doppler on 09/10 demonstrated DVT of the peroneal vein and a nonocclusive left popliteal vein DVT - Denies leg pain on exam - Therapeutic Lovenox 1mg/kg q12 held midday 09/22/20, temporary switch to low- dose unfractionated heparin - Hold home Eliquis - restarted therapeuticlovenox evening of 09/23/20 Ankle Pain, Left -- MSK, resolved - Tylenol PRN for pain Noncardiac Chest Pain (09/08), resolved Obstructive Sleep Apnea - Continue with home CPAP Depression - Continue home dose sertraline 100mg PO qAM and trazodone 50mg PO qhs Gout: - Continue home febuxostat Glaucoma: - Home brimonidine 1 drop opb bid and home travoprost 1 drop opb qAM F/E/N/GI: regular diet, no current mIVF DVT prophylaxis:09/22/20 low-dase wt-based unfractionated Heparin ([id number]). Lovenox held as of midday 09/22/20 (converted from prophylactic dose to therapeutic dose on 09/10/2020) Code status: DNR/DNI Dispo: med/surg -initially had hold at [facility] but he is firm on dispo home because he had been in the hospital for so long and that he feels strong enough after inpatient PT/OT. Case management states that we can provide prescription for home health eval+treat (for torres care) and PT, OT, [facility] is ready. likely 09/25/20 (2) Postoperative fever: (3) Status post prostatectomy: (4) History of DVT (deep vein thrombosis): (5) Hypertension: (6) Chronic kidney disease, stage III (moderate): (7) Sleep apnea: (8) Postoperative anemia: (9) Prostate cancer: (10) Malnutrition: (11) Gout: (12) Glaucoma: (13) Left ankle pain: Admission and Anticipated Discharge Date Admission Date: September 03, 2020 Supervising Physician Co-Signing Physician Notes I personally examined the patient and verified all lindsey points of history and exam, discussed case, and agree with decision making with Dr Teresa. feeling better overall. really doesn't prefer going home w torres unless totally necessary. likes plan d/w myself and dr villafuerte yesterday vitals noted nad heent nc at mmm breathing unlabored no accessory muscles good effort skin no rashes no pallor or icterus neuro no focal deficits pelvic fluid collection post prostatectomy - seems to be improving. cystogram today shows no evidence of ongoing leak - will dc torres and follow into tomorrow - repeat US. if collection the same or smaller, then home w close follow up! (obviously following for ability to void as well) DVT - has hx of recurrent DVT and sx mostly just foot swelling not calf - and popliteal vein not occluded totally - strongly suspect that this is an old clot. enoxaparin until discharge to allow for procedures when/if needed. constipation - will need ongoing bowel regimen at home - still significant amount of stool noted on CT night sweats - unclear etiology. follow. if continues for any prolonged period of time (even more than a few weeks after this all resolves) then would want to re-eval PTSD - seems to be doing well in this regard. otherwise as above Subjective No abd pain. Leg pain has resolved. Complaining of burning pain at tip of penis from torres since yesterday afternoon. States that torres is leaking more than usual. last BM was yesterday. all ros neg. Review of Systems Review of Systems: Constitutional: Denies fever, chills Cardiovascular: Denies chest pain Respiratory: Denies shortness of breath, difficulty breathing Gastrointestinal: Denies abdominal pain, nausea, vomiting, constipation, diarrhea Genitourinary: See HPI Musculoskeletal: Denies weakness, muscle aches/pain, joint aches/pain Neurological: Denies headache Physical Exam Physical Exam: General: Grossly A&O. NAD. Cooperative. HEENT: Atraumatic, normocephalic. EOMI Pulm: CTAB. -wheezes, -rales, -rhonchi. No respiratory distress. Cardiac: RRR, -mrg. Radial pulses intact and symmetrical. Abdominal: Nontender, nondistended, soft. Normal BS : No blood at meatus. L testicle/scrotum swollen, but not worse than exam a week ago Msk: No pedal edema. No CVA TTP Results & Data Results & Data ([facility]) Vital Signs (Past 12 Hours) Vital Signs Temp Pulse Resp BP Pulse Ox 09/23/20 23:45 37.1 C 60 18 133/73 96 Resident Activity Tracking Resident Involvement: Resident Care Provided Care Provided: Adult Hospital Medicine (1) Gout Chronicity: chronic Gout etiology: unspecified cause Gout site: unspecified site Presence of tophus: without tophus Qualified Code(s): M1A.9XX0 - Chronic gout, unspecified, without tophus (tophi) (2) Glaucoma Glaucoma type: unspecified Laterality: right Qualified Code(s): H40.9 - Unspecified glaucoma
[2020-09-24] MEDS: TRAVOPROST Z 0.004% OPH SOLN 2.5 ML BTL OP SCH (08:26)
[2020-09-24] MEDS: CEROVITE ADV FORMULA TAB PO SCH (08:26)
[2020-09-24] MEDS: FUROSEMIDE 40 MG TAB PO SCH (08:26)
[2020-09-24] MEDS: BRIMONIDINE TARTRATE-P 0.15% 5 ML BTL OP SCH ×2 (08:26→20:10)
[2020-09-24] MEDS: FEBUXOSTAT 40 MG TABLET PO SCH (08:26)
[2020-09-24] MEDS: SERTRALINE HCL 100 MG TABLET PO SCH (08:26)
[2020-09-24] MEDS: FERROUS SULFATE 325 MG TAB PO SCH (08:26)
--- NOTE | 2020-09-24 08:57 | Urology Progress Note ---
Date of Service September 24, 2020 Assessment & Plan (1) Status post prostatectomy: 70 year-old male patient admitted for post-operative fever secondary to lymphocele/mild anastomotic leak s/p prostatectomy. -Remains afebrile -White count and creatinine are stable -Had right abd fluid collection aspirated by radiology yesterday, fluid culture pending -Discussed with hospitalist today regarding replacing Chavez catheter prior to discharge -Discussed discharge planning and possible home with HH for catheter care -Continue Chavez catheter -Encourage ambulation -Will continue to follow while inpatient Admission and Anticipated Discharge Date Admission Date: September 03, 2020 Subjective Patient examined at bedside this AM Awake, resting in bed on arrival Chavez catheter intact/patent, draining clear, yellow urine Reports some leakage from Chavez Some burning/pain at tip of penis from Chavez, no other complaints of pain or discomfort at this time Denies fevers or chills Tolerating diet, no nausea or vomiting Ambulating with PT Chart review: Afebrile WBC 8.99 Cr 1.22 Hgb 8.6 Offers no additional complaints today Review of Systems Constitutional: as per Subjective / HPI Gastrointestinal: as per Subjective / HPI Genitourinary: + as per Subjective / HPI Physical Exam Constitutional: cooperative; no acute distress Respiratory: normal respiratory effort and able to speak in complete sentences Cardiovascular: Extremities: no calf tenderness Gastrointestinal (Abdomen): Percussion/Palpation: abdomen soft; abdomen nontender and no guarding Musculoskeletal: Head/Neck/Chest: normocephalic Skin: Warm and dry Neurologic: awake; not confused Psychiatric: Orientation: alert, oriented x 3 and cooperative Genitourinary: Chavez catheter intact/patent, draining clear, yellow urine No blood or erythema noted at meatus. Results & Data ([facility]) Vital Signs (Past 12 Hours) Vital Signs Temp Pulse Resp BP Pulse Ox 09/24/20 07:11 36.7 C 60 16 132/68 96 09/23/20 23:45 37.1 C 60 18 133/73 96 PG Care Time/CCT Total # of Minutes Spent Total Time Spent with Patient: Total time spent is greater than 50% in adult daycare coordinator rdination of care (as documented) at patient's floor/unit and/or counseling patient: Coding Level of Care Code 41731 Subseq Hosp Care Lvl 2 Diagnoses Status post prostatectomy Z90.79
[2020-09-24 09:13] LABS: Hematocrit (blood only) 26.9 % (42-52); Hemoglobin 8.6 g/dL (14.0-18.0); Mean Corpuscular Hemoglobin 27.7 pg (25-34); Mean Corpuscular Volume 86.5 fL (80-100); Mean Platelet Volume 9.3 fL (7.4-10.4); Platelet Count 306 K/uL (130-400); RDW Coefficient of Variation 16.2 % (11.5-14.5); RDW Standard Deviation 51.3 fL (36.4-46.3); Red Blood Count 3.11 M/uL (4.7-6.1); White Blood Count 8.99 K/uL (4.8-10.8)
[2020-09-24 09:24] LABS: Partial Thromboplastin Ratio 1.6; Partial Thromboplastin Time 44.6 Seconds (21.0-31.0)
[2020-09-24 09:44] LABS: BUN Creatinine Ratio 22.9 (10-20); Calcium 8.4 mg/dl (8.5-10.1); Creatinine Clr Calc Pharmacy 72.6 ml/min; Est GFR (African American) 69.2; Est GFR (Non-African American) 59.7
--- NOTE | 2020-09-24 14:25 | CT Scan Report ---
CT SCAN OF THE ABDOMEN AND PELVIS WITHOUT CONTRAST CLINICAL HISTORY: eval anastomotic leak, CT cystogram - 150-300ml co COMPARISON STUDY: CT scan dated 09/04/2020, CT scan dated 09/12/2020 TECHNIQUE: CT scan of the abdomen and pelvis was performed from the lung bases to the proximal femurs . Images are reviewed in the axial, sagittal, and coronal planes. IV contrast was not administered fo r this examination. 200 cc of Cysto-Conray was instilled through the patient's Chavez catheter. A dose lowering technique was utilized adhering to the principles of ALARA. CT DOSE: 1675.66 mGycm FINDINGS: Lower chest: There is a small left pleural effusion. Liver: The unenhanced liver is normal in size, contour, and attenuation. There is no intrahepatic susana iary ductal dilatation. Gallbladder: Unremarkable. Spleen: Normal in size and attenuation. Pancreas: Unremarkable. Adrenal glands: Unremarkable. Kidneys: There is a 32 mm right renal cyst. There is a 7 mm lower pole right renal calculus. There is mild bilateral hydronephrosis and hydroureter. No ureteral calculi are visualized. Bowel: There are no transition zones to indicate bowel obstruction. There is newman colonic diverticulos is. There is no evidence of acute appendicitis. Peritoneum: There is a lower pelvic prevesical fluid collection measuring 76 x 31 x 67 mm. This conta ins a few air bubbles. Since the prior study, the pigtail catheter drain has been removed. There is a right pelvic fluid collection measuring 54 x 40 x 107 mm. This appears slightly smaller than on the preceding study. There is a Chavez catheter within the bladder. There is a small left-sided bladder diverticulum. Vasculature: The abdominal aorta is normal in course and caliber. Adenopathy: None. Pelvic viscera: There are postprostatectomy changes present. There is an indwelling Chavez catheter. Skeletal structures: No destructive osseous lesions are seen. IMPRESSION: 1. Indwelling Chavez catheter. No current evidence of anastomotic leak. Small left-sided bladder diver ticulum 2. Interval removal of the midline pelvic drainage catheter. The lower pelvic prevesical fluid collec tion measures 76 x 31 x 67 mm. This is similar in size to the prior study 3. Slight interval decrease in the size of the right pelvic fluid collection which currently measures 54 x 40 x 107 mm 4. Right-sided nephrolithiasis 5. Mild bilateral hydronephrosis. No ureteral calculi identified 6. No evidence of bowel obstruction. No evidence of free air 7. Small left pleural effusion ACT 112: Negative or not required by law. Electronically signed by: Ken Butler M.D. 09/24/2020 2:23 PM
[2020-09-24] MEDS: ACETAMINOPHEN 325 MG TAB PO PRN (20:09)
[2020-09-24] MEDS: traZODone HCL 50 MG TAB PO SCH (20:10)
--- NOTE | 2020-09-24 20:12 | Billing Data ---
Date of Service September 24, 2020 Coding Level of Care Code 34161 Subseq Hosp Care Lvl 3
[2020-09-25] MEDS: ENOXAPARIN INJ 120 MG/0.8 ML SYR SC SCH (06:05)
--- NOTE | 2020-09-25 06:41 | Hospitalist Progress Note ---
Date of Service September 25, 2020 Assessment & Plan (1) Abdominal pain: Patrick Irby is a 70 y/o male with a PMH of prostate cancer s/p radical prostatectomy (08/14/20), VTE on chronic eliquis, obesity hypoventilation syndrome, and myasthenia gravis (in remission) who presented with fever, abdomi nal pain, fatigue, and scrotal swelling two days after being discharged from his post-prostatectomy admission. Current admission has been complicated by sterile complex extraperitoneal fluid collection x 2. Uresil drain was removed 09/17/20. likely dispo today. will order us abd later this AM taked w/ josh. will continue home nursing pt/ot services. [facility] finalized Hb 8.0 stable Cr1.32, slightly worsened, stable. attribute to contrast. BUN 28 torres removed yesterday. check in abd US this afternoon? possible dispo home w/ home health today? 09/23 fluid culture gram stain neg. culture prelim neg Abdominal pain s/p prostatectomy, in context of extraperitoneal fluid collection - Clinically, patient has reported persistent RLQ (to deep palpation, but not at rest) abdominal pain that is likely 2/2 fluid collections from radical prostatectomy on 08/04 with subsequent anastomotic leak. - Given resolution of leukocytosis, his afebrile state, good progress, and negative Uresil drain cultures, will d/c Augmentin. - Urology following: Repeat US on 09/21 did demonstrate a slight decrease in the size of the pelvic fluid collections from anastomotic leaks (now 11.2x7.0x4.5 from 11.7x11.1x4.8). Maintain Torres for now: draining yellow urine. 09/23/20 update: heparin drip d/c'd at 0300. Awaiting abd fluid collection aspiration per urology scheduled for 0900.. update 2: 8cc removed. repeat abd US tomorrow AM 09/24/20: canceled abd US because likely no significant change after 8cc fluid removal. ordered cystogram. removed torres after showed no leak. plan is repeat abd US tomorrow. Deconditioning / Generalized Weakness - Subacute deconditioning 2/2 long-term current (and previous) hospitalization - PT/OT following for strengthening, resumption of ambulatory activities - Continue to promote OOB and ambulation as tolerated -- has been able to do many laps around the floor - Will require home health evaluation + treatment plan prior to d/c (see dispo planning below) Normocytic, Hypochromic Anemia - Hgb ~8.0 dating back to 2019 on chart review, asymptomatic on exam - Fe low, TIBC low, transferrin low, ferritin high (422 ; N[[id number]]) - Likely anemia of chronic disease with some supplemental compensation - Continue iron supplementation (325mg PO qod) - Transfusion if symptomatic / Hgb < 7.0 Malnutrition, chronic - Hypoalbuminemia at 1.7. Continue to promote regular diet CKD Stage III - Creatinine continues to remain stable - Continue to promote PO intake of food/fluids, as above Recent DVT of the Peroneal Vein - Doppler on 09/10 demonstrated DVT of the peroneal vein and a nonocclusive left popliteal vein DVT - Denies leg pain on exam - Therapeutic Lovenox 1mg/kg q12 held midday 09/22/20, temporary switch to low- dose unfractionated heparin - Hold home Eliquis - restarted therapeuticlovenox evening of 09/23/20 Ankle Pain, Left -- MSK, resolved - Tylenol PRN for pain Noncardiac Chest Pain (09/08), resolved Obstructive Sleep Apnea - Continue with home CPAP Depression - Continue home dose sertraline 100mg PO qAM and trazodone 50mg PO qhs Gout: - Continue home febuxostat Glaucoma: - Home brimonidine 1 drop opb bid and home travoprost 1 drop opb qAM F/E/N/GI: regular diet, no current mIVF DVT prophylaxis:09/22/20 low-dase wt-based unfractionated Heparin ([id number]). Lovenox held as of midday 09/22/20 (converted from prophylactic dose to therapeutic dose on 09/10/2020) Code status: DNR/DNI Dispo: med/surg -initially had hold at [facility] but he is firm on dispo home because he had been in the hospital for so long and that he feels strong enough after inpatient PT/OT. Case management states that we can provide prescription for home health eval+treat (for torres care) and PT, OT, nursing [facility] date is ready. likely 09/25/20 (2) Postoperative fever: Patrick Irby is a 70 y/o male with a PMH of prostate cancer s/p radical prostatectomy (08/14/20), VTE on chronic eliquis, obesity hypoventilation syndrome, myasthenia gravis (in remission), PTSD, and depression who presented with fever, abdominal pain, fatigue, and scrotal swelling two days after being discharged from his post-prostatectomy admission. Current admission is compli cated by non-draining DAMIAN drain and sterile complex extraperitoneal fluid collection. - Urology flushed damian drain today. Still no output on afternoon recheck. - Called radiology (Dr. Contreras) who advised flushing drain BID w/ 10cc saline. will place order for this - abx? will discuss w/ urology - Abd US tomorrow AM - spoke w/ case management. pt had bedhold at [facility] but he is firm on dispo home because he had been in the hospital for so long and that he feels strong enough after inpatient PT/OT. Case managment states that we can provide Rx for home health eval+treat (for torres care) and PT, OT, nursing [facility] once [facility] date is ready - Diet consult placed. Per updated recs, I added 1.5x order to meal plan. Post-op infection, increasing abdominal pain, back pain - Abdominal pain secondary to fluid collection(s) from 08/04/20 radical prostatectomy anastomotic leak - 600cc urine-appearing aspirated from a fluid collection posterior to the bladder base, anterior to the rectum - torres in place with adequate UOP - abdominal DAMIAN drain in place, no drainage for last 48 hours - IV Zosyn transitioned to PO Augmentin, given overall improvement for several days - Urology continuing to follow - currently no further intervention planned - Recommended serial abd US to monitor for anastomosis leakage - As long as torres drains appropriately, bladder should remain non- stretched which will promote anastomosis improvement - holding home norco 1tab PO tid prn - PRN Tylenol for pain and PRN morphine 2mg IV q3h for breakthrough pain DVTs, history of VTE - holding home eliquis - on therapeutic lovenox 1mg/kg q12h Generalized weakness -PT/OT consults ordered for evaluation and treatment -encouraged patient to get OOB or even to just sit on side of bed for all meals -tolerating ambulation well -will need rehab placement post-hospitalization Left foot pain, improving - unlikely to be gout given uric acid of 2.8 as well as lack of erythema, warmth, and mild tenderness -continue to monitor Bilateral LE Edema - continue home Lasix 40mg po daily Right hand pain secondary to IV infiltration - IV removed, pain is significantly improving and has essentially removed Post-op anemia: - Hgb 7.9 - likely secondary to both operative blood loss and chronic malnutrition status with Alb 1.7 - home dose iron 325mg PO q other day - consider transfusion if Hgb < 7.0 Chronic kidney disease, stage III - creatinine at 1.44, downtrending - baseline 1.2/1.3 - encourage PO intake - BMP daily Chest pain, resolved - EKG not concerning for ischemic event (09/08/2020) - chest pain resolved; seems likely to be musculoskeletal in origin - continue to monitor EFRAÍN - CPAP Depression - home dose sertraline 100mg PO qAM - home dose trazodone 50mg PO qhs History of gout - holding home febuxostat Glaucoma - home brimonidine 1 drop opb bid - home travoprost 1 drop opb qAM FENGI: Heart Healthy DVT prophylaxis: Therapeutic lovenox held as of today, last dose at 0600 (converted from prophylactic dose to therapeutic dose on 09/10/2020). Starting low dose IV heparin drip w/o bolus at 1800, will d/c at 0300. Check PT/INR at 0500 09/23/20. Aspiration procedure at 0900 09/23/20. Code status: DNR/DNI Dispo: med/surg. likely dispo will be home w/ home health based on patient preference. barrier to discharge is waiting on DAMIAN drain removal (3) Status post prostatectomy: (4) History of DVT (deep vein thrombosis): (5) Hypertension: (6) Chronic kidney disease, stage III (moderate): Post Op Fever Patient with what appears to be two abscesses per outside hospital read, I have not been able to see images yet but they are here on disc and will be sent down to radiology Will treat with broad spectrum anitbiotics, d/c'ing gentamicin and rocephin and starting on zosyn Urology consulted for abscess drainage and possible procedure Patient NPO Post Op anemia Secondary to bleed hematoma patient was anticoagulated Hemoglobin relatively stable since discharge Will continue iron supplementation Continue to monitor CBC History of VTE Will hold eliquis for now until Urology evaluation CKD Patient appears at baseline Will supplement with 1/2 NSS 60 mls/hour while NPO EFRAÍN ALlowing him to use own CPAP Deconditioning Will need to return to rehab hospital on d/c DVT PPx: Will continue eliquis following Urology evaluation F/E/N: 1/2 NSS 60 ml/shour NPO Dispo: Admit for broad spectrum ABx and urology evaluation for possible abscess drainage. DNR/DNI (7) Sleep apnea: (8) Postoperative anemia: (9) Prostate cancer: (10) Malnutrition: (11) Gout: (12) Glaucoma: (13) Left ankle pain: Admission and Anticipated Discharge Date Admission Date: September 03, 2020 Subjective feeling good today. no problems after torres removed. no abd pain or leg pain. ros neg urinary incontinent but has diaper. no hematuria. feels ready to go home Patient Review of Systems Review of Systems: Constitutional: Denies fever, chills, weight change Eyes: Denies blurry vision, vision changes ENT: Denies sore throat, sinus pain Cardiovascular: Denies chest pain, palpitations Respiratory: Denies shortness of breath, cough, sputum production, difficulty breathing Gastrointestinal: Denies abdominal pain, nausea, vomiting, constipation, diarrhe a Genitourinary: Denies urinary symptoms including dysuria Musculoskeletal: Denies weakness, muscle aches/pain, joint aches/pain Neurological: Denies headache, numbness, tingling, focal weakness Physical Exam Physical Exam: General: Grossly A&O. NAD. Cooperative. HEENT: Atraumatic, normocephalic. EOMI Pulm: CTAB. -wheezes, -rales, -rhonchi. No respiratory distress. Cardiac: RRR, -mrg. Radial pulses intact and symmetrical. Abdominal: Nontender, nondistended, soft. milder RLQ ttp to dep palpation. otherwise exam unchanged Results & Data Results & Data ([facility]) Vital Signs (Past 12 Hours) Vital Signs Temp Pulse Resp BP Pulse Ox 09/25/20 00:47 36.5 C 60 16 130/70 97 Resident Activity Tracking Resident Involvement: Resident Care Provided Care Provided: Adult [facility] (1) Gout Chronicity: chronic Gout etiology: unspecified cause Gout site: unspecified site Presence of tophus: without tophus Qualified Code(s): M1A.9XX0 - Chronic gout, unspecified, without tophus (tophi) (2) Glaucoma Glaucoma type: unspecified Laterality: right Qualified Code(s): H40.9 - Unspecified glaucoma
[2020-09-25 07:52] LABS: Hematocrit (blood only) 25.8 % (42-52); Mean Corpuscular Volume 87.2 fL (80-100); Mean Platelet Volume 9.6 fL (7.4-10.4); Platelet Count 294 K/uL (130-400); RDW Coefficient of Variation 16.2 % (11.5-14.5); RDW Standard Deviation 51.9 fL (36.4-46.3); Red Blood Count 2.96 M/uL (4.7-6.1); White Blood Count 8.03 K/uL (4.8-10.8)
[2020-09-25 07:59] LABS: Partial Thromboplastin Ratio 1.6; Partial Thromboplastin Time 44.1 Seconds (21.0-31.0)
[2020-09-25 08:23] LABS: BUN Creatinine Ratio 21.3 (10-20); Calcium 8.4 mg/dl (8.5-10.1); Creatinine Clr Calc Pharmacy 67.1 ml/min; Est GFR (African American) 62.9; Est GFR (Non-African American) 54.3
[2020-09-25] MEDS: TRAVOPROST Z 0.004% OPH SOLN 2.5 ML BTL OP SCH (08:57)
[2020-09-25] MEDS: FUROSEMIDE 40 MG TAB PO SCH (08:57)
[2020-09-25] MEDS: SERTRALINE HCL 100 MG TABLET PO SCH (08:57)
[2020-09-25] MEDS: CEROVITE ADV FORMULA TAB PO SCH (08:57)
[2020-09-25] MEDS: FEBUXOSTAT 40 MG TABLET PO SCH (08:57)
[2020-09-25] MEDS: BRIMONIDINE TARTRATE-P 0.15% 5 ML BTL OP SCH (08:57)
--- NOTE | 2020-09-25 11:20 | Ultrasound Report ---
US abdomen limited HISTORY: 70 years-old Male f/u on pelvic fluid collection post torres removal follow-up study in a pa tient with numerous pelvic fluid collections COMPARISON: CT abdomen and pelvis 09/24/2020 TECHNIQUE: Multiple real-time sonographic images of the abdomen were obtained assessing grayscale loan earance and color flow FINDINGS: Midline hypoechoic complex fluid collection of the pelvis measures 6.8 x 3.1 x 4.5 cm on yesterday's study measured 6.8 x 3.0 x 5.5 cm. Lobular complex fluid collection along the right lateral abdominal right lower quadrant is redemonstrated measuring 11.2 x 5.2 x 4.[address] study, this collection measured approximately 10.7 x 5.7 x 3.6 cm when measured in a similar fashion. There is arriaza ggestion of a small connection which connects these 2 fluid collections. No central flow. IMPRESSION: Complex fluid collections of the pelvis redemonstrated and appear unchanged from yesterda y's CT exam. ACT 112: Negative or not required by law. The above report was generated using voice recognition software. It may contain grammatical, syntax o r spelling errors. Electronically signed by: Thor Yeh M.D. 09/25/2020 11:18 AM
--- NOTE | 2020-09-25 15:47 | Urology Progress Note ---
Date of Service September 25, 2020 Assessment & Plan (1) Status post prostatectomy: 70 year-old male patient admitted for post-operative fever secondary to lymphocele/mild anastomotic leak s/p prostatectomy. -Remains afebrile -White count and creatinine are stable -Chavez catheter was removed yesterday, voiding with some periods of urinary incontinence/leakage as expected -OK for discharge from perspective -Will plan to follow-up outpatient with our service in 4-6 weeks following disc harge -Patient agreeable to above plan. All questions were answered. -Thank you for allowing us to participate in the acute care of Mr. Irby. Please reconsult us with additional questions, concerns or changes in patient status. Admission and Anticipated Discharge Date Admission Date: September 03, 2020 Subjective Patient examined at bedside this afternoon Awake, resting in bed on arrival Denies any pain/discomfort at this time Denies hematuria/dysuria Denies fevers or chills Tolerating diet, no nausea or vomiting Chavez catheter removed yesterday Has been voiding in the toilet or urinal with periods of urinary incontinence/leakage Ambulating independently Offers no additional complaints today Chart review: Afebrile WBC 8.03 Cr 1.32 Hgb 8.0 Review of Systems Constitutional: as per Subjective / HPI Gastrointestinal: as per Subjective / HPI Genitourinary: + as per Subjective / HPI Physical Exam Constitutional: cooperative; no acute distress Neck: normal visual inspection Respiratory: normal respiratory effort and able to speak in complete sentences Cardiovascular: Extremities: no calf tenderness Gastrointestinal (Abdomen): Percussion/Palpation: abdomen soft; abdomen nontender and no guarding Musculoskeletal: Head/Neck/Chest: normocephalic Skin: no rashes, warm and dry Neurologic: awake; not confused Psychiatric: Orientation: alert and oriented x 3 Genitourinary: no CVA tenderness Results & Data ([facility]) Vital Signs (Past 12 Hours) Vital Signs Temp Pulse Resp BP Pulse Ox 09/25/20 07:56 37.0 C 60 16 124/67 97 PG Care Time/CCT Total # of Minutes Spent Total Time Spent with Patient: Total time spent is greater than 50% in coordination of care (as documented) at patient's floor/unit and/or counseling patient: Coding Level of Care Code 39860 Subseq Hosp Care Lvl 2 Diagnoses Status post prostatectomy Z90.79
--- NOTE | 2020-09-25 19:57 | Billing Data ---
Date of Service September 25, 2020 Coding Level of Care Code D/C Day Management <30 mins
--- NOTE | 2020-09-26 06:26 | Discharge Summary ---
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 Villafuerte and was only discharged from that admission two days ago. His hospital course was complicated by post op fever cultures negative, treated with a course of IV antibiotics, hematoma and post op ileus. He was discharged to a rehab hospital where yesterday he devel oped a fever of 104 at the rehab hospital. He was brought to [facility] where he was found to be febrile to 100.8. Other vitals WNL, Labwork is significant for elevated white count of 14.2 (up from 12.99 on discharge from this facility) Hemoglobin of 8.3 (Down from 8.9 on d/c) Platelet count elevated at 489, Renal function relatively normal creatinine of 1.38 down from his admission here and appears to be around his baseline lactate negative, electrolytes WNL, LFT's normal. CT scan obtained showing two small fluid colletions suspicious for abscess, dr villafuerte contacted and patient was re commended for transfer to [facility]. He is currently feeling well, he is complaining of some abdominal pain and scrotal swelling. He has been incontinent of stool and urine since his surgery last month. Otherwise feeling well. Requesting to use his own CPAP. DNR/DNI Admission Exam Per Admitting Provider Constitutional: + obese; no acute distress, not ill appearing, no altered mental status and no behavioral limitations Eyes: PERRL, conjunctivae normal, anicteric sclerae ENMT: external ear and nose normal, oropharynx normal Neck: trachea midline, no thyromegaly Respiratory: normal respiratory effort, lungs clear to auscultation Cardiovascular: RRR, no murmur, no edema Vessels: normal peripheral pulses Gastrointestinal (Abdomen): Abdomen soft, tender globally particular centrally and suprapubic, surgical scars from robotic procedure last month are clean dry and non infected appearing Musculoskeletal: no cyanosis or clubbing, extremities motor strength 5/5 Skin: Surgical incisions healing appropriately as noted above, scotum very swollen Principal Diagnosis urine leak Discharge Exam General: Grossly A&O. NAD. Cooperative. HEENT: Atraumatic, normocephalic. EOMI Pulm: CTAB. -wheezes, -rales, -rhonchi. No respiratory distress. Cardiac: RRR, -mrg. Radial pulses intact and symmetrical. Abdominal: Milder RLQ ttp to deep palpation, otherwise exam unchanged from previous days. Soft, nondistended. : Some L scrotal swelling, unchanged in past week, much improved from admission. Msk: LLE ankle nontender to palpation. Discharge Data Allergies Allergy/AdvReac Type Severity Reaction Status Date / Time bee venom protein (honey bee) Allergy Severe Anaphylaxis Verified 08/25/20 14:17 allopurinol Allergy Intermediate Hives Verified 08/25/20 14:17 oxycodone Allergy Intermediate rash, itch Verified 08/14/20 09:18 celecoxib AdvReac Mild NAUSEA Verified 08/14/20 09:18 Consultations 09/03/20 06:01 Consult Urology Routine 09/04/20 06:33 Consult General Surgery Routine 09/10/20 12:43 Consult General Surgery Routine Ordered Studies 09/03/20 17:50 CT abd pelvis IV con only Stat 09/04/20 08:22 CT abscess drainage Urgent 09/10/20 08:21 CT abd pelvis oral con only Routine 09/10/20 16:23 US venous doppler LE BI Urgent 09/12/20 09:38 US guide abscess drain Stat 09/12/20 10:23 CT abd pelvis wo con Urgent 09/15/20 07:00 US abdomen ltd ascites Routine 09/16/20 07:00 US abdomen ltd ascites Routine 09/21/20 16:15 US abdomen ltd ascites Routine 09/23/20 09:00 US punc asp abs/katelyn/bulla/cys Urgent 09/24/20 12:02 CT abd pelvis wo con Routine 09/25/20 08:55 US abdomen limited Routine Hospital Course (1) Abdominal pain: Patrick Irby is a 70 y/o male with a PMH of prostate cancer s/p radical pr ostatectomy (08/14/20) and VTE on chronic eliquis who [facility] with fever, abdominal pain, fatigue, and scrotal swelling two days after being discharged from his post-prostatectomy admission. Admission complicated by sterile complex extraperitoneal fluid collection x 2. Repeat Uresil drain was removed 09/17/20. Abdominal pain s/p prostatectomy, in context of extraperitoneal fluid collection Mr. Irby had a prolonged hospitalization for management of the abdominal fluid collection/leak s/p prostatectomy. He had been discharged from [facility] to [facility] rehab for 2 days when he developed a fever and was brought back for evaluation. The fever resolved after IV antibiotics. Culture of the fluid was sterile. Uresil drain was placed, removed after failing, and a second drain also failed to resolve the fluid collections. A torres was placed for the majority of the admission. Over the course of several weeks, the urine leak resolved and the abd fluid collections stayed but are stable (even after torres removal) and this has been confirmed by imaging. D He has had some persistent RLQ TTP to deep palpation (slightly improved at discharge), without RLQ abd pain at when not palpated. Dispo is home w/ home PT/OT/nursing and f/u w/ urology outpatient. F/u urology in 2 weeks and w/ PCP (at [facility]) on 10/01/20. ultrasound of fluid collections (extraperitoneal) on day of d/c (09/25/20). midline collection: 6.8 x 3.1 x 4.5 cm. RLQ collection 11.2 x 5.2 x 4.2 cm. possible small connection w/o central flow. Deconditioning / Generalized Weakness - Subacute deconditioning 2/2 long-term current (and previous) hospitalization - home PT/OT Normocytic, Hypochromic Anemia - Hgb ~8.0 dating back to 2018 on chart review, asymptomatic on exam - Fe low, TIBC low, transferrin low, ferritin high (422 ; N[[id number]]) - Likely anemia of chronic disease with some supplemental compensation - Continue iron supplementation (325mg PO qod) Malnutrition, chronic - Hypoalbuminemia at 1.7. Continue to promote regular diet CKD Stage III, stable -per patient, on chronic lasix 40mg PO daily ~10 years. continued Recent DVT of the Peroneal Vein - Doppler on 09/10 demonstrated DVT of the peroneal vein and a nonocclusive left popliteal vein DVT - Restarted home Eliquis at discharge Ankle Pain, Left -- MSK, resolved - Tylenol PRN for pain Noncardiac Chest Pain (09/08), resolved Obstructive Sleep Apnea - Continue with home CPAP Depression - Continue home dose sertraline 100mg PO qAM and trazodone 50mg PO qhs Gout: - Continue home febuxostat Glaucoma: - Home brimonidine 1 drop opb bid and home travoprost 1 drop opb qAM DNI/DNI Dispo: home w/ home health. initially had hold at [facility], but patient decided on home dispo after the prolonged length of hospital stay. PT/OT evaled, home w/ home health acceptable. (2) Postoperative fever: (3) Status post prostatectomy: (4) History of DVT (deep vein thrombosis): (5) Hypertension: (6) Chronic kidney disease, stage III (moderate): (7) Sleep apnea: (8) Postoperative anemia: (9) Prostate cancer: (10) Malnutrition: (11) Gout: (12) Glaucoma: (13) Left ankle pain: Total Time Total Time Spent Total Time Spent (In Minutes): <30 Discharge Plan Discharge Items Patient Disposition: Home - Home Health Services Reason For Visit: POST OP FEVER Discharge Diagnosis: extraperitoneal abdominal fluid collection Activity: Per Instructions section Non-emergency contact: Primary Care Provider and Urologist Call non-emergency contact if: you have any medication questions, your symptoms worsen and you have a fever Follow-up/Referrals: Shahzad Villafuerte DO [Physician] - 10/07/20 9:00 am (please follow up in 2 weeks) Patrick Brizuela DO [Primary Care Provider] - ([facility] [place] [place] STATES SHE WILL CALL PATIENT WITH A FOLLOW UP APPT WITHIN 1 WEEK OF DISCHARGE.) Diet: Regular Addtl Attending Provider Instructions: Hi Mr. Adams You were admitted to [facility] on 09/03/20 and have had a prolonged hospitalization for management of the abdominal fluid collection/leak that you had after the prostate surgery you had on 08/14/20. You had just been discharged from [facility] to [facility] rehab for 2 days when you developed a fever and was brought back for evaluation. We gave you some IV antibiotics and your fever resolved. For the abdominal fluid collection, we attempted draining and also sent some of the fluid to the lab and found that the fluid was not infected. The fluid collection was managed with a drain that was eventually removed because it stopped draining and we also attempted a second drain. While here, we provided you with a torres catheter to assist with the urine drainage to prevent it from backing up. The urologists here saw you and provided recommendations as well. We performed several ultrasounds and CT scans to monitor the fluid collection. Afterwards, we tried removing some fluid with a needle and were able to take out 8ccs. On the day before discharge, we checked a cystogram where we injected some dye into the torres to check for the urine leak. It did not show any leak. Then, we removed the torres and waited a day before rechecking an abdominal ultrasound to make sure the fluid collection didn't enlarge. It did not enlarge, so I feel comfortable sending you home today. You will be receiving home health services including PT, OT, and nursing services. Please continue the same medicines you were taking at home previously. During this hospitalization, we gave you Lovenox because it is easier to reverse in case we needed to do a procedure. Please restart the eliquis (apixaban) that you were previously taking 5 mg twice a day when you are home. You were continued on lasix 40 mg pill once a day. You stated that you have been on this medicine for 10 years. You [facility]. I have requested that you have a follow up appointment with Dr. Villafuerte the urologist in 2 weeks. You will be called with details of the appointment once it is made. Please call the [facility] urology office in a few day if you do not hear back. malnutrition: your albumin level was low. I was concerned about malnutrition and had Kj the regional guide give recommendations. We gave you more food and changed to the regular unrestricted meal plan while here left foot pain: you had some left foot pain that we thought was musculoskeletal in origin. You took tylenol for this pain. kidney disease, stage 3: we monitored your kidney function while here and your creatinine went up a little higher than your normal, but went back down to approximately your normal depression: we continued your home sertraline and trazodone gout: we continued your home febuxostat glaucoma: we continued your home brimonidine and travoprost anemia: you had anemia (low hemoglobin) after your prostate surgery and your levels stayed constant afterwards. You did not have any symptoms from this. Please continue taking iron supplement pills every other day. chest pain, resolved: your ekg did not show any new changes and was not suggestive of new heart tissue damage sleep apnea: please continue your home CPAP at night If you develop any new or worsening symptoms including fever, chills, sweats, chest pain, chest pressure, difficulty breathing, uncontrolled nausea/vomiting, rash, wheezing, passing out or nearly passing out, bleeding, black/bloody bowel movements, or other new or concerning symptoms please call your primary care physician, or call 911 for re-evaluation in the emergency department if you are very concerned. Specifically, pay attention to worsening abdominal pain, bloody urine, or fevers. Pending Studies at Discharge: No Stand-Alone Forms: [facility], Opioid Pain Management, Smoking Cessation Medications and DC Order Prescriptions: Continued Eliquis 5 mg tablet 5 mg PO BID RF: 0 febuxostat [Uloric] 40 mg tablet 40 mg PO QAM RF: 0 acetaminophen [Tylenol 8 Hour] 650 mg tablet extended release 650 mg PO QAM RF: 0 travoprost [Travatan Z] 0.004 % Drops 1 drp OPHTHALMIC (EYE) QAM RF: 0 furosemide [Lasix] 40 mg Tablet 40 mg PO QAM RF: 0 brimonidine 0.2 % Drops 1 drp OPB BID RF: 0 multivitamin with minerals Tablet 1 tab PO QPM RF: 0 sertraline 100 mg Tablet 100 mg PO QPM RF: 0 trazodone 50 mg Tablet 50 mg PO HS RF: 0 potassium 99 mg Tablet 99 mg PO RF: 0 docusate sodium [Colace] 100 mg capsule 100 mg PO BID Qty: 60 RF: 0 hydrocodone-acetaminophen [Dresser] 5-325 mg tablet 1 tab PO TID PRN (Reason: pain) Qty: 14 RF: 0 ferrous sulfate 325 mg (65 mg iron) tablet 325 mg PO Q OTHER DAY Qty: 30 RF: 0 Discharge Orders: Discharge Order (Routine); Ordered 09/25/20 Ordered By: Nasir Reddy/Other Patient Handouts: Healthy Kidneys Admission Data Admit Date/Time: 09/03/20 04:57 Attending Provider: Natalio Kiran Admit Provider: Meir Montaño Primary Care Provider: Patrick Brizuela Other Providers: Shahzad Villafuerte ; Josr Sabillon ; Elidia Anguiano ; Osmin Salmeron ; Natalio Kiran ; [facility] ; Nasir Teresa ; Sheri Avendano Other Interventions: Discharge Summary Assessment (RN) Last Done: 09/25/20 16:36 Supervising Physician Co-Signing Physician Notes I personally examined the patient and verified all lindsey points of history and exam, discussed case, and agree with decision making with Dr Teresa. feeling better overall. up to going home! vitals noted nad heent nc at mmm breathing unlabored no accessory muscles good effort skin no rashes no pallor or icterus neuro no focal deficits. abd soft nd nt pelvic fluid collection post prostatectomy - seems to be improving. cystogram 09/24 shows no evidence of ongoing leak, and torres removed for about 24hrs wiht no new abdominal pain and no growing collection on US. safe for home. outpt f/u DVT - has hx of recurrent DVT and sx mostly just foot swelling not calf - and popliteal vein not occluded totally - strongly suspect that this is an old clot. dc on eliquis as he has been on prior to admission constipation - will need ongoing bowel regimen at home - still significant amount of stool noted on CT - outpt f/u in this regard night sweats - unclear etiology. follow up as outpt if still ongoing PTSD - seems to be doing well in this regard. otherwise as above, stable for home Resident Activity Tracking Resident Involvement: Resident Care Provided Care Provided: Adult Hospital Medicine
== END 2020-09-25 17:42 | disposition home health service (06) | DRG 394 ==
LOC: SUATTDRO 04:57 → 3W 04:57